=== PATIENT | female | born 1945 | race Caucasian/White ===

== ENCOUNTER 2021-04-03 12:57 | Outpatient (CLI) | payer MEDICARE, OTHER, SELFPAY ==
[2021-04-03 13:21] VITALS: BP 155/74; PULSE 73; RESP 14; TEMP 36.4; O2SAT 100; BMI 23.0
[2021-04-03 14:04] VITALS: BP 135/76; PULSE 72; RESP 16; TEMP 36.3; O2SAT 100
[2021-04-03 15:06] VITALS: BP 165/80; PULSE 65; RESP 16; TEMP 36.6; O2SAT 99
[2021-04-03 15:50] VITALS: BP 177/83; PULSE 72; RESP 16; TEMP 36.5; O2SAT 99
[2021-04-03] MEDS: Furosemide 20 MG/2 ML VIAL IV (16:19)
== END 2021-04-03 23:59 | disposition short-term general hospital (02) ==
PROVIDERS: PCP Internal Medicine; Referring Provider Internal Medicine Hematology & Oncology; Visit Provider Internal Medicine Hematology & Oncology
DX: N18.5 Chronic kidney disease, stage 5 (principal); D64.9 Anemia, unspecified
CPT/HCPCS: 36430; 86850; 86900; 86901; 86920; 86922; P9016; J1940

== ENCOUNTER 2023-02-08 17:52 | Observation (INO) | payer MEDICARE, OTHER, SELFPAY ==
[2023-02-08] VITALS (11 sets, daily range): BP systolic 159–217; BP diastolic 85–107; PULSE 73–100; RESP 16–25; TEMP 36.7–37.1; O2SAT 64–99; BMI 23.5; BMI 24.5
--- NOTE | 2023-02-08 18:47 | EKG12_ITS ---
Test Reason : CP Blood Pressure : / mmHG Vent. Rate : 092 BPM Atrial Rate : 000 BPM P-R Int : 000 ms QRS Dur : 082 ms QT Int : 384 ms P-R-T Axes : 000 026 -44 degrees QTc Int : 474 ms Atrial fibrillation with premature ventricular or aberrantly conducted complexes Septal infarct , age undetermined ST & T wave abnormality, consider inferior ischemia Abnormal ECG Confirmed by MK BOLAND, PEARL ([id number]), primer expeditor and drier ANTHONY HIDALGO ([id number]) on 02/19/2023 10:00:01 AM Referred By: BEN/ANIKET Confirmed By:PEARL TERRAZAS MD
--- NOTE | 2023-02-08 18:51 | EX.ED.DYSGE1 ---
HPI History of Present Illness Chief Complaint: Nausea/Vomiting/Diarrhea Detail of Chief Complaint: Nausea and vomiting, chest pain, abdominal pain Informant: patient Narrative Narrative: Patient presents with nausea and vomiting this been ongoing since this morning. She complains of pain across her chest as well as in her left upper quadrant. No fever noted. Patient has Zofran, however states she turned blue after taking in the past and has not taken anymore. She does have an anxiety pill that she states she takes when she gets nauseated. Previous evaluations and work-ups have been through [facility], the patient states she was not happy with care at [place] last time so she came to [place] today. [facility] Medical History (Updated 02/08/23 @ 21:[address] Sweta Isabel MD) Atrial fibrillation Chronic renal failure CVA (cerebral vascular accident) Dialysis patient GI bleed High cholesterol Hx of gastroesophageal reflux (GERD) Hypertension Kidney transplant pain Presence of Watchman left atrial appendage closure device Sick sinus syndrome Skin cancer Vascular dementia Home Medications amlodipine 10 mg tablet 10 mg PO DAILY 02/08/23 [History Last Taken Unknown] aspirin 81 mg tablet,delayed release (Adult Aspirin Regimen) 81 mg PO DAILY 02/08/23 [History Last Taken Unknown] carvedilol 25 mg tablet 25 mg PO Q12H HTN 02/08/23 [History Last Taken Unknown] furosemide 40 mg tablet 40 mg PO 02/08/23 [History Last Taken Unknown] hydralazine 25 mg tablet 25 mg PO Q8H EDEMA 02/08/23 [History Last Taken Unknown] mirtazapine 7.5 mg tablet 7.5 mg PO QHS STRESS 02/08/23 [History Last Taken Unknown] ondansetron HCl 4 mg tablet 4 mg PO Q8H PRN nausea and vomiting 02/08/23 [History Last Taken Unknown] Allergy/AdvReac Type Severity Reaction Status Date / Time Penicillins Allergy Mild hands blue Verified 02/08/23 17:54 Opioids - Morphine Analogues Allergy Anaphylaxis Verified 02/08/23 17:53 Surgical History (Updated 02/08/23 @ 21:[address] Sweta Isabel MD) H/O: hysterectomy History of hernia repair History of permanent cardiac pacemaker placement Hx of cholecystectomy Social History Smoking Status: Never smoker ROS ROS ED Constitutional Constitutional ED: Denies chills or fever(s) Eyes Eyes: Denies discharge from eye(s) ENT ENT ED: Denies discharge from eye(s), rhinorrhea or sore throat Cardiovascular Cardiovascular: Reports chest pain; Denies palpitations Respiratory/Chest Respiratory/Chest: Denies cough or dyspnea Gastrointestinal Gastrointestinal: Reports abdominal pain, diarrhea, nausea and vomiting Genitourinary Genitourinary ED: Reports urinary frequency; Denies difficulty urinating or dysuria Musculoskeletal Musculoskeletal: Denies back pain or extremity pain Integumentary Denies Abrasions or rash Neurologic Neurologic: Denies headache(s) or weakness Psychiatric Psychiatric: Denies anxiety or depression Allergic/Immunologic Allergic/Immunologic ED: Denies lip swelling or urticaria EXAM Physical Exam Const Vital Signs: 02/08/23 17:55 02/08/23 17:53 02/08/23 19:06 Temperature 98.8 F Temperature Source Temporal Pulse Rate 100 89 Respiratory Rate 18 22 H Respiratory Effort Short of Breath Blood Pressure 186/92 H 160/107 H Blood Pressure Mean 123 124 Pulse Ox 99 96 Oxygen Delivery Method Room Air Room Air 02/08/23 18:53 02/08/23 19:00 02/08/23 19:40 Temperature Temperature Source Pulse Rate 88 88 76 Respiratory Rate 17 16 20 H Respiratory Effort Blood Pressure 178/88 H 212/95 H 217/85 H Blood Pressure Mean 118 134 129 Pulse Ox 99 96 64 Oxygen Delivery Method Room Air Room Air Room Air 02/08/23 20:00 02/08/23 20:42 Temperature Temperature Source Pulse Rate 86 78 Respiratory Rate 20 H 21 H Respiratory Effort Blood Pressure 196/104 H 210/85 H Blood Pressure Mean 134 126 Pulse Ox 96 96 Oxygen Delivery Method Room Air Room Air Positive well nourished and well developed General Appearance ED: well developed HEENT Reports dry mucous membranes Mouth ED: Yes dry mucous membranes Mouth: dry mucous membranes Eyes EOMs intact bilaterally Chest Wall inspection of chest normal and palpation of chest normal Resp normal respiratory effort and clear to auscultation bilaterally Cardio Rhythm: abnormal rhythm irregularly irregular GI GI Narrative: Abdomen soft with mild tenderness in left upper quadrant. No guarding or rebound. Hypoactive bowel sounds. Neuro oriented x3 Neuro Narrative: No focal neurologic deficits. 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 Patient states she cannot take Zofran because it makes her turn blue. She was given a dose of Phenergan and a small IV fluid bolus as she felt dehydrated. EKG obtained to evaluate for cardiac arrhythmia/ischemia. Chest x-ray obtained to evaluate for acute lung pathology, cardiac size, or mediastinal abnormality. Labwork obtained to evaluate for leukocytosis, anemia, and electrolyte derangement. Urinalysis obtained to evaluate for infection/hematuria. History & Record Review Discussion w/independent historian: Patient and Family Lab Data Attestation: I reviewed the patient's lab results. Labs: Laboratory Results - last 24 hr 02/08/23 02/08/23 18:20 19:47 WBC 4.6 RBC 3.72 L Hgb 11.4 L Hct 35.4 L MCV 95.2 MCH 30.6 MCHC 32.2 RDW Std Deviation 52.0 H RDW Coeff of Alexus 14.9 H Plt Count 151 MPV 12.2 H Immature Gran % (Auto) 0.400 Neut % (Auto) 75.6 H Lymph % (Auto) 16.6 L [place] % (Auto) 6.8 Eos % (Auto) 0.2 Baso % (Auto) 0.4 Absolute Neuts (auto) 3.5 Absolute Lymphs (auto) 0.76 L Nucleated RBC % 0 Sodium 133 L Potassium 3.5 Chloride 96 L Carbon Dioxide 29.0 Anion Gap 8 BUN 29 H Creatinine 3.85 H Est GFR (MDRD) Af Amer 15 L Est GFR (MDRD) Non-Af 12 L BUN/Creatinine Ratio 7.5 L Glucose 106 Calcium 9.2 Total Bilirubin 0.70 Direct Bilirubin 0.24 AST 19 ALT 13 Alkaline Phosphatase 94 Troponin I High Sens 22 Total Protein 7.5 Albumin 3.8 Globulin 3.7 Lipase 32 Urine Color Yellow Urine Clarity Clear Urine pH 8.0 Ur Specific [place] 1.010 Urine Protein 100 H Urine Glucose (UA) Normal Urine Ketones 5 H Urine Occult Blood Negative Urine Nitrite Negative Urine Bilirubin Negative Urine Urobilinogen Normal Ur Leukocyte Esterase 25 H Urine RBC 0 SEEN Urine WBC 0-5 SEEN Ur Squamous Epith Cells 0 SEEN Urine Bacteria 0 SEEN Urine Mucus 0 SEEN Radiography Chest X-Ray - ED: 1 View, Read by ED Physician, Chronic Changes and No Infiltrates Diagnostic Testing: Clinical Impression(s) from Imaging Studies Chest X-Ray 02/08/23 19:05 IMPRESSION: Nonacute portable x-ray examination of the chest. Electronically Signed: Bishop Desai MD ([place]) at 19:28 EST , EKG Initial EKG: Attestation: I personally reviewed and interpreted this EKG as follows: Interpretation: Atrial Fibrillation (Atrial fibrillation at 92 bpm. Occasional PVCs. No acute ischemia.) Treatment and Re-Evaluation :: CBC was normal white count 4.6 with 75% neutrophils. Hemoglobin is 11.4. Chemistry studies reveal a sodium of 133. Potassium is normal 3.5. BUN is 29 and creatinine is 3.85. LFTs and lipase are normal. Troponin is normal at 22. Urinalysis reveals no evidence of infection. EKG is atrial fibrillation with no acute ischemia. Chest x-ray per my interpretation reveals chronic changes with no focal infiltrate. Patient reported no significant proved in her nausea with Phenergan. She was given a dose of Reglan with a small dose of Benadryl. At this time she still states that her nausea is not improved. Family does not feel they can care for her at home with her ongoing nausea and vomiting. I will speak with the hospitalist regarding admission for treatment of intractable vomiting. Patient's blood pressure did increase here up to 210/85. She was given a dose of hydralazine and repeat pressure is currently 186/96. This will be monitored and a second dose of hydralazine will be given if needed. Patient is due for her evening medications in approximately 1 hour. Discharge Plan Dx/Rx/DC Orders Clinical Impression: Intractable vomiting Disposition Disposition: Acute Care Hospital [facility]
--- NOTE | 2023-02-08 19:05 | RAD_ITS ---
STUDY: X-RAY CHEST REASON FOR EXAM: Female, 77 years old. cp TECHNIQUE: Single AP portable view of the chest. COMPARISON: None. FINDINGS: EKG leads project over the chest. Right jugular dialysis catheter with tip overlying the cavoatrial junction. Two lead cardiac conduction device is seen via the left subclavian vein with lead tips projecting over the right atrium and right ventricle, respectively. EKG leads project over the chest. Coarsened interstitial lung markings without focal airspace disease. There is no demonstrated pleural abnormality. There is mild cardiac enlargement. Left atrial appendage occlusion device. Normal visualized pulmonary arteries. There is atherosclerotic calcification of the aortic arch with tortuosity. There is demineralization of the osseous structures. Normal visualized ribs, clavicles, and shoulders. There is no demonstrated abnormality of the visualized soft tissue structures of the upper abdomen. RAD/Chest 1 View (Portable) IMPRESSION: Nonacute portable x-ray examination of the chest. Electronically Signed: Bishop Desai MD ([place]) at 19:28 EST Reading Location ID and State: [facility] / [place] , Service support ,
--- NOTE | 2023-02-08 19:05 | NURSING ---
NO OLD EKG
[2023-02-08 19:14] LABS: Absolute Lymphocyte Count 0.76 X10^3/uL (0.83-4.51); Absolute Neutrophil Count 3.5 X10^3/uL (2.0-7.7); Basophil# 0.02 X10^3/uL; Basophil% 0.4 % (0-1); Eosinophil# 0.01 X10^3/uL; Eosinophils% 0.2 % (0-5); Hematocrit 35.4 % (37-47); Hemoglobin 11.4 g/dL (12.0-15.0); Lymphocyte # 0.76 X10^3/ul (0.83-4.51); Lymphocyte % 16.6 % (19-41); Mean Corp Hgb Conc 32.2 g/dL (32-36); Mean Corpuscular Hgb 30.6 pg (27.0-32.0); Mean Corpuscular Volume 95.2 fL (81-99); Mean Platelet Vol. 12.2 fl (6.2-12.0); Monocyte# 0.31 X10^3/uL; Monocyte% 6.8 % (0-10); NRBC Flagged by Analyzer 0 % (0-5); Neutrophil # 3.45 X10^3/uL (2.7-7.7); Neutrophil % 75.6 % (47-70); Platelet Count 151 K/mm3 (150-450); RBC Distribution Width CV 14.9 % (11.6-14.6); Red Blood Count 3.72 M/mm3 (4.2-5.4); White Blood Count 4.6 K/mm3 (4.4-11.0)
[2023-02-08] MEDS: 0.9% Normal Saline (500mL Bag) 500 ML 1000 ML IV (19:21)
[2023-02-08] MEDS: proMETHazine 25 MG/ML Syringe 6.25 MG IM (19:21)
[2023-02-08 19:35] LABS: AST(SGOT) 19 U/L (15-37); Alanine Aminotransfer ALT/SGPT 13 U/L (13-56); Albumin, Serum 3.8 g/dL (3.2-5.0); Alkaline Phosphatase 94 U/L (45-117); Anion Gap 8 (5-15); BUN 29 mg/dL (7-18); BUN/Creat Ratio 7.5 RATIO (10-20); Bilirubin, Direct 0.24 mg/dL (0.00-0.30); Calcium,Total 9.2 mg/dL (8.5-10.1); Chloride 96 mmol/L (98-107); Creatinine, Serum 3.85 mg/dL (0.55-1.02); EST Glomerular Filtration Rate 12 mL/min (>60); Est Glom Filt Rate - Afr Amer 15 mL/min (>60); Globulin 3.7 g/dL (2.2-4.2); Glucose 106 mg/dL (74-106); Lipase 32 U/L (13-75); Potassium 3.5 mmol/L (3.5-5.1); Protein, Total 7.5 g/dL (6.4-8.2); Sodium Level 133 mmol/L (136-145); Troponin-I HS 22 pg/mL (3.0-54.0)
[2023-02-08 19:55] LABS: Bacteria 0 SEEN /hpf (None Seen); Mucous, Urine 0 SEEN /hpf (<or=2+); Red Blood Cells-Urine 0 SEEN /hpf (0-5); Squamous Epithelial Cells - UA 0 SEEN /hpf (5-10)
[2023-02-08 20:06] LABS: Color, Urine Yellow (Yellow); Glucose, Dipstick Normal (Normal); Ketone-Dipstick 5 mg/dl (Negative); Leukocyte Esterase-Dipstick 25 /ul (Negative); Nitrite-Dipstick Negative (Negative); Occult Blood-Urine Negative /ul (Negative); Protein-Dipstick 100 mg/dl (Negative); Urine Bilirubin Dipstick Negative (Negative); Urine Clarity Clear (Clear); Urine Urobilinogen Normal (Normal)
[2023-02-08 20:15] LABS: White Blood Cells 0-5 SEEN /hpf (0-5)
[2023-02-08] MEDS: DiphenhydrAMINE 50 MG/ML Syringe 12.5 MG IV (20:34)
[2023-02-08] MEDS: Metoclopramide 10 MG/2 ML Vial 5 MG IV (20:34)
[2023-02-08] MEDS: hydrALAZINE 20 MG/ML Vial 10 MG IV (20:35)
[2023-02-08] MEDS: hydrALAZINE 20 MG/ML Vial IV (21:52)
[2023-02-08] MEDS: fentaNYL 100 MCG/2 ML Ampul 25 MCG IV (22:23)
--- NOTE | 2023-02-08 22:56 | HP.PCM.HOS_ITS ---
[facility] - General General Date of Admission: 02/08/23 Date of Service: 02/08/23 Chief Complaint: Abdominal pain, nausea, vomiting and diarrhea HPI Narrative JOVANY HARRIS, is a 77 F with a past medical history of essential hypertension, hyperlipidemia, remote history of renal transplant from her son approximately 26 years ago, end-stage renal disease on hemodialysis (M-W-F) followed by Dr. Hammonds of the nephrology service with her dialysis access in her right upper chest, history of atrial fibrillation; status post Watchman left atrial appendage closure device, history of arrhythmia; status post permanent pacemaker placement, history of CVA, history of hysterectomy, history of cholecystectomy, history of hernia repair, history of GERD, history of GI bleed, history of vascular dementia, history of skin cancer, osteoarthritis, history of severe COVID-19 treated at [facility] for 5-1/2 weeks about a year ago, recent admission to [facility] 2 months ago with UTI and E. coli food poisoning and history of allergy to Zofran with patient reporting it makes her turn blue and be unable to breathe who presents to [facility] complaining of abdominal pain, nausea, vomiting and diarrhea. Ms. Harris reports her symp toms began while on Friday, February 07, 2023 with the abrupt onset of nausea, vomiting with bilious emesis and left upper quadrant pain. Then earlier today on the morning of February 08, 2023 with severe 10 out of 10, sharp, excruciating pain under her left rib cage into her left upper quadrant and then radiated across her entire abdomen and chest. She explains she has had this pain worked up in the past few years with no clear diagnosis up to this point - which is very frustrating to her because it is recurrent and intolerable. She also admits to severe associated anxiety with nausea and multiple episodes of bilious emesis. She also admits to nonbloody diarrhea. After arriving on the floor she was noted to have a CT scan of the abdomen pelvis positive for ~1.7 cm common bile duct dilatation suspicious for a common bile duct stone and/or cholestasis with microlithiasis (with MRCP relatively contraindicated due to permanent pacemaker) complicated by severe left upper quadrant pain with intractable nausea, vomiting and diarrhea with a highly elevated blood pressure of 217/85 mmHg present on admission consistent with hypertensive urgency requiring multiple doses of IV hydralazine she was then admitted to the general medical floor under observation status for ongoing care for a stay that is expected to be less than 48 hours. [facility] Medical History Atrial fibrillation Chronic renal failure CVA (cerebral vascular accident) Dialysis patient GI bleed High cholesterol Hx of gastroesophageal reflux (GERD) Hypertension Kidney transplant pain Presence of Watchman left atrial appendage closure device Sick sinus syndrome Skin cancer Vascular dementia Home Medications aspirin 81 mg tablet,delayed release (Adult Aspirin Regimen) 81 mg PO DAILY 02/08/23 [History Last Taken 02/08/23] calcium citrate 250 mg calcium-vitamin D3 5 mcg (200 unit) tablet 1 tab PO DAILY 02/08/23 [History Last Taken 02/07/23] carvedilol 25 mg tablet 25 mg PO Q12H HTN 02/08/23 [History Last Taken 02/07/23] furosemide 40 mg tablet 40 mg PO DAILY 02/08/23 [History Last Taken 02/08/23] hydralazine 25 mg tablet 75 mg PO TID EDEMA 02/08/23 [History Last Taken 02/08/23] mirtazapine 7.5 mg tablet 7.5 mg PO QHS STRESS 02/08/23 [History Last Taken Unknown] omeprazole-sodium bicarbonate See Rx Instructions .Route .COMPLEX 02/08/23 [History Last Taken 02/07/23] ondansetron HCl 4 mg tablet 4 mg PO Q8H PRN nausea and vomiting 02/08/23 [History Last Taken 02/08/23] pantoprazole 40 mg tablet,delayed release 40 mg PO DAILY 02/08/23 [History Last Taken Unknown] promethazine 12.5 mg tablet 12.5 mg PO Q6H PRN nausea and vomiting 02/08/23 [History Last Taken Unknown] Allergy/AdvReac Type Severity Reaction Status Date / Time amlodipine Allergy Intermediate turns blue Verified 02/08/23 21:54 acetaminophen Allergy Mild unknown Verified 02/08/23 21:36 [From Panlor (hydrocodone-acetamin)] ascorbic acid Allergy Mild unknown Verified 02/08/23 21:36 [From Airborne (ascorbate sodium)] caffeine Allergy Mild unknown Verified 02/08/23 21:36 Gosper And Derivatives Allergy Mild unknown Verified 02/08/23 21:36 codeine Allergy Mild unknown Verified 02/08/23 21:36 desloratadine Allergy Mild unknown Verified 02/08/23 21:36 glutamine Allergy Mild unknown Verified 02/08/23 21:36 [From Airborne (ascorbate sodium)] herbal complex no.124 Allergy Mild unknown Verified 02/08/23 21:36 [From Airborne (ascorbate sodium)] hydrocodone Allergy Mild unknown Verified 02/08/23 21:36 hydromorphone Allergy Mild unknown Verified 02/08/23 21:36 lysine HCl Allergy Mild unknown Verified 02/08/23 21:36 [From Airborne (ascorbate sodium)] morphine Allergy Mild unknown Verified 02/08/23 21:36 moxifloxacin Allergy Mild unknown Verified 02/08/23 21:36 multivitamin with minerals Allergy Mild unknown Verified 02/08/23 21:36 [From Airborne (ascorbate sodium)] nabumetone Allergy Mild unknown Verified 02/08/23 21:36 oxycodone Allergy Mild unknown Verified 02/08/23 21:36 penicillin G Allergy Mild unknown Verified 02/08/23 21:36 Penicillins Allergy Mild hands blue Verified 02/08/23 17:54 propoxyphene Allergy Mild unknown Verified 02/08/23 21:36 [From Margesic (propoxyphene)] tramadol Allergy Mild unknown Verified 02/08/23 21:36 amiodarone Allergy Unknown unknown Verified 02/08/23 21:36 Opioids - Morphine Analogues Allergy Anaphylaxis Verified 02/08/23 17:53 Surgical History H/O: hysterectomy History of hernia repair History of permanent cardiac pacemaker placement Hx of cholecystectomy Social History Smoking Status: Never smoker ROS ROS Narrative Review of systems: Constitutional: Patient denies fever chills ENT: Patient denies runny nose, sore throat or discharge from eyes Cardiovascular: Patient admits to chest pain radiating up from her abdomen but denies palpitations Respiratory: Patient denies shortness of breath or cough Gastrointestinal: Patient admits to abdominal pain, nausea, vomiting and diarrhea Genitourinary: Patient admits to urinary frequency but denies dysuria Musculoskeletal: Patient denies back pain, neck pain or pain in extremities Integumentary: Patient denies abrasions or rash Neurologic: Patient denies headache or focal neurologic deficits Psychiatric: Patient denies depression but is anxious Allergic: Patient denies lip swelling or urticaria 14 point review systems otherwise negative except for positives noted above in HPI. Vital Signs Vital Signs Vital Signs: 02/08/23 17:55 02/08/23 17:53 02/08/23 19:06 Temperature 98.8 F Temperature Source Temporal Pulse Rate 100 89 Respiratory Rate 18 22 H Respiratory Effort Short of Breath Blood Pressure 186/92 H 160/107 H Blood Pressure Mean 123 124 Pulse Ox 99 96 Oxygen Delivery Method Room Air Room Air 02/08/23 18:53 02/08/23 19:00 02/08/23 19:40 Temperature Temperature Source Pulse Rate 88 88 76 Respiratory Rate 17 16 20 H Respiratory Effort Blood Pressure 178/88 H 212/95 H 217/85 H Blood Pressure Mean 118 134 129 Pulse Ox 99 96 64 Oxygen Delivery Method Room Air Room Air Room Air 02/08/23 20:00 02/08/23 20:42 02/08/23 21:30 Temperature Temperature Source Pulse Rate 86 78 81 Respiratory Rate 20 H 21 H 24 H Respiratory Effort Blood Pressure 196/104 H 210/85 H 159/102 H Blood Pressure Mean 134 126 121 Pulse Ox 96 96 95 Oxygen Delivery Method Room Air Room Air 02/08/23 21:49 02/08/23 22:26 Temperature 98.1 F Temperature Source Pulse Rate 95 84 Respiratory Rate 18 25 H Respiratory Effort Blood Pressure 172/97 H 172/94 H Blood Pressure Mean 122 120 Pulse Ox 95 95 Oxygen Delivery Method Room Air Weight Weight: 117 lb 4.575 oz Body Mass Index (BMI) 24.5 Physical Exam Const alert, oriented x3 and average body habitus Constitutional Narrative: Patient appears anxious and in [id number] distress. General Appearance: cooperative HEENT normocephalic, head/scalp atraumatic, hearing grossly normal bilaterally, moist oral mucous membranes and oropharynx normal Eyes PERRL, EOMs intact bilaterally and conjunctivae normal Neck no lymphadenopathy, supple and no JVD Resp normal respiratory effort, no retractions, no use of accessory muscles and clear to auscultation bilaterally Cardio Cardio Narrative: Irregularly irregular at 92 bpm GI normal to inspection, nondistended, normoactive bowel sounds, soft to palpation and non-distended GI Narrative: Patient mildly tender in the left upper quadrant. Extremity normal to inspection, full ROM and no clubbing, cyanosis or edema Neuro oriented x3, CN's II-XII intact bilaterally, moves all extremities and no focal motor deficits Sensorium / Orientation: awake, alert, oriented to person, oriented to place and oriented to time Speech: speech normal Motor Exam: strength 5/5 throughout Psych Mood & Affect: anxious Results Medical Records Data Attestation: I reviewed the patient's medical records Lab / Micro Data Attestation: I reviewed the patient's lab results. Lab results narrative: [facility] Imaging Services [address] [place] [address] Abdomen/Pelvis without Cont MR#: [id number] Acct: [id number] Name: JOVANY HARRIS Rep #: [id number] : 1945 F 77 From: John Shine MD PCP: Dr. Bradley Hardin MD Status: ADM ABDULAZIZ Study: Abdomen/Pelvis without Cont Date of Exam: 02/08/23 Exam# [id number] Ordering Dr: Chi Glez DO EXAM: CT ABDOMEN AND PELVIS WITHOUT INTRAVENOUS CONTRAST CLINICAL INDICATION: Left upper quadrant pain with n/v and diarrhea TECHNIQUE: Helically acquired images were obtained of the abdomen and pelvis without intravenous contrast. This CT exam was performed using one or more of the following dose reduction techniques: automated exposure control, adjustment of the mA and/or kV according to patient size, and/or use of iterative reconstruction technique. RADIATION DOSE: CTDIvol = 6.22 mGy, DLP = 279.59 mGy-cm COMPARISON: No relevant prior studies available. FINDINGS: LOWER THORAX: Bibasilar subsegmental atelectasis. No cardiomegaly. No significant pericardial effusion. ABDOMEN: LIVER: Unremarkable. Homogeneous. GALLBLADDER AND BILE DUCTS: The gallbladder is not identified and may be contracted or surgically absent. Dilation of the common bile duct up to 1.7 cm, before tapering in the pancreatic head. PANCREAS: No inflammation around the pancreas. SPLEEN: Unremarkable. Normal size without focal cystic or solid mass. ADRENALS: Unremarkable. No nodules. KIDNEYS AND URETERS: Severe atrophy of the [place] kidneys. Transplant kidney in the right pelvis. No obstructive changes. STOMACH AND BOWEL: Diverticular disease of the colon but no diverticulitis. No stomach or bowel distention. PELVIS: APPENDIX: No evidence of acute appendicitis. BLADDER: Unremarkable. REPRODUCTIVE: Unremarkable as visualized. No mass. ABDOMEN and PELVIS: INTRAPERITONEAL SPACE: Unremarkable. No ascites or other fluid collection. No free air. BONES/JOINTS: Degenerative changes of the spine. No suspicious lytic or blastic abnormality. SOFT TISSUES: Unremarkable. No discrete abdominal or pelvic wall hernia. VASCULATURE: Severe atherosclerotic changes of the abdominal aorta and its major branches without aneurysm. LYMPH NODES: Unremarkable. No enlarged lymph nodes. CT/Abdomen/Pelvis without Cont IMPRESSION: 1. Dilation of the common bile duct up to 1.7 cm, before tapering in the pancreatic head. No obstructing stone or mass identified. Correlate for any laboratory evidence of biliary obstruction and consider follow-up with MRCP. 2. Transplant kidney in the right pelvis. No obstructive changes. 3. Diverticular disease of the colon but no diverticulitis. Electronically Signed: John Shine MD at 1:43 EST , CC: Dr. Bradley Hardin MD; Dr. Chi Glez DO ~ Special Education Pres[employer] Teacher: 02/08/23 18:20 02/08/23 18:20 Labs: Laboratory Results - last 24 hr 02/08/23 18:20: WBC 4.6, RBC 3.72 L, Hgb 11.4 L, Hct 35.4 L, MCV 95.2, MCH 30.6, MCHC 32.2, RDW Std Deviation 52.0 H, RDW Coeff of Alexus 14.9 H, Plt Count 151, MPV 12.2 H, Immature Gran % (Auto) 0.400, Neut % (Auto) 75.6 H, Lymph % (Auto) 16.6 L, [place] % (Auto) 6.8, Eos % (Auto) 0.2, Baso % (Auto) 0.4, Absolute Neuts (auto) 3.5, Absolute Lymphs (auto) 0.76 L, Nucleated RBC % 0, Sodium 133 L, Potassium 3.5, Chloride 96 L, Carbon Dioxide 29.0, Anion Gap 8, BUN 29 H, Creatinine 3.85 H, Est GFR (MDRD) Af Amer 15 L, Est GFR (MDRD) Non-Af 12 L, BUN/Creatinine Ratio 7.5 L, Glucose 106, Calcium 9.2, Total Bilirubin 0.70, Direct Bilirubin 0.24, AST 19, ALT 13, Alkaline Phosphatase 94, Troponin I High Sens 22, Total Protein 7.5, Albumin 3.8, Globulin 3.7, Lipase 32 02/08/23 19:47: Urine Color Yellow, Urine Clarity Clear, Urine pH 8.0, Ur Specific [place] 1.010, Urine Protein 100 H, Urine Glucose (UA) Normal, Urine Ketones 5 H, Urine Occult Blood Negative, Urine Nitrite Negative, Urine Bilirubin Negative, Urine Urobilinogen Normal, Ur Leukocyte Esterase 25 H, Urine RBC 0 SEEN, Urine WBC 0-5 SEEN, Ur Squamous Epith Cells 0 SEEN, Urine Bacteria 0 SEEN, Urine Mucus 0 SEEN Micro: [facility] Imaging Services [address] [place] [address] Chest 1 View (Portable) MR#: [id number] Acct: [id number] Name: JOVANY HARRIS Rep #: [id number] : 1945 F 77 From: Bishop Desai MD PCP: Dr. Bradley Hardin MD Status: REG ER Study: Chest 1 View (Portable) Date of Exam: 02/08/23 Exam# [id number] Ordering Dr: Sweta Isabel MD STUDY: X-RAY CHEST REASON FOR EXAM: Female, 77 years old. cp TECHNIQUE: Single AP portable view of the chest. COMPARISON: None. FINDINGS: EKG leads project over the chest. Right jugular dialysis catheter with tip overlying the cavoatrial junction. Two lead cardiac conduction device is seen via the left subclavian vein with lead tips projecting over the right atrium and right ventricle, respectively. EKG leads project over the chest. Coarsened interstitial lung markings without focal airspace disease. There is no demonstrated pleural abnormality. There is mild cardiac enlargement. Left atrial appendage occlusion device. Normal visualized pulmonary arteries. There is atherosclerotic calcification of the aortic arch with tortuosity. There is demineralization of the osseous structures. Normal visualized ribs, clavicles, and shoulders. There is no demonstrated abnormality of the visualized soft tissue structures of the upper abdomen. RAD/Chest 1 View (Portable) IMPRESSION: Nonacute portable x-ray examination of the chest. Electronically Signed: Bishop Desai MD (Brooks) at 19:28 EST , CC: Dr. Bradley Hardin MD; Dr. Sweta Isabel MD ~ [employer] Education Pres[employer] Teacher: Signed Radiology Impression Chest X-Ray 02/08/23 19:05 IMPRESSION: Nonacute portable x-ray examination of the chest. Electronically Signed: Bishop Desai MD (Brooks) at 19:28 EST , Assessment & Plan Assessment/Plan (1) Abdominal pain: QUALIFIERS: Abdominal location: left upper quadrant Qualified Code(s): R10.12 - Left upper quadrant pain (2) Hypertensive urgency: (3) Intractable vomiting: (4) End-stage renal disease on hemodialysis: PLAN: Plan 1. Severe Left upper quadrant pain radiating across abdomen and into the chest with intractable nausea, vomiting and diarrhea with CT positive for ~1.7 cm CBD dilatation suspicious for common bile duct stone and/or cholestasis with microlithiasis - Admit to general medical floor under observation status. Check ultrasound of the gallbladder and biliary tree with possible stone or cholestasis as the likely underlying cause of her pain. Place on enteric precautions and check stool studies: C. difficile colitis PCR A&B toxin, stool ova and parasites, fecal WBCs and Hemoccult stools. Give Phenergan 25 mg IM every 6 hours as needed for nausea and vomiting. Finally, we will consult the riding silks custodian on-call to see this patient in the a.m. for consideration regarding possible ERCP (since MRCP likely cannot be done due to permanent pacemaker) with help appreciated in advance. 2. Hypertensive urgency with blood pressure of 217/85 mm refractory to initial treatment with IV hydralazine complicating #1 - Continue home medications for blood pressure and also give IV hydralazine as needed for systolic blood pressure greater than 160 mmHg. 3. End-stage renal disease on hemodialysis (Zlfeor-Ohecbrmjv-Pruifj) followed by Dr. Hammonds of the nephrology service in spite of previous renal transplant from her son 26 years ago compounding #1 & #2 - Continue supportive care at this time. If patient is still here on Friday without significant improvement nephrology will need to be consulted for hemodialysis to be resumed as an inpatient. 4. History of atrial fibrillation; with Watchman device in place - Noted. 5. History of arrhythmia; status post permanent pacemaker - Stable. 6. History of CVA with documented vascular dementia - Stable. 7. DVT prophylaxis - Heparin 5,000 units SQ 3 times daily. Total time: Approximately 70 minutes. Charges/Coding Visit Charges OBSV E&M: [id number] Observ/hosp same date L2
--- NOTE | 2023-02-08 23:37 | CT_ITS ---
EXAM: CT ABDOMEN AND PELVIS WITHOUT INTRAVENOUS CONTRAST CLINICAL INDICATION: Left upper quadrant pain with n/v and diarrhea TECHNIQUE: Helically acquired images were obtained of the abdomen and pelvis without intravenous contrast. This CT exam was performed using one or more of the following dose reduction techniques: automated exposure control, adjustment of the mA and/or kV according to patient size, and/or use of iterative reconstruction technique. RADIATION DOSE: CTDIvol = 6.22 mGy, DLP = 279.59 mGy-cm COMPARISON: No relevant prior studies available. FINDINGS: LOWER THORAX: Bibasilar subsegmental atelectasis. No cardiomegaly. No significant pericardial effusion. ABDOMEN: LIVER: Unremarkable. Homogeneous. GALLBLADDER AND BILE DUCTS: The gallbladder is not identified and may be contracted or surgically absent. Dilation of the common bile duct up to 1.7 cm, before tapering in the pancreatic head. PANCREAS: No inflammation around the pancreas. SPLEEN: Unremarkable. Normal size without focal cystic or solid mass. ADRENALS: Unremarkable. No nodules. KIDNEYS AND URETERS: Severe atrophy of the [place] kidneys. Transplant kidney in the right pelvis. No obstructive changes. STOMACH AND BOWEL: Diverticular disease of the colon but no diverticulitis. No stomach or bowel distention. PELVIS: APPENDIX: No evidence of acute appendicitis. BLADDER: Unremarkable. REPRODUCTIVE: Unremarkable as visualized. No mass. ABDOMEN and PELVIS: INTRAPERITONEAL SPACE: Unremarkable. No ascites or other fluid collection. No free air. BONES/JOINTS: Degenerative changes of the spine. No suspicious lytic or blastic abnormality. SOFT TISSUES: Unremarkable. No discrete abdominal or pelvic wall hernia. VASCULATURE: Severe atherosclerotic changes of the abdominal aorta and its major branches without aneurysm. LYMPH NODES: Unremarkable. No enlarged lymph nodes. CT/Abdomen/Pelvis without Cont IMPRESSION: 1. Dilation of the common bile duct up to 1.7 cm, before tapering in the pancreatic head. No obstructing stone or mass identified. Correlate for any laboratory evidence of biliary obstruction and consider follow-up with MRCP. 2. Transplant kidney in the right pelvis. No obstructive changes. 3. Diverticular disease of the colon but no diverticulitis. Electronically Signed: John Shine MD at 1:43 EST ,
[2023-02-09 00:24] VITALS: BP 169/94; PULSE 73
[2023-02-09] MEDS: 0.9% Saline Lock 10 ML Syringe IV (00:24)
[2023-02-09] MEDS: Carvedilol 25 MG Tablet PO ×2 (00:24→10:21)
[2023-02-09] MEDS: hydrALAZINE 25 MG Tablet 75 MG PO ×2 (00:24→06:07)
[2023-02-09 05:52] LABS: Lipase 28 U/L (13-75)
[2023-02-09 06:00] VITALS: BP 162/81; PULSE 86; RESP 18; TEMP 37.2; O2SAT 94
[2023-02-09 06:07] VITALS: BP 162/81; PULSE 86
[2023-02-09 07:21] VITALS: BP 127/67; PULSE 52; RESP 16; TEMP 37.4; O2SAT 95
--- NOTE | 2023-02-09 07:34 | PN.HOSP_ITS ---
Reason for Visit Reason for Visit: Diagnoses Hypertensive urgency (02/08/23) Other specified diseases of biliary tract (02/08/23) End stage renal disease (02/08/23) Left upper quadrant pain (02/08/23) Unspecified abdominal pain (02/08/23) Vomiting, unspecified (02/08/23) Dependence on renal dialysis (02/08/23) Objective Data Objective Data Vital Signs: Vital Signs Temp Pulse Resp BP Pulse Ox O2 Del Method 99.4 F H 52 L 16 127/67 H 95 Room Air 02/09/23 07:21 02/09/23 07:21 02/09/23 07:21 02/09/23 07:21 02/09/23 07:21 02/09/23 07:21 Oxygen Delivery Method Room Air Weight: 117 lb 4.575 oz Body Mass Index (BMI) 24.5 Intake & Output: Intake and Output for Last 24 Hours 02/07/23 02/08/23 02/09/23 23:59 23:59 23:59 Intake Total 500 / 500 100 / 100 Balance 500 / 500 100 / 100 Lab / Micro Data 02/08/23 18:20 02/08/23 18:20 Labs: Laboratory Results - last 24 hr 02/08/23 18:20: WBC 4.6, RBC 3.72 L, Hgb 11.4 L, Hct 35.4 L, MCV 95.2, MCH 30.6, MCHC 32.2, RDW Std Deviation 52.0 H, RDW Coeff of Alexus 14.9 H, Plt Count 151, MPV 12.2 H, Immature Gran % (Auto) 0.400, Neut % (Auto) 75.6 H, Lymph % (Auto) 16.6 L, [place] % (Auto) 6.8, Eos % (Auto) 0.2, Baso % (Auto) 0.4, Absolute Neuts (auto) 3.5, Absolute Lymphs (auto) 0.76 L, Nucleated RBC % 0, Sodium 133 L, Potassium 3.5, Chloride 96 L, Carbon Dioxide 29.0, Anion Gap 8, BUN 29 H, Creatinine 3.85 H, Est GFR (MDRD) Af Amer 15 L, Est GFR (MDRD) Non-Af 12 L, BUN/Creatinine Ratio 7.5 L, Glucose 106, Calcium 9.2, Total Bilirubin 0.70, Direct Bilirubin 0.24, AST 19, ALT 13, Alkaline Phosphatase 94, Troponin I High Sens 22, Total Protein 7.5, Albumin 3.8, Globulin 3.7, Lipase 32 02/08/23 19:47: Urine Color Yellow, Urine Clarity Clear, Urine pH 8.0, Ur Specific [place] 1.010, Urine Protein 100 H, Urine Glucose (UA) Normal, Urine Ketones 5 H, Urine Occult Blood Negative, Urine Nitrite Negative, Urine Bilirubin Negative, Urine Urobilinogen Normal, Ur Leukocyte Esterase 25 H, Urine RBC 0 SEEN, Urine WBC 0-5 SEEN, Ur Squamous Epith Cells 0 SEEN, Urine Bacteria 0 SEEN, Urine Mucus 0 SEEN 02/09/23 04:30: Lipase 28 Radiography Diagnostic Testing: Radiology Impression Chest X-Ray 02/08/23 19:05 IMPRESSION: Nonacute portable x-ray examination of the chest. Electronically Signed: Bishop Desai MD (Brooks) at 19:28 EST , Abdomen/Pelvis CT 02/08/23 23:37 IMPRESSION: 1. Dilation of the common bile duct up to 1.7 cm, before tapering in the pancreatic head. No obstructing stone or mass identified. Correlate for any laboratory evidence of biliary obstruction and consider follow-up with MRCP. 2. Transplant kidney in the right pelvis. No obstructive changes. 3. Diverticular disease of the colon but no diverticulitis. Electronically Signed: John Shine MD at 1:43 EST , Physical Exam Narrative Patient is stated that after dialysis she had loose liquid bowel movement 1 large and then Friday she had little and then diarrhea resolved. She also had vomiting after dialysis but that surgical and she attributes to iron treatment given during dialysis. Patient also had nausea and vomiting yesterday for which it seems he was given IV Zofran which started her blue with reaction. She states she is allergic to Zofran. She complained her pain was around left rib but then she is states she had pain over the left pelvic bone where she has hernia. She denies any pain tenderness over right upper quadrant or epigastric region. She had cholecystectomy. Her blood pressure was also very high. 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 Her blood pressure was high systolic 200 and has been high for last several weeks and is hard to control. Her typewriter repairer is Dr. Hammonds. Physical exam General: Alert, Oriented x3, Cooperative HEENT: Atraumatic, PERRLA, EOMI, Normocephalic Oral: Oral mucosa moist. No Gingival or Mucosal Lesions/ Ulcerations Neck: Supple, No JVD, Negative Carotid Bruits Lungs: Air entry diminished in bilateral lung bases. No crepitation/rhonchi Cardiovascular: Regular rate, Regular Rhythm, Normal S1, Normal S2, grade 4/6 systolic and diastolic murmur over right second ICS.Pacemaker over left subclavicular region. Abdomen: Bowel Sounds Present, Soft, Non Tender, Non-Distended. No palpable murmur. Right subcostal and lower midline incision for cholecystectomy and hysterectomy respectively. No palpable hernia mass or obstructed hernia. : Makes urine. On dialysis through right permacath. No renal angle tenderness. No suprapubic tenderness. Extremities: No edema, Capillary Refill Less than 3 Seconds Skin: No rashes, No breakdown Musculoskeletal: No Tenderness to Palpation of Joints or Extremities. Degenerative arthritis of lower extremities, knees and hip joints. Neurological: Cranial nerves II-XII grossly intact, DTR 2+/4. No acute focal neurological deficit. Psych/Mental Status: Normal Affect, Appropriate. Assessment & Plan Assessment/Plan (1) Abdominal pain: QUALIFIERS: Abdominal location: left upper quadrant Qualified Code(s): R10.12 - Left upper quadrant pain (2) Hypertensive urgency: (3) Intractable vomiting: (4) End-stage renal disease on hemodialysis: PLAN: Plan 1. Severe Left upper quadrant pain radiating across abdomen and into the chest with intractable nausea, vomiting and diarrhea with CT positive for ~1.7 cm CBD dilatation suspicious for common bile duct stone and/or cholestasis with microlithiasis - Admit to general medical floor under observation status. Check ultrasound of the gallbladder and biliary tree with possible stone or cholestasis as the likely underlying cause of her pain. Place on enteric precautions and check stool studies: C. difficile colitis PCR A&B toxin, stool ova and parasites, fecal WBCs and Hemoccult stools. Give Phenergan 25 mg IM every 6 hours as needed for nausea and vomiting. Finally, we will consult the addiction social worker on-call to see this patient in the a.m. for consideration reg arding possible ERCP (since MRCP likely cannot be done due to permanent pacemaker) with help appreciated in advance. CT abdomen individually reviewed. It is reported dilation of CBD 1.7 cm before tapering in pancreatic head. No obstructing mass or stone identified.By history patient had cholecystectomy and surgically absent in CT abdomen. Liver chemistry showed normal bilirubin, transaminases and alkaline phosphatase. Lipase normal. Total Bilirubin 0.70, Direct Bilirubin 0.24, AST 19, ALT 13, Alkaline Phosphatase 94, Troponin I High Sens 22, Total Protein 7.5, Albumin 3.8, Globulin 3.7, Lipase 32. Patient wants to go home. 2. Hypertensive urgency with blood pressure of 217/85 mm refractory to initial treatment with IV hydralazine complicating #1 - Continue home medications for blood pressure and also give IV hydralazine as needed for systolic blood pressure greater than 160 mmHg. Blood is controlled. 3. End-stage renal disease on hemodialysis ([id number]) followed by Dr. Hammonds of the nephrology service in spite of previous renal transplant from her son 26 years ago compounding #1 & #2 - Continue supportive care at this time. If patient is still here on Friday without significant improvement nephrology will need to be consulted for hemodialysis to be resumed as an inpatient. 4. History of atrial fibrillation; with Watchman device in place - Noted. 5. History of arrhythmia; status post permanent pacemaker - Stable. 6. History of CVA with documented vascular dementia - Stable. 7. DVT prophylaxis - Heparin 5,000 units SQ 3 times daily. Total time: Approximately 70 minutes.
--- NOTE | 2023-02-09 09:27 | DCINST_ITS ---
Discharge Instructions Diet Discharge Diet: No restrictions and 2000 mg Sodium Diet Activity Discharge Activity: Return to Normal Activity Weight Bearing Status: Weight bearing as tolerated Dressing / Incision Call your doctor if you observe: Fever of 101 or Higher, Coldness, Increased Pain, Numbness or Tingling, Change in Color, Inability to urinate, Inability to have a bowel movement, Using more than 1 pad per hour, Shortness of breath, Dizziness, Fainting spells, Swelling in the ankles, Chest pain, Prolonged hiccupping, Increased palpitations (irregular heartbeat) and Calf discomfort Follow Up Care When: IN 2 WEEKS Test Results: Test results from this visit will be discussed in further detail at your follow- up appointment, if applicable. Discharge Plan Admission Admit Date/Time: 02/08/23 23:30 Primary Reason for Your Visit: N/V//loose BM Attending Provider: Benson Muller Primary Care Provider: Bradley Hardin Consulting Providers: Chi Glez Discharge Orders/Prescriptions Prescriptions: New hydralazine 50 mg tablet 100 mg PO TID 30 Days Qty: 180 0RF Rx Instructions: Hold for SBP less than 130 mmHg. Continued ondansetron HCl 4 mg tablet 4 mg PO Q8H PRN (Reason: nausea and vomiting) Patient Comments: take 1 tablet by mouth every 8 hours if needed for nausea and vomiting carvedilol 25 mg tablet 25 mg PO Q12H furosemide 40 mg tablet 40 mg PO DAILY Patient Comments: take 1 tablet by mouth ON NON-DIALYSIS DAYS; TAKES ON FRIDAY, FRIDAY, FRIDAY, FRIDAY Rx Instructions: not on dialysis days mirtazapine 7.5 mg tablet 7.5 mg PO QHS Patient Comments: take 1 tablet by mouth nightly aspirin [Adult Aspirin Regimen] 81 mg tablet,delayed release (DR/EC) 81 mg PO DAILY calcium citrate-vitamin D3 250 mg-5 mcg (200 unit) tablet 1 tab PO DAILY pantoprazole 40 mg tablet,delayed release (DR/EC) 40 mg PO DAILY promethazine 12.5 mg tablet 12.5 mg PO Q6H PRN (Reason: nausea and vomiting) Rx Instructions: 3 doses during day; last dose no later than 4 hr before bedtime omeprazole-sodium bicarbonate See Rx Instructions .ROUTE .COMPLEX Rx Instructions: i tab bid.; Discontinued hydralazine 25 mg tablet 75 mg PO TID Patient Comments: take 3 tablets by mouth three times a day Referrals / Follow Up: Bradley Hardin MD [Primary Care Provider] - Within 2 Weeks Anatoliy Hammonds MD [Med Staff - Consulting] - Within 1 Month (ON HD) Bernard Joiner MD [Non-Staff] - FriendGaro DO [Med Staff - Active Staff] - Within 1 Month (CBD dilatation status post colostomy.) Disposition Disposition (needs filled in before D/C Order can be placed): Home, Self Care
--- NOTE | 2023-02-09 09:31 | DS.PCM_ITS ---
Providers Date of Admission: 02/08/23 Date of Discharge: 02/09/23 Primary Care Physician: Dr. Bradley Hardin MD Consultations 02/09/23 01:54 Consult: Gastroenterology Routine Consulting Provider: [facility] Reason for Consult: Dilated common bile duct 1.[address] with MRCP not possible due to PPM EMERGENT Consult: No MD Notified: Yes Date Notified: 02/09/23 Time Notified: 06:46 Method of Notification: Text Reason For Visit: HYPERTENSIVE URGENCY, ABDOMINAL PAIN WITH INTRACTA Diagnosis Discharge Diagnosis (1) Abdominal pain: Status: Acute Code(s): R10.9 - Unspecified abdominal pain Qualifiers: Abdominal location: left upper quadrant Qualified Code(s): R10.12 - Left upper quadrant pain (2) Hypertensive urgency: Status: Acute Code(s): I16.0 - Hypertensive urgency (3) Intractable vomiting: Status: Acute Code(s): R11.10 - Vomiting, unspecified (4) End-stage renal disease on hemodialysis: Status: Acute Code(s): N18.6 - End stage renal disease; Z99.2 - Dependence on renal dialysis Plan Patient was admitted for nausea vomiting diarrhea and then left-sided abdominal pain that does not correlate with the CT finding. She had a little bowel movement on Friday and then none after admission. 1. Severe Left upper quadrant pain radiating across abdomen and into the chest with intractable nausea, vomiting and diarrhea with CT positive for ~1.7 cm CBD dilatation suspicious for common bile duct stone and/or cholestasis with microlithiasis: [facility] Could not do ultrasound today. On symptomatic management. Did not had bowel movement for stool test. CT abdomen individually reviewed. It is reported dilation of CBD 1.7 cm before tapering in pancreatic head. No obstructing mass or stone identified.By history patient had cholecystectomy and surgically absent in CT abdomen. Liver chemistry showed normal bilirubin, transaminases and alkaline phosphatase. Lipase normal. Total Bilirubin 0.70, Direct Bilirubin 0.24, AST 19, ALT 13, Alkaline Phosphatase 94, Troponin I High Sens 22, Total Protein 7.5, Albumin 3.8, Globulin 3.7, Lipase 32. Patient wants to go home. Discussed with kaiako kura [place]ar[place] Dr. Jackson and he agrees with the plan and if she gets abdominal pain follow-up in GI clinic. 2. Hypertensive urgency with blood pressure of 217/85 mm refractory to initial treatment with IV hydralazine - Continue home medications for blood pressure and also give IV hydralazine as needed for systolic blood pressure greater than 160 mmHg. 02/09: Blood is controlled. Patient blood pressure medication optimized discharged on hydralazine 100 mg 3 times daily with holding parameters. Prescription given for hydralazine. 3. End-stage renal disease on hemodialysis ([id number]) followed by Dr. Hammonds of the nephrology service. No acute need for dialysis therefore follow dialysis regimen. Discussed with Dr. Hammonds. 4. History of atrial fibrillation; with Watchman device in place - Noted. 5. History of arrhythmia; status post permanent pacemaker - Stable. 6. History of CVA with documented vascular dementia - Stable. 7. DVT prophylaxis - Heparin 5,000 units SQ 3 times daily. Discharge medication reconciliation done. Discharge follow-up instructions completed. Discharge process discussed with the patient and all questions were answered to patient's satisfaction. Follow with PCP in 1 to 2 weeks Total time spent, exact 35 minutes on discharge meds reconciliation, examination, coordination of care with nurses and ancillary staff, review of imaging and blood test and discussion with the patient on follow-up instructions. Medications at Discharge Home Medications aspirin 81 mg tablet,delayed release (Adult Aspirin Regimen) 81 mg PO DAILY 02/08/23 calcium citrate 250 mg calcium-vitamin D3 5 mcg (200 unit) tablet 1 tab PO DAILY 02/08/23 carvedilol 25 mg tablet 25 mg PO Q12H HTN 02/08/23 furosemide 40 mg tablet 40 mg PO DAILY 02/08/23 mirtazapine 7.5 mg tablet 7.5 mg PO QHS STRESS 02/08/23 omeprazole-sodium bicarbonate See Rx Instructions .Route .COMPLEX 02/08/23 ondansetron HCl 4 mg tablet 4 mg PO Q8H PRN nausea and vomiting 02/08/23 pantoprazole 40 mg tablet,delayed release 40 mg PO DAILY 02/08/23 promethazine 12.5 mg tablet 12.5 mg PO Q6H PRN nausea and vomiting 02/08/23 hydralazine 50 mg tablet 100 mg (2 x 50 mg) PO TID 30 days #180 tabs 02/09/23 Physical Exam Narrative The patient stated that after dialysis she had loose liquid bowel movement 1 large and then Friday she had little and then diarrhea resolved. She also had vomiting after dialysis but that surgical and she attributes to iron treatment given during dialysis. Patient also had nausea and vomiting yesterday for which it seems he was given IV Zofran which turned her color blue and feels like mild respiratory distress. She states she is allergic to Zofran. She complained her pain was around left rib but then she is states she had pain over the left pelvic bone where she has hernia. She denies any pain tenderness over right upper quadrant or epigastric region. She had cholecystectomy. Her blood pressure was also very high. 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 Her blood pressure was high systolic 200 and has been high for last several weeks and is hard to control. Her featherer is Dr. Hammonds. Physical exam General: Alert, Oriented x3, Cooperative HEENT: Atraumatic, PERRLA, EOMI, Normocephalic Oral: Oral mucosa moist. No Gingival or Mucosal Lesions/ Ulcerations Neck: Supple, No JVD, Negative Carotid Bruits Lungs: Air entry diminished in bilateral lung bases. No crepitation/rhonchi Cardiovascular: Regular rate, Regular Rhythm, Normal S1, Normal S2, grade 4/6 s ystolic and diastolic murmur over right second ICS.Pacemaker over left subclavicular region. Abdomen: Bowel Sounds Present, Soft, Non Tender, Non-Distended. No palpable murmur. Right subcostal and lower midline incision for cholecystectomy and hysterectomy respectively. No palpable hernia mass or obstructed hernia. : Makes urine. On dialysis through right permacath. No renal angle tendernes s. No suprapubic tenderness. Extremities: No edema, Capillary Refill Less than 3 Seconds Skin: No rashes, No breakdown Musculoskeletal: No Tenderness to Palpation of Joints or Extremities. Degenerat mariana arthritis of lower extremities, knees and hip joints. Neurological: Cranial nerves II-XII grossly intact, DTR 2+/4. No acute focal neurological deficit. Psych/Mental Status: Normal Affect, Appropriate. Weight / BMI Weight Weight: 117 lb 4.575 oz Body Mass Index (BMI) 24.5 ABG / Lab / Microbiology Data 02/08/23 18:20 02/08/23 18:20 Laboratory: Laboratory Results - last 24 hr 02/08/23 18:20: WBC 4.6, RBC 3.72 L, Hgb 11.4 L, Hct 35.4 L, MCV 95.2, MCH 30.6, MCHC 32.2, RDW Std Deviation 52.0 H, RDW Coeff of Alexus 14.9 H, Plt Count 151, MPV 12.2 H, Immature Gran % (Auto) 0.400, Neut % (Auto) 75.6 H, Lymph % (Auto) 16.6 L, [place] % (Auto) 6.8, Eos % (Auto) 0.2, Baso % (Auto) 0.4, Absolute Neuts (auto) 3.5, Absolute Lymphs (auto) 0.76 L, Nucleated RBC % 0, Sodium 133 L, Potassium 3.5, Chloride 96 L, Carbon Dioxide 29.0, Anion Gap 8, BUN 29 H, Creatinine 3.85 H, Est GFR (MDRD) Af Amer 15 L, Est GFR (MDRD) Non-Af 12 L, BUN/Creatinine Ratio 7.5 L, Glucose 106, Calcium 9.2, Total Bilirubin 0.70, Direct Bilirubin 0.24, AST 19, ALT 13, Alkaline Phosphatase 94, Troponin I High Sens 22, Total Protein 7.5, Albumin 3.8, Globulin 3.7, Lipase 32 02/08/23 19:47: Urine Color Yellow, Urine Clarity Clear, Urine pH 8.0, Ur Specific [place] 1.010, Urine Protein 100 H, Urine Glucose (UA) Normal, Urine Ketones 5 H, Urine Occult Blood Negative, Urine Nitrite Negative, Urine Bilirubin Negative, Urine Urobilinogen Normal, Ur Leukocyte Esterase 25 H, Urine RBC 0 SEEN, Urine WBC 0-5 SEEN, Ur Squamous Epith Cells 0 SEEN, Urine Bacteria 0 SEEN, Urine Mucus 0 SEEN 02/09/23 04:30: Lipase 28 Radiography Diagnostic Testing: Radiology Impression Chest X-Ray 02/08/23 19:05 IMPRESSION: Nonacute portable x-ray examination of the chest. Electronically Signed: Bishop Desai MD (Brooks) at 19:28 EST Reading Location ID and State: [facility] / [place] , Service support , Abdomen/Pelvis CT 02/08/23 23:37 IMPRESSION: 1. Dilation of the common bile duct up to 1.7 cm, before tapering in the pancreatic head. No obstructing stone or mass identified. Correlate for any laboratory evidence of biliary obstruction and consider follow-up with MRCP. 2. Transplant kidney in the right pelvis. No obstructive changes. 3. Diverticular disease of the colon but no diverticulitis. Electronically Signed: John Shine MD at 1:43 EST , D/C Instructions Discharge Diet: No restrictions and 2000 mg Sodium Diet Weight Bearing Status: Weight bearing as tolerated Call your doctor if you observe: Fever of 101 or Higher, Coldness, Increased Pain, Numbness or Tingling, Change in Color, Inability to urinate, Inability to have a bowel movement, Using more than 1 pad per hour, Shortness of breath, Dizziness, Fainting spells, Swelling in the ankles, Chest pain, Prolonged hiccupping, Increased palpitations (irregular heartbeat) and Calf discomfort When: IN 2 WEEKS Meaningful Use Info Meaningful Use Diagnoses (Choose all that apply): None applicable Discharge Plan Admission Admit Date/Time: 02/08/23 23:30 Primary Reason for Your Visit: N/V//loose BM Attending Provider: Benson Muller Primary Care Provider: Bradley Hardin Consulting Providers: Chi Glez Discharge Orders/Prescriptions Prescriptions: New hydralazine 50 mg tablet 100 mg PO TID 30 Days Qty: 180 0RF Rx Instructions: Hold for SBP less than 130 mmHg. Continued ondansetron HCl 4 mg tablet 4 mg PO Q8H PRN (Reason: nausea and vomiting) Patient Comments: take 1 tablet by mouth every 8 hours if needed for nausea and vomiting carvedilol 25 mg tablet 25 mg PO Q12H furosemide 40 mg tablet 40 mg PO DAILY Patient Comments: take 1 tablet by mouth ON NON-DIALYSIS DAYS; TAKES ON FRIDAY, FRIDAY, , FRIDAY Rx Instructions: not on dialysis days mirtazapine 7.5 mg tablet 7.5 mg PO QHS Patient Comments: take 1 tablet by mouth nightly aspirin [Adult Aspirin Regimen] 81 mg tablet,delayed release (DR/EC) 81 mg PO DAILY calcium citrate-vitamin D3 250 mg-5 mcg (200 unit) tablet 1 tab PO DAILY pantoprazole 40 mg tablet,delayed release (DR/EC) 40 mg PO DAILY promethazine 12.5 mg tablet 12.5 mg PO Q6H PRN (Reason: nausea and vomiting) Rx Instructions: 3 doses during day; last dose no later than 4 hr before bedtime omeprazole-sodium bicarbonate See Rx Instructions .ROUTE .COMPLEX Rx Instructions: i tab bid.; Discontinued hydralazine 25 mg tablet 75 mg PO TID Patient Comments: take 3 tablets by mouth three times a day Referrals / Follow Up: Bradley Hardin MD [Primary Care Provider] - Within 2 Weeks Anatoliy Hammonds MD [Med Staff - Consulting] - Within 1 Month (ON HD) Bernard Joiner MD [Non-Staff] - Garo Jackson DO [Med Staff - Active Staff] - Within 1 Month (CBD dilatation status post colostomy.) Disposition Disposition (needs filled in before D/C Order can be placed): Home, Self Care Charges/Coding Visit Charges Inpatient E&M: 42269 Disch Hosp >30min
[2023-02-09] MEDS: Calcium Carb/Vitamin D 1 TABLET Tablet PO (10:21)
[2023-02-09] MEDS: Pantoprazole Sodium 40 MG Tablet PO (10:21)
[2023-02-09] MEDS: Furosemide 40 MG Tablet PO (10:21)
[2023-02-09] MEDS: Aspirin E.C. 81 MG Tablet PO (10:21)
== END 2023-02-09 13:42 | disposition home or self-care (01) ==
LOC: ED 21:51 → MS3 23:43
PROVIDERS: Admitting Provider Internal Medicine; Emergency Provider Emergency Medicine; PCP Family Medicine; Visit Provider Internal Medicine
DX: R10.12 Left upper quadrant pain (principal); Z99.2 Dependence on renal dialysis; F01.50 Vascular dementia, unspecified severity, without behavioral disturbance, psychotic disturbance, mood disturbance, and anxiety; I12.0 Hypertensive chronic kidney disease with stage 5 chronic kidney disease or end stage renal disease; N18.6 End stage renal disease; R19.7 Diarrhea, unspecified; E78.00 Pure hypercholesterolemia, unspecified; R11.2 Nausea with vomiting, unspecified; Z79.82 Long term (current) use of aspirin; K57.30 Diverticulosis of large intestine without perforation or abscess without bleeding; I16.0 Hypertensive urgency; Z79.899 Other long term (current) drug therapy; Z94.0 Kidney transplant status; Z95.0 Presence of cardiac pacemaker
CPT/HCPCS: 36415; 71045; 74176; 80048; 80076; 81001; 83690; 84484; 85025; 93005; 96361; 96372; 96374; 96375; 96376; 97802; 99221; 99285; J7030; P9612; A4216; G0378

== ENCOUNTER 2023-03-19 19:18 | Inpatient (IN) | payer MEDICARE, OTHER, SELFPAY ==
[2023-03-19 19:23] VITALS: BP 142/83; PULSE 56; RESP 22; TEMP 36.8; O2SAT 95
[2023-03-19 19:49] VITALS: O2SAT 97
--- NOTE | 2023-03-19 19:52 | ED.VIS.DYS ---
HPI History of Present Illness Chief Complaint: Shortness of Breath Informant: patient Onset/Context/Timing Onset: Days (3-4) Context: gradual Timing: Continuous Quality: Positive for Dyspnea on exertion Worsened by: Exertion Relieved by: Nothing Associated Symptoms rhinorrhea, subjective and chills; Negative for cough, post nasal drip, ear pain, fever, sore throat, clear sputum, white sputum, yellow sputum or green sputum Chest Pain: Positive for None Narrative Narrative: Patient presents with shortness of breath that has been getting worse for the past 3 to 4 days. Patient states it is gradually getting worse. Patient states it is worse with any exertion. Patient states I cannot take care of myself at home because of the shortness of breath. Patient was diagnosed with COVID-19 on 03/10/2023. Patient admits to some subjective chills. Patient admits to some rhinorrhea. Patient denies any cough. Patient did go to dialysis today and had a full session of dialysis. Patient states her breathing became worse after dialysis. [facility] Medical History Atrial fibrillation Chronic renal failure CVA (cerebral vascular accident) Dialysis patient GI bleed High cholesterol Hx of gastroesophageal reflux (GERD) Hypertension Kidney transplant pain Presence of Watchman left atrial appendage closure device Sick sinus syndrome Skin cancer Vascular dementia Home Medications aspirin 81 mg tablet,delayed release (Adult Aspirin Regimen) 81 mg PO DAILY 02/08/23 [History Last Taken 02/08/23] calcium citrate 250 mg calcium-vitamin D3 5 mcg (200 unit) tablet 1 tab PO DAILY 02/08/23 [History Last Taken 02/07/23] carvedilol 25 mg tablet 25 mg PO Q12H HTN 02/08/23 [History Last Taken 02/07/23] furosemide 40 mg tablet 40 mg PO .TUTHFRSU 02/08/23 [History Last Taken 02/08/23] ondansetron HCl 4 mg tablet 4 mg PO Q8H PRN nausea and vomiting 02/08/23 [History Last Taken 02/08/23] pantoprazole 40 mg tablet,delayed release 40 mg PO Q12H 02/08/23 [History Last Taken Unknown] promethazine 12.5 mg tablet 12.5 mg PO Q6H PRN nausea and vomiting 02/08/23 [History Last Taken Unknown] clonidine 0.1 mg/24 hr weekly transdermal patch 1 patch transdermal FR 03/19/23 [History Last Taken Unknown] hydralazine 25 mg tablet 75 mg PO Q12H 03/19/23 [History Last Taken Unknown] hydralazine 50 mg tablet 75 mg PO .MOWEFR 03/19/23 [History Last Taken Unknown] Allergy/AdvReac Type Severity Reaction Status Date / Time amlodipine Allergy Intermediate turns blue Verified 03/19/23 19:23 acetaminophen Allergy Mild unknown Verified 03/19/23 19:23 [From Panlor (hydrocodone-acetamin)] ascorbic acid Allergy Mild unknown Verified 03/19/23 19:23 [From Airborne (ascorbate sodium)] caffeine Allergy Mild unknown Verified 03/19/23 19:23 [place] [employer] Allergy Mild unknown Verified 03/19/23 19:23 codeine Allergy Mild unknown Verified 03/19/23 19:23 desloratadine Allergy Mild unknown Verified 03/19/23 19:23 glutamine Allergy Mild unknown Verified 03/19/23 19:23 [From Airborne (ascorbate sodium)] herbal complex no.124 Allergy Mild unknown Verified 03/19/23 19:23 [From Airborne (ascorbate sodium)] hydrocodone Allergy Mild unknown Verified 03/19/23 19:23 hydromorphone Allergy Mild unknown Verified 03/19/23 19:23 lysine HCl Allergy Mild unknown Verified 03/19/23 19:23 [From Airborne (ascorbate sodium)] morphine Allergy Mild unknown Verified 03/19/23 19:23 moxifloxacin Allergy Mild unknown Verified 03/19/23 19:23 multivitamin with minerals Allergy Mild unknown Verified 03/19/23 19:23 [From Airborne (ascorbate sodium)] nabumetone Allergy Mild unknown Verified 03/19/23 19:23 oxycodone Allergy Mild unknown Verified 03/19/23 19:23 penicillin G Allergy Mild unknown Verified 03/19/23 19:23 Penicillins Allergy Mild hands blue Verified 03/19/23 19:23 propoxyphene Allergy Mild unknown Verified 03/19/23 19:23 [From Margesic (propoxyphene)] tramadol Allergy Mild unknown Verified 03/19/23 19:23 amiodarone Allergy Unknown unknown Verified 03/19/23 19:23 Opioids - Morphine Analogues Allergy Anaphylaxis Verified 03/19/23 19:23 Surgical History H/O: hysterectomy History of hernia repair History of permanent cardiac pacemaker placement Hx of cholecystectomy Social History Smoking Status: Never smoker ROS ROS ED Constitutional Constitutional ED: Reports chills; Denies fever(s) Eyes Eyes: Denies blurry vision or change in vision ENT ENT ED: Denies rhinorrhea or sore throat Cardiovascular Cardiovascular: Denies chest pain or palpitations Respiratory/Chest Respiratory/Chest: Reports dyspnea; Denies cough Gastrointestinal Gastrointestinal: Denies nausea or vomiting Genitourinary Genitourinary ED: Denies dysuria or hematuria Musculoskeletal Musculoskeletal: Denies back pain or neck pain Integumentary Denies abscess or rash Neurologic Neurologic: Denies headache(s) or weakness Allergic/Immunologic Allergic/Immunologic ED: Denies mouth swelling or urticaria EXAM Physical Exam Const Vital Signs: 03/19/23 19:23 03/19/23 19:49 03/19/23 20:17 Temperature 98.2 F Temperature Source Temporal Pulse Rate 56 L 82 Respiratory Rate 22 H 16 Respiratory Effort Short of Breath Respiratory Depth Shallow Respiratory Pattern Tachypnea Blood Pressure 142/83 H Blood Pressure Mean 102 Pulse Ox 95 Oxygen Delivery Method Room Air Room Air 03/19/23 21:42 Temperature Temperature Source Pulse Rate 86 Respiratory Rate 14 Respiratory Effort Respiratory Depth Respiratory Pattern Blood Pressure 199/82 H Blood Pressure Mean 121 Pulse Ox 93 Oxygen Delivery Method Room Air Positive well nourished and well developed General Appearance ED: well developed HEENT Reports moist mucous membranes Neck supple and no JVD Resp normal respiratory effort Auscultation: rhonchi throughout and wheezes throughout Cardio regular rhythm Rate: bradycardia GI non-tender and non-distended Palpation: soft Neuro oriented x3, CN's II-XII intact bilaterally and no sensory deficits noted Sj Coma Scale: document GCS findings Spontaneous Obeys Commands Oriented 15 Sensorium / Orientation: alert Speech: speech normal Motor Exam: strength 5/5 throughout Psych mental status grossly normal Mood & Affect: anxious MDM MDM MDM Narrative Medical decision making narrative: Differential diagnosis includes pneumonia, congestive heart failure, pneumothorax, COVID-19, influenza, viral illness, and anxiety. Chest x-ray will be obtained to assess for congestive heart failure, pneumonia, and pneumothorax. EKG will be obtained to assess for cardiac dysrhythmia and cardiac ischemia. CBC will be obtained to assess for leukocytosis and anemia. Basic metabolic profile will be obtained to assess for electrolyte abnormality and renal function. High-sensitivity troponin will be obtained to assess for cardiac ischemia. BNP will be obtained to assess for congestive heart failure. COVID-19 rapid antigen will be obtained to assess for COVID-19 infection. Influenza A and influenza B antigens will be obtained to assess for influenza infection. History & Record Review Additional record(s) reviewed:: Prior labs Lab Data Attestation: I reviewed the patient's lab results. Lab results narrative: CBC was reviewed. There is a mild anemia with a hemoglobin of 10.5 and hematocrit 32.2. This was stable compared to previous results. Basic metabolic profile was reviewed. Creatinine was slightly elevated at 2.7 but was improved from previous result. High-sensitivity troponin was reviewed and was normal at 23. BNP was reviewed and was 930.3. There are no prior labs for comparison. COVID-19 rapid antigen was reviewed and was negative. Influenza A and influenza B antigens were reviewed and were negative. Labs: Laboratory Results - last 24 hr 03/19/23 20:12 WBC 4.7 RBC 3.39 L Hgb 10.5 L Hct 32.2 L MCV 95.0 MCH 31.0 MCHC 32.6 RDW Std Deviation 52.3 H RDW Coeff of Alexus 15.6 H Plt Count 188 MPV 11.1 Immature Gran % (Auto) 0.600 Neut % (Auto) 65.3 Lymph % (Auto) 21.3 [place] % (Auto) 9.9 Eos % (Auto) 2.1 Baso % (Auto) 0.8 Absolute Neuts (auto) 3.1 Absolute Lymphs (auto) 1.01 Nucleated RBC % 0 Sodium 136 Potassium 3.3 L Chloride 98 Carbon Dioxide 32.0 Anion Gap 6 BUN 13 Creatinine 2.70 H Est GFR (MDRD) Af Amer 22 L Est GFR (MDRD) Non-Af 18 L BUN/Creatinine Ratio 4.8 L Glucose 105 Calcium 8.4 L Troponin I High Sens 23 B-Natriuretic Peptide 930.3 H Radiography Chest X-Ray - ED: 2 View, Read by ED Physician, Read by Radiologist, Cardiomegaly and CHF (Mild) Diagnostic Testing: Clinical Impression(s) from Imaging Studies Chest X-Ray 03/19/23 20:32 IMPRESSION: 1. Mild cardiac enlargement. Appearance suggesting mild pulmonary vascular congestion. 2. Subtle increased attenuation left mid lung may represent infiltrate or mild alveolar edema. Electronically Signed: Milan Hodges, DO at 21:03 EST , [place] and lateral chest x-ray was obtained. There are 2 views. On my independent interpretation, there is some mild vascular congestion. Bony thorax is normal. There is mild cardiac enlargement. Radiologist also interpreted the x-rays and agrees. EKG Initial EKG: Attestation: I personally reviewed and interpreted this EKG as follows: Interpretation: Atrial Fibrillation (81) and Non-Specific ST Changes Comments: EKG was obtained. On my independent interpretation, shows atrial fibrillation with a rate of 81. QRS interval was normal at 92 ms. QTc interval slightly prolonged at 541 ms. Streeter was normal. There are nonspecific ST-T wave changes noted. This was unchanged compared to previous EKG dated 02/08/2023. Prior EKG tracings: available for review Prior: Unchanged (02/08/2023) Treatment and Re-Evaluation :: Patient was given a DuoNeb aerosol here. Patient was still having some labored breathing on reevaluation. Patient's blood pressure increased to 199/82. Family states that patient missed her evening dose of hydralazine. Family states she normally takes 75 mg of hydralazine 3 times a day and missed her evening dose. Patient will be given this dose. Patient was also given a dose of Lasix. Family states patient normally only takes her Lasix on days she does not do dialysis, so she did not take any Lasix today. Patient still feels like she is somewhat short of breath. Case will be discussed with the hospitalist for admission. Hospitalist will admit the patient to the hospital for observation. Discharge Plan Dx/Rx/DC Orders Clinical Impression: Congestive heart failure, Dyspnea Disposition Disposition: Acute Care Hospital [facility]
--- NOTE | 2023-03-19 19:58 | EKG12_ITS ---
Test Reason : SOB Blood Pressure : / mmHG Vent. Rate : 081 BPM Atrial Rate : 000 BPM P-R Int : 000 ms QRS Dur : 092 ms QT Int : 466 ms P-R-T Axes : 000 040 -71 degrees QTc Int : 541 ms Atrial fibrillation with premature ventricular or aberrantly conducted complexes Septal infarct , age undetermined ST & T wave abnormality, consider inferior ischemia ST & T wave abnormality, consider anterolateral ischemia Prolonged QT Abnormal ECG Confirmed by MK BOLAND, PEARL ([id number]), news copy editor ANTHONY HIDALGO ([id number]) on 03/21/2023 1:25:52 PM Referred By: Confirmed By:PEARL TERRAZAS MD
[2023-03-19 20:17] VITALS: PULSE 82; RESP 16
[2023-03-19] MEDS: Ipratropium/Albuterol Sulfate 3 ML AMPUL.NEB INHALATION (20:17)
[2023-03-19 20:19] LABS: Absolute Lymphocyte Count 1.01 X10^3/uL (0.83-4.51); Absolute Neutrophil Count 3.1 X10^3/uL (2.0-7.7); Basophil# 0.04 X10^3/uL; Basophil% 0.8 % (0-1); Eosinophils% 2.1 % (0-5); Hematocrit 32.2 % (37-47); Hemoglobin 10.5 g/dL (12.0-15.0); Lymphocyte # 1.01 X10^3/ul (0.83-4.51); Lymphocyte % 21.3 % (19-41); Mean Corp Hgb Conc 32.6 g/dL (32-36); Mean Platelet Vol. 11.1 fl (6.2-12.0); Monocyte# 0.47 X10^3/uL; Monocyte% 9.9 % (0-10); NRBC Flagged by Analyzer 0 % (0-5); Neutrophil # 3.09 X10^3/uL (2.7-7.7); Neutrophil % 65.3 % (47-70); Platelet Count 188 K/mm3 (150-450); RBC Distribution Width CV 15.6 % (11.6-14.6); RBC Distribution Width SD 52.3 fl (35.1-43.9); Red Blood Count 3.39 M/mm3 (4.2-5.4); White Blood Count 4.7 K/mm3 (4.4-11.0)
--- NOTE | 2023-03-19 20:32 | RAD_ITS ---
INDICATION: Dyspnea EXAMINATION/TECHNIQUE: X-RAY - XR Chest 2 Views COMPARISON: February 08, 2023 chest x-ray. FINDINGS: LINES/DEVICES: Right IJ central venous large bore dual-lumen catheter with the tip in the proximal right atrium. Left chest battery pack with pacing leads over the right atrium and right ventricle. Cardiac device projecting over the left atrial appendage region suggesting closure device. Correlate clinically. LUNGS: Symmetric normal lung volumes. Mild asymmetric increased attenuation left mid lung suspicious for infiltrate or possible alveolar edema. No pleural effusion. No pneumothorax. No nodule. MEDIASTINUM AND CARDIOVASCULAR STRUCTURES: Mild cardiomegaly. Hazy prominent perihilar interstitial markings suggesting vascular congestion. Significant thoracic aortic arch intimal calcifications. BONES AND SOFT TISSUES: No fracture or focal osseous lesion. RAD/Chest PA and Lateral IMPRESSION: 1. Mild cardiac enlargement. Appearance suggesting mild pulmonary vascular congestion. 2. Subtle increased attenuation left mid lung may represent infiltrate or mild alveolar edema. Electronically Signed: Milan Hodges DO at 21:03 EST ,
[2023-03-19 20:38] LABS: BNP,B-Type NATRIURETIC PEPTIDE 930.3 pg/mL (0-100)
[2023-03-19 20:48] LABS: Anion Gap 6 (5-15); BUN 13 mg/dL (7-18); BUN/Creat Ratio 4.8 RATIO (10-20); Calcium,Total 8.4 mg/dL (8.5-10.1); Chloride 98 mmol/L (98-107); EST Glomerular Filtration Rate 18 mL/min (>60); Est Glom Filt Rate - Afr Amer 22 mL/min (>60); Glucose 105 mg/dL (74-106); Potassium 3.3 mmol/L (3.5-5.1); Sodium Level 136 mmol/L (136-145); Troponin-I HS 23 pg/mL (3.0-54.0)
[2023-03-19 21:42] VITALS: BP 199/82; PULSE 86; RESP 14; O2SAT 93
[2023-03-19 22:17] VITALS: BMI 25.7
[2023-03-19] MEDS: hydrALAZINE 25 MG Tablet 75 MG PO (22:30)
[2023-03-19] MEDS: Furosemide 40 MG/4 ML Vial IV (22:51)
--- NOTE | 2023-03-19 23:04 | HP.PCM.HOS_ITS ---
HPI - General General Date of Admission: 03/19/23 Date of Service: 03/19/23 Chief Complaint: SOB HPI Narrative JOVANY HARRIS, is a 77 F with a past medical history of essential hypertension, hyperlipidemia, remote history of renal transplant from her son approximately 26 years ago, end-stage renal disease on hemodialysis (M-W-F) followed by Dr. Hammonds of the nephrology service with her dialysis access in her right upper chest, history of atrial fibrillation; status post Watchman left atrial appendage closure device, history of arrhythmia; status post permanent pacemaker placement, history of CVA, history of hysterectomy, history of cholecystectomy, history of hernia repair, history of GERD, history of GI bleed, history of vascular dementia, history of skin cancer, osteoarthritis, history of severe COVID-19 treated at [facility] for 5-1/2 weeks about a year ago, recent admission to [facility] 2 months ago with UTI and E. coli food poisoning, history of allergy to Zofran with patient reporting it makes her turn blue due to being unable to breathe and recently diagnosed COIVD-19 on 03/10/2023, who presents to [facility] ER complaining of shortness of breath. Ms. Harris reports her began approximately 3 to 4 days prior to admission with a viral upper respiratory infection including runny nose, chills and dyspnea on exertion that progressed to shortness of breath at rest with associated wheezing. She then went to dialysis earlier on 03/19/2023 and tolerated her entire 3-hour treatment. Unfortunately, her shortness of breath became worse after hemodialysis and then she called her [id number] who is an RN and was instructed to come to the ER for further evaluation and treatment. In the ER s he was noted to have an elevated BNP of 930.3 pg/mL present on admission along with radiographic evidence of mild cardiomegaly and pulmonary vascular congestion suggestive of an acute exacerbation of congestive heart failure complicated by clinical evidence of acute hypoxic respiratory insufficiency with hypertensive urgency with a blood pressure of 199/82 mmHg present on admission (with a rapid COVID-19 antigen test that was negative this admission) and she was then admitted to the PCU for ongoing care for stay that is expected to be greater than 48 hours. [facility] Medical History (Updated 03/20/23 @ 01:[address] Chi Glez DO) Atrial fibrillation Chronic renal failure CVA (cerebral vascular accident) Dialysis patient End-stage renal disease on hemodialysis GI bleed High cholesterol Hx of gastroesophageal reflux (GERD) Hypertension Kidney transplant pain Presence of Watchman left atrial appendage closure device Sick sinus syndrome Skin cancer Vascular dementia Home Medications aspirin 81 mg tablet,delayed release (Adult Aspirin Regimen) 81 mg PO DAILY 02/08/23 [History Last Taken 02/08/23] calcium citrate 250 mg calcium-vitamin D3 5 mcg (200 unit) tablet 1 tab PO DAILY 02/08/23 [History Last Taken 02/07/23] carvedilol 25 mg tablet 25 mg PO Q12H HTN 02/08/23 [History Last Taken 02/07/23] furosemide 40 mg tablet 40 mg PO .TUTHFRSU 02/08/23 [History Last Taken 02/08/23] ondansetron HCl 4 mg tablet 4 mg PO Q8H PRN nausea and vomiting 02/08/23 [History Last Taken 02/08/23] pantoprazole 40 mg tablet,delayed release 40 mg PO Q12H 02/08/23 [History Last Taken Unknown] promethazine 12.5 mg tablet 12.5 mg PO Q6H PRN nausea and vomiting 02/08/23 [History Last Taken Unknown] clonidine 0.1 mg/24 hr weekly transdermal patch 1 patch transdermal FR 03/19/23 [History Last Taken Unknown] hydralazine 25 mg tablet 75 mg PO Q12H 03/19/23 [History Last Taken Unknown] hydralazine 50 mg tablet 75 mg PO .MOWEFR 03/19/23 [History Last Taken Unknown] Allergy/AdvReac Type Severity Reaction Status Date / Time amlodipine Allergy Intermediate turns blue Verified 03/19/23 19:23 acetaminophen Allergy Mild unknown Verified 03/19/23 19:23 [From Panlor (hydrocodone-acetamin)] ascorbic acid Allergy Mild unknown Verified 03/19/23 19:23 [From Airborne (ascorbate sodium)] caffeine Allergy Mild unknown Verified 03/19/23 19:23 Dows And Derivatives Allergy Mild unknown Verified 03/19/23 19:23 codeine Allergy Mild unknown Verified 03/19/23 19:23 desloratadine Allergy Mild unknown Verified 03/19/23 19:23 glutamine Allergy Mild unknown Verified 03/19/23 19:23 [From Airborne (ascorbate sodium)] herbal complex no.124 Allergy Mild unknown Verified 03/19/23 19:23 [From Airborne (ascorbate sodium)] hydrocodone Allergy Mild unknown Verified 03/19/23 19:23 hydromorphone Allergy Mild unknown Verified 03/19/23 19:23 lysine HCl Allergy Mild unknown Verified 03/19/23 19:23 [From Airborne (ascorbate sodium)] morphine Allergy Mild unknown Verified 03/19/23 19:23 moxifloxacin Allergy Mild unknown Verified 03/19/23 19:23 multivitamin with minerals Allergy Mild unknown Verified 03/19/23 19:23 [From Airborne (ascorbate sodium)] nabumetone Allergy Mild unknown Verified 03/19/23 19:23 oxycodone Allergy Mild unknown Verified 03/19/23 19:23 penicillin G Allergy Mild unknown Verified 03/19/23 19:23 Penicillins Allergy Mild hands blue Verified 03/19/23 19:23 propoxyphene Allergy Mild unknown Verified 03/19/23 19:23 [From Margesic (propoxyphene)] tramadol Allergy Mild unknown Verified 03/19/23 19:23 amiodarone Allergy Unknown unknown Verified 03/19/23 19:23 Opioids - Morphine Analogues Allergy Anaphylaxis Verified 03/19/23 19:23 Surgical History H/O: hysterectomy History of hernia repair History of permanent cardiac pacemaker placement Hx of cholecystectomy Social History Smoking Status: Never smoker ROS ROS Narrative Review of systems: Constitutional: Patient admits to chills but denies fever. Eyes: Patient denies visual changes. ENT: Patient admits to runny nose but denies sore throat. Cardiovascular: Patient denies chest pain, chest pressure or palpitations. Respiratory: Patient admits to dyspnea on exertion that progressed to shortness of breath along with wheezing. Gastrointestinal: Patient denies abdominal pain, nausea, vomiting, constipation or diarrhea. Genitourinary: Patient denies dysuria, hematuria or urinary hesitancy and she has been taking her Lasix as prescribed since she still makes urine. Musculoskeletal: Patient denies back pain or neck pain. Integumentary: Patient denies abscess, abrasion or rash. Neurologic: Patient admits to generalized tension-type headache but she denies dizziness or focal neurologic deficits. Allergic: Patient denies lip swelling, tongue swelling or urticaria. Hematologic: Patient denies easy bleeding or easy bruisability. Psychiatric: Patient denies uncontrolled depression or anxiety. 14 point review of systems otherwise negative except for positives noted above in HPI. Vital Signs Vital Signs Vital Signs: 03/19/23 19:23 03/19/23 19:49 03/19/23 20:17 Temperature 98.2 F Temperature Source Temporal Pulse Rate 56 L 82 Respiratory Rate 22 H 16 Respiratory Effort Short of Breath Respiratory Depth Shallow Respiratory Pattern Tachypnea Blood Pressure 142/83 H Blood Pressure Mean 102 Pulse Ox 95 Oxygen Delivery Method Room Air Room Air 03/19/23 21:42 Temperature Temperature Source Pulse Rate 86 Respiratory Rate 14 Respiratory Effort Respiratory Depth Respiratory Pattern Blood Pressure 199/82 H Blood Pressure Mean 121 Pulse Ox 93 Oxygen Delivery Method Room Air Weight Weight: 123 lb 3.814 oz Body Mass Index (BMI) 25.7 Physical Exam Const alert, oriented x3 and average body habitus Constitutional Narrative: Patient appears chronically ill and is complaining of a moderate to severe headache. General Appearance: cooperative HEENT normocephalic, head/scalp atraumatic, hearing grossly normal bilaterally, moist oral mucous membranes and oropharynx normal Mouth: moist mucous membranes abnormal Eyes PERRL and EOMs intact bilaterally Resp Resp Narrative: Diminished breath sounds throughout with scattered rhonchi and wheezing. Cardio regular rate and regular rhythm GI normal to inspection, nondistended, normoactive bowel sounds, soft to palpation, non-tender and non-distended Extremity normal to inspection and full ROM Skin Skin Narrative: Patient is no evidence of rash at this time. Neuro oriented x3, CN's II-XII intact bilaterally, moves all extremities and no focal motor deficits Sensorium / Orientation: awake, alert, oriented to person, oriented to place and oriented to time Speech: speech normal Motor Exam: strength 5/5 throughout Psych affect normal Results Medical Records Data Attestation: I reviewed the patient's medical records Lab / Micro Data Attestation: I reviewed the patient's lab results. 03/19/23 20:12 03/19/23 20:12 Labs: Laboratory Results - last 24 hr 03/19/23 20:12: WBC 4.7, RBC 3.39 L, Hgb 10.5 L, Hct 32.2 L, MCV 95.0, MCH 31.0, MCHC 32.6, RDW Std Deviation 52.3 H, RDW Coeff of Alexus 15.6 H, Plt Count 188, MPV 11.1, Immature Gran % (Auto) 0.600, Neut % (Auto) 65.3, Lymph % (Auto) 21.3, [place] % (Auto) 9.9, Eos % (Auto) 2.1, Baso % (Auto) 0.8, Absolute Neuts (auto) 3.1, Absolute Lymphs (auto) 1.01, Nucleated RBC % 0, Sodium 136, Potassium 3.3 L , Chloride 98, Carbon Dioxide 32.0, Anion Gap 6, BUN 13, Creatinine 2.70 H, Est GFR (MDRD) Af Amer 22 L, Est GFR (MDRD) Non-Af 18 L, BUN/Creatinine Ratio 4.8 L, Glucose 105, Calcium 8.4 L, Troponin I High Sens 23, B-Natriuretic Peptide 930.3 H Micro: Microbiology 03/19/23 20:10 Nasal Secretion SARS-CoV-2 & FLU Antigen (Rapid) - Final Imagaing Radiology Impression Chest X-Ray 03/19/23 20:32 IMPRESSION: 1. Mild cardiac enlargement. Appearance suggesting mild pulmonary vascular congestion. 2. Subtle increased attenuation left mid lung may represent infiltrate or mild alveolar edema. Electronically Signed: Milan Hodges DO at 21:03 EST , Assessment & Plan Assessment/Plan (1) Congestive heart failure: QUALIFIERS: Heart failure chronicity: acute on chronic Heart failure type: unspecified Qualified Code(s): I50.9 - Heart failure, unspecified (2) Hypertensive emergency: (3) Dyspnea: QUALIFIERS: Dyspnea type: shortness of breath Qualified Code(s): R06.02 - Shortness of breath (4) End-stage renal disease on hemodialysis: PLAN: Plan 1. Acute exacerbation of congestive heart failure - Admit to PCU. Continue IV Lasix twice daily but avoid potassium supplementation in this dialysis patient. Check echocardiogram to evaluate left ventricular ejection fraction. Serialize troponin. Finally, we will consult cardiology to see this patient on rounds in the a.m. for further recommendations with help appreciated in advance. 2. Hypertensive urgency evidenced by highly elevated blood pressure of 199/82 mmHg present on admission accompanied by shortness of breath and tension-type headache - Resume home regimen as previous plus give as needed IV hydralazine for systolic blood pressure greater than 160 mmHg. Give Tylenol as needed for mild to moderate level 1-5 out of 10 pain or fever. Avoid morphine as she has a listed anaphylactic allergy to this agent along with unknown allergies to hydrocodone, hydromorphone and tramadol. 3. End-stage renal disease on hemodialysis (--) followed by Dr. Hammonds of the nephrology service with her dialysis access in her right upper chest - We will consult Dr. Hammonds of the nephrology service to see this patient on rounds in the a.m. for further consideration regarding potential repeat dialysis to remove suspected excess volume causing #1 and #2. 4. Recent history of COVID-19 on 03/12/2023 with persistent bronchospasm likely precipitating #1 - #3 in the setting of a known history of severe COVID-19 treated at [facility] for 5-1/2 weeks about a year ago - COVID-19 assay negative this admission. Give Solu-Medrol IV twice daily plus give nebulizers as needed. 5. Hyperlipidemia - Resume statin. 6. 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 7. History of atrial fibrillation; status post Watchman left atrial appendage closure device - Stable. 8. History of arrhythmia; status post permanent pacemaker placement - Stable. 9. History of CVA - Noted no evidence of recurrence. 10. History of hysterectomy - Noted. 11. History of cholecystectomy - Noted. 12. History of hernia repair - Noted. 13. History of GERD - Resume PPI. 14. History of GI bleed - Stable with no evidence of recurrence. 15. History of vascular dementia - Stable. 16. History of skin cancer - Noted. 17. Osteoarthritis - Stable. Give Tylenol as needed as outlined above. 18. DVT prophylaxis - Heparin 5,000 units SQ 3 times daily plus SCDs. Total time: Approximately 55 minutes. Charges/Coding Visit Charges Inpatient E&M: 94843 Init Hosp L2
[2023-03-19 23:20] VITALS: BP 174/84; PULSE 78; RESP 18; O2SAT 93
[2023-03-19 23:42] VITALS: PULSE 71; RESP 15; O2SAT 98
--- NOTE | 2023-03-20 00:23 | ECHOD_ITS ---
Reason For Study: CHF Procedure This was a 2D Doppler, Color Flow transthoracic echocardiogram. Exam performed portable in patient room. Left Ventricle Normal LV size. Moderate concentric left ventricular hypertrophy. The estimated ejection fraction is 50-55 %. Unable to assess diastolic dysfunction due to arrhythmia. Right Ventricle There is a pacemaker lead in the right ventricle. Normal RV size. Normal systolic function. Atria There is moderate biatrial dilatation. ICD or pacer leads identified within the right atrium. Mitral Valve Moderate mitral annular calcification. Mild-Moderate (1-2+) mitral valve insufficiency. Tricuspid Valve Normal tricuspid valve. Mild to moderate (1-2+) tricuspid valve insufficiency. Right ventricular systolic pressure estimated to be 34 mmHg. Aortic Valve Trisinus/trileaflet aortic valve. Moderate focal aortic valve calcification. Mild to moderate aortic stenosis. Peak aortic valve gradient 26 mmHg. Mean aortic valve gradient 15 mmHg. Mild (1+) aortic valve insufficiency. Pulmonic Valve Normal pulmonic valve. Trivial pulmonic valve insufficiency. Great Vessels Normal aortic root. Pericardium/Pleural No pericardial effusion. MMode/2D Measurements & Calculations LVIDd: 4.5 cm IVSd: 1.4 cm LVOT diam: 2.1 cm LVIDs: 3.3 cm LVPWd: 1.5 cm LVOT area: 3.3 cm2 RVDd: 3.5 cm FS: 25.5 % Ao root diam: 3.2 cm LAV(MOD-bp): 83.0 ml LVAd ap4: 21.8 cm2 LAV(MOD-bp) Indexed: 57.7 ml/m2 LVLd ap4: 7.4 cm LAV(MOD-sp2): 85.4 ml EDV(MOD-sp4): 56.6 ml LAV(MOD-sp4): 79.5 ml EDV(sp4-el): 54.4 ml LVAs ap4: 14.2 cm2 LVLs ap4: 6.6 cm ESV(MOD-sp4): 27.8 ml ESV(sp4-el): 25.8 ml EF(MOD-sp4): 50.9 % EF(sp4-el): 52.5 % LVAd ap2: 22.6 cm2 SV(MOD-sp4): 28.8 ml SV(MOD-sp2): 28.9 ml LVLd ap2: 7.4 cm EDV(MOD-sp2): 59.0 ml EDV(sp2-el): 58.6 ml LVAs ap2: 14.7 cm2 LVLs ap2: 6.5 cm ESV(MOD-sp2): 30.1 ml ESV(sp2-el): 28.2 ml EF(MOD-sp2): 49.0 % SV(sp4-el): 28.6 ml LA dimension(2D): 4.9 cm LA A4 area: 24.3 cm2 RA A4 area: 24.0 cm2 TAPSE: 1.8 cm Time Measurements MV dec time: 0.22 sec Doppler Measurements & Calculations MV E max jony: 120.3 cm/sec Lat Peak E' Jony: 6.4 cm/sec Med Peak E' Jony: 4.6 cm/sec E/E' lat: 18.8 E/E' med: 26.3 Ao V2 max: 253.2 cm/sec AI max jony: 398.0 cm/sec MV dec slope: 549.8 cm/sec2 Ao max P.8 mmHg AI max P.5 mmHg Ao V2 mean: 181.3 cm/sec Ao mean P.6 mmHg AI dec slope: 184.5 cm/sec2 Ao V2 VTI: 53.7 cm AI P1/2t: 631.7 msec AV (velocity ratio): 0.36 HENRIQUE(I,D): 1.2 cm2 HENRIQUE(V,D): 1.2 cm2 LV V1 max: 93.5 cm/sec SV(LVOT): 63.9 ml PA V2 max: 112.4 cm/sec LV V1 max P.5 mmHg LV V1 mean P.8 mmHg LV V1 mean: 62.8 cm/sec LV V1 VTI: 19.2 cm TR max jony: 255.7 cm/sec TR max P.2 mmHg ECHO/Echo Complete Interpretation Summary The estimated ejection fraction is 50-55 %. Unable to assess diastolic dysfunction due to arrhythmia. Moderate concentric left ventricular hypertrophy. There is moderate biatrial dilatation. Moderate mitral annular calcification. Mild-Moderate (1-2+) mitral valve insufficiency. Mild to moderate aortic stenosis. No previous study for comparison Ordering Physician: Chi Glez Referring Physician: Bradley Hardin Performed By: Colleen Pinto RDCS
[2023-03-20 00:53] VITALS: BP 148/88; PULSE 69; RESP 18; TEMP 36.6; O2SAT 96; BMI 24.2
[2023-03-20] MEDS: Acetaminophen 325 MG Tablet 650 MG PO (01:07)
[2023-03-20] MEDS: Furosemide 40 MG/4 ML Vial IV ×3 (01:08→17:10)
[2023-03-20 01:30] LABS: Troponin-I HS 24 pg/mL (3.0-54.0)
[2023-03-20] MEDS: MethylPREDNISolone 125 MG/2 ML Vial 60 MG IV ×3 (04:52→22:07)
[2023-03-20] MEDS: Heparin Injection (Vial) 5,000 UNIT/ML VIAL 5000 UNIT SC ×3 (04:52→22:08)
[2023-03-20 05:00] VITALS: BP 151/79; PULSE 74; RESP 16; TEMP 36.8; O2SAT 94
[2023-03-20 05:29] LABS: BNP,B-Type NATRIURETIC PEPTIDE 887.5 pg/mL (0-100)
--- NOTE | 2023-03-20 05:30 | RAD_ITS ---
EXAM: XR CHEST, 2 VIEWS CLINICAL INDICATION: Acute exacerbation of CHF TECHNIQUE: Frontal and lateral views of the chest. COMPARISON: 03/19/2023 at 8:38 PM. FINDINGS: LUNGS AND PLEURAL SPACES: Pulmonary vascular congestion and interstitial prominence unchanged. No pneumothorax. No effusion. HEART: Stable mild cardiomegaly. MEDIASTINUM: Central airways and mediastinal contour are unremarkable. BONES/JOINTS: Unremarkable. No acute fracture. SOFT TISSUES: Unremarkable. TUBES, LINES AND DEVICES: Pacemaker leads in good position. No change dialysis catheter. RAD/Chest PA and Lateral IMPRESSION: 1. No change dialysis catheter. 2. Stable mild cardiomegaly. 3. Pulmonary vascular congestion and interstitial prominence unchanged. Electronically Signed: Milan Boyer MD at 6:19 EST ,
[2023-03-20 05:36] LABS: Cholesterol 128 mg/dL (200); High Density Lipoprotein 40 mg/dL; Triglycerides 93 mg/dL; Troponin-I HS 27 pg/mL (3.0-54.0); Very Low Density Lipoprotein 19 mg/dL (5-40)
[2023-03-20 08:43] LABS: Anion Gap 9 (5-15); BUN 15 mg/dL (7-18); BUN/Creat Ratio 5.1 RATIO (10-20); Calcium,Total 8.7 mg/dL (8.5-10.1); Chloride 96 mmol/L (98-107); Creatinine, Serum 2.97 mg/dL (0.55-1.02); EST Glomerular Filtration Rate 16 mL/min (>60); Est Glom Filt Rate - Afr Amer 20 mL/min (>60); Estimated Creatinine Clearance 12.73 ml/min; Glucose 99 mg/dL (74-106); Potassium 2.9 mmol/L (3.5-5.1); Sodium Level 137 mmol/L (136-145)
--- NOTE | 2023-03-20 09:29 | PN.HOSP_ITS ---
Reason for Visit Reason for Visit: Diagnoses Hypertensive emergency (03/19/23) Heart failure, unspecified (03/19/23) End stage renal disease (03/19/23) Dyspnea, unspecified (03/19/23) Shortness of breath (03/19/23) Dependence on renal dialysis (03/19/23) Objective Data Objective Data Vital Signs: Vital Signs Temp Pulse Resp BP Pulse Ox O2 Del Method 98.2 F 74 16 151/79 H 94 Room Air 03/20/23 05:00 03/20/23 05:00 03/20/23 05:00 03/20/23 05:00 03/20/23 05:00 03/20/23 05:00 Oxygen Delivery Method Room Air Weight: 115 lb 11.883 oz Body Mass Index (BMI) 24.2 Intake & Output: Intake and Output for Last 24 Hours 03/18/23 03/19/23 03/20/23 23:59 23:59 23:59 Intake Total 240 / 240 Balance 240 / 240 Lab / Micro Data 03/19/23 20:12 03/20/23 01:00 Labs: Laboratory Results - last 24 hr 03/19/23 20:12: WBC 4.7, RBC 3.39 L, Hgb 10.5 L, Hct 32.2 L, MCV 95.0, MCH 31.0, MCHC 32.6, RDW Std Deviation 52.3 H, RDW Coeff of Alexus 15.6 H, Plt Count 188, MPV 11.1, Immature Gran % (Auto) 0.600, Neut % (Auto) 65.3, Lymph % (Auto) 21.3, [place] % (Auto) 9.9, Eos % (Auto) 2.1, Baso % (Auto) 0.8, Absolute Neuts (auto) 3.1, Absolute Lymphs (auto) 1.01, Nucleated RBC % 0, Sodium 136, Potassium 3.3 L , Chloride 98, Carbon Dioxide 32.0, Anion Gap 6, BUN 13, Creatinine 2.70 H, Est GFR (MDRD) Af Amer 22 L, Est GFR (MDRD) Non-Af 18 L, BUN/Creatinine Ratio 4.8 L, Glucose 105, Calcium 8.4 L, Troponin I High Sens 23, B-Natriuretic Peptide 930.3 H, TSH 2.00 03/20/23 01:00: Sodium 137, Potassium 2.9 L, Chloride 96 L, Carbon Dioxide 32.0, Anion Gap 9, BUN 15, Creatinine 2.97 H, Estim Creat Clear Calc 12.73, Est GFR (MDRD) Af Amer 20 L, Est GFR (MDRD) Non-Af 16 L, BUN/Creatinine Ratio 5.1 L, Glucose 99, Calcium 8.7, Magnesium 2.0, Troponin I High Sens 24 03/20/23 04:25: Troponin I High Sens 27, B-Natriuretic Peptide 887.5 H, Triglycerides 93, Cholesterol 128, LDL Cholesterol 69, VLDL Cholesterol 19, HDL Cholesterol 40 Micro: Microbiology 03/19/23 20:10 Nasal Secretion SARS-CoV-2 & FLU Antigen (Rapid) - Final Radiography Diagnostic Testing: Radiology Impression Chest X-Ray 03/19/23 20:32 IMPRESSION: 1. Mild cardiac enlargement. Appearance suggesting mild pulmonary vascular congestion. 2. Subtle increased attenuation left mid lung may represent infiltrate or mild alveolar edema. Electronically Signed: Milan Hodges DO at 21:03 EST , Chest X-Ray 03/20/23 05:30 IMPRESSION: 1. No change dialysis catheter. 2. Stable mild cardiomegaly. 3. Pulmonary vascular congestion and interstitial prominence unchanged. Electronically Signed: Milan Boyer MD at 6:19 EST , Physical Exam Narrative Seen and examined. Patient denies any fever but cold symptoms Including chills. Patient states she is always short of breath. Shortness of breath got worse with the dyspnea on exertion for last 3 days. She has chest congestion but denies chest pain or pressure. General: Alert, Oriented x3, Cooperative HEENT: Atraumatic, PERRLA, EOMI, Normocephalic Oral: No Gingival or Mucosal Lesions/ Ulcerations Neck: Supple, No JVD, Negative Carotid Bruits Lungs: Air entry diminished in bilateral lung bases. No crepitation/rhonchi Cardiovascular: A-fib rhythm, Normal S1, Normal S2, systolic murmur over LLSB. Abdomen: Bowel Sounds Present, Soft, Non Tender, Non-Distended : No renal angle tenderness. No suprapubic tenderness. Extremities: No edema, Capillary Refill Less than 3 Seconds Skin: No rashes, No breakdown Musculoskeletal: No Tenderness to Palpation of Joints or Extremities. ROM restricted. Degenerative arthritis of knees and hip joints. Neurological: Cranial nerves II-XII grossly intact, DTR 2+/4. No acute focal neurological deficit. Psych/Mental Status: Flat affect. Assessment & Plan Assessment/Plan (1) Congestive heart failure: QUALIFIERS: Heart failure chronicity: acute on chronic Heart failure type: unspecified Qualified Code(s): I50.9 - Heart failure, unspecified (2) Hypertensive emergency: (3) Dyspnea: QUALIFIERS: Dyspnea type: shortness of breath Qualified Code(s): R06.02 - Shortness of breath (4) End-stage renal disease on hemodialysis: PLAN: Plan 77-year-old female was admitted for shortness of breath, getting worse with the dyspnea on exertion for 3 to 4 days, URI symptoms of rhinorrhea, chills, and wheezing. Patient has elevated BNP. Blood pressure was also high in the ER 1. Acute exacerbation of congestive heart failure - Admit to PCU. Chest x-ray initially reviewed and shows pulmonary congestion and interstitial edema. Heart failure core measures including intake and output, fluid restriction less than 1500 mL, daily weight monitoring, kidney and electrolytes monitoring. Continue IV Lasix twice daily but avoid potassium replacement in this dialysis patient. Check echocardiogram to evaluate left ventricular ejection fraction. Serialize troponin. Finally, we will consult cardiology to see this patient on rounds in the a.m. for further recommendations with help appreciated in advance. 2. Hypertensive urgency evidenced by highly elevated blood pressure of 199/82 mmHg present on admission accompanied by shortness of breath and tension-type headache - Resume home regimen as previous plus give as needed IV hydralazine for systolic blood pressure greater than 160 mmHg. Give Tylenol as needed for mild to moderate level 1-5 out of 10 pain or fever. Avoid morphine as she has a listed anaphylactic allergy to this agent along with unknown allergies to hydrocodone, hydromorphone and tramadol. 3. End-stage renal disease on hemodialysis (M-W-F) followed by Dr. Hammonds of the nephrology service with her dialysis access in her right upper chest - We will consult Dr. Hammonds of the nephrology service to see this patient on rounds in the a.m. for further consideration regarding potential repeat dialysis to remove suspected excess volume causing #1 and #2. 4. Recent history of COVID-19 on 03/12/2023 with persistent bronchospasm in the setting of a known history of severe COVID-19 treated at [facility] for 5-1/2 weeks about a year ago - COVID-19 assay negative this admission. Give Solu-Medrol IV twice daily plus give nebulizers as needed. 5. Hyperlipidemia - Resume statin. 6. 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 7. History of atrial fibrillation; status post Watchman left atrial appendage c losure device - Stable. 8. History of arrhythmia; status post permanent pacemaker placement - Stable. 9. History of CVA - Noted no evidence of recurrence. 10. History of hysterectomy - Noted. 11. History of cholecystectomy - Noted. 12. History of hernia repair - Noted. 13. History of GERD - Resume PPI. 14. History of GI bleed - Stable with no evidence of recurrence. 15. History of vascular dementia - Stable. 16. History of skin cancer - Noted. 17. Osteoarthritis - Stable. Give Tylenol as needed as outlined above. 18. DVT prophylaxis - Heparin 5,000 units SQ 3 times daily plus SCDs. Charges/Coding Visit Charges Inpatient E&M: 66839 Subs Hosp L2
--- NOTE | 2023-03-20 09:46 | CON.PCM.CA_ITS ---
<Statement entered by Immanuel Adrian MD - 03/20/23 16:56> Pt seen & evaluated w/HEMALATHA. I personally interviewed & exam the pt. I was involved in all aspects of pt's orders, interpretation of results & treatment Assessment & Plan Assessment/Plan (1) Congestive heart failure: QUALIFIERS: Heart failure type: unspecified Heart failure chronicity: acute on chronic Qualified Code(s): I50.9 - Heart failure, unspeci fied (2) Hypertension: (3) Atrial fibrillation: (4) History of permanent cardiac pacemaker placement: PLAN: Plan * Would like to obtain cardiology notes from Dr. Carlos Manuel Madsen. * Echo is pending, * Awaiting PPM interrogation, would like to see if any arrhythmia are contributing to her symptoms. EKG from 01/2023 demonstrated Afib * BP is still elevated. Will continue to adjust and monitor. Pt is currently on Coreg, Clonidine patches, lasix HPI Consult Data Date of Consult: 03/20/23 HPI Narrative HPI Narrative: JOVANY HARRIS, is a 77 F who presented to [facility] ER on 03/19/23 increase SOB over the last few weeks. She also noted an increase in her Afib. She felt that she was too weak to take care of herself at home and wanted to come the the ER. She has a past medical history of essential hypertension, hyperlipidemia, remote history of renal transplant from her son approximately 26 years ago, end-stage renal disease on hemodialysis (M-W-F) followed by Dr. Hammonds of the nephrology service with her dialysis access in her right upper chest, history of atrial fibrillation; status post Watchman left atrial appendage closure device, history of arrhythmia; status post permanent pacemaker placement, history of CVA, history of GI bleed, history of vascular dementia. Pt is established with Dr. Carlos Manuel Madsen at [facility]. Pt also notes that over the last few days she has had an increase in BP. Her troponins were negative, BNP were elevated at [facility] Medical History (Updated 03/20/23 @ 13:39 by Paige RYAN, PA) Atrial fibrillation Chronic renal failure CVA (cerebral vascular accident) Dialysis patient End-stage renal disease on hemodialysis GI bleed High cholesterol Hx of gastroesophageal reflux (GERD) Hypertension Kidney transplant pain Presence of Watchman left atrial appendage closure device Sick sinus syndrome Skin cancer Vascular dementia Home Medications aspirin 81 mg tablet,delayed release (Adult Aspirin Regimen) 81 mg PO DAILY 02/08/23 [History Last Taken 02/08/23] calcium citrate 250 mg calcium-vitamin D3 5 mcg (200 unit) tablet 1 tab PO DAILY 02/08/23 [History Last Taken 02/07/23] carvedilol 25 mg tablet 25 mg PO Q12H HTN 02/08/23 [History Last Taken 02/07/23] furosemide 40 mg tablet 40 mg PO .TUTHFRSU 02/08/23 [History Last Taken 02/08/23] ondansetron HCl 4 mg tablet 4 mg PO Q8H PRN nausea and vomiting 02/08/23 [History Last Taken 02/08/23] pantoprazole 40 mg tablet,delayed release 40 mg PO Q12H 02/08/23 [History Last Taken Unknown] promethazine 12.5 mg tablet 12.5 mg PO Q6H PRN nausea and vomiting 02/08/23 [History Last Taken Unknown] clonidine 0.1 mg/24 hr weekly transdermal patch 1 patch transdermal FR 03/19/23 [History Last Taken Unknown] hydralazine 25 mg tablet 75 mg PO Q12H 03/19/23 [History Last Taken Unknown] hydralazine 50 mg tablet 75 mg PO .MOWEFR 03/19/23 [History Last Taken Unknown] Allergy/AdvReac Type Severity Reaction Status Date / Time amlodipine Allergy Intermediate turns blue Verified 03/19/23 19:23 acetaminophen Allergy Mild unknown Verified 03/19/23 19:23 [From Panlor (hydrocodone-acetamin)] ascorbic acid Allergy Mild unknown Verified 03/19/23 19:23 [From Airborne (ascorbate sodium)] caffeine Allergy Mild unknown Verified 03/19/23 19:23 [place] And Derivatives Allergy Mild unknown Verified 03/19/23 19:23 codeine Allergy Mild unknown Verified 03/19/23 19:23 desloratadine Allergy Mild unknown Verified 03/19/23 19:23 glutamine Allergy Mild unknown Verified 03/19/23 19:23 [From Airborne (ascorbate sodium)] herbal complex no.124 Allergy Mild unknown Verified 03/19/23 19:23 [From Airborne (ascorbate sodium)] hydrocodone Allergy Mild unknown Verified 03/19/23 19:23 hydromorphone Allergy Mild unknown Verified 03/19/23 19:23 lysine HCl Allergy Mild unknown Verified 03/19/23 19:23 [From Airborne (ascorbate sodium)] morphine Allergy Mild unknown Verified 03/19/23 19:23 moxifloxacin Allergy Mild unknown Verified 03/19/23 19:23 multivitamin with minerals Allergy Mild unknown Verified 03/19/23 19:23 [From Airborne (ascorbate sodium)] nabumetone Allergy Mild unknown Verified 03/19/23 19:23 oxycodone Allergy Mild unknown Verified 03/19/23 19:23 penicillin G Allergy Mild unknown Verified 03/19/23 19:23 Penicillins Allergy Mild hands blue Verified 03/19/23 19:23 propoxyphene Allergy Mild unknown Verified 03/19/23 19:23 [From Margesic (propoxyphene)] tramadol Allergy Mild unknown Verified 03/19/23 19:23 amiodarone Allergy Unknown unknown Verified 03/19/23 19:23 Opioids - Morphine Analogues Allergy Anaphylaxis Verified 03/19/23 19:23 Surgical History (Updated 03/20/23 @ 13:39 by Paige RYAN, PA) H/O: hysterectomy History of hernia repair History of permanent cardiac pacemaker placement Hx of cholecystectomy Social History Smoking Status: Never smoker ROS Constitutional Constitutional: Reports fatigue, headache(s) and weakness ENT HEENT: Denies dizziness or epistaxis Cardiovascular Cardiovascular: Reports systems reviewed and no addt'l complaints, except as documented Respiratory/Chest Respiratory/Chest: Reports systems reviewed and no addt'l complaints, except as documented Gastrointestinal Gastrointestinal: Denies dyspepsia, heartburn, loose stools, melena or nausea Musculoskeletal Musculoskeletal: Reports muscle weakness and myalgias Neurologic Neurologic: Reports other Details: numbness in left thumb and left hearing loss from CVA Physical Exam Const alert and oriented x3 General Appearance: frail Nutritional Appearance: thin HEENT normocephalic, head/scalp atraumatic, external ears normal, external nose normal and moist oral mucous membranes Eyes PERRL, EOMs intact bilaterally, conjunctivae normal and no scleral icterus Neck no lymphadenopathy, supple and no JVD Resp Auscultation: crackles bilateral base and diminished lung sounds bilateral lower Cardio Rate: regular rate Rhythm: abnormal rhythm irregularly irregular Heart Sounds: S1 normal, S2 normal and murmur systolic III/ harsh holo GI normal to inspection, nondistended, normoactive bowel sounds, soft to palpation, non-tender and non-distended Extremity normal to inspection, normal capillary refill, no clubbing, cyanosis or edema and no pedal edema Neuro oriented x3, moves all extremities and no focal motor deficits Psych cooperative and affect normal Risk Stratification Risk Stratification Applicable: Yes Age >/= 65: Yes >/= 3 CAD Risk Factors (HTN, HLD, DM, family hx of CAD, or current smoker): Yes Aspirin Use in the Past 7 Days: Yes Severe Angina (>/= episodes in 24 hours): Yes EKG ST Changes >/= 0.5mm: No Positive Cardiac Marker: Yes TASHA Risk Stratification Score: 5 TASHA % Risk: 25% Risk Charges/Coding Visit Charges Office Visits / Consults: 26051 IP Consult L4 Objective Data Vital Signs: Vital Signs Temp Pulse Resp BP Pulse Ox O2 Del Method 98.2 F 74 16 151/79 H 94 Room Air 03/20/23 05:00 03/20/23 05:00 03/20/23 05:00 03/20/23 05:00 03/20/23 05:00 03/20/23 05:00 Oxygen Delivery Method Room Air Weight: 115 lb 11.883 oz Body Mass Index (BMI) 24.2 Intake & Output: Intake and Output for Last 24 Hours 03/18/23 03/19/23 03/20/23 23:59 23:59 23:59 Intake Total 240 / 240 Balance 240 / 240 Lab / Micro Data 03/19/23 20:12 03/20/23 01:00 Labs: Laboratory Results - last 24 hr 03/19/23 20:12: WBC 4.7, RBC 3.39 L, Hgb 10.5 L, Hct 32.2 L, MCV 95.0, MCH 31.0, MCHC 32.6, RDW Std Deviation 52.3 H, RDW Coeff of [place] 15.6 H, Plt Count 188, MPV 11.1, Immature Gran % (Auto) 0.600, Neut % (Auto) 65.3, Lymph % (Auto) 21.3, Coal % (Auto) 9.9, Eos % (Auto) 2.1, Baso % (Auto) 0.8, Absolute Neuts (auto) 3.1, Absolute Lymphs (auto) 1.01, Nucleated RBC % 0, Sodium 136, Potassium 3.3 L , Chloride 98, Carbon Dioxide 32.0, Anion Gap 6, BUN 13, Creatinine 2.70 H, Est GFR (MDRD) Af Amer 22 L, Est GFR (MDRD) Non-Af 18 L, BUN/Creatinine Ratio 4.8 L, Glucose 105, Calcium 8.4 L, Troponin I High Sens 23, B-Natriuretic Peptide 930.3 H, TSH 2.00 03/20/23 01:00: Sodium 137, Potassium 2.9 L, Chloride 96 L, Carbon Dioxide 32.0, Anion Gap 9, BUN 15, Creatinine 2.97 H, Estim Creat Clear Calc 12.73, Est GFR (MDRD) Af Amer 20 L, Est GFR (MDRD) Non-Af 16 L, BUN/Creatinine Ratio 5.1 L, Glucose 99, Calcium 8.7, Magnesium 2.0, Troponin I High Sens 24 03/20/23 04:25: Troponin I High Sens 27, B-Natriuretic Peptide 887.5 H, Triglycerides 93, Cholesterol 128, LDL Cholesterol 69, VLDL Cholesterol 19, HDL Cholesterol 40 Micro: Microbiology 03/19/23 20:10 Nasal Secretion SARS-CoV-2 & FLU Antigen (Rapid) - Final Cardiology Labs/Tests 03/19/23 20:12: WBC 4.7, RBC 3.39 L, Hgb 10.5 L, Hct 32.2 L, MCV 95.0, MCH 31.0, MCHC 32.6, Plt Count 188, MPV 11.1, Immature Gran % (Auto) 0.600, Neut % (Auto) 65.3, Lymph % (Auto) 21.3, Coal % (Auto) 9.9, Eos % (Auto) 2.1, Baso % (Auto) 0.8, Absolute Neuts (auto) 3.1, Nucleated RBC % 0, Sodium 136, Potassium 3.3 L, Chloride 98, Carbon Dioxide 32.0, Anion Gap 6, BUN 13, Creatinine 2.70 H, Est GFR (MDRD) Af Amer 22 L, Est GFR (MDRD) Non-Af 18 L, BUN/Creatinine Ratio 4.8 L, Glucose 105, Calcium 8.4 L, B-Natriuretic Peptide 930.3 H 03/20/23 01:00: Sodium 137, Potassium 2.9 L, Chloride 96 L, Carbon Dioxide 32.0, Anion Gap 9, BUN 15, Creatinine 2.97 H, Est GFR (MDRD) Af Amer 20 L, Est GFR (MDRD) Non-Af 16 L, BUN/Creatinine Ratio 5.1 L, Glucose 99, Calcium 8.7, Magnesium 2.0 03/20/23 04:25: B-Natriuretic Peptide 887.5 H, Triglycerides 93, Cholesterol 128, LDL Cholesterol 69, VLDL Cholesterol 19, HDL Cholesterol 40 Rhythm: Afib with occasional V paced Radiography Diagnostic Testing: Radiology Impression Chest X-Ray 03/19/23 20:32 IMPRESSION: 1. Mild cardiac enlargement. Appearance suggesting mild pulmonary vascular congestion. 2. Subtle increased attenuation left mid lung may represent infiltrate or mild alveolar edema. Electronically Signed: Milan Hodges DO at 21:03 EST , Chest X-Ray 03/20/23 05:30 IMPRESSION: 1. No change dialysis catheter. 2. Stable mild cardiomegaly. 3. Pulmonary vascular congestion and interstitial prominence unchanged. Electronically Signed: Milan Boyer MD at 6:19 EST ,
[2023-03-20 10:00] VITALS: BP 189/103; PULSE 76; RESP 18; TEMP 36.8; O2SAT 94
[2023-03-20] MEDS: Pantoprazole Sodium 40 MG Tablet PO ×2 (10:07→22:08)
[2023-03-20] MEDS: Calcium Carb/Vitamin D 1 TABLET Tablet PO (10:25)
[2023-03-20] MEDS: Magnesium Chloride 64 MG Delay Rel.Tablet 128 MG PO (10:25)
[2023-03-20] MEDS: Aspirin E.C. 81 MG Tablet PO (10:25)
[2023-03-20] MEDS: Carvedilol 25 MG Tablet PO ×2 (10:25→17:10)
--- NOTE | 2023-03-20 10:55 | CON.PCM.RE_ITS ---
Assessment & Plan Assessment/Plan (1) End-stage renal disease on hemodialysis: (2) Dyspnea: QUALIFIERS: Dyspnea type: shortness of breath Qualified Code(s): R06.02 - Shortness of breath (3) Hypertension: (4) Anemia of chronic disease: PLAN: Plan This is a 77-year-old female with past medical history significant for end-stage renal disease on chronic hemodialysis Friday, last dialyzed yesterday, history of hypertension, A-fib status post watchman left atrial appendage closure device, permanent pacemaker placement, anemia of chronic disease, history of vascular dementia who presented to the emergency room yesterday with complaints of shortness of breath after dialysis and feeling unwell with recent history of COVID infection. Nephrology consulted for hemodialysis needs. Patient currently dialyzes Friday. Reviewed chest x-ray from admission and again this morning. Breathing has improved, patient is on room air. There is no acute indication for HAND CANDY CUTTER today, we will plan for hemodialysis tomorrow. Patient's outpatient EDW was 52.3kg, patient tolerated around 2.5 L fluid removal yesterday with dialysis with post weight of 51.6 kg. We will attempt fluid removal with dialysis tomorrow as patient/blood pressure tolerates and likely patient will have a even lower dry weight by time of hospital discharge. Patient has history of anemia of chronic disease, will monitor hemoglobin trends. Hemoglobin is 10.5. Today potassium is 2.9. Patient does not need renal diet restrictions. We will also give oral dose of potassium today. Patient has history of hypertension, continue clonidine, hydralazine and carvedilol. Recommend holding antihypertensives mornings of dialysis. Further orders forthcoming as hospitalization evolves, thank you for allowing us to participate in the care of Ms. Harris. HPI Consult Data Date of Consult: 03/20/23 HPI Narrative HPI Narrative: JOVANY HARRIS, is a 77 F with past medical history significant for ESRD on hemodialysis Friday at [facility], last dialyzed yesterday who presented to the emergency room last evening with complaints of shortness of breath, feeling unwell. Patient was diagnosed with COVID infection over a week ago. Workup in the emergency room BNP 930, chest x- ray showed mild cardiomegaly, pulmonary vascular congestion suggestive of acute exacerbation of congestive heart failure, patient was admitted for further ev aluation and treatment. Nephrology consulted for hemodialysis needs. This morning patient reports that she is feeling better, feels she is breathing better. Patient does report appetite is poor. Denies any fever or chills. [facility] Medical History (Updated 03/20/23 @ 10:58 by MELANIE Powell) Atrial fibrillation Chronic renal failure CVA (cerebral vascular accident) Dialysis patient End-stage renal disease on hemodialysis GI bleed High cholesterol Hx of gastroesophageal reflux (GERD) Hypertension Kidney transplant pain Presence of Watchman left atrial appendage closure device Sick sinus syndrome Skin cancer Vascular dementia Home Medications aspirin 81 mg tablet,delayed release (Adult Aspirin Regimen) 81 mg PO DAILY 02/08/23 [History Last Taken 02/08/23] calcium citrate 250 mg calcium-vitamin D3 5 mcg (200 unit) tablet 1 tab PO DAILY 02/08/23 [History Last Taken 02/07/23] carvedilol 25 mg tablet 25 mg PO Q12H HTN 02/08/23 [History Last Taken 02/07/23] furosemide 40 mg tablet 40 mg PO .TUTHFRSU 02/08/23 [History Last Taken 02/08/23] ondansetron HCl 4 mg tablet 4 mg PO Q8H PRN nausea and vomiting 02/08/23 [History Last Taken 02/08/23] pantoprazole 40 mg tablet,delayed release 40 mg PO Q12H 02/08/23 [History Last Taken Unknown] promethazine 12.5 mg tablet 12.5 mg PO Q6H PRN nausea and vomiting 02/08/23 [History Last Taken Unknown] clonidine 0.1 mg/24 hr weekly transdermal patch 1 patch transdermal FR 03/19/23 [History Last Taken Unknown] hydralazine 25 mg tablet 75 mg PO Q12H 03/19/23 [History Last Taken Unknown] hydralazine 50 mg tablet 75 mg PO .MOWEFR 03/19/23 [History Last Taken Unknown] Allergy/AdvReac Type Severity Reaction Status Date / Time amlodipine Allergy Intermediate turns blue Verified 03/19/23 19:23 acetaminophen Allergy Mild unknown Verified 03/19/23 19:23 [From Panlor (hydrocodone-acetamin)] ascorbic acid Allergy Mild unknown Verified 03/19/23 19:23 [From Airborne (ascorbate sodium)] caffeine Allergy Mild unknown Verified 03/19/23 19:23 [place] And Derivatives Allergy Mild unknown Verified 03/19/23 19:23 codeine Allergy Mild unknown Verified 03/19/23 19:23 desloratadine Allergy Mild unknown Verified 03/19/23 19:23 glutamine Allergy Mild unknown Verified 03/19/23 19:23 [From Airborne (ascorbate sodium)] herbal complex no.124 Allergy Mild unknown Verified 03/19/23 19:23 [From Airborne (ascorbate sodium)] hydrocodone Allergy Mild unknown Verified 03/19/23 19:23 hydromorphone Allergy Mild unknown Verified 03/19/23 19:23 lysine HCl Allergy Mild unknown Verified 03/19/23 19:23 [From Airborne (ascorbate sodium)] morphine Allergy Mild unknown Verified 03/19/23 19:23 moxifloxacin Allergy Mild unknown Verified 03/19/23 19:23 multivitamin with minerals Allergy Mild unknown Verified 03/19/23 19:23 [From Airborne (ascorbate sodium)] nabumetone Allergy Mild unknown Verified 03/19/23 19:23 oxycodone Allergy Mild unknown Verified 03/19/23 19:23 penicillin G Allergy Mild unknown Verified 03/19/23 19:23 Penicillins Allergy Mild hands blue Verified 03/19/23 19:23 propoxyphene Allergy Mild unknown Verified 03/19/23 19:23 [From Margesic (propoxyphene)] tramadol Allergy Mild unknown Verified 03/19/23 19:23 amiodarone Allergy Unknown unknown Verified 03/19/23 19:23 Opioids - Morphine Analogues Allergy Anaphylaxis Verified 03/19/23 19:23 Surgical History H/O: hysterectomy History of hernia repair History of permanent cardiac pacemaker placement Hx of cholecystectomy Social History Smoking Status: Never smoker ROS ROS Narrative As in HPI and past medical history Physical Exam Narrative Alert and orient x 3, no apparent distress S1, S2, RRR Diminished breath sounds with faint rhonchi Abdomen soft, nontender No pitting edema to bilateral legs Tunneled HD catheter dressing clean, dry and intact Lab / Micro Data 03/19/23 20:12 03/20/23 01:00 Labs: Laboratory Results - last 24 hr 03/19/23 20:12: WBC 4.7, RBC 3.39 L, Hgb 10.5 L, Hct 32.2 L, MCV 95.0, MCH 31.0, MCHC 32.6, RDW Std Deviation 52.3 H, RDW Coeff of [place]us 15.6 H, Plt Count 188, MPV 11.1, Immature Gran % (Auto) 0.600, Neut % (Auto) 65.3, Lymph % (Auto) 21.3, [place] % (Auto) 9.9, Eos % (Auto) 2.1, Baso % (Auto) 0.8, Absolute Neuts (auto) 3.1, Absolute Lymphs (auto) 1.01, Nucleated RBC % 0, Sodium 136, Potassium 3.3 L , Chloride 98, Carbon Dioxide 32.0, Anion Gap 6, BUN 13, Creatinine 2.70 H, Est GFR (MDRD) Af Amer 22 L, Est GFR (MDRD) Non-Af 18 L, BUN/Creatinine Ratio 4.8 L, Glucose 105, Calcium 8.4 L, Troponin I High Sens 23, B-Natriuretic Peptide 930.3 H, TSH 2.00 03/20/23 01:00: Sodium 137, Potassium 2.9 L, Chloride 96 L, Carbon Dioxide 32.0, Anion Gap 9, BUN 15, Creatinine 2.97 H, Estim Creat Clear Calc 12.73, Est GFR (MDRD) Af Amer 20 L, Est GFR (MDRD) Non-Af 16 L, BUN/Creatinine Ratio 5.1 L, Glucose 99, Calcium 8.7, Magnesium 2.0, Troponin I High Sens 24 03/20/23 04:25: Troponin I High Sens 27, B-Natriuretic Peptide 887.5 H, Triglycerides 93, Cholesterol 128, LDL Cholesterol 69, VLDL Cholesterol 19, HDL Cholesterol 40 Micro: Microbiology 03/19/23 20:10 Nasal Secretion SARS-CoV-2 & FLU Antigen (Rapid) - Final Imagaing Radiology Impression Chest X-Ray 03/19/23 20:32 IMPRESSION: 1. Mild cardiac enlargement. Appearance suggesting mild pulmonary vascular congestion. 2. Subtle increased attenuation left mid lung may represent infiltrate or mild alveolar edema. Electronically Signed: Milan Hodges DO at 21:03 EST , Chest X-Ray 03/20/23 05:30 IMPRESSION: 1. No change dialysis catheter. 2. Stable mild cardiomegaly. 3. Pulmonary vascular congestion and interstitial prominence unchanged. Electronically Signed: Milan Boyer MD at 6:19 EST ,
[2023-03-20] MEDS: cloNIDine HCl 0.2 MG Tablet PO ×2 (11:41→22:22)
[2023-03-20] MEDS: Potassium Chloride Oral Tablet 20 MEQ 40 MEQ PO (11:41)
--- NOTE | 2023-03-20 13:50 | CASEMGMT ---
RN?CM?PILOT MANAGER?CM?to room to meet with patient for initial transition planning/care coordination?assessment.?RN?CM?introduced self and role at [facility].? Pt voices understanding and consents to?assessment?at this time.? Pt sitting up in chair in room in no distress at this time.?Son, Eliu, and Traci RAMAN, in room visiting. Care providers, pharmacy, and demographics verified with pt and family at this time. Per , pt w/hx of vascular dementia and is forgetful. Pt was able to answer most questions and family clarified when needed. PCP: Dr Bradley Hardin Specialists: Dr Hammonds-nephnicole, Dr Stanley Madsen-soft iron inspector @ [facility], Dr Leslie [facility] geriatric specialist Pt goes to [facility] in [facility] for OP HD. Chair time 1 PM. She has a stake driver that transports her to/from HD to her home. Preferred Pharmacy: [facility] Retail Insurance: MCR, MMO Prescription Benefit:?Yes, [employer]. Living Will/HPOA:?Has LW and HCPOA. Eliu is primary POA. 1st alternative is Raúl. 2nd alternative is Gerardo. Eliu made aware copies are not on file @ [facility] and states they can bring these in. LNOK: 3 sons: EliuRaúl Shawn. Traci RAMAN, who is an RN Living Arrangements: Lives alone in 3-story home w/ either ramp entrance or 1 step to enter. FFSU. Pt states she does go to the basement to do laundry. Stairs to basement has railing on one side. Pt is indep w/ADL's. One son live a block away Family supportive, assist pt as needed, and check on her frequently. Neighbors also check on pt frequently and take out her trash. manages medications. Family gets her groceries. states, b/w all of them, someone is checking in w/pt 3-4 x's/day. Transportation:?Printing Assistant takes pt to OP HD and picks up pt's medications. Other family also assist w/transp. DME: has the following DME:?shower chair, pulse ox, lift chair, cane. Has a walker available, but does not typically use it. Family interested in medical alert info which was provided at this time. HHC/SNF:Has been to [facility] in the past and has had HHC in the past. Discussed discharge planning. Pt and family interested in pt going to a SNF @ discharge. Questions answered. A list of SNF providers including quality and resource use data and consistent with the patient?s preferred geographic region, medical needs, and insurance network were provided from the [facility] Guide. Pt and family made aware SW would f/u with them re: preferences. PLAN:??SNF Jess BSN?RN?CM
--- NOTE | 2023-03-20 14:02 | CASEMGMT ---
Per RN CM patient's son is going to bring in patient's Healthcare Power of Card Fixer and Healthcare Living Will. Windy Calvo [employer] WORK[employer] PETE
--- NOTE | 2023-03-20 14:37 | CASEMGMT ---
Per RN CM patient's family would like patient to go to a SNF. Patient's son Eliu and daughter in law asked to talk with SW. SW met with Eliu and . They asked if a referral could be sent to [facility] ([facility]). Patient goes to dialysis in [place] and she has a maintenance truck driver that normally takes her. was going to look into some of the other places in case [facility] does not work out. did call [facility] and talk with admissions who said they are full, but do have discharges coming up. CARLOS asked Omayra d/c food service assistant to please send a referral to [facility]. Windy Calvo CONSUMER ELECTRONIC RETAIL SPECIALIST PETE
--- NOTE | 2023-03-20 15:10 | CASEMGMT ---
Addendum entered by Omayra Weir 03/21/23 10:29: Patient was declined by [facility] d/t no female bed availability. There is a possibility that a bed will be open on Friday. SW updated. Omayra Weir, Discharge Planning Asst. Original Note: Discharge Planning Referral sent to [facility] via [facility]. Omayra Weir, Discharge Planning Asst.
[2023-03-20 15:25] VITALS: BP 153/85; PULSE 77; RESP 18; TEMP 36.4; O2SAT 94
--- NOTE | 2023-03-20 16:07 | CASEMGMT ---
CARLOS received a voice mail from patient's daughter in law . asked CARLOS to send a referral to [facility]. spoke with Lucia at [facility] in [place] and they could temporarily move patient's dialysis from [place] to [place] at patient's normal treatment time. CARLOS sent a referral to [facility] via [facility]. Windy Calvo TECHNICAL SERVICES CONSULTANT PETE
[2023-03-20] MEDS: Fluticasone 0.05% 1 SPRAY NASAL.SRY 2 SPRAY NASAL (22:05)
[2023-03-20 22:17] VITALS: BP 172/91; PULSE 78; RESP 16; TEMP 36.2; O2SAT 94
[2023-03-21] VITALS (16 sets, daily range): BP systolic 99–189; BP diastolic 75–134; PULSE 73–94; RESP 16–18; TEMP 36.3–36.9; O2SAT 93–98; BMI 25.9
[2023-03-21] MEDS: hydrALAZINE 20 MG/ML Vial 10 MG IV (03:32)
[2023-03-21 04:32] LABS: Absolute Lymphocyte Count 0.49 X10^3/uL (0.83-4.51); Absolute Neutrophil Count 8.9 X10^3/uL (2.0-7.7); Basophil# 0.01 X10^3/uL; Basophil% 0.1 % (0-1); Hematocrit 30.7 % (37-47); Hemoglobin 10.2 g/dL (12.0-15.0); Lymphocyte # 0.49 X10^3/ul (0.83-4.51); Lymphocyte % 5.1 % (19-41); Mean Corp Hgb Conc 33.2 g/dL (32-36); Mean Corpuscular Hgb 31.7 pg (27.0-32.0); Mean Corpuscular Volume 95.3 fL (81-99); Mean Platelet Vol. 11.2 fl (6.2-12.0); Monocyte# 0.14 X10^3/uL; Monocyte% 1.5 % (0-10); NRBC Flagged by Analyzer 0 % (0-5); Neutrophil # 8.89 X10^3/uL (2.7-7.7); Neutrophil % 92.7 % (47-70); POSITIVE DIFFERENTIAL YES; Platelet Count 159 K/mm3 (150-450); RBC Distribution Width CV 15.9 % (11.6-14.6); RBC Distribution Width SD 53.4 fl (35.1-43.9); Red Blood Count 3.22 M/mm3 (4.2-5.4); White Blood Count 9.6 K/mm3 (4.4-11.0)
[2023-03-21 04:47] LABS: Differential Indicated SCAN CRITERIA MET
[2023-03-21 05:32] LABS: Anion Gap 9 (5-15); BUN 33 mg/dL (7-18); BUN/Creat Ratio 7.5 RATIO (10-20); Calcium,Total 8.5 mg/dL (8.5-10.1); Chloride 96 mmol/L (98-107); EST Glomerular Filtration Rate 10 mL/min (>60); Est Glom Filt Rate - Afr Amer 12 mL/min (>60); Estimated Creatinine Clearance 8.59 ml/min; Glucose 163 mg/dL (74-106); Potassium 3.8 mmol/L (3.5-5.1); Sodium Level 132 mmol/L (136-145)
[2023-03-21] MEDS: Heparin Injection (Vial) 5,000 UNIT/ML VIAL 5000 UNIT SC ×3 (05:38→22:06)
[2023-03-21 07:17] LABS: Differential Comment SCANNED
[2023-03-21] MEDS: PureFlow B 3K Dialysis Soln 1 BAG 6 BAG PF (07:50)
[2023-03-21] MEDS: 0.9% Normal Saline 1,000 ML IV.SOLN. 1000 ML OPERA.SITE (07:50)
--- NOTE | 2023-03-21 09:12 | PN.RENAL_ITS ---
Documented by User: MELANIE Powell 03/21/23 09:17 Subjective Subjective Seen and examined while on dialysis this morning. Clinically patient improving. Breathing improving. Denies any complaints. Objective Data Objective Data Vital Signs: Vital Signs Temp Pulse Resp BP Pulse Ox O2 Del Method 97.3 F L 80 16 181/98 H 96 Room Air 03/21/23 03:08 03/21/23 09:02 03/21/23 09:02 03/21/23 09:02 03/21/23 09:02 03/21/23 09:02 Oxygen Delivery Method Room Air Weight: 56.4 kg Body Mass Index (BMI) 25.9 Intake & Output: Intake and Output for Last 24 Hours 03/19/23 03/20/23 03/21/23 23:59 23:59 23:59 Intake Total 600 / 600 120 / 120 Output Total 0 / 0 Balance 600 / 600 120 / 120 Lab / Micro Data 03/21/23 04:05 03/21/23 04:05 Labs: Laboratory Results - last 24 hr 03/21/23 04:05: WBC 9.6, RBC 3.22 L, Hgb 10.2 L, Hct 30.7 L, MCV 95.3, MCH 31.7, MCHC 33.2, RDW Std Deviation 53.4 H, RDW Coeff of Alexus 15.9 H, Plt Count 159, MPV 11.2, Immature Gran % (Auto) 0.600, Neut % (Auto) 92.7 H, Lymph % (Auto) 5.1 L, [place] % (Auto) 1.5, Eos % (Auto) 0.0, Baso % (Auto) 0.1, Absolute Neuts (auto) 8.9 H, Absolute Lymphs (auto) 0.49 L, Nucleated RBC % 0, Differential Comment SCANNED, Sodium 132 L, Potassium 3.8, Chloride 96 L, Carbon Dioxide 27.0, Anion Gap 9, BUN 33 H, Creatinine 4.40 H, Estim Creat Clear Calc 8.59, Est GFR (MDRD) Af Amer 12 L, Est GFR (MDRD) Non-Af 10 L, BUN/Creatinine Ratio 7.5 L, Glucose 163 H, Calcium 8.5 Micro: Microbiology 03/19/23 20:10 Nasal Secretion SARS-CoV-2 & FLU Antigen (Rapid) - Final Radiography Diagnostic Testing: Radiology Impression Echocardiogram 03/20/23 00:23 Interpretation Summary The estimated ejection fraction is 50-55 %. Unable to assess diastolic dysfunction due to arrhythmia. Moderate concentric left ventricular hypertrophy. There is moderate biatrial dilatation. Moderate mitral annular calcification. Mild-Moderate (1-2+) mitral valve insufficiency. Mild to moderate aortic stenosis. No previous study for comparison Ordering Physician: Chi Glez Referring Physician: Bradley Hardin Performed By: Colleen Pinto RDCS Physical Exam Narrative Alert and orient x 3, no apparent distress S1, S2, RRR Diminished breath sounds Abdomen soft, nontender No pitting edema to bilateral legs Tunneled HD catheter dressing clean, dry and intact Assessment & Plan Assessment/Plan (1) End-stage renal disease on hemodialysis: (2) Dyspnea: QUALIFIERS: Dyspnea type: shortness of breath Qualified Code(s): R06.02 - Shortness of breath (3) Hypertension: (4) Anemia of chronic disease: PLAN: Plan This is a 77-year-old female with past medical history significant for end-stage renal disease on chronic hemodialysis Friday, last dialyzed yesterday, history of hypertension, A-fib status post watchman left atrial appendage closure device, permanent pacemaker placement, anemia of chronic disease, history of vascular dementia who presented to the emergency room yesterday with complaints of shortness of breath after dialysis and feeling unwell with recent history of COVID infection. Nephrology consulted for hemodialysis needs. -ESRD; dialysis Friday. Dialyzing today over 3.5 hours on 3K bath and attempting around 2-3L UF as patient/blood pressure tolerates. Patient's outpatient EDW was 51.6kg, likely patient will have an even lower dry weight by time of hospital discharge. Breathing has improved, she is on room air. - history of anemia of chronic disease, will monitor hemoglobin trends. Hemoglobin 10.2 - hypertension; increase clonidine 0.2 mg 3 times daily, continue hydralazine and carvedilol. Expect improvement in blood pressures with fluid removal -Discharge planning in progress to [facility] for therapy. Possibly dialysis to be arranged at [facility] [place] Friday schedule. Due to schedule kidney center will be closed on Friday therefore patient if discharged today or tomorrow will have dialysis on Friday Documented by User: Dr. Anatoliy Hammonds MD 03/21/23 15:40 Objective Data Lab / Micro Data 03/21/23 04:05 03/21/23 04:05 Assessment & Plan Assessment/Plan (1) End-stage renal disease on hemodialysis: (2) Dyspnea: QUALIFIERS: Dyspnea type: shortness of breath Qualified Code(s): R06.02 - Shortness of breath (3) Hypertension: (4) Anemia of chronic disease: PLAN: Plan This is a 77-year-old female with past medical history significant for end-stage renal disease on chronic hemodialysis Friday, last dialyzed yesterday, history of hypertension, A-fib status post watchman left atrial appendage closure device, permanent pacemaker placement, anemia of chronic disease, history of vascular dementia who presented to the emergency room yesterday with complaints of shortness of breath after dialysis and feeling unwell with recent history of COVID infection. Nephrology consulted for hemodialysis needs. -ESRD; dialysis Friday. Dialyzing today over 3.5 hours on 3K bath and attempting around 2-3L UF as patient/blood pressure tolerates. Patient's outpatient EDW was 51.6kg, likely patient will have an even lower dry weight by time of hospital discharge. Breathing has improved, she is on room air. - history of anemia of chronic disease, will monitor hemoglobin trends. Hemoglobin 10.2 - hypertension; increase clonidine 0.2 mg 3 times daily, continue hydralazine and carvedilol. Expect improvement in blood pressures with fluid removal -Discharge planning in progress to [facility] for therapy. Possibly dialysis to be arranged at [facility] Friday schedule. Due to holiday schedule kidney center will be closed on Friday therefore patient if discharged today or tomorrow will have dialysis on Friday currently getting therapy. agree with above plan
--- NOTE | 2023-03-21 10:40 | CASEMGMT ---
[facility] is full and cannot take patient. [facility] accepted patient. CARLOS asked [facility] Fontana if they were going to talk with [facility] about switching patient to [place]. CARLOS also let [facility] Fontana know that patient's next dialysis would be Friday due to the holiday. Await response. CARLOS will also follow up with patient's daughter in law . Windy Calvo INFORMATION SYSTEMS TECHNICIAN PETE
[2023-03-21] MEDS: Heparin 10,000 UNITS/10 ML Vial IV (10:51)
[2023-03-21] MEDS: hydrALAZINE 25 MG Tablet 75 MG PO ×2 (11:04→18:11)
[2023-03-21] MEDS: Fluticasone 0.05% 1 SPRAY NASAL.SRY 2 SPRAY NASAL ×2 (11:04→22:06)
[2023-03-21] MEDS: Magnesium Chloride 64 MG Delay Rel.Tablet 128 MG PO (11:04)
[2023-03-21] MEDS: Pantoprazole Sodium 40 MG Tablet PO ×2 (11:05→22:07)
[2023-03-21] MEDS: Calcium Carb/Vitamin D 1 TABLET Tablet PO (11:05)
[2023-03-21] MEDS: Carvedilol 25 MG Tablet PO ×2 (11:05→18:11)
[2023-03-21] MEDS: Aspirin E.C. 81 MG Tablet PO (11:05)
[2023-03-21] MEDS: 0.9% Saline Lock 10 ML Syringe IV ×2 (11:06→14:12)
[2023-03-21] MEDS: Furosemide 40 MG/4 ML Vial IV (11:06)
[2023-03-21] MEDS: MethylPREDNISolone 125 MG/2 ML Vial 60 MG IV ×2 (11:06→22:07)
--- NOTE | 2023-03-21 11:36 | CASEMGMT ---
Addendum entered by Windy Calvo 03/21/23 11:46: CARLOS notified patient's daughter in law that everything is good to go for [facility] and [facility]. said patient's son can transport on Friday. Windy FREEMAN Original Note: CARLOS called and let her know [facility] is full until next week. [facility] accepted and can transport. CARLOS told patient will likely be discharged tomorrow. CARLOS called [facility] and spoke with Raven about patient. Patient and get her dialysis Friday. Patient will have to be there at 11:30a. Raven said she will call [facility] with patient's schedule after Friday. CARLOS notified [facility] and they are able to transport Friday and other days as well. CARLOS let [facility] know patient will come tomorrow. CARLOS will call and update her on the latest. Plan: d/c to [facility] under skilled level of care on a PASRR. Patient's dialysis will be temporarily moved to [facility]. Next dialysis after today will be Friday and patient needs to be there at 1130. [facility] is aware and can transport. Windy Calvo INSTANT POTATO PROCESSING SUPERVISORZhang FREEMAN
[2023-03-21] MEDS: cloNIDine HCl 0.2 MG Tablet PO ×2 (14:07→22:05)
--- NOTE | 2023-03-21 14:28 | PN.HOSP_ITS ---
Reason for Visit Reason for Visit: Diagnoses Essential (primary) hypertension (03/19/23) Hypertensive emergency (03/19/23) Unspecified atrial fibrillation (03/19/23) Heart failure, unspecified (03/19/23) End stage renal disease (03/19/23) Dyspnea, unspecified (03/19/23) Shortness of breath (03/19/23) Presence of cardiac pacemaker (03/19/23) Dependence on renal dialysis (03/19/23) Objective Data Objective Data Vital Signs: Vital Signs Temp Pulse Resp BP Pulse Ox O2 Del Method 98.1 F 75 18 156/75 H 94 Room Air 03/21/23 13:50 03/21/23 13:50 03/21/23 13:50 03/21/23 13:50 03/21/23 13:50 03/21/23 13:55 Oxygen Delivery Method Room Air Weight: 124 lb 5.451 oz Body Mass Index (BMI) 25.9 Intake & Output: Intake and Output for Last 24 Hours 03/19/23 03/20/23 03/21/23 23:59 23:59 23:59 Intake Total 600 / 600 240 / 240 Output Total 2320 / 2320 Balance 600 / 600 -2080 / -2080 Lab / Micro Data 03/21/23 04:05 03/21/23 04:05 Labs: Laboratory Results - last 24 hr 03/21/23 04:05: WBC 9.6, RBC 3.22 L, Hgb 10.2 L, Hct 30.7 L, MCV 95.3, MCH 31.7, MCHC 33.2, RDW Std Deviation 53.4 H, RDW Coeff of Alexus 15.9 H, Plt Count 159, MPV 11.2, Immature Gran % (Auto) 0.600, Neut % (Auto) 92.7 H, Lymph % (Auto) 5.1 L, [place] % (Auto) 1.5, Eos % (Auto) 0.0, Baso % (Auto) 0.1, Absolute Neuts (auto) 8.9 H, Absolute Lymphs (auto) 0.49 L, Nucleated RBC % 0, Differential Comment SCANNED, Sodium 132 L, Potassium 3.8, Chloride 96 L, Carbon Dioxide 27.0, Anion Gap 9, BUN 33 H, Creatinine 4.40 H, Estim Creat Clear Calc 8.59, Est GFR (MDRD) Af Amer 12 L, Est GFR (MDRD) Non-Af 10 L, BUN/Creatinine Ratio 7.5 L, Glucose 163 H, Calcium 8.5 Micro: Microbiology 03/19/23 20:10 Nasal Secretion SARS-CoV-2 & FLU Antigen (Rapid) - Final Radiography Diagnostic Testing: Radiology Impression Echocardiogram 03/20/23 00:23 Interpretation Summary The estimated ejection fraction is 50-55 %. Unable to assess diastolic dysfunction due to arrhythmia. Moderate concentric left ventricular hypertrophy. There is moderate biatrial dilatation. Moderate mitral annular calcification. Mild-Moderate (1-2+) mitral valve insufficiency. Mild to moderate aortic stenosis. No previous study for comparison Ordering Physician: Chi Glez Referring Physician: Bradley Hardin Performed By: Colleen Pinto, RDMARCELLO Physical Exam Narrative Seen and examined. Patient stated that she could not sleep last night because her blood pressure was sometimes very high and sometimes low. Today in the morning, systolic blood pressure is in 140s. Clonidine dose increased to 0.2 mg 3 times daily. Today undergoing hemodialysis. General: Alert, Oriented x3, Cooperative HEENT: Atraumatic, PERRLA, EOMI, Normocephalic Oral: No Gingival or Mucosal Lesions/ Ulcerations Neck: Supple, No JVD, Negative Carotid Bruits Lungs: Air entry diminished in bilateral lung bases. No crepitation/rhonchi Cardiovascular: A-fib rhythm, Normal S1, Normal S2, systolic murmur over LLSB. Abdomen: Bowel Sounds Present, Soft, Non Tender, Non-Distended : No renal angle tenderness. No suprapubic tenderness. Extremities: No edema, Capillary Refill Less than 3 Seconds Skin: No rashes, No breakdown Musculoskeletal: No Tenderness to Palpation of Joints or Extremities. ROM restricted. Degenerative arthritis of knees and hip joints. Neurological: Cranial nerves II-XII grossly intact, DTR 2+/4. No acute focal neurological deficit. Psych/Mental Status: Flat affect. Assessment & Plan Assessment/Plan (1) Congestive heart failure: QUALIFIERS: Heart failure type: unspecified Heart failure chronicity: acute on chronic Qualified Code(s): I50.9 - Heart failure, unspecified (2) Hypertensive emergency: (3) Dyspnea: QUALIFIERS: Dyspnea type: shortness of breath Qualified Code(s): R06.02 - Shortness of breath (4) End-stage renal disease on hemodialysis: PLAN: Plan 77-year-old female was admitted for shortness of breath, getting worse with the dyspnea on exertion for 3 to 4 days, URI symptoms of rhinorrhea, chills, and wheezing although patient is states she is always short of breath. No fever. Patient has elevated BNP. Blood pressure was also high in the ER. She had mild chest congestion. 1. Acute exacerbation of congestive heart failure - Admit to PCU. Chest x-ray initially reviewed and shows pulmonary congestion and interstitial edema. Heart failure core measures including intake and output, fluid restriction less than 1500 mL, daily weight monitoring, kidney and electrolytes monitoring. Continue IV Lasix twice daily but avoid potassium replacement in this dialysis patient. Check echocardiogram to evaluate left ventricular ejection fraction. Serialize troponin. Finally, we will consult cardiology to see this patient on rounds in the a.m. for further recommendations with help appreciated in advance. 03/21: Patient is doing much better with shortness of breath. Sitting upright and eating breakfast. Lasix changed to oral. 2D echo was done which shows EF 50 to 55% moderate concentric LVH. 1-2+ MR, mild to moderate aortic stenosis. Moderate biatrial dilatation.Patient was evaluated by histological illustrator yesterday. Pacemaker interrogation 2. Hypertensive urgency evidenced by highly elevated blood pressure of 199/82 mmHg present on admission accompanied by shortness of breath and tension-type headache - Resume home regimen as previous plus give as needed IV hydralazine for systolic blood pressure greater than 160 mmHg. Give Tylenol as needed for mild to moderate level 1-5 out of 10 pain or fever. Avoid morphine as she has a listed anaphylactic allergy to this agent along with unknown allergies to hydrocodone, hydromorphone and tramadol. 03/21: Patient on carvedilol and Lasix. Was started on clonidine 0.2 mg twice daily increased to 3 times daily daily. Clonidine patch hold. 3. End-stage renal disease on hemodialysis (--) followed by Dr. Hammonds of the nephrology service with her dialysis access in her right upper chest - We will consult Dr. Hammonds of the nephrology service to see this patient on rounds in the a.m. for further consideration regarding potential repeat dialysis to remove suspected excess volume causing #1 and #2. 4. Recent history of COVID-19 on 03/12/2023 with persistent bronchospasm in the setting of a known history of severe COVID-19 treated at [facility] for 5-1/2 weeks about a year ago - COVID-19 assay negative this admission. Give Solu-Medrol IV twice daily plus give nebulizers as needed. 5. Hyperlipidemia - Resume statin. 6. 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 7. History of atrial fibrillation; status post Watchman left atrial appendage closure device - Stable. 8. History of arrhythmia; status post permanent pacemaker placement - Stable. 9. History of CVA - Noted no evidence of recurrence. 10. History of hysterectomy - Noted. 11. History of cholecystectomy - Noted. 12. History of hernia repair - Noted. 13. History of GERD - Resume PPI. 14. History of GI bleed - Stable with no evidence of recurrence. 15. History of vascular dementia - Stable. 16. History of skin cancer - Noted. 17. Osteoarthritis - Stable. Give Tylenol as needed as outlined above. 18. DVT prophylaxis - Heparin 5,000 units SQ 3 times daily plus SCDs. Plan anticipate discharge tomorrow. As per hogshead builder, dialysis center, Friday on . If discharged tomorrow will need dialysis on Friday. Charges/Coding Visit Charges Inpatient E&M: 60187 Subs Hosp L2
[2023-03-21] MEDS: Furosemide 40 MG Tablet PO (18:11)
[2023-03-22] VITALS (10 sets, daily range): BP systolic 177–204; BP diastolic 92–115; PULSE 67–99; RESP 14–18; TEMP 36.4–36.6; O2SAT 93–96; BMI 25.7
[2023-03-22] MEDS: cloNIDine HCl 0.2 MG Tablet PO ×3 (06:25→22:01)
[2023-03-22] MEDS: Heparin Injection (Vial) 5,000 UNIT/ML VIAL 5000 UNIT SC ×3 (06:31→21:57)
[2023-03-22 07:01] LABS: Absolute Neutrophil Count 13.6 X10^3/uL (2.0-7.7); Basophil# 0.01 X10^3/uL; Basophil% 0.1 % (0-1); Hematocrit 33.1 % (37-47); Hemoglobin 10.6 g/dL (12.0-15.0); Lymphocyte % 3.5 % (19-41); Mean Corpuscular Hgb 31.2 pg (27.0-32.0); Mean Corpuscular Volume 97.4 fL (81-99); Mean Platelet Vol. 11.6 fl (6.2-12.0); Monocyte# 0.19 X10^3/uL; Monocyte% 1.3 % (0-10); NRBC Flagged by Analyzer 0 % (0-5); Neutrophil % 94.3 % (47-70); POSITIVE DIFFERENTIAL YES; Platelet Count 124 K/mm3 (150-450); RBC Distribution Width CV 16.3 % (11.6-14.6); RBC Distribution Width SD 55.8 fl (35.1-43.9); White Blood Count 14.4 K/mm3 (4.4-11.0)
[2023-03-22 07:04] LABS: Differential Indicated SCAN CRITERIA MET
[2023-03-22] MEDS: Multivitamins,Therapeutic Tablet 1 TABLET PO (09:47)
[2023-03-22] MEDS: Ferrous Sulfate 325 MG Tablet PO (09:47)
[2023-03-22] MEDS: Furosemide 40 MG Tablet PO ×2 (09:47→17:03)
[2023-03-22] MEDS: Magnesium Chloride 64 MG Delay Rel.Tablet 128 MG PO (09:47)
[2023-03-22] MEDS: Calcium Carb/Vitamin D 1 TABLET Tablet PO (09:48)
[2023-03-22] MEDS: Fluticasone 0.05% 1 SPRAY NASAL.SRY 2 SPRAY NASAL ×2 (09:48→22:00)
[2023-03-22] MEDS: Carvedilol 25 MG Tablet PO ×2 (09:48→17:03)
[2023-03-22] MEDS: Pantoprazole Sodium 40 MG Tablet PO ×2 (09:48→21:57)
[2023-03-22] MEDS: Aspirin E.C. 81 MG Tablet PO (09:48)
[2023-03-22] MEDS: MethylPREDNISolone 125 MG/2 ML Vial 60 MG IV ×2 (09:50→21:57)
[2023-03-22] MEDS: 0.9% Saline Lock 10 ML Syringe IV ×3 (09:50→22:00)
[2023-03-22] MEDS: hydrALAZINE 25 MG Tablet 75 MG PO (11:53)
--- NOTE | 2023-03-22 12:15 | TREXTCAR_ITS ---
Diet Diet Order/Speech Therapy: 03/20/23 09:03 Diet: Cardiac - Heart Healthy Is pt able to select menu?: Yes Routine Orders/Code Status Enema Type: Fleetz Enema Frequency: Daily PRN Suppository Type: Dulcolax 10mg Suppository Frequency: Daily PRN O2 Frequency: PRN Keep PO Greater than or Equal to (%): 90 Therapies Weight Bearing: Weight bearing as tolerated Physical Therapy: Eval and Treat Occupational Therapy: Eval and Treat Problem/Diagnosis (1) End-stage renal disease on hemodialysis: Status: Acute Code(s): N18.6 - End stage renal disease; Z99.2 - Dependence on renal dialysis (2) Dyspnea: Status: Acute Code(s): R06.00 - Dyspnea, unspecified (3) Hypertension: Status: Chronic Code(s): I10 - Essential (primary) hypertension (4) Anemia of chronic disease: Status: Chronic Code(s): D63.8 - Anemia in other chronic diseases classified elsewhere Allergies/Procedures Done in Hospital Allergies amlodipine Allergy (Intermediate, Verified 03/19/23 19:23) turns blue acetaminophen [From Panlor (hydrocodone-acetamin)] Allergy (Mild, Verified 03/19/23 19:23) unknown ascorbic acid [From Airborne (ascorbate sodium)] Allergy (Mild, Verified 03/19/23 19:23) unknown caffeine Allergy (Mild, Verified 03/19/23 19:23) unknown [place] And Derivatives Allergy (Mild, Verified 03/19/23 19:23) unknown codeine Allergy (Mild, Verified 03/19/23 19:23) unknown desloratadine Allergy (Mild, Verified 03/19/23 19:23) unknown glutamine [From Airborne (ascorbate sodium)] Allergy (Mild, Verified 03/19/23 19:23) unknown herbal complex no.124 [From Airborne (ascorbate sodium)] Allergy (Mild, Verified 03/19/23 19:23) unknown hydrocodone Allergy (Mild, Verified 03/19/23 19:23) unknown hydromorphone Allergy (Mild, Verified 03/19/23 19:23) unknown lysine HCl [From Airborne (ascorbate sodium)] Allergy (Mild, Verified 03/19/23 19:23) unknown morphine Allergy (Mild, Verified 03/19/23 19:23) unknown moxifloxacin Allergy (Mild, Verified 03/19/23 19:23) unknown multivitamin with minerals [From Airborne (ascorbate sodium)] Allergy (Mild, Verified 03/19/23 19:23) unknown nabumetone Allergy (Mild, Verified 03/19/23 19:23) unknown oxycodone Allergy (Mild, Verified 03/19/23 19:23) unknown penicillin G Allergy (Mild, Verified 03/19/23 19:23) unknown Penicillins Allergy (Mild, Verified 03/19/23 19:23) hands blue propoxyphene [From Margesic (propoxyphene)] Allergy (Mild, Verified 03/19/23 19:23) unknown tramadol Allergy (Mild, Verified 03/19/23 19:23) unknown amiodarone Allergy (Unknown, Verified 03/19/23 19:23) unknown Opioids - Morphine Analogues Allergy (Verified 03/19/23 19:23) Anaphylaxis Type of Care/Length of Stay Estimated LOS: Convalescent Care Less Than 30 days Type of Care Needed: Skilled Rehab Potential: Fair Prognosis: Fair Additional Orders/Day of Discharge Day of Discharge: 03/22/23 Dietary and Speech Recommendations Dietitian Recommendations/Changes: Continue Cardiac diet to manage medical conditions. Will monitor renal labs and adjust diet as needed. Nepro BID to provide supplemental energy. Discharge Plan Admission Admit Date/Time: 03/19/23 23:21 Primary Reason for Your Visit: acute on chronic heart failure Attending Provider: Jennifer Dillon Primary Care Provider: Bradley Hardin Consulting Providers: Chi Glez; Mariama Tanner; Francois Macdonald; Donal Bowman; Kishan Kim; Obdulia Gregorio; Chaitanya,Jez; Dimitris,Venkatesh; Bruce Christy; Immanuel Adrian; Milan Garcia; Kishore Mack; Ady Little; Mell Poon; Petr Armando; Elvin Wang; Rusty Miranda; Josesito Mcdaniels; Stanley Cuadra TUB RIDER; Mariama Posey NP; Paige Goode PA; Anatoliy Hammonds; Benson Muller Instructions Patient Instructions: Coping with Heart Failure Additional Instructions / Restrictions: See Heart Failure education booklet and zone management form Discharge Orders/Prescriptions Prescriptions: New furosemide 40 mg Tablet 40 mg PO BIDLX Qty: 60 2RF clonidine HCl 0.2 mg Tablet 0.2 mg PO TID Qty: 90 1RF hydralazine 50 mg Tablet 50 mg PO BID Qty: 90 1RF Continued ondansetron HCl 4 mg tablet 4 mg PO Q8H PRN (Reason: nausea and vomiting) Patient Comments: take 1 tablet by mouth every 8 hours if needed for nausea and vomiting carvedilol 25 mg tablet 25 mg PO Q12H aspirin [Adult Aspirin Regimen] 81 mg tablet,delayed release (DR/EC) 81 mg PO DAILY calcium citrate-vitamin D3 250 mg-5 mcg (200 unit) tablet 1 tab PO DAILY pantoprazole 40 mg tablet,delayed release (DR/EC) 40 mg PO Q12H promethazine 12.5 mg tablet 12.5 mg PO Q6H PRN (Reason: nausea and vomiting) Rx Instructions: 3 doses during day; last dose no later than 4 hr before bedtime clonidine 0.1 mg/24 hr patch weekly 1 patch transdermal FR Patient Comments: apply 1 patch topically ONCE EVERY WEEK hydralazine 25 mg tablet 75 mg PO Q12H Patient Comments: MOWEFR take 3 tablets by mouth twice a day Rx Instructions: MOWEFR take 3 tablets by mouth twice a day hydralazine 50 mg tablet 75 mg PO .MOWEFR Patient Comments: MOWEFR take 3 tablets by mouth twice a day Rx Instructions: MOWEFR take 3 tablets by mouth twice a day. Hold for SBP less than 130 mmHg. fluticasone propionate [Allergy Relief (fluticasone)] 50 mcg/actuation spray,suspension 2 spray intranasal DAILY PRN (Reason: nasal congestion) Rx Instructions: administer into each nostril Discontinued furosemide 40 mg tablet 40 mg PO .[facility] Patient Comments: take 1 tablet by mouth ON NON-DIALYSIS DAYS; TAKES ON FRIDAY, FRIDAY, FRIDAY, FRIDAY Rx Instructions: not on dialysis days Referrals / Follow Up: Jez Tavares MD [Med Staff - Active Staff] - Within 2 Weeks Bradley Hardin MD [Primary Care Provider] - Within 2 Weeks Disposition Disposition (needs filled in before D/C Order can be placed): Nursing Home Facility (2) Dyspnea Qualifiers: Dyspnea type: shortness of breath Qualified Code(s): R06.02 - Shortness of breath
--- NOTE | 2023-03-22 12:16 | PCM.DC.SUM ---
Providers Date of Admission: 03/19/23 Primary Care Physician: Dr. Bradley Hardin MD Consultations 03/20/23 00:23 Consult: Nephrology Routine Consulting Provider: Anatoliy Hammonds Reason for Consult: Acute exacerbation of CHF and patient with end-stage renal disease on HD EMERGENT Consult: No Notified: Yes Date Notified: 03/20/23 Time Notified: 06:44 Method of Notification: Text 03/20/23 03:32 Consult: Cardiology Routine Consulting Provider: Rosales Malloy Reason for Consult: Acute exacerbation of CHF and dialysis patient EMERGENT Consult: No Notified: Yes Date Notified: 03/20/23 Time Notified: 06:44 Method of Notification: Text Method of Consult:: In-Person Reason For Visit: ACUTE BASELINE CHF WITH RECENT COVID+ ESRD ON HD Diagnosis Discharge Diagnosis (1) End-stage renal disease on hemodialysis: Status: Acute Code(s): N18.6 - End stage renal disease; Z99.2 - Dependence on renal dialysis (2) Dyspnea: Status: Acute Code(s): R06.00 - Dyspnea, unspecified Qualifiers: Dyspnea type: shortness of breath Qualified Code(s): R06.02 - Shortness of breath (3) Hypertension: Status: Chronic Code(s): I10 - Essential (primary) hypertension (4) Anemia of chronic disease: Status: Chronic Code(s): D63.8 - Anemia in other chronic diseases classified elsewhere Medications at Discharge Home Medications aspirin 81 mg tablet,delayed release (Adult Aspirin Regimen) 81 mg PO DAILY 02/08/23 calcium citrate 250 mg calcium-vitamin D3 5 mcg (200 unit) tablet 1 tab PO DAILY 02/08/23 carvedilol 25 mg tablet 25 mg PO Q12H HTN 02/08/23 ondansetron HCl 4 mg tablet 4 mg PO Q8H PRN nausea and vomiting 02/08/23 pantoprazole 40 mg tablet,delayed release 40 mg PO Q12H 02/08/23 promethazine 12.5 mg tablet 12.5 mg PO Q6H PRN nausea and vomiting 02/08/23 clonidine 0.1 mg/24 hr weekly transdermal patch 1 patch transdermal FR 03/19/23 hydralazine 25 mg tablet 75 mg PO Q12H 03/19/23 hydralazine 50 mg tablet 75 mg PO .MOWEFR 03/19/23 fluticasone propionate 50 mcg/actuation nasal spray,suspension (Allergy Relief (fluticasone)) 2 spray intranasal DAILY PRN nasal congestion 03/20/23 clonidine HCl 0.2 mg tablet 0.2 mg PO TID #90 tabs 03/22/23 furosemide 40 mg tablet 40 mg PO BIDLX #60 tabs 03/22/23 hydralazine 50 mg tablet 50 mg PO BID #90 tabs 03/22/23 Weight / BMI Weight Weight: 123 lb 3.814 oz Body Mass Index (BMI) 25.7 ABG / Lab / Microbiology Data 03/22/23 06:05 03/21/23 04:05 Laboratory: Laboratory Results - last 24 hr 03/22/23 06:05: WBC 14.4 H, RBC 3.40 L, Hgb 10.6 L, Hct 33.1 L, MCV 97.4, MCH 31.2, MCHC 32.0, RDW Std Deviation 55.8 H, RDW Coeff of Alexus 16.3 H, Plt Count 124 L, MPV 11.6, Immature Gran % (Auto) 0.800, Neut % (Auto) 94.3 H, Lymph % (Auto) 3.5 L, [place] % (Auto) 1.3, Eos % (Auto) 0.0, Baso % (Auto) 0.1, Absolute Neuts (auto) 13.6 H, Absolute Lymphs (auto) 0.50 L, Nucleated RBC % 0 Microbiology: Microbiology 03/19/23 20:10 Nasal Secretion SARS-CoV-2 & FLU Antigen (Rapid) - Final Discharge Plan Admission Admit Date/Time: 03/19/23 23:21 Primary Reason for Your Visit: acute on chronic heart failure Attending Provider: Jennifer Dillon Primary Care Provider: Bradley Hardin Consulting Providers: Chi Glez; Mariama Tanner; Francois Macdonald; Doanl Bowman; Kishan Kim; Obdulia Gregorio; Jez Tavares; Venkatesh Shanks; Bruce Christy; Immanuel Adrian; Milan Garcia; Kishore Mack; Ady Little; Mell Poon; Petr Armando; Elvin Wang; Rusty Miranda; Josesito Mcdaniels; Stanley Cuadra DATE P[employer]ER; Mariama Posey NP; Paige Goode; Anatoliy Hammonds; Benson Muller Instructions Patient Instructions: Coping with Heart Failure Additional Instructions / Restrictions: See Heart Failure education booklet and zone management form Discharge Orders/Prescriptions Prescriptions: New furosemide 40 mg Tablet 40 mg PO BIDLX Qty: 60 2RF clonidine HCl 0.2 mg Tablet 0.2 mg PO TID Qty: 90 1RF hydralazine 50 mg Tablet 50 mg PO BID Qty: 90 1RF Continued ondansetron HCl 4 mg tablet 4 mg PO Q8H PRN (Reason: nausea and vomiting) Patient Comments: take 1 tablet by mouth every 8 hours if needed for nausea and vomiting carvedilol 25 mg tablet 25 mg PO Q12H aspirin [Adult Aspirin Regimen] 81 mg tablet,delayed release (DR/EC) 81 mg PO DAILY calcium citrate-vitamin D3 250 mg-5 mcg (200 unit) tablet 1 tab PO DAILY pantoprazole 40 mg tablet,delayed release (DR/EC) 40 mg PO Q12H promethazine 12.5 mg tablet 12.5 mg PO Q6H PRN (Reason: nausea and vomiting) Rx Instructions: 3 doses during day; last dose no later than 4 hr before bedtime clonidine 0.1 mg/24 hr patch weekly 1 patch transdermal FR Patient Comments: apply 1 patch topically ONCE EVERY WEEK hydralazine 25 mg tablet 75 mg PO Q12H Patient Comments: MOWEFR take 3 tablets by mouth twice a day Rx Instructions: MOWEFR take 3 tablets by mouth twice a day hydralazine 50 mg tablet 75 mg PO .MOWEFR Patient Comments: MOWEFR take 3 tablets by mouth twice a day Rx Instructions: MOWEFR take 3 tablets by mouth twice a day. Hold for SBP less than 130 mmHg. fluticasone propionate [Allergy Relief (fluticasone)] 50 mcg/actuation spray,suspension 2 spray intranasal DAILY PRN (Reason: nasal congestion) Rx Instructions: administer into each nostril Discontinued furosemide 40 mg tablet 40 mg [facility] Patient Comments: take 1 tablet by mouth ON NON-DIALYSIS DAYS; TAKES ON FRIDAY, FRIDAY, FRIDAY, FRIDAY Rx Instructions: not on dialysis days Referrals / Follow Up: Jez Tavares MD [Med Staff - Active Staff] - Within 2 Weeks Bradley Hardin MD [Primary Care Provider] - Within 2 Weeks Disposition Disposition (needs filled in before D/C Order can be placed): Assisted Facility
--- NOTE | 2023-03-22 13:47 | PN_ITS ---
Subjective Subjective Patient seen and examined. She had no active complaints today and had an uneventful night. Plan was for patient to be discharged today, but discharge was cancelled because of poorly controlled BP. Her blood pressure was up to 204/114. Review of systems was otherwise negative. Objective Data Objective Data Vital Signs: Vital Signs Temp Pulse Resp BP Pulse Ox O2 Del Method 97.5 F L 72 16 204/114 H 95 Room Air 03/22/23 09:45 03/22/23 12:57 03/22/23 09:45 03/22/23 12:57 03/22/23 09:45 03/22/23 09:45 Oxygen Delivery Method Room Air Weight: 123 lb 3.814 oz Body Mass Index (BMI) 25.7 Intake & Output: Intake and Output for Last 24 Hours 03/20/23 03/21/23 03/22/23 23:59 23:59 23:59 Intake Total 600 / 600 360 / 840 960 / 960 Output Total 2320 / 2320 Balance 600 / 600 -1960 / -1480 960 / 960 Lab / Micro Data 03/22/23 06:05 03/21/23 04:05 Labs: Laboratory Results - last 24 hr 03/22/23 06:05: WBC 14.4 H, RBC 3.40 L, Hgb 10.6 L, Hct 33.1 L, MCV 97.4, MCH 31.2, MCHC 32.0, RDW Std Deviation 55.8 H, RDW Coeff of Alexus 16.3 H, Plt Count 124 L, MPV 11.6, Immature Gran % (Auto) 0.800, Neut % (Auto) 94.3 H, Lymph % (Auto) 3.5 L, [place] % (Auto) 1.3, Eos % (Auto) 0.0, Baso % (Auto) 0.1, Absolute Neuts (auto) 13.6 H, Absolute Lymphs (auto) 0.50 L, Nucleated RBC % 0 Micro: Microbiology 03/22/23 13:00 Nasal Secretion SARS-CoV-2 Antigen (Rapid) - Final 03/19/23 20:10 Nasal Secretion SARS-CoV-2 & FLU Antigen (Rapid) - Final Physical Exam Const alert, oriented x3 and no apparent distress General Appearance: cooperative and well developed HEENT normocephalic, head/scalp atraumatic, moist oral mucous membranes and oropharynx normal Eyes PERRL and EOMs intact bilaterally Neck no lymphadenopathy, supple and no JVD Lymph Lymphatic: no lymphadenopathy noted and no lymphedema noted Resp normal respiratory effort, normal air movement and clear to auscultation bilaterally Cardio regular rate, regular rhythm, S1 normal heart sound, S2 normal heart sound and n o murmurs GI normal to inspection, nondistended, normoactive bowel sounds, soft to palpation, non-tender and non-distended Extremity normal capillary refill, no clubbing, cyanosis or edema and no calf tenderness General Extremity: no tenderness to palpation of joints or extremities Skin General Skin Exam: no breakdown Neuro CN's II-XII intact bilaterally, no focal motor deficits, no sensory deficits noted and deep tendon reflexes 2+ bilaterally Motor Exam: strength 5/5 throughout and general weakness Psych thought process normal and cooperative Appearance: appropriate Assessment & Plan Assessment/Plan (1) Hypertensive emergency: (2) Congestive heart failure: QUALIFIERS: Heart failure chronicity: acute on chronic Heart failure type: unspecified Qualified Code(s): I50.9 - Heart failure, unspecified PLAN: Plan #Acute on chronic HFpEF * Shortness of breath has resolved and she feels better. * Now on oral Lasix. 2D echo showed EF of 50 to 55% with mild to moderate aortic stenosis. * Cardiology on board. * #Hypertension * Poorly controlled. She was actually admitted with hypertensive urgency. Blood pressure had improved. * Blood pressure today however with 200 systolic. * on carvedilol 24mg bid and lasix. clonidine added on. * started on hydralazine 50mg bid by cardiology * Unable to add on MARBELLA-I or ARB due to her having ESRD * IV hydralazine prn * #ESRD: on on hemodialysis. s/p remote renal transplant. Nephrology on board. * #Hyperlipidemia; on statin #History of afib: s/p watchman proedure for left atrial appendage closure. stable. s/p pacemaker insertion #History of GERD: on PPI DVT prophylaxis; heparin Total time spent on evaluation and management of patient, reviewing chart, discussing plan with patient, discussion with nursing and ancillary staff as well as documentation: 35 mins. Charges/Coding Visit Charges Inpatient E&M: 57790 Subs Hosp L2
[2023-03-22] MEDS: hydrALAZINE 20 MG/ML Vial 10 MG IV (14:53)
[2023-03-22] MEDS: hydrALAZINE 50 MG Tablet PO (21:59)
[2023-03-23 03:03] VITALS: BMI 26.3
[2023-03-23 03:28] VITALS: BP 179/99; PULSE 77
[2023-03-23] MEDS: hydrALAZINE 20 MG/ML Vial 10 MG IV (03:28)
[2023-03-23 03:29] VITALS: BP 179/99; PULSE 77; RESP 18; TEMP 36.6; O2SAT 96
[2023-03-23 06:06] VITALS: BP 185/101; PULSE 82; RESP 18; TEMP 36.8; O2SAT 96
[2023-03-23] MEDS: cloNIDine HCl 0.2 MG Tablet PO (06:08)
[2023-03-23] MEDS: Heparin Injection (Vial) 5,000 UNIT/ML VIAL 5000 UNIT SC (06:08)
[2023-03-23 07:22] LABS: Anion Gap 10 (5-15); BUN 59 mg/dL (7-18); BUN/Creat Ratio 11.9 RATIO (10-20); Calcium,Total 9.2 mg/dL (8.5-10.1); Chloride 93 mmol/L (98-107); Creatinine, Serum 4.94 mg/dL (0.55-1.02); EST Glomerular Filtration Rate 9 mL/min (>60); Est Glom Filt Rate - Afr Amer 11 mL/min (>60); Estimated Creatinine Clearance 8.34 ml/min; Glucose 151 mg/dL (74-106); Potassium 4.8 mmol/L (3.5-5.1); Sodium Level 126 mmol/L (136-145)
[2023-03-23 08:30] VITALS: BP 187/100; PULSE 86; RESP 16; TEMP 37; O2SAT 96
[2023-03-23 08:55] VITALS: BP 187/100; PULSE 86
[2023-03-23] MEDS: hydrALAZINE 50 MG Tablet 100 MG PO (08:55)
[2023-03-23] MEDS: Multivitamins,Therapeutic Tablet 1 TABLET PO (08:56)
[2023-03-23] MEDS: Carvedilol 25 MG Tablet PO (08:56)
[2023-03-23] MEDS: Aspirin E.C. 81 MG Tablet PO (08:56)
[2023-03-23] MEDS: Calcium Carb/Vitamin D 1 TABLET Tablet PO (08:56)
[2023-03-23] MEDS: Magnesium Chloride 64 MG Delay Rel.Tablet 128 MG PO (08:57)
[2023-03-23] MEDS: Pantoprazole Sodium 40 MG Tablet PO (08:58)
--- NOTE | 2023-03-23 11:11 | NURSING ---
PIV removed. Discharge paperwork given to son. Son is taking pt to dialysis then do the [facility]. All questions answered.
--- NOTE | 2023-03-23 12:33 | TREXTCAR_ITS ---
Diet Diet Order/Speech Therapy: 03/20/23 09:03 Diet: Cardiac - Heart Healthy Is pt able to select menu?: Yes Routine Orders/Code Status Enema Type: Fleetz Enema Frequency: Daily PRN Suppository Type: Dulcolax 10mg Suppository Frequency: Daily PRN O2 Frequency: PRN Keep PO Greater than or Equal to (%): 90 Therapies Physical Therapy: Eval and Treat Occupational Therapy: Eval and Treat Problem/Diagnosis (1) Hypertensive emergency: Status: Acute Code(s): I16.1 - Hypertensive emergency (2) Congestive heart failure: Status: Acute Code(s): I50.9 - Heart failure, unspecified Plan #Acute on chronic HFpEF * Shortness of breath has resolved and she feels better. * Now on oral Lasix. 2D echo showed EF of 50 to 55% with mild to moderate aortic stenosis. * Cardiology on board. * #Hypertension * Poorly controlled. She was actually admitted with hypertensive urgency. Blood pressure had improved. * Blood pressure today however with 200 systolic. * on carvedilol 24mg bid and lasix. clonidine added on. * started on hydralazine 50mg bid by cardiology * Unable to add on MARBELLA-I or ARB due to her having ESRD * IV hydralazine prn * #ESRD: on on hemodialysis. s/p remote renal transplant. Nephrology on board. * #Hyperlipidemia; on statin #History of afib: s/p watchman proedure for left atrial appendage closure. stable. s/p pacemaker insertion #History of GERD: on PPI DVT prophylaxis; heparin Total time spent on evaluation and management of patient, reviewing chart, discussing plan with patient, discussion with nursing and ancillary staff as well as documentation: 35 mins. Allergies/Procedures Done in Hospital Allergies amlodipine Allergy (Intermediate, Verified 03/19/23 19:23) turns blue acetaminophen [From Panlor (hydrocodone-acetamin)] Allergy (Mild, Verified 19:23) unknown ascorbic acid [From Airborne (ascorbate sodium)] Allergy (Mild, Verified 03/19/23 19:23) unknown caffeine Allergy (Mild, Verified 03/19/23 19:23) unknown [place] And Derivatives Allergy (Mild, Verified 03/19/23 19:23) unknown codeine Allergy (Mild, Verified 03/19/23 19:23) unknown desloratadine Allergy (Mild, Verified 03/19/23 19:23) unknown glutamine [From Airborne (ascorbate sodium)] Allergy (Mild, Verified 03/19/23 19:23) unknown herbal complex no.124 [From Airborne (ascorbate sodium)] Allergy (Mild, Verified 03/19/23 19:23) unknown hydrocodone Allergy (Mild, Verified 03/19/23 19:23) unknown hydromorphone Allergy (Mild, Verified 03/19/23 19:23) unknown lysine HCl [From Airborne (ascorbate sodium)] Allergy (Mild, Verified 03/19/23 19:23) unknown morphine Allergy (Mild, Verified 03/19/23 19:23) unknown moxifloxacin Allergy (Mild, Verified 03/19/23 19:23) unknown multivitamin with minerals [From Airborne (ascorbate sodium)] Allergy (Mild, Verified 03/19/23 19:23) unknown nabumetone Allergy (Mild, Verified 03/19/23 19:23) unknown oxycodone Allergy (Mild, Verified 03/19/23 19:23) unknown penicillin G Allergy (Mild, Verified 03/19/23 19:23) unknown Penicillins Allergy (Mild, Verified 03/19/23 19:23) hands blue propoxyphene [From Margesic (propoxyphene)] Allergy (Mild, Verified 03/19/23 19:23) unknown tramadol Allergy (Mild, Verified 03/19/23 19:23) unknown amiodarone Allergy (Unknown, Verified 03/19/23 19:23) unknown Opioids - Morphine Analogues Allergy (Verified 03/19/23 19:23) Anaphylaxis Type of Care/Length of Stay Estimated LOS: Convalescent Care Less Than 30 days Type of Care Needed: Skilled Rehab Potential: Fair Prognosis: Fair Additional Orders/Day of Discharge Day of Discharge: 03/22/23 Dietary and Speech Recommendations Dietitian Recommendations/Changes: Continue Cardiac diet to manage medical conditions. Will monitor renal labs and adjust diet as needed. Nepro BID to provide supplemental energy. Discharge Plan Admission Admit Date/Time: 03/19/23 23:21 Primary Reason for Your Visit: acute on chronic heart failure Attending Provider: Jennifer Dillon Primary Care Provider: Bradley Hardin Consulting Providers: Chi Glez; Mariama Tanner; Francois Macdonald; Donal Bowman; Kishan Kim; Obdulia Gregorio; Jez Tavares; Venkatesh Shanks; Bruce Christy; Immanuel Adrian; Milan Garcia; Kishore Mack; Ady Little; Mell Poon; Petr Armando; Elvin Wang; Rusty Miranda; Josesito Mcdaniels; Stanley Cuadra [employer] T[employer]AS[employer]ER; Mariama Posey NP; Paige Goode; Anatoliy Hammonds; Benson Muller Instructions Patient Instructions: Coping with Heart Failure Additional Instructions / Restrictions: See Heart Failure education booklet and zone management form Discharge Orders/Prescriptions Prescriptions: New furosemide 40 mg Tablet 40 mg PO BIDLX Qty: 60 2RF clonidine HCl 0.2 mg Tablet 0.2 mg PO TID Qty: 90 1RF hydralazine 100 mg tablet 100 mg PO BID Qty: 60 2RF Continued ondansetron HCl 4 mg tablet 4 mg PO Q8H PRN (Reason: nausea and vomiting) Patient Comments: take 1 tablet by mouth every 8 hours if needed for nausea and vomiting carvedilol 25 mg tablet 25 mg PO Q12H aspirin [Adult Aspirin Regimen] 81 mg tablet,delayed release (DR/EC) 81 mg PO DAILY calcium citrate-vitamin D3 250 mg-5 mcg (200 unit) tablet 1 tab PO DAILY pantoprazole 40 mg tablet,delayed release (DR/EC) 40 mg PO Q12H promethazine 12.5 mg tablet 12.5 mg PO Q6H PRN (Reason: nausea and vomiting) Rx Instructions: 3 doses during day; last dose no later than 4 hr before bedtime fluticasone propionate [Allergy Relief (fluticasone)] 50 mcg/actuation spray,suspension 2 spray intranasal DAILY PRN (Reason: nasal congestion) Rx Instructions: administer into each nostril Discontinued [facility] 40 mg tablet [facility] Patient Comments: take 1 tablet by mouth ON NON-DIALYSIS DAYS; TAKES ON FRIDAY, FRIDAY, FRIDAY, FRIDAY Rx Instructions: not on dialysis days clonidine 0.1 mg/24 hr patch weekly 1 patch transdermal FR Patient Comments: apply 1 patch topically ONCE EVERY WEEK hydralazine 25 mg tablet 75 mg PO Q12H Patient Comments: MOWEFR take 3 tablets by mouth twice a day Rx Instructions: MOWEFR take 3 tablets by mouth twice a day hydralazine 50 mg tablet 75 mg PO .MOWEFR Patient Comments: MOWEFR take 3 tablets by mouth twice a day Rx Instructions: MOWEFR take 3 tablets by mouth twice a day. Hold for SBP less than 130 mmHg. Referrals / Follow Up: Jez Tavares MD [Med Staff - Active Staff] - Within 2 Weeks Bradley Hardin MD [Primary Care Provider] - Within 2 Weeks Disposition Disposition (needs filled in before D/C Order can be placed): [facility] (2) Congestive heart failure Qualifiers: Heart failure type: unspecified Heart failure chronicity: acute on chronic Qualified Code(s): I50.9 - Heart failure, unspecified
--- NOTE | 2023-03-23 12:34 | DS.PCM_ITS ---
Providers Date of Admission: 03/19/23 Date of Discharge: 03/23/23 Primary Care Physician: Dr. Bradley Hardin MD Consultations 03/20/23 00:23 Consult: Nephrology Routine Consulting Provider: Anatoliy Hammonds Reason for Consult: Acute exacerbation of CHF and patient with end-stage renal disease on HD EMERGENT Consult: No Notified: Yes Date Notified: 03/20/23 Time Notified: 06:44 Method of Notification: Text 03/20/23 03:32 Consult: Cardiology Routine Consulting Provider: Rosales Malloy Reason for Consult: Acute exacerbation of CHF and dialysis patient EMERGENT Consult: No Notified: Yes Date Notified: 03/20/23 Time Notified: 06:44 Method of Notification: Text Method of Consult:: In-Person Reason For Visit: ACUTE BASELINE CHF WITH RECENT COVID+ ESRD ON HD Diagnosis Discharge Diagnosis (1) Hypertensive emergency: Status: Acute Code(s): I16.1 - Hypertensive emergency (2) Congestive heart failure: Status: Acute Code(s): I50.9 - Heart failure, unspecified Qualifiers: Heart failure chronicity: acute on chronic Heart failure type: unspecified Qualified Code(s): I50.9 - Heart failure, unspecified Plan #Acute on chronic HFpEF * Shortness of breath has resolved and she feels better. * Now on oral Lasix. 2D echo showed EF of 50 to 55% with mild to moderate aortic stenosis. * Cardiology on board. * #Hypertension * Poorly controlled. She was actually admitted with hypertensive urgency. Blood pressure had improved. * Blood pressure today however with 200 systolic. * on carvedilol 24mg bid and lasix. clonidine added on. * started on hydralazine 50mg bid by cardiology * Unable to add on MARBELLA-I or ARB due to her having ESRD * IV hydralazine prn * #ESRD: on on hemodialysis. s/p remote renal transplant. Nephrology on board. * #Hyperlipidemia; on statin #History of afib: s/p watchman proedure for left atrial appendage closure. stable. s/p pacemaker insertion #History of GERD: on PPI DVT prophylaxis; heparin Total time spent on evaluation and management of patient, reviewing chart, discussing plan with patient, discussion with nursing and ancillary staff as well as documentation: 35 mins. Medications at Discharge Home Medications aspirin 81 mg tablet,delayed release (Adult Aspirin Regimen) 81 mg PO DAILY 02/08/23 calcium citrate 250 mg calcium-vitamin D3 5 mcg (200 unit) tablet 1 tab PO DAILY 02/08/23 carvedilol 25 mg tablet 25 mg PO Q12H HTN 02/08/23 ondansetron HCl 4 mg tablet 4 mg PO Q8H PRN nausea and vomiting 02/08/23 pantoprazole 40 mg tablet,delayed release 40 mg PO Q12H 02/08/23 promethazine 12.5 mg tablet 12.5 mg PO Q6H PRN nausea and vomiting 02/08/23 fluticasone propionate 50 mcg/actuation nasal spray,suspension (Allergy Relief (fluticasone)) 2 spray intranasal DAILY PRN nasal congestion 03/20/23 clonidine HCl 0.2 mg tablet 0.2 mg PO TID #90 tabs 03/22/23 furosemide 40 mg tablet 40 mg PO BIDLX #60 tabs 03/22/23 hydralazine 100 mg tablet 100 mg PO BID #60 tabs 03/23/23 Hospital Course Operations None Procedures None Summary of Care Provided Minutes Spent on Discharge: 55 Hospital Course: Patient is a 77 y/o female with a PMH as outlined who was admitted via the ED on 03/19/2023 with a complaint of shortness of breath. Her symptoms started about 3 to 4 days prior to admission and she has symptoms of an upper viral respiratory infection including runny nose, chills and shortness of breath with associated wheezing. She had went to dialysis on the day of admission and tolerated dialysis. However his shortness of breath worsened so she came into the ED. BNP was elevated in the ED and she also had evidence of cardiomegaly and pulmonary vascular congestion indicating acute exacerbation of heart failure preserved ejection fraction. She also had hypertensive urgency with markedly elevated blood pressure of 199/82. COVID test was negative. She was admitted and managed for acute on chronic heart failure preserved ejection fraction as well as hypertensive urgency. She was diuresed with IV Lasix. Her blood pressure did improve but did not improve markedly. Her medications were therefore adjusted with hydralazine being added on. She had been on hydralazine 3 times daily at home. Clonidine was also added on. She had been on clonidine patch at home but she was switched to p.o. clonidine 0.2 mg 3 times daily. P atient's shortness of breath resolved and she felt better. She was therefore discharged on 03/23/2023. She was given a prescription for p.o. hydralazine 100 mg twice daily to use in addition to her carvedilol 25 mg twice daily and clonidine 0.2 mg 3 times daily. She was also given a prescription for p.o. Lasix 40 mg twice daily. She cannot be placed on MARBELLA inhibitor or ARB in light of her ESRD. He was counseled to be compliant with her medications and was discharged to a custodial facility. She is to follow-up with her primary care doctor and follow-up with cardiology and nephrology on outpatient basis. Patient was to go for dialysis on the day of discharge and this would help with her blood pressure as well. Patient was seen and examined prior to discharge. She had no active complaints and had an uneventful night. Review of systems otherwise negative. Labs and vitals reviewed. Home medications reviewed and reconciled. Physical Exam Const alert, oriented x3, no apparent distress and average body habitus General Appearance: cooperative, comfortable, well kempt and well developed Orientation / Consciousness: awake HEENT normocephalic, head/scalp atraumatic, hearing grossly normal bilaterally, moist oral mucous membranes and oropharynx normal Eyes PERRL and EOMs intact bilaterally Neck no lymphadenopathy, supple and no JVD Lymph Lymphatic: no lymphadenopathy noted and no lymphedema noted Resp normal respiratory effort, normal air movement and clear to auscultation bilaterally Resp Narrative: Diminished breath sounds, no wheezes or crackles. Cardio regular rate, regular rhythm, S1 normal heart sound, S2 normal heart sound and no murmurs GI normal to inspection, nondistended, normoactive bowel sounds, soft to palpation, non-tender and non-distended Extremity normal to inspection, full ROM, normal capillary refill, no clubbing, cyanosis or edema and no calf tenderness General Extremity: no tenderness to palpation of joints or extremities Skin General Skin Exam: no breakdown Neuro oriented x3, CN's II-XII intact bilaterally, moves all extremities, no focal motor deficits, no sensory deficits noted and deep tendon reflexes 2+ bilaterally Sensorium / Orientation: awake, alert, oriented to person, oriented to place and oriented to time Speech: speech normal Motor Exam: strength 5/5 throughout and general weakness Psych thought process normal, cooperative and affect normal Appearance: appropriate Weight / BMI Weight Weight: 126 lb 1.671 oz Body Mass Index (BMI) 26.3 ABG / Lab / Microbiology Data 03/22/23 06:05 03/23/23 06:30 Laboratory: Laboratory Results - last 24 hr 03/23/23 06:30: Sodium 126 L, Potassium 4.8, Chloride 93 L, Carbon Dioxide 23.0, Anion Gap 10, BUN 59 H, Creatinine 4.94 H, Estim Creat Clear Calc 8.34, Est GFR (MDRD) Af Amer 11 L, Est GFR (MDRD) Non-Af 9 L, BUN/Creatinine Ratio 11.9, Glucose 151 H, Calcium 9.2 Microbiology: Microbiology 03/22/23 13:00 Nasal Secretion SARS-CoV-2 Antigen (Rapid) - Final 03/19/23 20:10 Nasal Secretion SARS-CoV-2 & FLU Antigen (Rapid) - Final D/C Instructions Discharge Diet: Low fat / Low cholesterol Discharge Activity: Return to Normal Activity Weight Bearing Status: Weight bearing as tolerated Meaningful Use Info Meaningful Use Diagnoses (Choose all that apply): CHF CHF MARBELLA/ARB ordered at discharge?: No Reason MARBELLA/ARB not ordered?: Not indicated Documented LVEF (%): 55 Discharge Plan Admission Admit Date/Time: 03/19/23 23:21 Primary Reason for Your Visit: acute on chronic heart failure Attending Provider: Jennifer Dlilon Primary Care Provider: Bradley Hardin Consulting Providers: Cih Glez; Mariama Tanner; Francois Macdonald; Donal Bowman; Kishan Kim; Obdulia Gregorio; Jez Tavares; Venkatesh Shanks; Bruce Christy; Immanuel Adrian; Milan Garcia; Kishore Mack; Ady Little; Mell Poon; Petr Armando; Elvin Wang; Rusty Miranda; Josesito Mcdaniels; Stanley Cuadra PIANO TUNER; Mariama Posey NP; Paige Goode PA; Anatoliy Hammonds; Benson Muller Instructions Patient Instructions: Coping with Heart Failure Additional Instructions / Restrictions: See Heart Failure education booklet and zone management form Discharge Orders/Prescriptions Prescriptions: New furosemide 40 mg Tablet 40 mg PO BIDLX Qty: 60 2RF clonidine HCl 0.2 mg Tablet 0.2 mg PO TID Qty: 90 1RF hydralazine 100 mg tablet 100 mg PO BID Qty: 60 2RF Continued ondansetron HCl 4 mg tablet 4 mg PO Q8H PRN (Reason: nausea and vomiting) Patient Comments: take 1 tablet by mouth every 8 hours if needed for nausea and vomiting carvedilol 25 mg tablet 25 mg PO Q12H aspirin [Adult Aspirin Regimen] 81 mg tablet,delayed release (DR/EC) 81 mg PO DAILY calcium citrate-vitamin D3 250 mg-5 mcg (200 unit) tablet 1 tab PO DAILY pantoprazole 40 mg tablet,delayed release (DR/EC) 40 mg PO Q12H promethazine 12.5 mg tablet 12.5 mg PO Q6H PRN (Reason: nausea and vomiting) Rx Instructions: 3 doses during day; last dose no later than 4 hr before bedtime fluticasone propionate [Allergy Relief (fluticasone)] 50 mcg/actuation spray,suspension 2 spray intranasal DAILY PRN (Reason: nasal congestion) Rx Instructions: administer into each nostril Discontinued furosemide 40 mg tablet 40 mg PO .[facility] Patient Comments: take 1 tablet by mouth ON NON-DIALYSIS DAYS; TAKES ON FRIDAY, FRIDAY, FRIDAY, FRIDAY Rx Instructions: not on dialysis days clonidine 0.1 mg/24 hr patch weekly 1 patch transdermal FR Patient Comments: apply 1 patch topically ONCE EVERY WEEK hydralazine 25 mg tablet 75 mg PO Q12H Patient Comments: MOWEFR take 3 tablets by mouth twice a day Rx Instructions: MOWEFR take 3 tablets by mouth twice a day hydralazine 50 mg tablet 75 mg PO .MOWEFR Patient Comments: MOWEFR take 3 tablets by mouth twice a day Rx Instructions: MOWEFR take 3 tablets by mouth twice a day. Hold for SBP less than 130 mmHg. Referrals / Follow Up: Jez Tavares MD [Med Staff - Active Staff] - Within 2 Weeks Bradley Hardin MD [Primary Care Provider] - Within 2 Weeks Disposition Disposition (needs filled in before D/C Order can be placed): [facility] Facility Charges/Coding Visit Charges Inpatient E&M: 97454 Disch Hosp >30min
== END 2023-03-23 11:09 | disposition skilled nursing facility (03) | DRG 291 ==
LOC: ED 22:21 → PCU 23:27
PROVIDERS: Internal Medicine; Admitting Provider Internal Medicine; Emergency Provider Emergency Medicine; PCP Family Medicine; Visit Provider Student in an Organized Health Care Education/Training Program
DX: I13.2 Hypertensive heart and chronic kidney disease with heart failure and with stage 5 chronic kidney disease, or end stage renal disease (principal); N18.6 End stage renal disease; I50.33 Acute on chronic diastolic (congestive) heart failure; Z94.0 Kidney transplant status; D63.8 Anemia in other chronic diseases classified elsewhere; F01.50 Vascular dementia, unspecified severity, without behavioral disturbance, psychotic disturbance, mood disturbance, and anxiety; Z99.2 Dependence on renal dialysis; I48.91 Unspecified atrial fibrillation; I16.0 Hypertensive urgency; I35.0 Nonrheumatic aortic (valve) stenosis; E78.00 Pure hypercholesterolemia, unspecified; M19.90 Unspecified osteoarthritis, unspecified site; K21.9 Gastro-esophageal reflux disease without esophagitis; Z11.52 Encounter for screening for COVID-19; G44.209 Tension-type headache, unspecified, not intractable; Z79.82 Long term (current) use of aspirin; Z79.899 Other long term (current) drug therapy; Z95.0 Presence of cardiac pacemaker; Z86.16 Personal history of COVID-19
CPT/HCPCS: 36415; 71046; 80048; 80061; 83735; 83880; 84443; 84484; 85025; 87426; 87428; 90937; 93005; 93306; 94640; 97162; 97166; 97530; 99285; J7030; A4216; G0257; J1940

== ENCOUNTER 2023-04-06 06:26 | Inpatient (IN) | payer MEDICARE, OTHER, SELFPAY ==
[2023-04-06] VITALS (44 sets, daily range): BP systolic 106–244; BP diastolic 64–136; PULSE 63–82; RESP 12–24; TEMP 36.4–36.9; O2SAT 91–100; BMI 27.4
--- NOTE | 2023-04-06 07:06 | EDS_ITS ---
HPI History of Present Illness Chief Complaint: Hypertension Informant: patient Onset/Context/Timing Onset: Month(s) (2) Context: Gradual Onset Timing: Continuous Quality: Aching Location: Head Worsened by: Nothing Relieved by: Nothing Narrative Narrative: Patient presents with elevated blood pressure that was noticed this morning. Patient states her blood pressure has been high for the last 2 months. Patient states that she has been having elevated blood pressures over the past 2 months that would get better with dialysis. Patient states that today her blood pressure was over 200 systolic. Patient was given her normal blood pressure medicines plus hydralazine this morning. Patient states that this has not helped. Patient states that her blood pressure was still 200 systolic. Patient states that her primary care physician then referred her to the emergency department. Patient is on dialysis. Patient states her last dialysis was Friday. Patient states she is scheduled for dialysis tomorrow. Patient states her last dialysis session was 3-1/2 hours and 5.1 L were removed. Patient denies any chest pain or shortness of breath. Patient admits to some nausea. Patient states she only urinates once a day. Patient states she urinated some this morning. Patient denies any dysuria or hematuria. Patient admits to some left lower abdominal pain. Patient states she had this evaluated. Patient states she had an MRI which also showed some fluid on her heart. Patient states that they were unable to find the cause of her left lower abdominal pain. [facility] Medical History (Updated 04/06/23 @ 14:[address] Bruce Landaverde, DO) Anemia of chronic disease Atrial fibrillation Chronic renal failure Congestive heart failure CVA (cerebral vascular accident) Dialysis patient Dyspnea End-stage renal disease on hemodialysis GI bleed High cholesterol Hx of gastroesophageal reflux (GERD) Hypertension Hypertensive emergency Kidney transplant pain Presence of Watchman left atrial appendage closure device Sick sinus syndrome Skin cancer Vascular dementia Home Medications aspirin 81 mg tablet,delayed release (Adult Aspirin Regimen) 81 mg PO DAILY 02/08/23 [History Last Taken 02/08/23] calcium citrate 250 mg calcium-vitamin D3 5 mcg (200 unit) tablet 1 tab PO DAILY 02/08/23 [History Last Taken 02/07/23] carvedilol 25 mg tablet 25 mg PO Q12H HTN 02/08/23 [History Last Taken 02/07/23] pantoprazole 40 mg tablet,delayed release 40 mg PO Q12H 02/08/23 [History Last Taken Unknown] promethazine 12.5 mg tablet 12.5 mg PO Q6H PRN nausea and vomiting 02/08/23 [History Last Taken Unknown] fluticasone propionate 50 mcg/actuation nasal spray,suspension (Allergy Relief (fluticasone)) 2 spray intranasal DAILY PRN nasal congestion 03/20/23 [History Last Taken 03/19/23] clonidine HCl 0.2 mg tablet 0.2 mg PO TID #90 tabs 03/22/23 [Rx Last Taken Unknown] furosemide 40 mg tablet 40 mg PO BIDLX #60 tabs 03/22/23 [Rx Last Taken Unknown] hydralazine 100 mg tablet 100 mg PO BID #60 tabs 03/23/23 [Rx Last Taken Unknown] Allergy/AdvReac Type Severity Reaction Status Date / Time amlodipine Allergy Intermediate turns blue Verified 04/06/23 06:33 acetaminophen Allergy Mild unknown Verified 04/06/23 06:33 [From Panlor (hydrocodone-acetamin)] ascorbic acid Allergy Mild unknown Verified 04/06/23 06:33 [From Airborne (ascorbate sodium)] caffeine Allergy Mild unknown Verified 04/06/23 06:33 Luna And Derivatives Allergy Mild unknown Verified 04/06/23 06:33 codeine Allergy Mild unknown Verified 04/06/23 06:33 desloratadine Allergy Mild unknown Verified 04/06/23 06:33 glutamine Allergy Mild unknown Verified 04/06/23 06:33 [From Airborne (ascorbate sodium)] herbal complex no.124 Allergy Mild unknown Verified 04/06/23 06:33 [From Airborne (ascorbate sodium)] hydrocodone Allergy Mild unknown Verified 04/06/23 06:33 hydromorphone Allergy Mild unknown Verified 04/06/23 06:33 lysine HCl Allergy Mild unknown Verified 04/06/23 06:33 [From Airborne (ascorbate sodium)] morphine Allergy Mild unknown Verified 04/06/23 06:33 moxifloxacin Allergy Mild unknown Verified 04/06/23 06:33 multivitamin with minerals Allergy Mild unknown Verified 04/06/23 06:33 [From Airborne (ascorbate sodium)] nabumetone Allergy Mild unknown Verified 04/06/23 06:33 oxycodone Allergy Mild unknown Verified 04/06/23 06:33 penicillin G Allergy Mild unknown Verified 04/06/23 06:33 Penicillins Allergy Mild hands blue Verified 04/06/23 06:33 propoxyphene Allergy Mild unknown Verified 04/06/23 06:33 [From Margesic (propoxyphene)] tramadol Allergy Mild unknown Verified 04/06/23 06:33 amiodarone Allergy Unknown unknown Verified 04/06/23 06:33 Opioids - Morphine Analogues Allergy Anaphylaxis Verified 04/06/23 06:33 Surgical History (Updated 04/06/23 @ 07:[address] Bruce Landaverde DO) H/O: hysterectomy History of hernia repair History of permanent cardiac pacemaker placement Hx of cholecystectomy Renal transplant recipient Social History Smoking Status: Never smoker ROS ROS ED Constitutional Constitutional ED: Reports chills and subjective; Denies fever(s) Eyes Eyes: Denies blurry vision or change in vision ENT ENT ED: Denies rhinorrhea or sore throat Cardiovascular Cardiovascular: Denies chest pain or palpitations Respiratory/Chest Respiratory/Chest: Denies cough or dyspnea Gastrointestinal Gastrointestinal: Reports abdominal pain and nausea; Denies vomiting Genitourinary Genitourinary ED: Denies dysuria or hematuria Musculoskeletal Musculoskeletal: Denies back pain or neck pain Integumentary Denies abscess or rash Neurologic Neurologic: Reports headache(s); Denies weakness Allergic/Immunologic Allergic/Immunologic ED: Denies mouth swelling or urticaria EXAM Physical Exam Const Vital Signs: 04/06/23 06:29 04/06/23 06:29 04/06/23 08:32 Temperature 98 F Temperature Source Temporal Pulse Rate 63 70 Respiratory Rate 18 18 Respiratory Effort Short of Breath Respiratory Pattern Normal Blood Pressure 196/89 H 205/103 H Blood Pressure Mean 124 137 Pulse Ox 100 94 Oxygen Delivery Method Room Air Room Air 04/06/23 10:27 04/06/23 10:59 04/06/23 11:25 Temperature Temperature Source Pulse Rate 71 72 72 Respiratory Rate 18 Respiratory Effort Respiratory Pattern Blood Pressure 224/104 H 236/91 H 225/115 H Blood Pressure Mean 144 139 151 Pulse Ox 95 Oxygen Delivery Method Room Air 04/06/23 11:44 04/06/23 12:05 04/06/23 12:17 Temperature Temperature Source Pulse Rate 77 70 68 Respiratory Rate Respiratory Effort Respiratory Pattern Blood Pressure 214/90 H 219/89 H 206/88 H Blood Pressure Mean 131 132 127 Pulse Ox Oxygen Delivery Method 04/06/23 12:38 04/06/23 13:17 04/06/23 13:41 Temperature Temperature Source Pulse Rate 82 65 80 Respiratory Rate 19 H Respiratory Effort Respiratory Pattern Blood Pressure 189/102 H 190/95 H 219/110 H Blood Pressure Mean 131 126 146 Pulse Ox 93 Oxygen Delivery Method Room Air 04/06/23 13:51 Temperature Temperature Source Pulse Rate Respiratory Rate Respiratory Effort Respiratory Pattern Blood Pressure 203/114 H Blood Pressure Mean 143 Pulse Ox Oxygen Delivery Method Positive well nourished and well developed General Appearance ED: well developed and NAD HEENT Reports moist mucous membranes Neck supple and no JVD Chest Wall inspection of chest normal and palpation of chest normal Resp normal respiratory effort and clear to auscultation bilaterally Cardio regular rate Rhythm: abnormal rhythm irregularly irregular GI non-distended Palpation: soft and tender LLQ; Negative for guarding or rebound tenderness present Extremity normal to inspection General Extremety ED: Negative for edema or tenderness General Extremity: Negative for edema Neuro oriented x3 and CN's II-XII intact bilaterally Sensorium / Orientation: alert Motor Exam: strength 5/5 throughout Psych mental status grossly normal MDM MDM MDM Narrative Medical decision making narrative: Differential diagnosis includes cardiac dysrhythmia, cardiac ischemia, hypertensive urgency, hypertensive emergency, acute on chronic kidney disease, and electrolyte abnormality. EKG will be obtained to assess for cardiac dysrhythmia and cardiac ischemia. Chest x-ray will be obtained to assess for pneumonia, congestive heart failure, and widened mediastinum. CBC will be obtained to assess for leukocytosis and anemia. Basic metabolic profile will be obtained to assess for electrolyte abnormality and renal function. Lab Data Attestation: I reviewed the patient's lab results. Lab results narrative: CBC was reviewed. There is a mild anemia with a hemoglobin of 10.3 and hematocrit 31.3. Platelets were slightly low at 108. Basic metabolic profile was reviewed. BUN was slightly elevated at 42 and creatinine was 4.16. These are consistent with prior results. Labs: Laboratory Results - last 24 hr 04/06/23 08:35 WBC 5.3 RBC 3.31 L Hgb 10.3 L Hct 31.3 L MCV 94.6 MCH 31.1 MCHC 32.9 RDW Std Deviation 56.0 H RDW Coeff of Alexus 16.3 H Plt Count 108 L MPV 11.7 Immature Gran % (Auto) 0.400 Neut % (Auto) 70.2 H Lymph % (Auto) 14.5 L Callahan % (Auto) 8.5 Eos % (Auto) 5.5 H Baso % (Auto) 0.9 Absolute Neuts (auto) 3.7 Absolute Lymphs (auto) 0.77 L Nucleated RBC % 0 Sodium 132 L Potassium 4.5 Chloride 97 L Carbon Dioxide 28.0 Anion Gap 7 BUN 42 H Creatinine 4.16 H Estim Creat Clear Calc 10.68 Est GFR (MDRD) Af Amer 13 L Est GFR (MDRD) Non-Af 11 L BUN/Creatinine Ratio 10.1 Glucose 99 Calcium 9.3 Radiography Chest X-Ray - ED: 2 View, Read by ED Physician, Read by Radiologist, Chronic Changes, Right Effusion and Left Effusion Diagnostic Testing: Clinical Impression(s) from Imaging Studies Chest X-Ray 04/06/23 08:40 IMPRESSION: Mild pleural effusions with increased interstitial opacities concerning for worsening pulmonary edema with bibasilar atelectasis or pneumonia. Electronically Signed: Peace Hays MD at 8:54 EST , PA and lateral chest x-rays obtained. There are 2 views. On my independent interpretation, there are mild pleural effusions. There is some mild congestion. Bony thorax is normal. Radiologist also interpreted the x-rays and agrees. EKG Initial EKG: Attestation: I personally reviewed and interpreted this EKG as follows: Interpretation: Atrial Fibrillation, Paced and Non-Specific ST Changes Comments: EKG was obtained. On my independent interpretation, it shows atrial fibrillation with occasional ectopic and paced beats. There is normal QRS at 88 ms. QTc interval was normal at 454 ms. Iaeger was normal. There are nonspecific ST-T wave changes noted. Prior EKG tracings: available for review Prior: Unchanged (03/19/2023) Management Discussion w/another healthcare provider: Hospitalist Treatment and Re-Evaluation :: Patient was given a dose of labetalol initially. Patient had minimal improvement of her blood pressure with this. Patient was given a dose of clonidine. Patient had no change in her blood pressure with this. Patient was given a dose of hydralazine. Patient's blood pressure started to improve but then elevated again. Patient was given a repeat dose of clonidine. Patient's blood pressure was still elevated at 203/114. Because of this, I feel the patient would benefit from inpatient treatment to manage her blood pressure better. Patient understands and is agreeable with the plan. Case will be discussed with the hospitalist for admission. She recommended starting the patient on Cardene drip. Patient will be admitted to ICU. Discharge Plan Dx/Rx/DC Orders Clinical Impression: Chronic kidney disease, Hypertensive urgency Disposition Disposition: Acute Care Hospital [facility]
--- NOTE | 2023-04-06 07:40 | EKG12_ITS ---
Test Reason : HTN Blood Pressure : / mmHG Vent. Rate : 071 BPM Atrial Rate : 000 BPM P-R Int : 000 ms QRS Dur : 088 ms QT Int : 418 ms P-R-T Axes : 000 027 -17 degrees QTc Int : 454 ms Atrial fibrillation with frequent ventricular-paced complexes and with premature ventricular or aberr antly conducted complexes Nonspecific T wave abnormality Abnormal ECG Confirmed by MK BOLAND, PEARL ([id number]), editor publications ANTHONY HIDALGO ([id number]) on 04/08/2023 9:52:47 AM Referred By: Confirmed By:PEARL TERRAZAS MD
[2023-04-06] MEDS: Labetalol (Prefilled) 20 MG/4 ML IV (08:28)
--- NOTE | 2023-04-06 08:40 | RAD_ITS ---
HISTORY: Hypertension. TECHNIQUE: XR Chest 2 Views. COMPARISON: 03/20/2023. FINDINGS: CARDIOMEDIASTINAL BORDERS: Cardiomegaly with closure device and pacemaker again seen. Mediastinal contour unchanged with calcification of the aorta and right internal jugular central venous catheter tip at the superior cavoatrial junction. LUNGS: Increased interstitial opacities. Confluent opacity in the lower lobes on the lateral view. PLEURA: Mild bilateral pleural effusions. OSSEOUS STRUCTURES: Degenerative change. RAD/Chest PA and Lateral IMPRESSION: Mild pleural effusions with increased interstitial opacities concerning for worsening pulmonary edema with bibasilar atelectasis or pneumonia. Electronically Signed: Peace Hays MD at 8:54 EST ,
[2023-04-06 08:53] LABS: Absolute Lymphocyte Count 0.77 X10^3/uL (0.83-4.51); Absolute Neutrophil Count 3.7 X10^3/uL (2.0-7.7); Basophil# 0.05 X10^3/uL; Basophil% 0.9 % (0-1); Eosinophil# 0.29 X10^3/uL; Eosinophils% 5.5 % (0-5); Hematocrit 31.3 % (37-47); Hemoglobin 10.3 g/dL (12.0-15.0); Lymphocyte # 0.77 X10^3/ul (0.83-4.51); Lymphocyte % 14.5 % (19-41); Mean Corp Hgb Conc 32.9 g/dL (32-36); Mean Corpuscular Hgb 31.1 pg (27.0-32.0); Mean Corpuscular Volume 94.6 fL (81-99); Mean Platelet Vol. 11.7 fl (6.2-12.0); Monocyte# 0.45 X10^3/uL; Monocyte% 8.5 % (0-10); NRBC Flagged by Analyzer 0 % (0-5); Neutrophil # 3.72 X10^3/uL (2.7-7.7); Neutrophil % 70.2 % (47-70); Platelet Count 108 K/mm3 (150-450); RBC Distribution Width CV 16.3 % (11.6-14.6); Red Blood Count 3.31 M/mm3 (4.2-5.4); White Blood Count 5.3 K/mm3 (4.4-11.0)
[2023-04-06 09:13] LABS: Anion Gap 7 (5-15); BUN 42 mg/dL (7-18); BUN/Creat Ratio 10.1 RATIO (10-20); Calcium,Total 9.3 mg/dL (8.5-10.1); Chloride 97 mmol/L (98-107); Creatinine, Serum 4.16 mg/dL (0.55-1.02); EST Glomerular Filtration Rate 11 mL/min (>60); Est Glom Filt Rate - Afr Amer 13 mL/min (>60); Estimated Creatinine Clearance 10.68 ml/min; Glucose 99 mg/dL (74-106); Potassium 4.5 mmol/L (3.5-5.1); Sodium Level 132 mmol/L (136-145)
[2023-04-06] MEDS: cloNIDine HCl 0.2 MG Tablet 0.200000000000000011 MG PO (10:25)
[2023-04-06] MEDS: hydrALAZINE 20 MG/ML Vial 10 MG IV (11:44)
[2023-04-06] MEDS: cloNIDine HCl 0.1 MG Tablet 0.100000000000000006 MG PO (12:49)
--- NOTE | 2023-04-06 14:22 | NURSING ---
ICU [facility], CHRONIC KIDNEY DISEASE
[2023-04-06] MEDS: NICARdipine 25 MG in 0.9% Normal Saline (250mL Bag) 240 ML 50 MG CONT INF (14:37)
--- NOTE | 2023-04-06 14:44 | HP.PCM.HOS_ITS ---
HPI - General General Date of Admission: 04/06/23 Date of Service: 04/06/23 Chief Complaint: SOB, SO, nausea, HTN HPI Narrative JOVANY HARRIS, is a 77-year-old female history of CVA, renal transplant 26 years ago and end-stage renal disease on hemodialysis Friday/Friday/Friday, A-fib with history of Watchman and permanent pacemaker placement, CVA, GERD, history of GI bleed, hypertension who presented to [facility] 04/06/2023 with nausea, headache, shortness of breath and elevated blood pressure refractory to conservative management. She is presently at a rehab for PT after recent hospital admission here for acute on chronic heart failure with preserved ejection fraction. In the ED blood pressures consistently with systolic over 200 despite receiving clonidine twice, hydralazine, labetalol in ED and patient is conversationally dyspneic with edema on chest x-ray and peripheral swelling as well as headache and nausea patient required being started on Cardene drip and admitted to ICU. Hospitalist contacted for admission. At bedside, she reports she has been on dialysis for many years but is only been struggling with her blood pressure for the past 2 months and has had multiple changes, reports on Friday her blood pressure was 150s and had been doing better but that yesterday because she has not been sleeping well she was given a sleeping pill and she is unsure which 1 but said after that her pacemaker went crazy and then qualify that as her heart was racing and pounding and then she became abdulkadir seous and got a headache and short of breath and her systolic was 230, given blood pressure was then persistently elevated she was brought to the ED where it continued to be elevated. Is not feeling very hungry but would like to drink some water, denies chest pain at present but does feel short of breath and feels she is getting fatigued from having to take deep breaths, also reports bilateral lower extremity 7 swelling right greater than left for the past 2 to 3 days which is new for her. At present nausea feeling somewhat better but still has headache and shortness of breath and feels generally unwell. Of note patient's last dialysis was on Friday as scheduled and she reports there is good fluid removal and she tolerated this well. Has not missed any dialysis sessions per patient [facility] Medical History (Updated 04/06/23 @ 14:[address] Cynthia Sahh MD) Anemia of chronic disease Atrial fibrillation Chronic renal failure Congestive heart failure CVA (cerebral vascular accident) Dialysis patient Dyspnea End-stage renal disease on hemodialysis GI bleed High cholesterol Hx of gastroesophageal reflux (GERD) Hypertension Hypertensive emergency Kidney transplant pain Presence of Watchman left atrial appendage closure device Sick sinus syndrome Skin cancer Vascular dementia Home Medications aspirin 81 mg tablet,delayed release (Adult Aspirin Regimen) 81 mg PO DAILY 02/08/23 [History Last Taken 02/08/23] calcium citrate 250 mg calcium-vitamin D3 5 mcg (200 unit) tablet 1 tab PO DAILY 02/08/23 [History Last Taken 02/07/23] carvedilol 25 mg tablet 25 mg PO Q12H HTN 02/08/23 [History Last Taken 02/07/23] pantoprazole 40 mg tablet,delayed release 40 mg PO Q12H 02/08/23 [History Last Taken Unknown] promethazine 12.5 mg tablet 12.5 mg PO Q6H PRN nausea and vomiting 02/08/23 [History Last Taken Unknown] fluticasone propionate 50 mcg/actuation nasal spray,suspension (Allergy Relief (fluticasone)) 2 spray intranasal DAILY PRN nasal congestion 03/20/23 [History Last Taken 03/19/23] clonidine HCl 0.2 mg tablet 0.2 mg PO TID #90 tabs 03/22/23 [Rx Last Taken Unknown] furosemide 40 mg tablet 40 mg PO BIDLX #60 tabs 03/22/23 [Rx Last Taken Unknown] hydralazine 100 mg tablet 100 mg PO BID #60 tabs 03/23/23 [Rx Last Taken Unknown] Allergy/AdvReac Type Severity Reaction Status Date / Time amlodipine Allergy Intermediate turns blue Verified 04/06/23 06:33 acetaminophen Allergy Mild unknown Verified 04/06/23 06:33 [From Panlor (hydrocodone-acetamin)] ascorbic acid Allergy Mild unknown Verified 04/06/23 06:33 [From Airborne (ascorbate sodium)] caffeine Allergy Mild unknown Verified 04/06/23 06:33 [place] And Derivatives Allergy Mild unknown Verified 04/06/23 06:33 codeine Allergy Mild unknown Verified 04/06/23 06:33 desloratadine Allergy Mild unknown Verified 04/06/23 06:33 glutamine Allergy Mild unknown Verified 04/06/23 06:33 [From Airborne (ascorbate sodium)] herbal complex no.124 Allergy Mild unknown Verified 04/06/23 06:33 [From Airborne (ascorbate sodium)] hydrocodone Allergy Mild unknown Verified 04/06/23 06:33 hydromorphone Allergy Mild unknown Verified 04/06/23 06:33 lysine HCl Allergy Mild unknown Verified 04/06/23 06:33 [From Airborne (ascorbate sodium)] morphine Allergy Mild unknown Verified 04/06/23 06:33 moxifloxacin Allergy Mild unknown Verified 04/06/23 06:33 multivitamin with minerals Allergy Mild unknown Verified 04/06/23 06:33 [From Airborne (ascorbate sodium)] nabumetone Allergy Mild unknown Verified 04/06/23 06:33 oxycodone Allergy Mild unknown Verified 04/06/23 06:33 penicillin G Allergy Mild unknown Verified 04/06/23 06:33 Penicillins Allergy Mild hands blue Verified 04/06/23 06:33 propoxyphene Allergy Mild unknown Verified 04/06/23 06:33 [From Margesic (propoxyphene)] tramadol Allergy Mild unknown Verified 04/06/23 06:33 amiodarone Allergy Unknown unknown Verified 04/06/23 06:33 Opioids - Morphine Analogues Allergy Anaphylaxis Verified 04/06/23 06:33 Surgical History (Updated 04/06/23 @ 07:[address] Bruce Landaverde DO) H/O: hysterectomy History of hernia repair History of permanent cardiac pacemaker placement Hx of cholecystectomy Renal transplant recipient Social History Smoking Status: Never smoker ROS ROS Narrative General: Denies fever/chills, feels generally unwell HENT: Has headache, has some residual nasal congestion from a couple weeks ago, denies sore throat EYES: Denies changes in vision Resp: Denies cough, increased shortness of breath Cardiac: Denies chest pain at this time GI: Denies abdominal pain, denies changes in bowel, has had intermittent nausea : Makes some urine and only goes once daily usually Extremity: Bilateral lower extremity swelling right greater than left MSK: Denies weakness Neuro: Denies any numbness/tingling Heme: Denies any bleeding or bruising Skin: Denies rashes Psychiatric: No complaints voiced Vital Signs Vital Signs Vital Signs: 04/06/23 06:29 04/06/23 06:29 04/06/23 08:32 Temperature 98 F Temperature Source Temporal Pulse Rate 63 70 Respiratory Rate 18 18 Respiratory Effort Short of Breath Respiratory Pattern Normal Blood Pressure 196/89 H 205/103 H Blood Pressure Mean 124 137 Pulse Ox 100 94 Oxygen Delivery Method Room Air Room Air 04/06/23 10:27 04/06/23 10:59 04/06/23 11:25 Temperature Temperature Source Pulse Rate 71 72 72 Respiratory Rate 18 Respiratory Effort Respiratory Pattern Blood Pressure 224/104 H 236/91 H 225/115 H Blood Pressure Mean 144 139 151 Pulse Ox 95 Oxygen Delivery Method Room Air 04/06/23 11:44 04/06/23 12:05 04/06/23 12:17 Temperature Temperature Source Pulse Rate 77 70 68 Respiratory Rate Respiratory Effort Respiratory Pattern Blood Pressure 214/90 H 219/89 H 206/88 H Blood Pressure Mean 131 132 127 Pulse Ox Oxygen Delivery Method 04/06/23 12:38 04/06/23 13:17 04/06/23 13:41 Temperature Temperature Source Pulse Rate 82 65 80 Respiratory Rate 19 H Respiratory Effort Respiratory Pattern Blood Pressure 189/102 H 190/95 H 219/110 H Blood Pressure Mean 131 126 146 Pulse Ox 93 Oxygen Delivery Method Room Air 04/06/23 13:51 Temperature Temperature Source Pulse Rate Respiratory Rate Respiratory Effort Respiratory Pattern Blood Pressure 203/114 H Blood Pressure Mean 143 Pulse Ox Oxygen Delivery Method Weight Weight: 61.7 kg Body Mass Index (BMI) 27.4 Physical Exam Narrative General: Alert, increased work of breathing HEENT: Atraumatic, normocephalic Eyes: Anicteric, normal conjunctiva, extraocular movements grossly intact Neck: Supple Respiratory: Some crackles bilaterally, increased work of breathing Cardiovascular: Irregularly irregular GI: Soft, nontender, nondistended Extremities: 1+ lower extremity edema Musculoskeletal: Moving all extremities Neuro: No overt focal neurological deficits Skin: No rashes appreciated Psych: Cooperative Results Lab / Micro Data 04/06/23 08:35 04/06/23 08:35 Labs: Laboratory Results - last 24 hr 04/06/23 08:35: WBC 5.3, RBC 3.31 L, Hgb 10.3 L, Hct 31.3 L, MCV 94.6, MCH 31.1, MCHC 32.9, RDW Std Deviation 56.0 H, RDW Coeff of Alexus 16.3 H, Plt Count 108 L, MPV 11.7, Immature Gran % (Auto) 0.400, Neut % (Auto) 70.2 H, Lymph % (Auto) 14.5 L, [place] % (Auto) 8.5, Eos % (Auto) 5.5 H, Baso % (Auto) 0.9, Absolute Neuts (auto) 3.7, Absolute Lymphs (auto) 0.77 L, Nucleated RBC % 0, Sodium 132 L, Potassium 4.5, Chloride 97 L, Carbon Dioxide 28.0, Anion Gap 7, BUN 42 H, C reatinine 4.16 H, Estim Creat Clear Calc 10.68, Est GFR (MDRD) Af Amer 13 L, Est GFR (MDRD) Non-Af 11 L, BUN/Creatinine Ratio 10.1, Glucose 99, Calcium 9.3 Imagaing Radiology Impression Chest X-Ray 04/06/23 08:40 IMPRESSION: Mild pleural effusions with increased interstitial opacities concerning for worsening pulmonary edema with bibasilar atelectasis or pneumonia. Electronically Signed: Peace Hays MD at 8:54 EST Reading Location ID and State: [facility] / [place] Tel , Service support , Assessment & Plan Assessment/Plan (1) Hypertensive emergency: (2) Sick sinus syndrome: (3) End-stage renal disease on hemodialysis: (4) Hx of gastroesophageal reflux (GERD): (5) Atrial fibrillation: PLAN: Plan # Hypertensive emergency -Blood pressures consistently with systolic over 200 and diastolic >100 w/ symptoms despite receiving clonidine twice, hydralazine, labetalol and patient is conversationally dyspneic with edema on chest x-ray and peripheral swelling as well as headache and nausea -BNP and troponin ordered -Patient placed on Cardene drip in ED, patient admitted to ICU -Patient also appears overloaded, will start IV Lasix -Check TSH -Consult nephrology -Daily weights, I's and O's -Does have bilateral lower extremity swelling which she says is new for her but right greater than left, will get lower extremity duplex -Coreg max dose, will continue, will increase clonidine to 0.3 mg 3 times daily and consider clonidine patch moving forward and will increase hydralazine to 3 times daily -Pending response to dose adjustments can consider adding isosorbide to augment current medications -EKG afib w/ PVCs -Also had pacemaker interrogation as patient reports her pacemaker went crazy last night which may indicate she had some kind of RVR arrhythmia that may have worsened or contributed to current status -Had echo 03/20 w/ EF 50-55%, unable to assess diastolic dysfunction, and mild- mod , do not feel repeat echo necessary at this time but can consider pending clinic status and progression # End-stage renal disease on dialysis Friday/Friday/Friday and history of renal transplant 26 years ago -Nephrology consult -Renal diet #Afib and ppm w/ hx of HFpEF by documentation and mild/mod -Hx watchman procedure -Continue BB -Continue BP management as above -Placing on IV lasix #Hx cva -Continue aspirin #GERD -Continue PPI #DVT ppx: Heparin subcu Cynthia Shah MD Charges/Coding Visit Charges Inpatient E&M: 04901 Init Hosp L2
[2023-04-06 15:05] LABS: Troponin-I HS 17 pg/mL (3.0-54.0)
--- NOTE | 2023-04-06 15:05 | VDLE_ITS ---
Reason For Study: Bilateral leg swelling RIGHT LEFT GSV is normal. GSV is normal. CFV is compressible, spontaneous, phasic, CFV is compressible, spontaneous, phasic, competent and demonstrates normal competent, and demonstrates normal augmentation. augmentation. FV is compressible, spontaneous, phasic, FV is compressible, spontaneous, phasic, competent and demonstrates normal competent and demonstrates normal augmentation. augmentation. POP V is compressible, spontaneous, phasic, POP V is compressible, spontaneous, phasic, competent and demonstrates normal competent and demonstrates normal augmentation. augmentation. T/P Trunk is compressible. T/P Trunk is compressible. PTV is compressible. PTV is compressible. RT PerV is compressible. LT PerV is compressible. Procedure This is a venous duplex using B-mode, color flow and spectral Doppler. Exam performed portable in ICU/CCU. A preliminary report was called and/or faxed to ICU. VL/Venous Duplex US - Gopal Extrem Interpretation Summary Deep veins of the bilateral lower extremities are patent and compressible segme ntally. There is no evidence of bilateral lower extremity deep vein thrombosis. The bilateral great saphenous veins appear patent and compressible segmentally. Ordering Physician: Cynthia Shah Referring Physician: Bradley Hardin Performed By: Camelia Donohue RVT
[2023-04-06] MEDS: NICARdipine 25 MG in 0.9% Normal Saline (250mL Bag) 240 ML 125 MG CONT INF (17:03)
[2023-04-06] MEDS: Carvedilol 25 MG Tablet PO (18:38)
[2023-04-06] MEDS: Furosemide 40 MG/4 ML Vial IV (18:38)
[2023-04-06] MEDS: hydrALAZINE 50 MG Tablet 100 MG PO (20:36)
[2023-04-06] MEDS: CLONIDINE HCL 0.299999999999999989 MG PO (20:36)
[2023-04-06] MEDS: Heparin Injection (Vial) 5,000 UNIT/ML VIAL 5000 UNIT SC (20:37)
[2023-04-07] VITALS (32 sets, daily range): BP systolic 98–190; BP diastolic 57–99; PULSE 67–87; RESP 12–29; TEMP 36.3–36.7; O2SAT 93–99; BMI 27.8; BMI 26.9
[2023-04-07 03:25] LABS: Absolute Lymphocyte Count 0.81 X10^3/uL (0.83-4.51); Absolute Neutrophil Count 4.5 X10^3/uL (2.0-7.7); Basophil# 0.03 X10^3/uL; Basophil% 0.5 % (0-1); Eosinophil# 0.32 X10^3/uL; Eosinophils% 5.4 % (0-5); Hematocrit 29.1 % (37-47); Hemoglobin 9.9 g/dL (12.0-15.0); Lymphocyte # 0.81 X10^3/ul (0.83-4.51); Lymphocyte % 13.6 % (19-41); Mean Corpuscular Hgb 32.5 pg (27.0-32.0); Mean Corpuscular Volume 95.4 fL (81-99); Mean Platelet Vol. 10.8 fl (6.2-12.0); Monocyte# 0.32 X10^3/uL; Monocyte% 5.4 % (0-10); NRBC Flagged by Analyzer 0 % (0-5); Neutrophil # 4.48 X10^3/uL (2.7-7.7); Neutrophil % 74.9 % (47-70); Platelet Count 110 K/mm3 (150-450); RBC Distribution Width CV 16.4 % (11.6-14.6); Red Blood Count 3.05 M/mm3 (4.2-5.4)
[2023-04-07 03:55] LABS: Anion Gap 9 (5-15); BUN 54 mg/dL (7-18); BUN/Creat Ratio 11.2 RATIO (10-20); Calcium,Total 8.2 mg/dL (8.5-10.1); Chloride 97 mmol/L (98-107); Creatinine, Serum 4.81 mg/dL (0.55-1.02); EST Glomerular Filtration Rate 9 mL/min (>60); Est Glom Filt Rate - Afr Amer 11 mL/min (>60); Estimated Creatinine Clearance 8.92 ml/min; Glucose 103 mg/dL (74-106); Magnesium 2.1 mg/dL (1.6-2.6); Phosphorus 3.8 mg/dL (2.5-4.9); Potassium 4.5 mmol/L (3.5-5.1); Sodium Level 133 mmol/L (136-145); Thyroid Stim Hormone (TSH) 3.21 uIU/mL (0.358-3.74)
[2023-04-07] MEDS: Heparin Injection (Vial) 5,000 UNIT/ML VIAL 5000 UNIT SC ×3 (05:14→20:34)
[2023-04-07] MEDS: 0.9% Saline Lock 10 ML Syringe IV ×3 (05:14→13:29)
[2023-04-07] MEDS: hydrALAZINE 50 MG Tablet 100 MG PO (05:14)
[2023-04-07] MEDS: Acetaminophen 325 MG Tablet PO (05:22)
[2023-04-07] MEDS: CLONIDINE HCL 0.299999999999999989 MG PO (05:24)
[2023-04-07] MEDS: Carvedilol 25 MG Tablet PO ×2 (07:49→20:35)
[2023-04-07] MEDS: Aspirin E.C. 81 MG Tablet PO (07:49)
[2023-04-07] MEDS: 0.9% Normal Saline 1,000 ML IV.SOLN. 1000 ML OPERA.SITE (08:56)
[2023-04-07] MEDS: PureFlow B 2K Dialysis Soln 1 BAG 6 BAG PF (08:56)
--- NOTE | 2023-04-07 09:48 | PCM.CONS.R ---
Assessment & Plan Assessment/Plan (1) End-stage renal disease on hemodialysis: (2) Hypertensive urgency: PLAN: Plan Impression/Plan: The patient is a 77-year-old woman with past history of ESRD status post failed kidney transplantation, hypertension, atrial fibrillation, stroke, and hyperlipidemia. Patient presents to the hospital on 02/05/2024 with a few hours history of dyspnea, headache and nausea. She was found to have severe hypertension on presentation and is admitted for management of hypertensive urgency. Nephrology is following for ESRD and dialysis management. ESRD. The patient usually dialyzes at [facility] on MWF schedule. I have arranged for an saw patient to hemodialysis today. We will try to remove 2 to 3 L of fluid with dialysis today to see if this will help with BP control. Hypertension. The patient required nicardipine drip on presentation. She is also being treated for hypertension with carvedilol 25 mg twice a day, hydralazine 100 mg 3 times daily, clonidine 0.3 mg 3 times daily. She has amlodipine listed on allergy list. However, she has tolerated nicardipine infusion without any issues. Since the patient has ESRD and is now on dialysis, there is no contraindication to use RAAS mick. We will see what the blood pressure is after dialysis today. If BP remains consistently high, we can add valsartan or olmesartan to antihypertensive regimen. HPI Consult Data Date of Consult: 04/07/23 HPI Narrative Reason for Consultation: ESRD and dialysis management HPI Narrative: The patient is a 77-year-old woman with past history of ESRD status post failed kidney transplantation, hypertension, atrial fibrillation, stroke, and hyperlipidemia. The patient presents to the hospital on 04/06/2023 with dyspnea headache and nausea which started the morning of presentation. He was also found to have severe hypertension on presentation. The patient was recently admitted to the hospital for decompensated heart failure, and she was sent in with the above complaints from SNF. Nephrology is consulted to manage dialysis in the setting of ESRD. The patient dialyzes as outpatient at [facility] on MWF schedule. She has not missed dialysis prior to admission. The patient denies current chest pain or pressure. Dyspnea has improved although she is now on 2 L nasal cannula. She does not use oxygen at home. The patient also complains of lower extreme edema especially on the right side. Severity of edema has not been any worse recently. She denies nausea, vomiting, or diarrhea. [facility] Medical History (Updated 04/06/23 @ 14:[address] Cynthia Shah MD) Anemia of chronic disease Atrial fibrillation Chronic renal failure Congestive heart failure CVA (cerebral vascular accident) Dialysis patient Dyspnea End-stage renal disease on hemodialysis GI bleed High cholesterol Hx of gastroesophageal reflux (GERD) Hypertension Hypertensive emergency Kidney transplant pain Presence of Watchman left atrial appendage closure device Sick sinus syndrome Skin cancer Vascular dementia Home Medications aspirin 81 mg tablet,delayed release (Adult Aspirin Regimen) 81 mg PO DAILY 02/08/23 [History Last Taken 02/08/23] calcium citrate 250 mg calcium-vitamin D3 5 mcg (200 unit) tablet 1 tab PO DAILY 02/08/23 [History Last Taken 02/07/23] carvedilol 25 mg tablet 25 mg PO Q12H HTN 02/08/23 [History Last Taken 02/07/23] pantoprazole 40 mg tablet,delayed release 40 mg PO Q12H 02/08/23 [History Last Taken Unknown] promethazine 12.5 mg tablet 12.5 mg PO Q6H PRN nausea and vomiting 02/08/23 [History Last Taken Unknown] fluticasone propionate 50 mcg/actuation nasal spray,suspension (Allergy Relief (fluticasone)) 2 spray intranasal DAILY PRN nasal congestion 03/20/23 [History Last Taken 03/19/23] clonidine HCl 0.2 mg tablet 0.2 mg PO TID #90 tabs 03/22/23 [Rx Last Taken Unknown] furosemide 40 mg tablet 40 mg PO BIDLX #60 tabs 03/22/23 [Rx Last Taken Unknown] hydralazine 100 mg tablet 100 mg PO BID #60 tabs 03/23/23 [Rx Last Taken Unknown] Allergy/AdvReac Type Severity Reaction Status Date / Time amlodipine Allergy Intermediate turns blue Verified 04/06/23 06:33 ascorbic acid Allergy Mild unknown Verified 04/06/23 06:33 [From Airborne (ascorbate sodium)] caffeine Allergy Mild unknown Verified 04/06/23 06:33 [place] And Derivatives Allergy Mild unknown Verified 04/06/23 06:33 codeine Allergy Mild unknown Verified 04/06/23 06:33 desloratadine Allergy Mild unknown Verified 04/06/23 06:33 glutamine Allergy Mild unknown Verified 04/06/23 06:33 [From Airborne (ascorbate sodium)] herbal complex no.124 Allergy Mild unknown Verified 04/06/23 06:33 [From Airborne (ascorbate sodium)] hydrocodone Allergy Mild unknown Verified 04/06/23 06:33 hydromorphone Allergy Mild unknown Verified 04/06/23 06:33 lysine HCl Allergy Mild unknown Verified 04/06/23 06:33 [From Airborne (ascorbate sodium)] morphine Allergy Mild unknown Verified 04/06/23 06:33 moxifloxacin Allergy Mild unknown Verified 04/06/23 06:33 multivitamin with minerals Allergy Mild unknown Verified 04/06/23 06:33 [From Airborne (ascorbate sodium)] nabumetone Allergy Mild unknown Verified 04/06/23 06:33 oxycodone Allergy Mild unknown Verified 04/06/23 06:33 penicillin G Allergy Mild unknown Verified 04/06/23 06:33 Penicillins Allergy Mild hands blue Verified 04/06/23 06:33 propoxyphene Allergy Mild unknown Verified 04/06/23 06:33 [From Margesic (propoxyphene)] tramadol Allergy Mild unknown Verified 04/06/23 06:33 amiodarone Allergy Unknown unknown Verified 04/06/23 06:33 Opioids - Morphine Analogues Allergy Anaphylaxis Verified 04/06/23 06:33 Surgical History (Updated 04/06/23 @ 07:[address] Burce Landaverde, ) H/O: hysterectomy History of hernia repair History of permanent cardiac pacemaker placement Hx of cholecystectomy Renal transplant recipient Social History Smoking Status: Never smoker ROS ROS Narrative ROS is as per HPI. Otherwise noncontributory. Physical Exam Narrative General: Alert and oriented x3, NAD. HEENT: Normocephalic, atraumatic. Mucous membrane moist without erythema. PERRLA, EOMI. Hearing is intact. Neck: Supple, no JVD. Trachea is midline. No thyromegaly or lymphadenopathy. Cardiovascular: Normal S1, S2. No rubs, murmurs, or gallops. Respiratory: Lungs are clear to auscultation bilaterally. No wheezing, rhonchi, or rales. Abdomen: Normal bowel sounds, soft, nontender, no guarding or rebound, no organomegaly. Extremities: No clubbing or cyanosis. There is trace edema of the right lower extremity. Musculoskeletal: Full passive range of motion, no joint swelling. Psychiatric: Normal mood and affect. Skin: Warm and dry, no rash. Neurologic: Cranial nerve II to XII are grossly intact. No focal neurologic deficits. Lab / Micro Data 04/07/23 03:11 04/07/23 03:11 Labs: Laboratory Results - last 24 hr 04/06/23 08:35: Troponin I High Sens 17, B-Natriuretic Peptide 436.0 H 04/07/23 03:11: WBC 6.0, RBC 3.05 L, Hgb 9.9 L, Hct 29.1 L, MCV 95.4, MCH 32.5 H, MCHC 34.0, RDW Std Deviation 58.0 H, RDW Coeff of Alexus 16.4 H, Plt Count 110 L, MPV 10.8, Immature Gran % (Auto) 0.200, Neut % (Auto) 74.9 H, Lymph % (Auto) 13.6 L, [place] % (Auto) 5.4, Eos % (Auto) 5.4 H, Baso % (Auto) 0.5, Absolute Neuts (auto) 4.5, Absolute Lymphs (auto) 0.81 L, Nucleated RBC % 0, Sodium 133 L, Potassium 4.5, Chloride 97 L, Carbon Dioxide 27.0, Anion Gap 9, BUN 54 H, Creatinine 4.81 H, Estim Creat Clear Calc 8.92, Est GFR (MDRD) Af Amer 11 L, Est GFR (MDRD) Non-Af 9 L, BUN/Creatinine Ratio 11.2, Glucose 103, Calcium 8.2 L, Phosphorus 3.8, Magnesium 2.1, TSH 3.21
--- NOTE | 2023-04-07 10:48 | CASEMGMT ---
Social Work SW spoke w/pt's daughter in law . She confirms pt has POA papers and pt's son Eliu('s ) is healthcare POA. She will look for the papers to bring in a copy. AUTUMN Todd
--- NOTE | 2023-04-07 10:50 | CASEMGMT ---
Social Work SW spoke w/RN, pt is alert and oriented, has some dementia. Pt currently asleep and getting dialysis. As per RN, , daughter in law, is pt's main contact today( of [employer] [place]) as she is off work and available today by phone. SW called , confirmed plan will be for pt to return to [facility] at discharge, no SNF list needed at this time. D/C communications planner will send updates to [facility]. SW will continue to follow. AUTUMN Todd
[2023-04-07] MEDS: Heparin 10,000 UNITS/10 ML Vial IV (11:26)
--- NOTE | 2023-04-07 11:47 | CASEMGMT ---
Discharge Planning Updates sent to [facility]. Omayra Weir, Discharge Planning Asst.
[2023-04-07] MEDS: Furosemide 40 MG/4 ML Vial IV (12:08)
[2023-04-07] MEDS: Ondansetron 4 MG/2 ML Vial IV (13:29)
[2023-04-07] MEDS: hydrALAZINE 50 MG Tablet PO ×2 (14:25→20:34)
[2023-04-07] MEDS: cloNIDine HCl 0.1 MG Tablet 0.200000000000000011 MG PO ×2 (14:26→20:35)
[2023-04-07] MEDS: amLODIPine 5 MG Tablet PO (14:26)
--- NOTE | 2023-04-07 15:23 | PN.HOSP_ITS ---
Reason for Visit Reason for Visit: Diagnoses Hypertensive urgency (04/06/23) Hypertensive emergency (04/06/23) Unspecified atrial fibrillation (04/06/23) Sick sinus syndrome (04/06/23) End stage renal disease (04/06/23) Personal history of other diseases of the digestive system (04/06/23) Dependence on renal dialysis (04/06/23) Subjective Subjective Patient seen at bedside this morning. Sitting up in bed comfortably, conversing normally, no acute distress. Patient was very talkative, seemed to perseverate on her current medical issues and was fairly circular and reasoning with her conversations. She was having HD done during my interview, was tolerating this without issue. States that she feels significantly better today than when she came in. She has had no symptoms since her blood pressure came down after nicardipine was administered yesterday. Denies any other acute concerns at this time. Had good discussion with patient's [id number] over the phone this afternoon. [id number] has been concerned that patient's blood pressure has not been well-controlled, and she is happy about the changes to patient's blood pressure medications that we are making on this admission. Idokxegz-qf-hia has no issue with patient returning to her nursing home facility tomorrow if her blood pressure sajan stable on new blood pressure regimen. Objective Data Objective Data Vital Signs: Vital Signs Temp Pulse Resp BP Pulse Ox O2 Del Method O2 Flow Rate 98.1 F 67 12 146/77 H 93 Nasal Cannula 2 04/07/23 12:00 04/07/23 14:25 04/07/23 14:00 04/07/23 14:25 04/07/23 14:00 04/07/23 14:00 04/07/23 14:00 Oxygen Flow Rate (L/min) 2 Oxygen Delivery Method Nasal Cannula Weight: 58.3 kg Body Mass Index (BMI) 26.9 Intake & Output: Intake and Output for Last 24 Hours 04/05/23 04/06/23 04/07/23 23:59 23:59 23:59 Intake Total 498.75 / 598.75 280 / 280 Output Total 1999 Balance 498.75 / 598.75 -1720 / -1720 Lab / Micro Data 04/07/23 03:11 04/07/23 03:11 Labs: Laboratory Results - last 24 hr 04/07/23 03:11: WBC 6.0, RBC 3.05 L, Hgb 9.9 L, Hct 29.1 L, MCV 95.4, MCH 32.5 H , MCHC 34.0, RDW Std Deviation 58.0 H, RDW Coeff of Alexus 16.4 H, Plt Count 110 L, MPV 10.8, Immature Gran % (Auto) 0.200, Neut % (Auto) 74.9 H, Lymph % (Auto) 13.6 L, [place] % (Auto) 5.4, Eos % (Auto) 5.4 H, Baso % (Auto) 0.5, Absolute Neuts (auto) 4.5, Absolute Lymphs (auto) 0.81 L, Nucleated RBC % 0, Sodium 133 L, Potassium 4.5, Chloride 97 L, Carbon Dioxide 27.0, Anion Gap 9, BUN 54 H, Creatinine 4.81 H, Estim Creat Clear Calc 8.92, Est GFR (MDRD) Af Amer 11 L, Est GFR (MDRD) Non-Af 9 L, BUN/Creatinine Ratio 11.2, Glucose 103, Calcium 8.2 L, Phosphorus 3.8, Magnesium 2.1, TSH 3.21 Radiography Diagnostic Testing: Radiology Impression Venous Doppler Study 04/06/23 15:05 Interpretation Summary Deep veins of the bilateral lower extremities are patent and compressible segmentally. There is no evidence of bilateral lower extremity deep vein thrombosis. The bilateral great saphenous veins appear patent and compressible segmentally. Ordering Physician: Cynthia Shah Referring Physician: Bradley Hardin Performed By: Camelia Donohue RVT Physical Exam Const alert, no apparent distress and average body habitus General Appearance: cooperative and comfortable HEENT normocephalic, head/scalp atraumatic, hearing grossly normal bilaterally, nasal mucous membranes and turbinates normal and moist oral mucous membranes Eyes PERRL, EOMs intact bilaterally and conjunctivae normal Neck full ROM, no lymphadenopathy and supple Lymph Lymphatic: no lymphadenopathy noted Chest inspection of chest normal Resp normal respiratory effort, normal air movement, no use of accessory muscles and clear to auscultation bilaterally Cardio regular rate, regular rhythm, no murmurs and peripheral pulses 2+ throughout GI normal to inspection, nondistended, normoactive bowel sounds, soft to palpation, non-tender and non-distended Back/Spine normal ROM Extremity normal to inspection, full ROM and no pedal edema Skin no rashes or lesions noted Neuro no focal motor deficits and no sensory deficits noted Speech: speech normal Psych mental status grossly normal Assessment & Plan Assessment/Plan (1) Hypertensive urgency: (2) End-stage renal disease on hemodialysis: PLAN: Plan Patient is a 77-year-old female who presented to [facility] ED on 04/06/2023 from nursing home facility for hypertensive urgency. 1. Hypertensive urgency Presented with systolic BP consistently over 200, diastolic greater than 100 on some checks with edema on chest x-ray, peripheral swelling, headache and nausea. Received clonidine x 2, hydralazine, labetalol in ED without much improvement. Started on Cardene drip in ED with significant improvement, admitted to ICU. Required Cardene drip for only about 30 minutes, BP has been stable off Cardene since then. BNP improved from previous, low concern for HFpEF exacerbation. Troponin negative. TSH normal. ? Nephrology following. Continue home Coreg 25 mg twice daily. Clonidine and hydralazine doses had been increased yesterday, will decrease back to home clonidine 0.2 mg 3 times daily and hydralazine 50 mg 3 times daily. Will add amlodipine 5 mg daily (listed as allergy but tolerated nicardipine without issue; also spoke with daughter who has no issue with restarting amlodipine). Will also start losartan 50 mg daily. Monitor BP. If remains stable, likely okay for discharge back to facility tomorrow. 2. 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 Nephrology following. Had HD session done on 04/07, tolerated without issue. Continue HD as normal. Patient makes minimal urine, de-escalated to home p.o. Lasix on 04/07. Chronic medical conditions: ? A-fib s/p pacemaker placement and Watchman procedure, HFpEF with mild/moderate : Continue home beta-mick, de-escalated to home p.o. Lasix as noted above. ? History of CVA: Continue home aspirin. ? GERD: Continue home PPI. DVT prophylaxis: Heparin subcu CODE STATUS: Full code, verified Expected disposition: Back to SNF, 1 to 2 days Total clinical time spent by myself addressing the patient's medical issues, r eviewing all the data, and collaborating with patient's care team: 35 minutes. Charges/Coding Visit Charges Inpatient E&M: 31417 Subs Hosp L2
[2023-04-07] MEDS: Nepro with Carbsteady 237 ML Liquid 120 ML PO (16:47)
[2023-04-07] MEDS: Furosemide 40 MG Tablet PO (18:01)
[2023-04-08 02:00] VITALS: BP 194/96; PULSE 72; RESP 18; TEMP 36.3; O2SAT 97
[2023-04-08 06:00] VITALS: BMI 27.8
[2023-04-08 06:27] VITALS: PULSE 71
[2023-04-08] MEDS: hydrALAZINE 50 MG Tablet PO ×2 (06:27→13:54)
[2023-04-08] MEDS: cloNIDine HCl 0.1 MG Tablet 0.200000000000000011 MG PO ×2 (06:28→13:55)
[2023-04-08] MEDS: Heparin Injection (Vial) 5,000 UNIT/ML VIAL 5000 UNIT SC ×2 (06:28→13:55)
[2023-04-08 08:00] VITALS: BP 172/72; PULSE 72; RESP 18; TEMP 36.8; O2SAT 97
[2023-04-08 08:29] VITALS: BMI 27.8
[2023-04-08] MEDS: Aspirin E.C. 81 MG Tablet PO (08:57)
[2023-04-08] MEDS: Losartan Potassium 50 MG Tablet PO (08:58)
[2023-04-08] MEDS: Carvedilol 25 MG Tablet PO (08:58)
[2023-04-08] MEDS: amLODIPine 5 MG Tablet PO (08:59)
[2023-04-08] MEDS: Furosemide 40 MG Tablet PO (08:59)
[2023-04-08] MEDS: Nepro with Carbsteady 237 ML Liquid 120 ML PO (09:02)
--- NOTE | 2023-04-08 10:15 | PCM.PN.REN ---
Documented by User: MELANIE Powell 04/08/23 10:20 Subjective Subjective Sitting up in recliner chair. No overnight events. Complains of intermittent nausea. Reports breathing is better, she is on room air. Objective Data Objective Data Vital Signs: Vital Signs Temp Pulse Resp BP Pulse Ox O2 Del Method O2 Flow Rate 98.2 F 72 18 172/72 H 97 Room Air 2 04/08/23 08:00 04/08/23 08:00 04/08/23 08:00 04/08/23 08:00 04/08/23 08:00 04/08/23 08:00 04/07/23 20:56 Oxygen Flow Rate (L/min) 2 Oxygen Delivery Method Room Air Weight: 60.1 kg Body Mass Index (BMI) 27.8 Intake & Output: Intake and Output for Last 24 Hours 04/06/23 04/07/23 04/08/23 23:59 23:59 23:59 Intake Total 498.75 / 598.75 280 / 380 150 / 150 Output Total 1999 / 1999 50 / 50 Balance 498.75 / 598.75 -1720 / -1620 100 / 100 Lab / Micro Data 04/07/23 03:11 04/07/23 03:11 Radiography Diagnostic Testing: Radiology Impression Venous Doppler Study 04/06/23 15:05 Interpretation Summary Deep veins of the bilateral lower extremities are patent and compressible segmentally. There is no evidence of bilateral lower extremity deep vein thrombosis. The bilateral great saphenous veins appear patent and compressible segmentally. Ordering Physician: Cynthia Shah Referring Physician: Bradley Hardin Performed By: Camelia Donohue RVT Physical Exam Narrative Alert and oriented x 3, no apparent distress S1, S2, RRR Lung sounds clear anteriorly. Diminished breath sounds posterior bases. No wheezes, rhonchi or rales noted Abdomen soft, nontender Trace nonpitting edema bilateral legs Tunneled dialysis catheter dressing clean, dry and intact Assessment & Plan Assessment/Plan (1) End-stage renal disease on hemodialysis: (2) Hypertensive urgency: PLAN: Plan Impression/Plan: The patient is a 77-year-old woman with past history of ESRD status post failed kidney transplantation, hypertension, atrial fibrillation, stroke, and hyperlipidemia. Patient presents to the hospital on 02/05/2024 with a few hours history of dyspnea, headache and nausea. She was found to have severe hypertension on presentation and is admitted for management of hypertensive urgency. Nephrology is following for ESRD and dialysis management. ESRD. The patient dialyzes at [facility] dialysis mo[facility] on MWF schedule. EDW was 51 kg. Patient tolerated dialysis yesterday with fluid removal. 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 Next dialysis will be tomorrow over 3.5 hours with fluid removal as patient/blood pressure tolerates. Hypertension. The patient required nicardipine drip only for about 30 minutes Overall blood pressures have improved, currently on losartan 50 mg daily, amlodipine 5 mg daily, hydralazine 50 mg 3 times daily, clonidine 0.2 mg 3 times daily, Coreg 25 mg twice daily. Patient still has urine output, can continue on Lasix as ordered. Venous ultrasound, no evidence of DVT Documented by User: Dr. Eufemia Pop MD 04/08/23 15:34 Objective Data Lab / Micro Data 04/07/23 03:11 04/07/23 03:11 Assessment & Plan Assessment/Plan (1) End-stage renal disease on hemodialysis: (2) Hypertensive urgency: PLAN: Plan Impression/Plan: The patient is a 77-year-old woman with past history of ESRD status post failed kidney transplantation, hypertension, atrial fibrillation, stroke, and hyperlipidemia. Patient presents to the hospital on 02/05/2024 with a few hours history of dyspnea, headache and nausea. She was found to have severe hypertension on presentation and is admitted for management of hypertensive urgency. Nephrology is following for ESRD and dialysis management. ESRD. The patient dialyzes at [facility] dialysis [facility] on MWF schedule. EDW was 51 kg. Patient tolerated dialysis yesterday with fluid removal. 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 Next dialysis will be tomorrow over 3.5 hours with fluid removal as patient/blood pressure tolerates. Hypertension. The patient required nicardipine drip only for about 30 minutes Overall blood pressures have improved, currently on losartan 50 mg daily, amlodipine 5 mg daily, hydralazine 50 mg 3 times daily, clonidine 0.2 mg 3 times daily, Coreg 25 mg twice daily. Patient still has urine output, can continue on Lasix as ordered. Venous ultrasound, no evidence of DVT Nephrology attending: Patient seen and examined. I agree with HEMALATHA's assessment and plan as documented above. No further need for dialysis today. Will continue to keep fluid off of her with dialysis/ultrafiltration at outpatient dialysis. Okay to discharge from nephrology standpoint. Jeff Michelle MD.
[2023-04-08] MEDS: 0.9% Saline Lock 10 ML Syringe IV (10:36)
[2023-04-08] MEDS: Ondansetron 4 MG/2 ML Vial IV (10:36)
--- NOTE | 2023-04-08 11:47 | DCINST_ITS ---
Discharge Instructions Diet Discharge Diet: No restrictions Activity Discharge Activity: No Restrictions Weight Bearing Status: Full weight bearing Follow Up Care Please Follow Up With: Bradley Hardin MD When: As needed Test Results: Test results from this visit will be discussed in further detail at your follow- up appointment, if applicable. Pending Tests Upon Discharge: None Discharge Plan Admission Admit Date/Time: 04/06/23 14:44 Primary Reason for Your Visit: Hypertensive urgency Attending Provider: Dakota Gómez Primary Care Provider: Bradley Hardin Consulting Providers: Cynthia Shah; Anatoliy Hammonds Discharge Orders/Prescriptions Prescriptions: New amlodipine 5 mg Tablet 5 mg PO DAILY 30 Days Qty: 30 0RF hydralazine 50 mg Tablet 50 mg PO TID 30 Days Qty: 90 0RF losartan 50 mg Tablet 50 mg PO DAILY 30 Days Qty: 30 0RF Continued carvedilol 25 mg tablet 25 mg PO Q12H aspirin [Adult Aspirin Regimen] 81 mg tablet,delayed release (DR/EC) 81 mg PO DAILY calcium citrate-vitamin D3 250 mg-5 mcg (200 unit) tablet 1 tab PO DAILY pantoprazole 40 mg tablet,delayed release (DR/EC) 40 mg PO Q12H promethazine 12.5 mg tablet 12.5 mg PO Q6H PRN (Reason: nausea and vomiting) Rx Instructions: 3 doses during day; last dose no later than 4 hr before bedtime fluticasone propionate [Allergy Relief (fluticasone)] 50 mcg/actuation spray,suspension 2 spray intranasal DAILY PRN (Reason: nasal congestion) Rx Instructions: administer into each nostril furosemide 40 mg Tablet 40 mg PO BIDLX Qty: 60 2RF clonidine HCl 0.2 mg Tablet 0.2 mg PO TID Qty: 90 1RF Discontinued hydralazine 100 mg tablet 100 mg PO BID Qty: 60 2RF Referrals / Follow Up: Bradley Hardin MD [Primary Care Provider] - Disposition Disposition (needs filled in before D/C Order can be placed): [facility]
[2023-04-08 12:10] VITALS: BP 176/86; PULSE 77; RESP 14; TEMP 36.9; O2SAT 94
--- NOTE | 2023-04-08 12:10 | PCM.DC.SUM ---
Providers Date of Admission: 04/06/23 Date of Discharge: 04/08/23 Primary Care Physician: Dr. Bradley Hardin MD Consultations 04/06/23 17:24 Consult: Nephrology Routine Consulting Provider: Anatoliy Hammonds Reason for Consult: ESRD on HD, known pt, also htn emergency EMERGENT Consult: No MD Notified: Yes Date Notified: 04/06/23 Time Notified: 18:38 Method of Notification: Answering Service Reason For Visit: HYPERTENSIVE EMERGENCY Diagnosis Discharge Diagnosis (1) End-stage renal disease on hemodialysis: Status: Acute Code(s): N18.6 - End stage renal disease; Z99.2 - Dependence on renal dialysis (2) Hypertensive urgency: Status: Acute Code(s): I16.0 - Hypertensive urgency Medications at Discharge Home Medications aspirin 81 mg tablet,delayed release (Adult Aspirin Regimen) 81 mg PO DAILY 02/08/23 calcium citrate 250 mg calcium-vitamin D3 5 mcg (200 unit) tablet 1 tab PO DAILY 02/08/23 carvedilol 25 mg tablet 25 mg PO Q12H HTN 02/08/23 pantoprazole 40 mg tablet,delayed release 40 mg PO Q12H 02/08/23 promethazine 12.5 mg tablet 12.5 mg PO Q6H PRN nausea and vomiting 02/08/23 fluticasone propionate 50 mcg/actuation nasal spray,suspension (Allergy Relief (fluticasone)) 2 spray intranasal DAILY PRN nasal congestion 03/20/23 clonidine HCl 0.2 mg tablet 0.2 mg PO TID #90 tabs 03/22/23 furosemide 40 mg tablet 40 mg PO BIDLX #60 tabs 03/22/23 amlodipine 5 mg tablet 5 mg PO DAILY 30 days #30 tabs 04/08/23 hydralazine 50 mg tablet 50 mg PO TID 30 days #90 tabs 04/08/23 losartan 50 mg tablet 50 mg PO DAILY 30 days #30 tabs 04/08/23 Hospital Course Operations None Procedures EKG and - (Chest x-ray, venous Doppler study) Summary of Care Provided Minutes Spent on Discharge: 35 Hospital Course: Patient is a 77-year-old female who presented to [facility] ED on 04/06/2023 from intermediate facility for hypertensive urgency. Short hospital course as noted below. Patient discharged back to skilled nurse facility in stable condition on 04/08/2023. 1. Hypertensive urgency Presented with systolic BP consistently over 200, diastolic greater than 100 on some checks with edema on chest x-ray, peripheral swelling, headache and nausea. Received clonidine x 2, hydralazine, labetalol in ED without much improvement. Started on Cardene drip in ED with significant improvement, admitted to ICU. Required Cardene drip for only about 30 minutes, BP stable off Cardene after that. BNP improved from previous, low concern for HFpEF exacerbation. Troponin negative. TSH normal. ? Nephrology followed. Continued home Coreg 25 mg daily, clonidine 0.2 mg 3 times daily, hydralazine 50 mg 3 times daily, lasix 40 mg twice daily. Added amlodipine 5 mg daily, losartan 50 mg daily. Patient notably had amlodipine listed as an allergy but tolerated the nicardipine without issue, and patient and daughter were okay with starting amlodipine. Blood pressure stable on new regimen. 2. 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 Nephrology followed. Had HD session done on 04/07, tolerated without issue. Continue HD schedule as normal on discharge. Chronic medical conditions: ? A-fib s/p pacemaker placement and Watchman procedure, HFpEF with mild/moderate : Continue home beta-mick, de-escalated to home p.o. Lasix on 04/07. ? History of CVA: Continue home aspirin. ? GERD: Continue home PPI. Total clinical time spent by myself addressing the patient's discharge needs: 35 minutes. Physical Exam Const alert, no apparent distress and average body habitus General Appearance: cooperative and comfortable HEENT normocephalic, head/scalp atraumatic, hearing grossly normal bilaterally, nasal mucous membranes and turbinates normal and moist oral mucous membranes Eyes PERRL, EOMs intact bilaterally and conjunctivae normal Neck full ROM, no lymphadenopathy and supple Lymph Lymphatic: no lymphadenopathy noted Chest inspection of chest normal Resp normal respiratory effort, normal air movement, no use of accessory muscles and clear to auscultation bilaterally Cardio regular rate, regular rhythm, no murmurs and peripheral pulses 2+ throughout GI normal to inspection, nondistended, normoactive bowel sounds, soft to palpation, non-tender and non-distended Back/Spine normal ROM Extremity normal to inspection, full ROM and no pedal edema Skin no rashes or lesions noted Neuro no focal motor deficits and no sensory deficits noted Speech: speech normal Psych mental status grossly normal Weight / BMI Weight Weight: 60.1 kg Body Mass Index (BMI) 27.8 ABG / Lab / Microbiology Data 04/07/23 03:11 04/07/23 03:11 D/C Instructions Discharge Diet: No restrictions Weight Bearing Status: Full weight bearing Pending Tests Upon Discharge: None Please Follow Up With: Bradley Hardin MD When: As needed Meaningful Use Info Meaningful Use Diagnoses (Choose all that apply): None applicable Discharge Plan Admission Admit Date/Time: 04/06/23 14:44 Primary Reason for Your Visit: Hypertensive urgency Attending Provider: Dakota Gómez Primary Care Provider: Bradley Hardin Consulting Providers: Cynthia Shah; Anatoliy Hammonds Discharge Orders/Prescriptions Prescriptions: New amlodipine 5 mg Tablet 5 mg PO DAILY 30 Days Qty: 30 0RF hydralazine 50 mg Tablet 50 mg PO TID 30 Days Qty: 90 0RF losartan 50 mg Tablet 50 mg PO DAILY 30 Days Qty: 30 0RF Continued carvedilol 25 mg tablet 25 mg PO Q12H aspirin [Adult Aspirin Regimen] 81 mg tablet,delayed release (DR/EC) 81 mg PO DAILY calcium citrate-vitamin D3 250 mg-5 mcg (200 unit) tablet 1 tab PO DAILY pantoprazole 40 mg tablet,delayed release (DR/EC) 40 mg PO Q12H promethazine 12.5 mg tablet 12.5 mg PO Q6H PRN (Reason: nausea and vomiting) Rx Instructions: 3 doses during day; last dose no later than 4 hr before bedtime fluticasone propionate [Allergy Relief (fluticasone)] 50 mcg/actuation spray,suspension 2 spray intranasal DAILY PRN (Reason: nasal congestion) Rx Instructions: administer into each nostril furosemide 40 mg Tablet 40 mg PO BIDLX Qty: 60 2RF clonidine HCl 0.2 mg Tablet 0.2 mg PO TID Qty: 90 1RF Discontinued hydralazine 100 mg tablet 100 mg PO BID Qty: 60 2RF Referrals / Follow Up: Bradley Hardin MD [Primary Care Provider] - Disposition Disposition (needs filled in before D/C Order can be placed): [facility] Charges/Coding Visit Charges Inpatient E&M: 86639 Disch Hosp >30min
--- NOTE | 2023-04-08 12:14 | PCM.TXEXTCAR ---
Diet Diet Order/Speech Therapy: 04/07/23 09:53 Diet: Regular - General Dietary Modifications:: Sodium Restricted Is pt able to select menu?: Yes Fluid restriction:: 2000 mL Diet Comments: NO LEMON or CITRUS Routine Orders/Code Status Code Status: Full Code Therapies Weight Bearing: Full weight bearing Physical Therapy: Eval and Treat Occupational Therapy: Eval and Treat Problem/Diagnosis (1) End-stage renal disease on hemodialysis: Status: Acute Code(s): N18.6 - End stage renal disease; Z99.2 - Dependence on renal dialysis (2) Hypertensive urgency: Status: Acute Code(s): I16.0 - Hypertensive urgency Plan Patient is a 77-year-old female who presented to [facility] ED on 04/06/2023 from [facility] facility for hypertensive urgency. Short hospital course as noted below. Patient discharged back to skilled nurse facility in stable condition on 04/08/2023. 1. Hypertensive urgency Presented with systolic BP consistently over 200, diastolic greater than 100 on some checks with edema on chest x-ray, peripheral swelling, headache and nausea. Received clonidine x 2, hydralazine, labetalol in ED without much improvement. Started on Cardene drip in ED with significant improvement, admitted to ICU. Required Cardene drip for only about 30 minutes, BP stable off Cardene after that. BNP improved from previous, low concern for HFpEF exacerbation. Troponin negative. TSH normal. ? Nephrology followed. Continued home Coreg 25 mg daily, clonidine 0.2 mg 3 times daily, hydralazine 50 mg 3 times daily, lasix 40 mg twice daily. Added amlodipine 5 mg daily, losartan 50 mg daily. Patient notably had amlodipine listed as an allergy but tolerated the nicardipine without issue, and patient and daughter were okay with starting amlodipine. Blood pressure stable on new regimen. 2. 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 Nephrology followed. Had HD session done on 04/07, tolerated without issue. Continue HD schedule as normal on discharge. Chronic medical conditions: ? A-fib s/p pacemaker placement and Watchman procedure, HFpEF with mild/moderate : Continue home beta-mick, de-escalated to home p.o. Lasix on 04/07. ? History of CVA: Continue home aspirin. ? GERD: Continue home PPI. Total clinical time spent by myself addressing the patient's discharge needs: 35 minutes. Allergies/Procedures Done in Hospital Allergies ascorbic acid [From Airborne (ascorbate sodium)] Allergy (Mild, Verified 04/06/23 06:33) unknown caffeine Allergy (Mild, Verified 04/06/23 06:33) unknown Bridger And Derivatives Allergy (Mild, Verified 04/06/23 06:33) unknown codeine Allergy (Mild, Verified 04/06/23 06:33) unknown desloratadine Allergy (Mild, Verified 04/06/23 06:33) unknown glutamine [From Airborne (ascorbate sodium)] Allergy (Mild, Verified 04/06/23 06:33) unknown herbal complex no.124 [From Airborne (ascorbate sodium)] Allergy (Mild, Verified 04/06/23 06:33) unknown hydrocodone Allergy (Mild, Verified 04/06/23 06:33) unknown hydromorphone Allergy (Mild, Verified 04/06/23 06:33) unknown lysine HCl [From Airborne (ascorbate sodium)] Allergy (Mild, Verified 04/06/23 06:33) unknown morphine Allergy (Mild, Verified 04/06/23 06:33) unknown moxifloxacin Allergy (Mild, Verified 04/06/23 06:33) unknown multivitamin with minerals [From Airborne (ascorbate sodium)] Allergy (Mild, Verified 04/06/23 06:33) unknown nabumetone Allergy (Mild, Verified 04/06/23 06:33) unknown oxycodone Allergy (Mild, Verified 04/06/23 06:33) unknown penicillin G Allergy (Mild, Verified 04/06/23 06:33) unknown Penicillins Allergy (Mild, Verified 04/06/23 06:33) hands blue propoxyphene [From Margesic (propoxyphene)] Allergy (Mild, Verified 04/06/23 06:33) unknown tramadol Allergy (Mild, Verified 04/06/23 06:33) unknown amiodarone Allergy (Unknown, Verified 04/06/23 06:33) unknown Opioids - Morphine Analogues Allergy (Verified 04/06/23 06:33) Anaphylaxis Procedures: EKG and - (Chest x-ray, venous Doppler study) Type of Care/Length of Stay Estimated LOS: Convalescent Care Less Than 30 days Type of Care Needed: Skilled Rehab Potential: Fair Prognosis: Fair Additional Orders/Day of Discharge H&P will serve as current which was dated: 04/06/23 Day of Discharge: 04/08/23 Dietary and Speech Recommendations Dietitian Recommendations/Changes: Will change diet to liberal Regular, Sodium Restricted w/ 2000 ml fluid restricted per day Will order 4 oz nepro carb steady tid w/ medpass for increased nutrition if consumed. Follow Up Care Please Follow Up With: Bradley Hardin MD When: As needed Discharge Plan Admission Admit Date/Time: 04/06/23 14:44 Primary Reason for Your Visit: Hypertensive urgency Attending Provider: Dakota Gómez Primary Care Provider: Bradley Hardin Consulting Providers: Cynthia Shah; Anatoliy Hammonds Discharge Orders/Prescriptions Prescriptions: New amlodipine 5 mg Tablet 5 mg PO DAILY 30 Days Qty: 30 0RF hydralazine 50 mg Tablet 50 mg PO TID 30 Days Qty: 90 0RF losartan 50 mg Tablet 50 mg PO DAILY 30 Days Qty: 30 0RF Continued carvedilol 25 mg tablet 25 mg PO Q12H aspirin [Adult Aspirin Regimen] 81 mg tablet,delayed release (DR/EC) 81 mg PO DAILY calcium citrate-vitamin D3 250 mg-5 mcg (200 unit) tablet 1 tab PO DAILY pantoprazole 40 mg tablet,delayed release (DR/EC) 40 mg PO Q12H promethazine 12.5 mg tablet 12.5 mg PO Q6H PRN (Reason: nausea and vomiting) Rx Instructions: 3 doses during day; last dose no later than 4 hr before bedtime fluticasone propionate [Allergy Relief (fluticasone)] 50 mcg/actuation spray,suspension 2 spray intranasal DAILY PRN (Reason: nasal congestion) Rx Instructions: administer into each nostril furosemide 40 mg Tablet 40 mg PO BIDLX Qty: 60 2RF clonidine HCl 0.2 mg Tablet 0.2 mg PO TID Qty: 90 1RF Discontinued hydralazine 100 mg tablet 100 mg PO BID Qty: 60 2RF Referrals / Follow Up: Bradley aHrdin MD [Primary Care Provider] - Disposition Disposition (needs filled in before D/C Order can be placed): Assisted Facility Charges/Coding Visit Charges Inpatient E&M: 66759 Disch Hosp >30min
[2023-04-08 13:27] VITALS: BP 175/76; PULSE 73; RESP 11; TEMP 37; O2SAT 97
--- NOTE | 2023-04-08 13:47 | NURSING ---
Report given [facility] at [facility]. Patient to be picked up at [id number]
--- NOTE | 2023-04-08 13:48 | NURSING ---
Family notified of patient transfer back to [facility].
[2023-04-08 13:54] VITALS: BP 175/76; PULSE 73
--- NOTE | 2023-04-08 14:07 | CASEMGMT ---
Discharge Planning Discharge orders, signed med list, covid results, and transport time sent to [facility] via [facility]. [facility] will transport patient by wheelchair at 2:15p. Nursing and SW updated. Windy GONZALEZ, updated patients [id number] via phone. Omayra Weir, Discharge Planning Asst.
== END 2023-04-08 14:38 | disposition skilled nursing facility (03) | DRG 304 ==
LOC: ED 15:02 → ICU 16:56
PROVIDERS: Admitting Provider Internal Medicine; Emergency Provider Emergency Medicine; PCP Family Medicine; Visit Provider Hospitalist
DX: I16.0 Hypertensive urgency (principal); N18.6 End stage renal disease; I50.32 Chronic diastolic (congestive) heart failure; Z94.0 Kidney transplant status; I49.5 Sick sinus syndrome; I13.2 Hypertensive heart and chronic kidney disease with heart failure and with stage 5 chronic kidney disease, or end stage renal disease; I48.91 Unspecified atrial fibrillation; Z99.2 Dependence on renal dialysis; K21.9 Gastro-esophageal reflux disease without esophagitis; E78.00 Pure hypercholesterolemia, unspecified; Z11.52 Encounter for screening for COVID-19; R10.32 Left lower quadrant pain; I49.3 Ventricular premature depolarization; Z79.82 Long term (current) use of aspirin; Z79.899 Other long term (current) drug therapy; Z86.73 Personal history of transient ischemic attack (TIA), and cerebral infarction without residual deficits; Z95.0 Presence of cardiac pacemaker
CPT/HCPCS: 71046; 80048; 83735; 83880; 84100; 84443; 84484; 85025; 87811; 90937; 93005; 93970; 94668; 97162; 97166; 97802; 99252; 99285; J7030; J7050; A4216; G0257; G0463; J1940; J2405

== ENCOUNTER 2023-04-20 04:21 | Emergency (ER) | payer MEDICARE, OTHER, SELFPAY ==
[2023-04-20 04:33] VITALS: BP 145/82; PULSE 80; RESP 16; TEMP 37.2; O2SAT 95; BMI 26.6
[2023-04-20 04:37] VITALS: BP 145/82; PULSE 80; RESP 16; TEMP 37.2; O2SAT 95
--- NOTE | 2023-04-20 04:54 | EDS_ITS ---
HPI History of Present Illness Chief Complaint: Hypertension Informant: patient Narrative Narrative: Patient presents with high blood pressure. Patient has many issues that have been going on recently. She was at physical therapy about a week or so ago. When she was on one of the machines she twisted wrong and she pulled a muscle in the right side of her neck. It has been sore since. She has been seeing therapy about this. She never had neurologic symptoms. This has been keeping her up at night. But she tried Biofreeze and that seemed to help. Patient states that her she ate around 6 PM. Around 10:00 she got nauseated and she vomited. It sounds like she did not have any chest pain palpitations diaphoresis with that. Somewhere during the evening she felt her heart rate go into atrial fibrillation. She has had a history of this before. But it feels normal now. She has a pacemaker. Because she was having the symptoms in the neck symptoms, blood pressure was done. It was found to be about 200 systolic. With all the issues ongoing ambulance was called and she came in. She really feels at her baseline now. She is not nauseated. She has the neck pain but that is been there for about a week. She is not having chest pain. She is not having trouble breathing. She denies fevers or chills. She has had all her COVID and flu vaccines she tells me. She had dialysis on Friday and normally has it Friday and Friday. [facility] Medical History Anemia of chronic disease Atrial fibrillation Chronic kidney disease Chronic renal failure Congestive heart failure CVA (cerebral vascular accident) Dialysis patient Dyspnea End-stage renal disease on hemodialysis GI bleed High cholesterol Hx of gastroesophageal reflux (GERD) Hypertension Kidney transplant pain Presence of Watchman left atrial appendage closure device Sick sinus syndrome Skin cancer Vascular dementia Home Medications aspirin 81 mg tablet,delayed release (Adult Aspirin Regimen) 81 mg PO DAILY 02/08/23 [History Last Taken 02/08/23] calcium citrate 250 mg calcium-vitamin D3 5 mcg (200 unit) tablet 1 tab PO DAILY 02/08/23 [History Last Taken 02/07/23] carvedilol 25 mg tablet 25 mg PO Q12H HTN 02/08/23 [History Last Taken 02/07/23] pantoprazole 40 mg tablet,delayed release 40 mg PO Q12H 02/08/23 [History Last Taken Unknown] promethazine 12.5 mg tablet 12.5 mg PO Q6H PRN nausea and vomiting 02/08/23 [History Last Taken Unknown] fluticasone propionate 50 mcg/actuation nasal spray,suspension (Allergy Relief (fluticasone)) 2 spray intranasal DAILY PRN nasal congestion 03/20/23 [History Last Taken 03/19/23] clonidine HCl 0.2 mg tablet 0.2 mg PO TID #90 tabs 03/22/23 [Rx Last Taken Unknown] furosemide 40 mg tablet 40 mg PO BIDLX #60 tabs 03/22/23 [Rx Last Taken Unknown] amlodipine 5 mg tablet 5 mg PO DAILY 30 days #30 tabs 04/08/23 [Rx Last Taken Unknown] hydralazine 50 mg tablet 50 mg PO TID 30 days #90 tabs 04/08/23 [Rx Last Taken Unknown] losartan 50 mg tablet 50 mg PO DAILY 30 days #30 tabs 04/08/23 [Rx Last Taken Unknown] Allergy/AdvReac Type Severity Reaction Status Date / Time caffeine Allergy Mild unknown Verified 04/20/23 04:26 Clarita And Derivatives Allergy Mild unknown Verified 04/20/23 04:26 codeine Allergy Mild unknown Verified 04/20/23 04:26 desloratadine Allergy Mild unknown Verified 04/20/23 04:26 glutamine Allergy Mild unknown Verified 04/20/23 04:26 [From Airborne (ascorbate sodium)] herbal complex no.124 Allergy Mild unknown Verified 04/20/23 04:26 [From Airborne (ascorbate sodium)] hydrocodone Allergy Mild unknown Verified 04/06/23 06:33 hydromorphone Allergy Mild unknown Verified 04/20/23 04:26 lysine HCl Allergy Mild unknown Verified 04/20/23 04:26 [From Airborne (ascorbate sodium)] morphine Allergy Mild unknown Verified 04/20/23 04:26 moxifloxacin Allergy Mild unknown Verified 04/20/23 04:26 multivitamin with minerals Allergy Mild unknown Verified 04/20/23 04:26 [From Airborne (ascorbate sodium)] nabumetone Allergy Mild unknown Verified 04/20/23 04:26 oxycodone Allergy Mild unknown Verified 04/20/23 04:26 penicillin G Allergy Mild unknown Verified 04/20/23 04:26 Penicillins Allergy Mild hands blue Verified 04/20/23 04:26 propoxyphene Allergy Mild unknown Verified 04/20/23 04:26 [facility] tramadol Allergy Mild unknown Verified 04/06/23 06:33 amiodarone Allergy Unknown unknown Verified 04/20/23 04:26 Opioids - Morphine Analogues Allergy Anaphylaxis Verified 04/20/23 04:26 Surgical History H/O: hysterectomy History of hernia repair History of permanent cardiac pacemaker placement Hx of cholecystectomy Renal transplant recipient Social History Smoking Status: Never smoker ROS ROS ED ROS Narrative A complete review of systems was performed and is negative except as documented in the history of present illness. Some specific details below. Constitutional: No recent fevers or chills. No malaise. No myalgias other than the soreness on the right side of her neck. EYE: No discharge, visual complaints, or pain. ENT: No difficulty swallowing. No swelling. No pain. No reflux symptoms. CV: She is denying chest pain to me. She states she did feel as though her pacemaker was in atrial fibrillation. She was having neck pain with this but she has been having neck pain for a week. It did not seem to change with this. Respiratory: No coughing or trouble breathing. GI: No abdominal pain. She vomited once at about 10 PM. But she feels fine now and is not nauseated. There is no blood in that. Musculoskeletal: Soreness of her neck as in history of present illness. Skin: No rash. Nondiaphoretic. Neuro: No weakness or numbness. Endocrine: No polyuria or polydipsia. EXAM Physical Exam Narrative Exam Narrative: CONSTITUTIONAL: Patient is nontoxic in appearance. The patient looks comfortable. Work of breathing looks normal. HEENT: No notable trauma. Mucous membranes moist. Oropharynx is normal. EYES: No conjunctival injection. No proptosis. NECK:No JVD. No stridor. There is some right-sided paraspinal tenderness. She is comfortable with a neck soft collar on. CARDIOVASCULAR: Regular rate. Regular rhythm. No notable murmur. No JVD. RESPIRATORY: No respiratory distress. Breathing is unlabored. No wheezes. No rhonchi. No rales. No pain with a deep breath. No chest wall tenderness. Vas- Cath is visible in right upper chest and looks normal. No sign of infection. Not tender around it. She has a pacemaker in the left upper chest. GASTROINTESTINAL: Not distended. Bowel sounds are normal. No tenderness. No guarding. No rebound. No palpable mass. No bruit is heard. Overall benign abdomen GENITOURINARY: No CVA tenderness. MUSCULOSKELETAL: Atraumatic. Trace chronic peripheral edema. NEUROLOGICAL: Patient is alert and appropriate. No focal deficit noted. SKIN: No noted rashes. No diaphoresis. PSYCHIATRIC: Patient is calm. Mood is appropriate. Const Vital Signs: 04/20/23 04:33 04/20/23 04:37 04/20/23 04:37 Temperature 99.0 F 99.0 F Temperature Source Temporal Temporal Pulse Rate 80 80 Respiratory Rate 16 16 Respiratory Pattern Normal Blood Pressure 145/82 H 145/82 H Blood Pressure Mean 103 103 Pulse Ox 95 95 Oxygen Delivery Method Room Air Room Air MDM MDM MDM Narrative Medical decision making narrative: Patient's CBC shows mild elevation of white count which is nonspecific. Mild anemia. Platelets are normal. Patient's electrolytes are overall pretty good. Minimally low chloride and sodium. BUN and creatinine are up consistent with her renal disease. Glucose is normal. Troponin is negative at 17. I checked the patient and she was resting. I explained that her EKG is unchanged. It does show atrial fibrillation. Her blood work is overall normal. Her blood pressures have been well-controlled here. I do not think we need to change her dose. She has concerns about going home on Friday. But I explained she has another 3 days in the nursing facility and they can watch her blood pressure there. We do not need to acutely treat this. She never actually had chest pain. She is not short of breath. We discussed reasons to return. Lab Data Attestation: I reviewed the patient's lab results. Labs: Laboratory Results - last 24 hr 04/20/23 05:10 WBC 12.9 H RBC 3.17 L Hgb 9.9 L Hct 30.7 L MCV 96.8 MCH 31.2 MCHC 32.2 RDW Std Deviation 56.5 H RDW Coeff of Alexus 15.7 H Plt Count 215 MPV 10.8 Immature Gran % (Auto) 1.000 H Neut % (Auto) 83.9 H Lymph % (Auto) 6.6 L Glades % (Auto) 6.0 Eos % (Auto) 1.8 Baso % (Auto) 0.7 Absolute Neuts (auto) 10.8 H Absolute Lymphs (auto) 0.85 Nucleated RBC % 0 Sodium 134 L Potassium 3.7 Chloride 97 L Carbon Dioxide 31.0 Anion Gap 6 BUN 29 H Creatinine 4.27 H Estim Creat Clear Calc 8.50 Est GFR (MDRD) Af Amer 13 L Est GFR (MDRD) Non-Af 11 L BUN/Creatinine Ratio 6.8 L Glucose 104 Calcium 9.3 Troponin I High Sens 17 EKG Initial EKG: Comments: My independent interpretation of the patient's EKG shows atrial fibrillation but controlled rate at 81. She does have occasional ventricular paced complexes. No acute ST elevation or depression. There is diffuse nonspecific change. This is similar to 06 April 2023. I also looked at EKGs from approximately January and February 2023 and she had atrial fibrillation at the time also. She has a known history of atrial fibrillation. Discharge Plan Triage Chief Complaint: Hypertension ED Provider: Bernard Melara Dx/Rx/DC Orders Clinical Impression: Elevated blood pressure reading, Atrial fibrillation, History of hypertension, Chronic renal failure Instructions: ED Hypertension, Established Prescriptions: No Action carvedilol 25 mg tablet 25 mg PO Q12H aspirin [Adult Aspirin Regimen] 81 mg tablet,delayed release (DR/EC) 81 mg PO DAILY calcium citrate-vitamin D3 250 mg-5 mcg (200 unit) tablet 1 tab PO DAILY pantoprazole 40 mg tablet,delayed release (DR/EC) 40 mg PO Q12H promethazine 12.5 mg tablet 12.5 mg PO Q6H PRN (Reason: nausea and vomiting) Rx Instructions: 3 doses during day; last dose no later than 4 hr before bedtime fluticasone propionate [Allergy Relief (fluticasone)] 50 mcg/actuation spray,suspension 2 spray intranasal DAILY PRN (Reason: nasal congestion) Rx Instructions: administer into each nostril furosemide 40 mg Tablet 40 mg PO BIDLX Qty: 60 2RF clonidine HCl 0.2 mg Tablet 0.2 mg PO TID Qty: 90 1RF amlodipine 5 mg Tablet 5 mg PO DAILY 30 Days Qty: 30 0RF hydralazine 50 mg Tablet 50 mg PO TID 30 Days Qty: 90 0RF losartan 50 mg Tablet 50 mg PO DAILY 30 Days Qty: 30 0RF Primary Care Provider: Bradley Hardin Referrals: Bradley Hardin MD [Primary Care Provider] - 3-5 Days if not improving Disposition Disposition: Custodial Facility
[2023-04-20 05:28] LABS: Absolute Lymphocyte Count 0.85 X10^3/uL (0.83-4.51); Absolute Neutrophil Count 10.8 X10^3/uL (2.0-7.7); Basophil# 0.09 X10^3/uL; Basophil% 0.7 % (0-1); Eosinophil# 0.23 X10^3/uL; Eosinophils% 1.8 % (0-5); Hematocrit 30.7 % (37-47); Hemoglobin 9.9 g/dL (12.0-15.0); Lymphocyte # 0.85 X10^3/ul (0.83-4.51); Lymphocyte % 6.6 % (19-41); Mean Corp Hgb Conc 32.2 g/dL (32-36); Mean Corpuscular Hgb 31.2 pg (27.0-32.0); Mean Corpuscular Volume 96.8 fL (81-99); Mean Platelet Vol. 10.8 fl (6.2-12.0); Monocyte# 0.77 X10^3/uL; NRBC Flagged by Analyzer 0 % (0-5); Neutrophil # 10.81 X10^3/uL (2.7-7.7); Neutrophil % 83.9 % (47-70); Platelet Count 215 K/mm3 (150-450); RBC Distribution Width CV 15.7 % (11.6-14.6); RBC Distribution Width SD 56.5 fl (35.1-43.9); Red Blood Count 3.17 M/mm3 (4.2-5.4); White Blood Count 12.9 K/mm3 (4.4-11.0)
[2023-04-20 06:04] LABS: Anion Gap 6 (5-15); BUN 29 mg/dL (7-18); BUN/Creat Ratio 6.8 RATIO (10-20); Calcium,Total 9.3 mg/dL (8.5-10.1); Chloride 97 mmol/L (98-107); Creatinine, Serum 4.27 mg/dL (0.55-1.02); EST Glomerular Filtration Rate 11 mL/min (>60); Est Glom Filt Rate - Afr Amer 13 mL/min (>60); Glucose 104 mg/dL (74-106); Potassium 3.7 mmol/L (3.5-5.1); Sodium Level 134 mmol/L (136-145); Troponin-I HS 17 pg/mL (3.0-54.0)
[2023-04-20 06:21] VITALS: O2SAT 16
[2023-04-20 08:00] VITALS: RESP 16
--- NOTE | 2023-04-20 08:03 | ED.RN ---
CALLED [facility] FOR AN UPDATED ETA, SPOKE WITH AZIZA. SHE STATED IT IS PUSHED BACK TO [phone] DUE TO [facility] JUST COMING ON SHIFT AND GETTING THE TRUCK READY. SHE STATED THEY ARE COMING FROM [place].
--- NOTE | 2023-04-20 08:48 | ED.RN ---
CALLED [facility] FOR AN UPDATED ETA, SPOKE WITH CRISTIN WHO STATED THEY WERE IN ROUTE AND 2 MINUTES AWAY.
== END 2023-04-20 09:12 ==
PROVIDERS: Emergency Provider Emergency Medicine; PCP Family Medicine; Visit Provider Emergency Medicine
DX: I13.2 Hypertensive heart and chronic kidney disease with heart failure and with stage 5 chronic kidney disease, or end stage renal disease (principal); Z99.2 Dependence on renal dialysis; I50.9 Heart failure, unspecified; N18.6 End stage renal disease; I48.91 Unspecified atrial fibrillation; R11.2 Nausea with vomiting, unspecified; Z95.0 Presence of cardiac pacemaker; M54.2 Cervicalgia; D63.8 Anemia in other chronic diseases classified elsewhere; Z79.82 Long term (current) use of aspirin; Z79.899 Other long term (current) drug therapy; Z86.73 Personal history of transient ischemic attack (TIA), and cerebral infarction without residual deficits
CPT/HCPCS: 80048; 84484; 85025; 93005; 99284; A4216

== ENCOUNTER 2024-02-12 09:03 | Day surgery (SDC) | payer MEDICARE, OTHER, SELFPAY ==
--- NOTE | 2024-01-22 15:10 | RAD_ITS ---
EXAM: XR CHEST, 2 VIEWS CLINICAL INDICATION: For PPM generator change TECHNIQUE: Frontal and lateral views of the chest. COMPARISON: April 06, 2023, March 19, 2023 FINDINGS: LUNGS AND PLEURAL SPACES: Similar mild increased interstitial markings in the lower lung arroyo. Mildly better defined perihilar vessels. No pneumothorax. No effusion. HEART: Stable mild cardiomegaly. MEDIASTINUM: Central airways and mediastinal contour are unremarkable. BONES/JOINTS: The bones appear demineralized without acute compression deformity. SOFT TISSUES: Unremarkable. VASCULATURE: Peripheral calcification of the aortic arch and descending thoracic aorta is similar. TUBES, LINES AND DEVICES: Large bore double lumen right subclavian catheter with its tip at the SVC-right atrial junction is stable. Stable left subclavian pacemaker leads. RAD/Chest PA and Lateral IMPRESSION: 1. Stable mild cardiomegaly. 2. Similar mildly increased interstitial markings in the lung bases may be due to minimal recurrent interstitial edema or chronic change. 3. No focal infiltrates or effusion. Electronically Signed: Ashely Gibbs MD at 18:25 EDT ,
[2024-01-22 16:17] LABS: Hematocrit 31.7 % (37-47); Hemoglobin 10.3 g/dL (12.0-15.0); Mean Corp Hgb Conc 32.5 g/dL (32-36); Mean Corpuscular Volume 95.5 fL (81-99); Mean Platelet Vol. 11.5 fl (6.2-12.0); Platelet Count 132 K/mm3 (150-450); RBC Distribution Width CV 14.3 % (11.6-14.6); RBC Distribution Width SD 50.1 fl (35.1-43.9); Red Blood Count 3.32 M/mm3 (4.2-5.4)
[2024-01-22 16:52] LABS: Anion Gap 4 (5-15); BUN 27 mg/dL (7-18); BUN/Creat Ratio 7.4 RATIO (10-20); Calcium,Total 9.1 mg/dL (8.5-10.1); Chloride 99 mmol/L (98-107); Creatinine, Serum 3.64 mg/dL (0.55-1.02); EST Glomerular Filtration Rate 13 mL/min (>60); Est Glom Filt Rate - Afr Amer 15 mL/min (>60); Glucose 109 mg/dL (74-106); Potassium 4.2 mmol/L (3.5-5.1); Sodium Level 134 mmol/L (136-145)
[2024-01-22 16:58] LABS: International Normalized Ratio 1.2; Prothrombin Time (Protime)PT. 14.9 SECONDS (11.7-14.9)
[2024-02-06 09:14] VITALS: BMI 23.1
--- NOTE | 2024-02-12 12:43 | CL.IE_ITS ---
Patient: JOVANY HARRIS Study Date: 02/12/2024 Performing: Jez Tavares MD : [id number] Age: 78 Gender: female PROCEDURES PERFORMED [id number])BATTERY REMOVAL+REPLACEMENT PACER-DUAL LEAD INDICATIONS Sinoatrial node dysfunction/Sick sinus syndrome PROCEDURE DETAILS The patient was brought to the Catheterization Lab in the postabsorptive nonsedated state. Informed consent was obtained prior to the procedure. Local anesthetic was given subcutaneously to the left upper chest area with Lidocaine 2%. PPM generator was removed. New PPM generator was attached to the lead(s) and inserted into the pocket. PPM generator was then interrogated by the gameplay programmer. Device pocket was irrigated with antibiotic. Subcutaneous closure was completed with 3-0 Vicryl. Skin closure was completed with 4-0 Vicryl. Steri-strips applied to left subclavicular incision. The patient tolerated the procedure well. Estimated Blood Loss: 15 ml's IMPLANTED / EX-PLANTED DEVICES IMPLANTED DEVICE(S): PPM Generator - Engineering Production Liaison: [employer], Model # [employer] [place] XT [facility] Model [id number] , Serial # [id number] DEVICE PARAMETERS VENTRICULAR LEAD PARAMETERS: R wave- 0.9 (mV) threshold- 4.0 (V) impedence- 494 (OHMS) DEVICE PARAMETERS: Mode- VVIR Lower rate- 60 Upper rate- 120 CONCLUSIONS / RECOMMENDATIONS Device Conclusions: Successful implantation of a dual chamber pacemaker battery change and replacement Device Recommendations: Follow up with Primary Care Physician PROCEDURE MEDICATIONS Versed 1 mg IV Oxygen: 2 L/min via nasal cannula Clindamycin 900 mg IV 02/12/2024 11:45:16 Signed By Jez Tavares MD On 02/12/2024 12:42:13 Jez Tavares MD
== END 2024-02-12 13:43 | disposition home or self-care (01) ==
PROVIDERS: Physician Assistant Medical; PCP Family Medicine; Referring Provider Internal Medicine Cardiovascular Disease; Visit Provider Internal Medicine Cardiovascular Disease
DX: Z45.010 Encounter for checking and testing of cardiac pacemaker pulse generator [battery] (principal); I13.2 Hypertensive heart and chronic kidney disease with heart failure and with stage 5 chronic kidney disease, or end stage renal disease; N18.6 End stage renal disease; I50.9 Heart failure, unspecified; I49.5 Sick sinus syndrome; I48.91 Unspecified atrial fibrillation; E78.00 Pure hypercholesterolemia, unspecified; Z94.0 Kidney transplant status; Z99.2 Dependence on renal dialysis; Z79.82 Long term (current) use of aspirin; Z79.899 Other long term (current) drug therapy; K21.9 Gastro-esophageal reflux disease without esophagitis; I38 Endocarditis, valve unspecified
CPT/HCPCS: 33228; 36415; 71046; 80048; 85027; 85610; 99152; 99153; J7040; J7050

== ENCOUNTER 2024-03-07 13:25 | Inpatient (IN) | payer MEDICARE, OTHER, SELFPAY ==
[2024-03-07] VITALS (28 sets, daily range): BP systolic 139–223; BP diastolic 71–166; PULSE 77–99; RESP 12–36; TEMP 36.6–36.9; O2SAT 80–100; BMI 26.8; BMI 24.4
--- NOTE | 2024-03-07 13:56 | EKG12_ITS ---
Test Reason : SOB Blood Pressure : */* mmHG Vent. Rate : 105 BPM Atrial Rate : * BPM P-R Int : * ms QRS Dur : 76 ms QT Int : 346 ms P-R-T Axes : * 66 23 degrees QTcB Int : 457 ms Atrial fibrillation with rapid ventricular response with premature ventricular or aberrantly conducte d complexes Septal infarct , age undetermined Abnormal ECG Confirmed by MK BOLAND, PEARL ([id number]), editor index ANTHONY HIDALGO ([id number]) on 03/09/2024 8:00:02 AM Referred By: YASMIN/DIA Confirmed By: PEARL TERRAZAS MD
--- NOTE | 2024-03-07 13:56 | RAD_ITS ---
STUDY: XR Chest 1 View 03/07/2024 2:34 PM REASON FOR EXAM: Female, 78 years old. dyspnea COMPARISON: 03.20.23 TECHNIQUE: XR Chest 1 View FINDINGS: Right vascular line. Tip in the right atrium. There is a left sided pacemaker batterypack. Right lower lobe and left midlung infiltrate. Enlarged heart size. Normal mediastinum. Normal pari. Prominent appearing increased interstitial lung markings. Normal visualized pulmonary arteries. There is atherosclerotic calcification of the aortic arch with tortuosity. There are diffuse degenerative changes of the visualized thoracic spine. There is degenerative osteoarthritis of the bilateral shoulders. There are no acute findings of the upper abdomen. RAD/Chest 1 View (Portable) IMPRESSION: Bilateral pneumonia. Electronically Signed: John Hernández MD at 15:02 EST ,
--- NOTE | 2024-03-07 14:06 | ED.VIS.DYS ---
HPI History of Present Illness Chief Complaint: Shortness of Breath Informant: patient and family Narrative Narrative: 78-year-old female presenting to the emergency room with leg swelling and shortness of breath. Family went to check on her as she lives at home. The family notes that she seemed very short of breath legs were swollen. Was noted that she was hypoxic (triage pulse oximeter 80%). Patient has a history of end-stage renal disease on dialysis. 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 She has a history of atrial fibrillation and sick sinus syndrome as well as congestive heart failure with preserved ejection fraction. She states that she only makes about 30 cc of urine a day. She states that she takes Lasix 40 mg twice a day. She went for dialysis treatment on Friday and notes no complications. She states that yesterday she was having a good day but today she woke with swelling and shortness of breath no reported fevers. She does have a high history of hypertensive emergency which required IV Cardene and was admitted into the ICU this was about 1 year ago. Family notes a history of dementia and does have concerns about taking medications correctly [facility] Medical History Chronic kidney disease Anemia of chronic disease Dyspnea Congestive heart failure End-stage renal disease on hemodialysis Presence of Watchman left atrial appendage closure device Kidney transplant pain Skin cancer CVA (cerebral vascular accident) Hx of gastroesophageal reflux (GERD) GI bleed High cholesterol Vascular dementia Sick sinus syndrome Atrial fibrillation Dialysis patient Chronic renal failure Hypertension Home Medications ?Medication ?Instructions ?Recorded ?Last Taken ?Type aspirin 81 mg tablet,delayed 81 mg PO DAILY 02/08/23 02/08/23 History release (Adult Aspirin Regimen) carvedilol 25 mg tablet 25 mg PO Q12H HTN 02/08/23 02/12/24 History pantoprazole 40 mg tablet,delayed 40 mg PO Q12H 02/08/23 02/12/24 History release fluticasone propionate 50 2 spray intranasal DAILY PRN nasal 03/20/23 03/19/23 History mcg/actuation nasal congestion spray,suspension (Allergy Relief (fluticasone)) clonidine HCl 0.2 mg tablet 0.2 mg PO TID #90 tabs 03/22/23 02/12/24 Rx hydralazine 50 mg tablet 50 mg PO TID 30 days #90 tabs 04/08/23 02/12/24 Rx amlodipine 5 mg tablet 5 mg PO BID #180 tabs 05/15/23 02/12/24 Rx calcium 600 mg (as 1 tab PO DAILY 05/15/23 Unknown History carbonate)-vitamin D3 10 mcg (400 unit) tablet (Calcium with Vitamin D) furosemide 40 mg tablet 40 mg PO BID 05/15/23 Unknown History losartan 100 mg tablet 100 mg PO DAILY 05/15/23 02/12/24 History ondansetron HCl 4 mg tablet 4 mg PO Q8 PRN nausea and vomiting 01/22/24 Unknown History Allergy/AdvReac Type Severity Reaction Status Date / Time caffeine Allergy Mild unknown Verified 03/07/24 13:25 [place] And Derivatives Allergy Mild unknown Verified 03/07/24 13:25 codeine Allergy Mild unknown Verified 03/07/24 13:25 desloratadine Allergy Mild unknown Verified 03/07/24 13:25 glutamine (From Airborne Allergy Mild unknown Verified 03/07/24 13:25 (ascorbate sodium)) herbal complex no.124 (From Allergy Mild unknown Verified 03/07/24 13:25 Airborne (ascorbate sodium)) hydrocodone Allergy Mild unknown Verified 03/07/24 13:25 hydromorphone Allergy Mild unknown Verified 03/07/24 13:25 lysine HCl (From Airborne Allergy Mild unknown Verified 03/07/24 13:25 (ascorbate sodium)) morphine Allergy Mild unknown Verified 03/07/24 13:25 moxifloxacin Allergy Mild unknown Verified 03/07/24 13:25 multivitamin with minerals Allergy Mild unknown Verified 03/07/24 13:25 (From Airborne (ascorbate sodium)) nabumetone Allergy Mild unknown Verified 03/07/24 13:25 oxycodone Allergy Mild unknown Verified 03/07/24 13:25 penicillin G Allergy Mild unknown Verified 03/07/24 13:25 Penicillins Allergy Mild hands blue Verified 03/07/24 13:25 propoxyphene (From Margesic Allergy Mild unknown Verified 03/07/24 13:25 (propoxyphene)) tramadol Allergy Mild unknown Verified 03/07/24 13:25 amiodarone Allergy Unknown unknown Verified 03/07/24 13:25 Opioids - Morphine Analogues Allergy Anaphylaxis Verified 03/07/24 13:25 Surgical History Renal transplant recipient History of hernia repair H/O: hysterectomy Hx of cholecystectomy History of permanent cardiac pacemaker placement Social History Smoking Status: Never smoker ROS ROS ED Constitutional Constitutional ED: Denies chills, fever(s) or weight loss Eyes Eyes: Denies change in vision or diplopia ENT ENT ED: Denies ear pain, rhinorrhea or sore throat Cardiovascular Cardiovascular: Denies chest pain, orthopnea, palpitations or racing heartbeat Respiratory/Chest Respiratory/Chest: Reports dyspnea and dyspnea on exertion; Denies cough or orthopnea Gastrointestinal Gastrointestinal: Denies abdominal pain, diarrhea, nausea or vomiting Genitourinary Genitourinary ED: Denies dysuria, hematuria or urinary frequency Musculoskeletal Musculoskeletal: Reports other Details: Lower extremity swelling ; Denies arthralgias or myalgias Integumentary Denies abscess or rash Neurologic Neurologic: Denies headache(s) or weakness Psychiatric Psychiatric: Denies anxiety, depression, suicidal ideation or suicidal thoughts Endocrine Endocrinology: Denies polydipsia, polyphagia or polyuria Allergic/Immunologic Allergic/Immunologic ED: Denies mouth swelling, tongue swelling or urticaria EXAM Physical Exam Const Vital Signs: 03/07/24 13:27 03/07/24 13:30 03/07/24 14:10 Temperature 98.2 F 98 F Temperature Source Oral Temporal Pulse Rate 86 92 87 Respiratory Rate 18 20 H 16 Blood Pressure 174/132 H 223/135 H Blood Pressure Mean 146 164 Blood Pressure Source Pulse Ox 80 97 100 Oxygen Delivery Method Room Air Nasal Cannula Oxygen Flow Rate (L/min) 4 Fraction of Inspired Oxygen (FIO2) 30 03/07/24 14:25 03/07/24 14:26 03/07/24 14:27 Temperature Temperature Source Pulse Rate 88 90 Respiratory Rate 20 H 18 Blood Pressure 215/116 H 215/116 H Blood Pressure Mean 149 149 Blood Pressure Source Pulse Ox 99 99 Oxygen Delivery Method Bi-pap Bi-pap Bi-pap Oxygen Flow Rate (L/min) Fraction of Inspired Oxygen (FIO2) 03/07/24 14:27 03/07/24 15:00 03/07/24 16:00 Temperature 98 F Temperature Source Temporal Pulse Rate 84 99 93 Respiratory Rate 18 18 16 Blood Pressure 215/166 H 210/112 H 190/120 H Blood Pressure Mean 182 144 143 Blood Pressure Source Pulse Ox 99 98 98 Oxygen Delivery Method Bi-pap Bi-pap Bi-pap Oxygen Flow Rate (L/min) Fraction of Inspired Oxygen (FIO2) 03/07/24 16:28 Temperature Temperature Source Pulse Rate 77 Respiratory Rate 23 H Blood Pressure 190/120 H Blood Pressure Mean 143 Blood Pressure Source Monitor Pulse Ox 99 Oxygen Delivery Method Bi-pap Oxygen Flow Rate (L/min) Fraction of Inspired Oxygen (FIO2) Positive well nourished, well developed and obese General Appearance ED: well developed Nutritional Appearance: obese HEENT Reports normocephalic, head/scalp atraumatic and moist mucous membranes Eyes PERRL and EOMs intact bilaterally Neck no lymphadenopathy, supple and no JVD Resp Resp Narrative: Patient is tachypneic with accessory muscle use. Auscultation: rales bilateral lower Cardio no murmurs Rate: tachycardic Rhythm: abnormal rhythm irregularly irregular GI normal to inspection, nondistended, normoactive bowel sounds and non-tender GI Narrative: Patient with conversational dyspnea Palpation: soft Back/Spine no CVA tenderness and normal ROM Extremity General Extremety ED: Yes edema General Extremity: edema bilateral lower extremity Details: moderate Neuro CN's II-XII intact bilaterally Sensorium / Orientation: alert Motor Exam: strength 5/5 throughout Psych mental status grossly normal Mood & Affect: Negative for depressed or tearful Skin no rashes or lesions noted and no wounds MDM MDM MDM Narrative Medical decision making narrative: Differential diagnosis includes but not limited to hypertensive emergency congestive heart failure volume overload pneumonia electrolyte abnormalities coronary syndrome Basic blood work was obtained shows a white count of 10 hemoglobin for 11.4 plate count of 215. LFTs showed an alk phos of 129. Troponin is 19. Creatinine 4.33 with a BUN of 40. My independent interpretation the chest x-ray is possible pneumonia and congestive heart failure. CT of the chest without contrast was obtained. This is more consistent with pulmonary edema. Clinically I do not think the patient has pneumonia she has no fever no white count symptoms came on suddenly Patient was placed on BiPAP with significant improvement in her breathing. Hydralazine was given with reasonable blood pressure. She has done well with Cardene in the past I placed her on Cardene drip. Plan is admission into the hospital. History & Record Review Discussion w/independent historian: Patient and Family Lab Data Attestation: I reviewed the patient's lab results. Labs: Laboratory Results - last 24 hr 03/07/24 13:40 WBC 10.0 RBC 3.56 L Hgb 11.4 L Hct 34.3 L MCV 96.3 MCH 32.0 MCHC 33.2 RDW Std Deviation 52.0 H RDW Coeff of Alexus 14.9 H Plt Count 215 MPV 11.0 Immature Gran % (Auto) 0.500 Neut % (Auto) 84.6 H Lymph % (Auto) 7.3 L [place] % (Auto) 4.3 Eos % (Auto) 2.6 Baso % (Auto) 0.7 Absolute Neuts (auto) 8.4 H Absolute Lymphs (auto) 0.73 L Nucleated RBC % 0 Sodium 134 L Potassium 4.3 Chloride 95 L Carbon Dioxide 29.0 Anion Gap 10 BUN 40 H Creatinine 4.33 H Estim Creat Clear Calc 8.14 Est GFR (MDRD) Af Amer 13 L Est GFR (MDRD) Non-Af 10 L BUN/Creatinine Ratio 9.2 L Glucose 126 H Calcium 9.7 Phosphorus 3.9 Magnesium 2.2 Total Bilirubin 0.80 Direct Bilirubin 0.30 AST 17 ALT 14 Alkaline Phosphatase 129 H Troponin I High Sens 19 Total Protein 7.4 Albumin 3.8 Globulin 3.6 Radiography Diagnostic Testing: Clinical Impression(s) from Imaging Studies Chest X-Ray 03/07/24 13:56 IMPRESSION: Bilateral pneumonia. Electronically Signed: John Hernández MD at 15:02 EST , Chest CT 03/07/24 15:19 IMPRESSION: There are bilateral pleural effusions. There is bilateral pneumonia. Electronically Signed: John Hernández MD at 16:19 EST , EKG Initial EKG: Attestation: I personally reviewed and interpreted this EKG as follows: Comments: Atrial fibrillation with rapid response 105 bpm Discharge Plan Dx/Rx/DC Orders Clinical Impression: Congestive heart failure, End stage renal disease on dialysis, Hypertensive emergency Disposition Disposition: Acute Care Hospital [facility]
[2024-03-07 14:11] LABS: Absolute Lymphocyte Count 0.73 X10^3/uL (0.83-4.51); Absolute Neutrophil Count 8.4 X10^3/uL (2.0-7.7); Basophil# 0.07 X10^3/uL; Basophil% 0.7 % (0-1); Eosinophil# 0.26 X10^3/uL; Eosinophils% 2.6 % (0-5); Hematocrit 34.3 % (37-47); Hemoglobin 11.4 g/dL (12.0-15.0); Lymphocyte # 0.73 X10^3/ul (0.83-4.51); Lymphocyte % 7.3 % (19-41); Mean Corp Hgb Conc 33.2 g/dL (32-36); Mean Corpuscular Volume 96.3 fL (81-99); Monocyte# 0.43 X10^3/uL; Monocyte% 4.3 % (0-10); NRBC Flagged by Analyzer 0 % (0-5); Neutrophil # 8.44 X10^3/uL (2.7-7.7); Neutrophil % 84.6 % (47-70); Platelet Count 215 K/mm3 (150-450); RBC Distribution Width CV 14.9 % (11.6-14.6); Red Blood Count 3.56 M/mm3 (4.2-5.4)
[2024-03-07] MEDS: hydrALAZINE 20 MG/ML Vial IV (14:19)
[2024-03-07 14:33] LABS: AST(SGOT) 17 U/L (15-37); Alanine Aminotransfer ALT/SGPT 14 U/L (13-56); Albumin, Serum 3.8 g/dL (3.2-5.0); Alkaline Phosphatase 129 U/L (45-117); Anion Gap 10 (5-15); BUN 40 mg/dL (7-18); BUN/Creat Ratio 9.2 RATIO (10-20); Calcium,Total 9.7 mg/dL (8.5-10.1); Chloride 95 mmol/L (98-107); Creatinine, Serum 4.33 mg/dL (0.55-1.02); EST Glomerular Filtration Rate 10 mL/min (>60); Est Glom Filt Rate - Afr Amer 13 mL/min (>60); Estimated Creatinine Clearance 8.14 ml/min; Globulin 3.6 g/dL (2.2-4.2); Glucose 126 mg/dL (74-106); Magnesium 2.2 mg/dL (1.6-2.6); Phosphorus 3.9 mg/dL (2.5-4.9); Potassium 4.3 mmol/L (3.5-5.1); Protein, Total 7.4 g/dL (6.4-8.2); Sodium Level 134 mmol/L (136-145); Troponin-I HS 19 pg/mL (3.0-54.0)
--- NOTE | 2024-03-07 15:19 | CT_ITS ---
STUDY: CT Chest W/O Contrast Injection 03/07/2024 4:16 PM REASON FOR EXAM: Female, 78 years old. pneumonia Individualized dose optimization techniques were used for this CT. TECHNIQUE: Transaxial imaging was performed without contrast material. COMPARISON: None. FINDINGS: There are degenerative changes of the shoulders. There is no pneumothorax. Moderate right pleural effusion. Small left pleural effusion. Diffuse bilateral ground glass infiltrates. Right vascular line in place. There is a left sided pacemaker batterypack. Atrophic kidneys. watchman device noted. There are calcifications of the coronary arteries. There is mild cardiac enlargement. Normal mediastinum. Normal hilar regions. Normal pulmonary arteries. There is atherosclerotic calcification of the aortic arch with tortuosity and elongation of the aortic arch and descending thoracic aorta. There are multi-level degenerative changes of the thoracic spine. There are no acute findings of the upper abdomen. CT/Chest without Contrast IMPRESSION: There are bilateral pleural effusions. There is bilateral pneumonia. Electronically Signed: John Hernández MD at 16:19 EST Reading Location ID and State: [facility] / [place] , Service support ,
[2024-03-07] MEDS: Ondansetron 4 MG/2 ML Vial IV (16:03)
[2024-03-07] MEDS: NICARdipine 25 MG in 0.9% Normal Saline (250mL Bag) 240 ML 50 MG CONT INF (16:28)
--- NOTE | 2024-03-07 16:30 | ED.RN ---
PER DR. CABRERA BP GOAL WITH NICARDIPINE GTT 160-170/80
--- NOTE | 2024-03-07 16:48 | HP.PCM.HOS_ITS ---
HPI - General General Date of Admission: 03/07/24 Date of Service: 03/07/24 Chief Complaint: SOB and leg swelling HPI Narrative JOVANY HARRIS, is a 78-year-old female with a history of end-stage renal disease on hemodialysis, GERD, hypertension, CHF, A-fib presented [facility] ED with increased shortness of breath and leg swelling. Family went to check on her and given her shortness of breath and leg swelling she was brought to the ED. In triage she was 80% on room air. Blood pressure was as high as 223/135 in the ED and patient initially started on nasal cannula on transition to BiPAP for work of breathing. Troponin within normal limits and chest x-ray showed concerns for bilateral pneumonia but CT chest without contrast obtained that was more consistent with pulmonary edema. Patient treated for hypertensive emergency and placed on Cardene drip and hospitalist contacted for admission. Patient evaluated at bedside with 2 family members present. Reportedly since patient had a pacemaker battery replaced 2 to 3 weeks ago she has had increasing swelling in her lower extremities and had to have extra fluid taken off. Today the what changed was her breathing was significantly worse. Patient denies any productive cough or fevers, reports she gets intermittent diarrhea and intermittent nausea and all of these things are chronic and not necessarily changed. Patient does have some left-sided chest pain but she reports it is due to the pacemaker battery replacement and did not change today. Does have increased swelling in her lower extremities. Patient initially reported she does not urinate much but family at bedside reports she urinates multiple times a day. Patient does report she feels a little bit better on the BiPAP [facility] Medical History Chronic kidney disease Anemia of chronic disease Dyspnea Congestive heart failure End-stage renal disease on hemodialysis Presence of Watchman left atrial appendage closure device Kidney transplant pain Skin cancer CVA (cerebral vascular accident) Hx of gastroesophageal reflux (GERD) GI bleed High cholesterol Vascular dementia Sick sinus syndrome Atrial fibrillation Dialysis patient Chronic renal failure Hypertension Home Medications ?Medication ?Instructions ?Recorded ?Last Taken ?Type aspirin 81 mg tablet,delayed 81 mg PO DAILY 02/08/23 02/08/23 History release (Adult Aspirin Regimen) carvedilol 25 mg tablet 25 mg PO Q12H HTN 02/08/23 02/12/24 History pantoprazole 40 mg tablet,delayed 40 mg PO Q12H 02/08/23 02/12/24 History release fluticasone propionate 50 2 spray intranasal DAILY PRN nasal 03/20/23 03/19/23 History mcg/actuation nasal congestion spray,suspension (Allergy Relief (fluticasone)) clonidine HCl 0.2 mg tablet 0.2 mg PO TID #90 tabs 03/22/23 02/12/24 Rx hydralazine 50 mg tablet 50 mg PO TID 30 days #90 tabs 04/08/23 02/12/24 Rx amlodipine 5 mg tablet 5 mg PO BID #180 tabs 05/15/23 02/12/24 Rx calcium 600 mg (as 1 tab PO DAILY 05/15/23 Unknown History carbonate)-vitamin D3 10 mcg (400 unit) tablet (Calcium with Vitamin D) furosemide 40 mg tablet 40 mg PO BID 05/15/23 Unknown History losartan 100 mg tablet 100 mg PO DAILY 05/15/23 02/12/24 History ondansetron HCl 4 mg tablet 4 mg PO Q8 PRN nausea and vomiting 01/22/24 Unknown History Allergy/AdvReac Type Severity Reaction Status Date / Time caffeine Allergy Mild unknown Verified 03/07/24 13:25 [place] And Derivatives Allergy Mild unknown Verified 03/07/24 13:25 codeine Allergy Mild unknown Verified 03/07/24 13:25 desloratadine Allergy Mild unknown Verified 03/07/24 13:25 glutamine (From Airborne Allergy Mild unknown Verified 03/07/24 13:25 (ascorbate sodium)) herbal complex no.124 (From Allergy Mild unknown Verified 03/07/24 13:25 Airborne (ascorbate sodium)) hydrocodone Allergy Mild unknown Verified 03/07/24 13:25 hydromorphone Allergy Mild unknown Verified 03/07/24 13:25 lysine HCl (From Airborne Allergy Mild unknown Verified 03/07/24 13:25 (ascorbate sodium)) morphine Allergy Mild unknown Verified 03/07/24 13:25 moxifloxacin Allergy Mild unknown Verified 03/07/24 13:25 multivitamin with minerals Allergy Mild unknown Verified 03/07/24 13:25 (From Airborne (ascorbate sodium)) nabumetone Allergy Mild unknown Verified 03/07/24 13:25 oxycodone Allergy Mild unknown Verified 03/07/24 13:25 penicillin G Allergy Mild unknown Verified 03/07/24 13:25 Penicillins Allergy Mild hands blue Verified 03/07/24 13:25 propoxyphene (From Margesic Allergy Mild unknown Verified 03/07/24 13:25 (propoxyphene)) tramadol Allergy Mild unknown Verified 03/07/24 13:25 amiodarone Allergy Unknown unknown Verified 03/07/24 13:25 Opioids - Morphine Analogues Allergy Anaphylaxis Verified 03/07/24 13:25 Surgical History Renal transplant recipient History of hernia repair H/O: hysterectomy Hx of cholecystectomy History of permanent cardiac pacemaker placement Social History Smoking Status: Never smoker ROS ROS Narrative General: Denies fever/chills HENT: denies stuffy nose, denies sore throat EYES: Denies changes in vision Resp: Denies any cough productive of sputum, increased shortness of breath started today Cardiac: Some left-sided chest wall pain GI: Denies abdominal pain, has some intermittent nausea and intermittent diarrhea which are not new : Denies changes in urination Extremity: Increased swelling in lower extremities MSK: Some generalized weakness Neuro: Denies any numbness/tingling Heme: Denies any bleeding or bruising Skin: Denies rashes Psychiatric: No complaints voiced Vital Signs Vital Signs Vital Signs: 03/07/24 13:27 03/07/24 13:30 03/07/24 14:10 Temperature 98.2 F 98 F Temperature Source Oral Temporal Pulse Rate 86 92 87 Respiratory Rate 18 20 H 16 Blood Pressure 174/132 H 223/135 H Blood Pressure Mean 146 164 Blood Pressure Source Pulse Ox 80 97 100 Oxygen Delivery Method Room Air Nasal Cannula Oxygen Flow Rate (L/min) 4 Fraction of Inspired Oxygen (FIO2) 30 03/07/24 14:25 03/07/24 14:26 03/07/24 14:27 Temperature Temperature Source Pulse Rate 88 90 Respiratory Rate 20 H 18 Blood Pressure 215/116 H 215/116 H Blood Pressure Mean 149 149 Blood Pressure Source Pulse Ox 99 99 Oxygen Delivery Method Bi-pap Bi-pap Bi-pap Oxygen Flow Rate (L/min) Fraction of Inspired Oxygen (FIO2) 03/07/24 14:27 03/07/24 15:00 03/07/24 16:00 Temperature 98 F Temperature Source Temporal Pulse Rate 84 99 93 Respiratory Rate 18 18 16 Blood Pressure 215/166 H 210/112 H 190/120 H Blood Pressure Mean 182 144 143 Blood Pressure Source Pulse Ox 99 98 98 Oxygen Delivery Method Bi-pap Bi-pap Bi-pap Oxygen Flow Rate (L/min) Fraction of Inspired Oxygen (FIO2) 03/07/24 16:28 Temperature Temperature Source Pulse Rate 77 Respiratory Rate 23 H Blood Pressure 190/120 H Blood Pressure Mean 143 Blood Pressure Source Monitor Pulse Ox 99 Oxygen Delivery Method Bi-pap Oxygen Flow Rate (L/min) Fraction of Inspired Oxygen (FIO2) Weight Weight: 56.2 kg Body Mass Index (BMI) 26.8 Physical Exam Narrative General: Alert, on BiPAP, appears tired HEENT: Atraumatic, normocephalic Eyes: Anicteric, normal conjunctiva, extraocular movements grossly intact Neck: Supple Respiratory: On BiPAP, diminished at the bases with some crackles above Cardiovascular: Irregularly irregular GI: Soft, reports mild discomfort on palpation without rebound, guarding, rigidity Extremities: 1-2+ bilateral lower extremity pitting edema Musculoskeletal: Moving all extremities Neuro: No overt focal neurological deficits Skin: No rashes appreciated Psych: Cooperative Results Lab / Micro Data 03/07/24 13:40 03/07/24 13:40 Labs: Laboratory Results - last 24 hr 03/07/24 13:40: WBC 10.0, RBC 3.56 L, Hgb 11.4 L, Hct 34.3 L, MCV 96.3, MCH 32.0, MCHC 33.2, RDW Std Deviation 52.0 H, RDW Coeff of Alexus 14.9 H, Plt Count 215, MPV 11.0, Immature Gran % (Auto) 0.500, Neut % (Auto) 84.6 H, Lymph % (Auto) 7.3 L, [place] % (Auto) 4.3, Eos % (Auto) 2.6, Baso % (Auto) 0.7, Absolute Neuts (auto) 8.4 H, Absolute Lymphs (auto) 0.73 L, Nucleated RBC % 0, Sodium 134 L, Potassium 4.3, Chloride 95 L, Carbon Dioxide 29.0, Anion Gap 10, BUN 40 H, C reatinine 4.33 H, Estim Creat Clear Calc 8.14, Est GFR (MDRD) Af Amer 13 L, Est GFR (MDRD) Non-Af 10 L, BUN/Creatinine Ratio 9.2 L, Glucose 126 H, Calcium 9.7, Phosphorus 3.9, Magnesium 2.2, Total Bilirubin 0.80, Direct Bilirubin 0.30, AST 17, ALT 14, Alkaline Phosphatase 129 H, Troponin I High Sens 19, Total Protein 7.4, Albumin 3.8, Globulin 3.6 Imaging Radiology Impression Chest X-Ray 03/07/24 13:56 IMPRESSION: Bilateral pneumonia. Electronically Signed: John Hernández MD at 15:02 EST , Chest CT 03/07/24 15:19 IMPRESSION: There are bilateral pleural effusions. There is bilateral pneumonia. Electronically Signed: John Hernández MD at 16:19 EST , Assessment & Plan Assessment/Plan (1) Hypertensive emergency: PLAN: Plan # Hypoxia secondary to fluid overload from acute exacerbation of chronic heart failure with preserved ejection fraction secondary to hypertensive emergency -Imaging suggestive of volume overload in the setting of systolic blood pressures greater than 200 and diastolic blood pressures greater than 100, there was query of pneumonia but patient with no fevers and no productive cough and clinical picture more consistent with fluid overload than infectious etiology -Suspect heart failure exacerbation is causing patient's shortness of breath -oxygenation and work of breathing improving on BiPAP -Patient placed on Cardene drip -Admit to intensive care unit -Will change patient's p.o. Lasix to IV, patient does make urine per family and urinates multiple times per day -Last echo 03/20/2023 with moderate concentric left ventricular hypertrophy and EF of 50 to 55% -Repeat echo ordered -Daily weights, I's and O's -Fluid restriction -Nephrology consult given she has end-stage renal disease and is dialysis dependent -Patient saturating 98 to 99% on BiPAP with improving work of breathing, given she is now maintaining saturations and does make urine and can be given IV Lasix do not think she needs emergent dialysis at time of evaluation -BNP not obtained in ED given patient on hemodialysis and it is expected that this would be elevated and patient is clinically volume overloaded so would likely not 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, agree with this, treat as below # Hypertensive emergency -Patient has some difficulty with her memory and family queried if she may have difficulty with medication compliance -Resume patient's home medications -IV Lasix -Placed on Cardene drip -BP already beginning to improve # History of A-fib and sick sinus syndrome -Presently in A-fib -status post permanent pacemaker with recent battery change -History of Watchman left atrial appendage closure device -Continue BB -Not presently on AC #ESRD on HD, history of failed renal transplant -Consult nephrology -Renal diet -Daily weights, I's and O's #GERD -Continue PPI #DVT ppx: Lovenox subcu Cynthia Shah MD Charges/Coding Visit Charges Inpatient E&M: 18796 Init Hosp L2
--- NOTE | 2024-03-07 16:56 | ED.RN ---
PTS SON MANISHA TOOK PHONE, WALLET, GLASSES, CANE AND MEDS HOME.
--- NOTE | 2024-03-07 17:29 | ED.RN ---
REPORT GIVEN TO MACARENA FARIA
--- NOTE | 2024-03-07 18:04 | ECHOD_ITS ---
Reason For Study: CONGESTIVE HEART FAILURE Procedure This was a 2D Doppler, Color Flow transthoracic echocardiogram. The patient was scanned supine. Exam performed portable in ICU/CCU. Left Ventricle Normal LV size. Mild concentric left ventricular hypertrophy. The left ventricular ejection fraction is 55 %. No regional wall motion abnormalities noted. Right Ventricle Normal RV size. ICD or pacer leads identified within the right ventricle. Normal systolic function. Atria The left atrium is mildly enlarged. Normal right atrium. ICD or pacer leads identified within the right atrium. Bubble contrast study is negative for PFO/ASD. Mitral Valve There is moderate mitral annular calcification. Mild-Moderate (1-2+) eccentric mitral valve insufficiency. Tricuspid Valve Normal tricuspid valve. Mild (1+) tricuspid valve insufficiency. Pulmonary artery systolic pressure is 32 mmHg. Aortic Valve Trisinus/trileaflet aortic valve. Mild focal aortic valve calcification. Mild (1+) aortic valve insufficiency. Pulmonic Valve Normal pulmonic valve. Medication Performed a rapid injection of agitated mix of 9 cc saline and 1cc air to assess for atrial septal defect. MMode/2D Measurements & Calculations LVIDd: 4.4 cm IVSd: 1.2 cm LVOT diam: 2.0 cm LVIDs: 2.7 cm LVPWd: 1.3 cm LVOT area: 3.0 cm2 RVDd: 3.4 cm FS: 39.3 % asc Aorta Diam: 3.2 cm LAV(MOD-bp): 66.2 ml LVAd ap4: 17.9 cm2 LAV(MOD-bp) Indexed: 46.2 ml/m2 LVLd ap4: 5.8 cm LAV(MOD-sp2): 63.8 ml EDV(MOD-sp4): 45.1 ml LAV(MOD-sp4): 63.8 ml EDV(sp4-el): 47.3 ml LVAs ap4: 11.5 cm2 LVLs ap4: 5.1 cm ESV(MOD-sp4): 21.5 ml ESV(sp4-el): 22.0 ml EF(MOD-sp4): 52.3 % EF(sp4-el): 53.5 % SV(MOD-sp4): 23.6 ml SV(MOD-sp2): 19.3 ml LVAd ap2: 17.8 cm2 LVLd ap2: 6.7 cm SI(MOD-sp4): 16.5 ml/m2 SI(MOD-sp2): 13.5 ml/m2 EDV(MOD-sp2): 38.7 ml EDV(sp2-el): 40.3 ml LVAs ap2: 11.7 cm2 LVLs ap2: 5.9 cm ESV(MOD-sp2): 19.4 ml ESV(sp2-el): 19.6 ml EF(MOD-sp2): 49.8 % SV(sp4-el): 25.3 ml Ao sinus diam: 3.[address] Junction: 2.2 cm LA A4 area: 21.9 cm2 LA dimension(2D): 4.3 cm RA A4 area: 17.0 cm2 TAPSE: 1.5 cm Time Measurements MV dec time: 0.18 sec Doppler Measurements & Calculations MV E max jony: 109.8 cm/sec Lat Peak E' Jony: 6.2 cm/sec Med Peak E' Jony: 5.3 cm/sec E/E' lat: 17.6 E/E' med: 20.7 Ao V2 max: 249.1 cm/sec AI max jony: 444.9 cm/sec LV V1 max: 93.3 cm/sec Ao max P.9 mmHg AI max P.2 mmHg LV V1 max P.5 mmHg Ao V2 mean: 190.5 cm/sec LV V1 mean P.0 mmHg Ao mean P.7 mmHg AI dec slope: 276.8 cm/sec2 LV V1 mean: 67.6 cm/sec Ao V2 VTI: 48.1 cm AI P1/2t: 470.7 msec LV V1 VTI: 16.0 cm AV (velocity ratio): 0.33 HENRIQUE(I,D): 1.00 cm2 HENRIQUE(V,D): 1.1 cm2 SV(LVOT): 48.1 ml PA V2 max: 100.6 cm/sec TR max jony: 266.3 cm/sec TR max P.4 mmHg ECHO/Echo Complete Interpretation Summary Normal LV size. Mild concentric left ventricular hypertrophy. The left ventricular ejection fraction is 55 %. Bubble contrast study is negative for PFO/ASD. Mild-Moderate (1-2+) eccentric mitral valve insufficiency. Pulmonary artery systolic pressure is 32 mmHg. Ordering Physician: Cynthia Shah Performed By: Ramila Tanner RDCS
[2024-03-07] MEDS: Furosemide 40 MG/4 ML Vial IV (18:30)
[2024-03-07] MEDS: hydrALAZINE 50 MG Tablet PO (18:30)
[2024-03-07] MEDS: Heparin Injection (Vial) 5,000 UNIT/ML VIAL 5000 UNIT SC (21:28)
[2024-03-08] VITALS (40 sets, daily range): BP systolic 128–214; BP diastolic 65–128; PULSE 74–105; RESP 12–24; TEMP 36.8–37.1; O2SAT 90–100; BMI 24.5; BMI 23.1
[2024-03-08] MEDS: hydrALAZINE 20 MG/ML Vial 10 MG IV ×2 (00:57→06:14)
[2024-03-08] MEDS: Ondansetron 4 MG/2 ML Vial IV (04:46)
[2024-03-08 06:23] LABS: Absolute Lymphocyte Count 0.81 X10^3/uL (0.83-4.51); Absolute Neutrophil Count 6.2 X10^3/uL (2.0-7.7); Basophil# 0.05 X10^3/uL; Basophil% 0.6 % (0-1); Eosinophil# 0.18 X10^3/uL; Eosinophils% 2.3 % (0-5); Hematocrit 30.4 % (37-47); Hemoglobin 10.1 g/dL (12.0-15.0); Lymphocyte # 0.81 X10^3/ul (0.83-4.51); Lymphocyte % 10.5 % (19-41); Mean Corp Hgb Conc 33.2 g/dL (32-36); Mean Corpuscular Hgb 31.9 pg (27.0-32.0); Mean Corpuscular Volume 95.9 fL (81-99); Mean Platelet Vol. 10.5 fl (6.2-12.0); Monocyte# 0.48 X10^3/uL; Monocyte% 6.2 % (0-10); NRBC Flagged by Analyzer 0 % (0-5); Neutrophil # 6.17 X10^3/uL (2.7-7.7); Neutrophil % 79.9 % (47-70); Platelet Count 201 K/mm3 (150-450); RBC Distribution Width CV 14.9 % (11.6-14.6); RBC Distribution Width SD 52.2 fl (35.1-43.9); Red Blood Count 3.17 M/mm3 (4.2-5.4); White Blood Count 7.7 K/mm3 (4.4-11.0)
[2024-03-08 06:37] LABS: Anion Gap 9 (5-15); BUN 46 mg/dL (7-18); BUN/Creat Ratio 9.1 RATIO (10-20); Calcium,Total 9.2 mg/dL (8.5-10.1); Chloride 97 mmol/L (98-107); Creatinine, Serum 5.06 mg/dL (0.55-1.02); EST Glomerular Filtration Rate 9 mL/min (>60); Est Glom Filt Rate - Afr Amer 11 mL/min (>60); Estimated Creatinine Clearance 6.37 ml/min; Glucose 97 mg/dL (74-106); Magnesium 2.5 mg/dL (1.6-2.6); Potassium 4.6 mmol/L (3.5-5.1); Sodium Level 134 mmol/L (136-145)
[2024-03-08] MEDS: 0.9% Normal Saline 1,000 ML IV.SOLN. 1000 ML OPERA.SITE (08:10)
[2024-03-08] MEDS: PureFlow B 2K Dialysis Soln 1 BAG 6 BAG PF (08:10)
[2024-03-08] MEDS: amLODIPine 5 MG Tablet PO ×2 (09:34→21:25)
[2024-03-08] MEDS: Losartan Potassium 100 MG Tablet PO (09:34)
[2024-03-08] MEDS: Carvedilol 25 MG Tablet PO ×2 (09:34→21:25)
[2024-03-08] MEDS: Aspirin E.C. 81 MG Tablet PO (09:34)
[2024-03-08] MEDS: Pantoprazole Sodium 40 MG Tablet PO ×2 (09:35→21:25)
--- NOTE | 2024-03-08 10:18 | CASEMGMT ---
RN CM Assessment ? Face to Face with patient for initial?transition planning/care coordination assessment. RN CM introduced self and role at [facility], pt voices understanding. Pt is A&Ox3 and is resting comfortably in bed and is calm. Patient is currently getting dialyzed and states that she prefers this dialysis clinical manager to talk to the patient?s [id number]. Telephone call to patient?s [id number] Lieberman. is the of the patient?s POA, Eliu Lieberman (Son). states that she is more than willing to help answer this dialysis clinical manager's questions for assessment. Care providers, pharmacy, and demographics verified. ? Admitting dx: hypertensive emergency LACE Strata: ?2 PCP: ?Bradley Hardin Specialists: ?Cassius (Nephro), Mariama BERNARDO (Geriatric) Preferred Pharmacy: ?[facility] and [place] Insurance: ?Medicare A/B, [facility] Prescription Benefit: ?Yes LNOK: ?Eliu Lieberman (Son/ POA), Traci Lieberman (DIL) Living Arrangements: ?patient lives alone in a three-story home with a first-floor setup. There is a ramp to enter the front or one small step to enter. ADLs/IADLs:?The patient wants to remain as independent as possible. However, the patient does require some assistance. The patient is active with private duty aid that comes on Tuesdays and . The patient has another son who lives one block over. Eliu also calls the patient three times per day to check on the patient status. The patient is also at [facility] in [facility] Friday from 11 to 7 PM. Transportation: ?the patient has a neighbor friend that she hires to provide transportation. This airport driver provides transportation to dialysis every week. The patient family is also able to provide transportation when needed. DME: ?pulse oximeter, shower chair, lift chair, cane, walker. states that the patient was in the process of getting a medical alert system set up. HHC/SNF: ?patient has a history with [facility]. The patient has a history at [facility]. Patient is active with private duty aides. Pt?s goal:?return to prior level of function Plan: ?at this time, the patient family requests that the patient go to [facility] again for further rehabilitation, prior to returning home. The patient states that she is agreeable to this. states that during her last stay at [facility], the long-term facility was able to provide transportation to [facility]. Telephone call to [facility] who stated that once a discharge plan has been deciphered to call back and give the admissions team the [place] ID [id number] and that they can handle the transfer process from [facility] to [facility]. At this time, the six-click score is 18. Therapy evaluations are pending. Patient and patient [id number] deny any further questions or concerns. Social work has been updated. Chris Haddad RN CM
--- NOTE | 2024-03-08 10:41 | PCM.PN.HOSP ---
Subjective Subjective Doing well, no issues overnight. Denies any chest pain Objective Data Objective Data Vital Signs: Vital Signs Temp Pulse Resp BP Pulse Ox O2 Del Method O2 Flow Rate 98.7 F 84 13 202/100 H 100 Nasal Cannula 2 03/08/24 07:45 03/08/24 10:30 03/08/24 10:30 03/08/24 10:30 03/08/24 10:30 03/08/24 10:30 03/08/24 10:30 FiO2 21 03/08/24 03:00 Oxygen Flow Rate (L/min) 2 Oxygen Delivery Method Nasal Cannula Weight: 117 lb 8.102 oz Body Mass Index (BMI) 24.5 Intake & Output: Intake and Output for Last 24 Hours 03/07/24 03/08/24 03/09/24 03:59 03:59 03:59 Intake Total 250.00 / 250.00 Output Total Balance 250.00 / 250.00 -10 10 Lab / Micro Data 03/08/24 06:10 03/08/24 06:10 Labs: Laboratory Results - last 24 hr 03/07/24 13:40: WBC 10.0, RBC 3.56 L, Hgb 11.4 L, Hct 34.3 L, MCV 96.3, MCH 32.0, MCHC 33.2, RDW Std Deviation 52.0 H, RDW Coeff of Alexus 14.9 H, Plt Count 215, MPV 11.0, Immature Gran % (Auto) 0.500, Neut % (Auto) 84.6 H, Lymph % (Auto) 7.3 L, [place] % (Auto) 4.3, Eos % (Auto) 2.6, Baso % (Auto) 0.7, Absolute Neuts (auto) 8.4 H, Absolute Lymphs (auto) 0.73 L, Nucleated RBC % 0, Sodium 134 L, Potassium 4.3, Chloride 95 L, Carbon Dioxide 29.0, Anion Gap 10, BUN 40 H, Creatinine 4.33 H, Estim Creat Clear Calc 8.14, Est GFR (MDRD) Af Amer 13 L, Est GFR (MDRD) Non-Af 10 L, BUN/Creatinine Ratio 9.2 L, Glucose 126 H, Calcium 9.7, Phosphorus 3.9, Magnesium 2.2, Total Bilirubin 0.80, Direct Bilirubin 0.30, AST 17, ALT 14, Alkaline Phosphatase 129 H, Troponin I High Sens 19, Total Protein 7.4, Albumin 3.8, Globulin 3.6 03/08/24 06:10: WBC 7.7, RBC 3.17 L, Hgb 10.1 L, Hct 30.4 L, MCV 95.9, MCH 31.9, MCHC 33.2, RDW Std Deviation 52.2 H, RDW Coeff of Alexus 14.9 H, Plt Count 201, MPV 10.5, Immature Gran % (Auto) 0.500, Neut % (Auto) 79.9 H, Lymph % (Auto) 10.5 L, [place] % (Auto) 6.2, Eos % (Auto) 2.3, Baso % (Auto) 0.6, Absolute Neuts (auto) 6.2, Absolute Lymphs (auto) 0.81 L, Nucleated RBC % 0, Sodium 134 L, Potassium 4.6, Chloride 97 L, Carbon Dioxide 28.0, Anion Gap 9, BUN 46 H, Creatinine 5.06 H, Estim Creat Clear Calc 6.37, Est GFR (MDRD) Af Amer 11 L, Est GFR (MDRD) Non-Af 9 L, BUN/Creatinine Ratio 9.1 L, Glucose 97, Calcium 9.2, Magnesium 2.5 Radiography Diagnostic Testing: Radiology Impression Chest X-Ray 03/07/24 13:56 IMPRESSION: Bilateral pneumonia. Electronically Signed: John Hernández MD at 15:02 EST , Chest CT 03/07/24 15:19 IMPRESSION: There are bilateral pleural effusions. There is bilateral pneumonia. Electronically Signed: John Hernández MD at 16:19 EST , Physical Exam Narrative General: Alert, Oriented x3, Cooperative, No apparent distress HEENT: Atraumatic, PERRLA, EOMI, Normocephalic Oral: Moist Mucosa Neck: Supple, No JVD Lungs: Diminished, Normal air movement, No rhonchi, No wheeze, No rales Cardiovascular: Regular rate, Regular Rhythm, Normal S1, Normal S2, No murmurs Abdomen: Soft, Non Tender, Non-Distended, No Hepato-splenomegaly Extremities: Edema, Capillary Refill Less than 3 Seconds Skin: No rashes, No breakdown Musculoskeletal: No Tenderness to Palpation of Joints or Extremities Neurological: No focal neurological deficits, Motor Exam 5/5 strength throughout, Sensory exam intact to light touch and pain Psych/Mental Status: Normal Affect, Appropriate Assessment & Plan Assessment/Plan (1) Hypertensive emergency: PLAN: Plan 1. Acute on chronic diastolic CHF with hypertensive emergency/A-fib and sick sinus syndrome status post pacemaker ? Continue with her home blood pressure medications ? Will discontinue the Cardene drip to see how well-controlled her blood pressures on her home medications as there is concern that she was not consistent in taking her home medications ? Repeat echo pending ? Fluid restriction ? Continue with dialysis for end-stage renal disease ? Wean oxygen as able initially on admission she was on BiPAP currently on nasal cannula 2 L 2. 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 Appreciate nephrology's assistance ? Continue with dialysis MWF 3. GERD ? Stable ? Continue with PPI DVT: Lovenox Charges/Coding Visit Charges Inpatient E&M: 42689 Subs Hosp L2
--- NOTE | 2024-03-08 11:08 | PCM.CONS.R ---
Assessment & Plan Assessment/Plan (1) End stage renal disease on dialysis: (2) Hypertensive emergency: (3) Hypertension: PLAN: Plan Impression/Plan: The patient is a 78-year-old female with past history of ESRD status post failed kidney transplantation, hypertension, atrial fibrillation, stroke, and hyperlipidemia. Patient presented to hospital on 03/07/2024 with several days history of increasing leg swelling and dyspnea. Patient was found to be hypoxemic with severe hypertension on evaluation in ED. Patient is admitted to the hospital for treatment of acute hypoxic respiratory failure secondary to pulmonary edema. She was treated with IV nicardipine and volume removal with hemodialysis for hypertensive emergency. Nephrology is following for ESRD and dialysis management. ESRD. The patient usually dialyzes at [facility] on MWF schedule. Patient is followed at outpatient dialysis unit by my partner, Dr. Hammonds. The patient was seen during hemodialysis treatment today. We were able to remove 3.3 L of fluid with ultrafiltration during dialysis. Patient is symptomatically improved with less dyspnea. We will continue dialysis on MWF schedule. Next dialysis is anticipated for 03/10/2024. Acute on chronic hypoxic respiratory failure with pulmonary edema. Continue to ultrafilter patient with hemodialysis. We were able to remove 3.3 L of fluid with ultrafiltration today. Patient is currently on 2 L nasal cannula with good oxygen saturation. Will reevaluate for more UF tomorrow, but we will definitely plan on dialysis with more ultrafiltration on 03/10/2024. Hypertension. Patient presented to hospital with hypertensive emergency with pulmonary edema. She is being treated with dialysis/ultrafiltration as discussed above. Home antihypertensive has been restarted. BP should improve with ultrafiltration/volume management and if she can reliably keep down oral antihypertensives. Continue to monitor BP. HPI Consult Data Date of Consult: 03/08/24 HPI Narrative Reason for Consultation: ESRD. HPI Narrative: The patient is a 78-year-old female with past history of ESRD status post failed kidney transplantation, hypertension, atrial fibrillation, stroke, and hyperlipidemia. The patient presented to hospital on 03/07/2024 with 2 to 3-day history of worsening dyspnea and increasing lower extremity edema. Patient was found to have hypoxemia on evaluation in ED. She was also found to have severe hypertension with BP of 223/135 mmHg. Chest imaging showed bilateral pulmonary edema. Patient is admitted to CVICU for treatment of acute hypoxic respiratory failure attributed to hypertensive emergency. Patient feels better on my visit today. She reports left side chest soreness around the area where pacemaker was placed 2 weeks ago. She denies nausea, vomiting, or diarrhea. Dyspnea and lower extremity edema has subjectively improved. [facility] Medical History Chronic kidney disease Anemia of chronic disease Dyspnea Congestive heart failure End-stage renal disease on hemodialysis Presence of Watchman left atrial appendage closure device Kidney transplant pain Skin cancer CVA (cerebral vascular accident) Hx of gastroesophageal reflux (GERD) GI bleed High cholesterol Vascular dementia Sick sinus syndrome Atrial fibrillation Dialysis patient Chronic renal failure Hypertension Home Medications ?Medication ?Instructions ?Recorded ?Last Taken ?Type aspirin 81 mg tablet,delayed 81 mg PO DAILY 02/08/23 02/08/23 History release (Adult Aspirin Regimen) carvedilol 25 mg tablet 25 mg PO Q12H HTN 02/08/23 02/12/24 History pantoprazole 40 mg tablet,delayed 40 mg PO Q12H 02/08/23 02/12/24 History release fluticasone propionate 50 2 spray intranasal DAILY PRN nasal 03/20/23 03/19/23 History mcg/actuation nasal congestion spray,suspension (Allergy Relief (fluticasone)) clonidine HCl 0.2 mg tablet 0.2 mg PO TID #90 tabs 03/22/23 02/12/24 Rx hydralazine 50 mg tablet 50 mg PO TID 30 days #90 tabs 04/08/23 02/12/24 Rx amlodipine 5 mg tablet 5 mg PO BID #180 tabs 05/15/23 02/12/24 Rx calcium 600 mg (as 1 tab PO DAILY 05/15/23 Unknown History carbonate)-vitamin D3 10 mcg (400 unit) tablet (Calcium with Vitamin D) furosemide 40 mg tablet 40 mg PO BID 05/15/23 Unknown History losartan 100 mg tablet 100 mg PO DAILY 05/15/23 02/12/24 History ondansetron HCl 4 mg tablet 4 mg PO Q8 PRN nausea and vomiting 01/22/24 Unknown History Allergy/AdvReac Type Severity Reaction Status Date / Time caffeine Allergy Mild unknown Verified 03/07/24 13:25 [place] And Derivatives Allergy Mild unknown Verified 03/07/24 13:25 codeine Allergy Mild unknown Verified 03/07/24 13:25 desloratadine Allergy Mild unknown Verified 03/07/24 13:25 glutamine (From Airborne Allergy Mild unknown Verified 03/07/24 13:25 (ascorbate sodium)) herbal complex no.124 (From Allergy Mild unknown Verified 03/07/24 13:25 Airborne (ascorbate sodium)) hydrocodone Allergy Mild unknown Verified 03/07/24 13:25 hydromorphone Allergy Mild unknown Verified 03/07/24 13:25 lysine HCl (From Airborne Allergy Mild unknown Verified 03/07/24 13:25 (ascorbate sodium)) morphine Allergy Mild unknown Verified 03/07/24 13:25 moxifloxacin Allergy Mild unknown Verified 03/07/24 13:25 multivitamin with minerals Allergy Mild unknown Verified 03/07/24 13:25 (From Airborne (ascorbate sodium)) nabumetone Allergy Mild unknown Verified 03/07/24 13:25 oxycodone Allergy Mild unknown Verified 03/07/24 13:25 penicillin G Allergy Mild unknown Verified 03/07/24 13:25 Penicillins Allergy Mild hands blue Verified 03/07/24 13:25 propoxyphene (From Margesic Allergy Mild unknown Verified 03/07/24 13:25 (propoxyphene)) tramadol Allergy Mild unknown Verified 03/07/24 13:25 amiodarone Allergy Unknown unknown Verified 03/07/24 13:25 Opioids - Morphine Analogues Allergy Anaphylaxis Verified 03/07/24 13:25 Surgical History Renal transplant recipient History of hernia repair H/O: hysterectomy Hx of cholecystectomy History of permanent cardiac pacemaker placement Social History (Updated 03/07/24 @ 18:14 by Eliana Potter) household members: none housing: house Smoking Status: Never smoker ROS ROS Narrative As per HPI, otherwise noncontributory Physical Exam Narrative General: Alert and oriented x3, NAD. HEENT: Normocephalic, atraumatic. Mucous membrane moist without erythema. PERRLA, EOMI. Hearing is intact. Neck: Supple, no JVD. Trachea is midline. No thyromegaly or lymphadenopathy. Cardiovascular: Normal S1, S2. No rubs, murmurs, or gallops. Respiratory: Breath sound decreased at bases on auscultation bilaterally. No wheezing. Abdomen: Normal bowel sounds, soft, nontender, no guarding or rebound, no organomegaly. Extremities: No clubbing or cyanosis. There is trace edema of the lower extremities. Musculoskeletal: Full passive range of motion, no joint swelling. Psychiatric: Normal mood and affect. Skin: Warm and dry, no rash. Neurologic: Cranial nerve II to XII are grossly intact. No focal neurologic deficits. Lab / Micro Data 03/08/24 06:10 03/08/24 06:10 Labs: Laboratory Results - last 24 hr 03/07/24 13:40: WBC 10.0, RBC 3.56 L, Hgb 11.4 L, Hct 34.3 L, MCV 96.3, MCH 32.0, MCHC 33.2, RDW Std Deviation 52.0 H, RDW Coeff of Alexus 14.9 H, Plt Count 215, MPV 11.0, Immature Gran % (Auto) 0.500, Neut % (Auto) 84.6 H, Lymph % (Auto) 7.3 L, [place] % (Auto) 4.3, Eos % (Auto) 2.6, Baso % (Auto) 0.7, Absolute Neuts (auto) 8.4 H, Absolute Lymphs (auto) 0.73 L, Nucleated RBC % 0, Sodium 134 L, Potassium 4.3, Chloride 95 L, Carbon Dioxide 29.0, Anion Gap 10, BUN 40 H, Creatinine 4.33 H, Estim Creat Clear Calc 8.14, Est GFR (MDRD) Af Amer 13 L, Est GFR (MDRD) Non-Af 10 L, BUN/Creatinine Ratio 9.2 L, Glucose 126 H, Calcium 9.7, Phosphorus 3.9, Magnesium 2.2, Total Bilirubin 0.80, Direct Bilirubin 0.30, AST 17, ALT 14, Alkaline Phosphatase 129 H, Troponin I High Sens 19, Total Protein 7.4, Albumin 3.8, Globulin 3.6 03/08/24 06:10: WBC 7.7, RBC 3.17 L, Hgb 10.1 L, Hct 30.4 L, MCV 95.9, MCH 31.9, MCHC 33.2, RDW Std Deviation 52.2 H, RDW Coeff of Alexus 14.9 H, Plt Count 201, MPV 10.5, Immature Gran % (Auto) 0.500, Neut % (Auto) 79.9 H, Lymph % (Auto) 10.5 L, [place] % (Auto) 6.2, Eos % (Auto) 2.3, Baso % (Auto) 0.6, Absolute Neuts (auto) 6.2, Absolute Lymphs (auto) 0.81 L, Nucleated RBC % 0, Sodium 134 L, Potassium 4.6, Chloride 97 L, Carbon Dioxide 28.0, Anion Gap 9, BUN 46 H, Creatinine 5.06 H, Estim Creat Clear Calc 6.37, Est GFR (MDRD) Af Amer 11 L, Est GFR (MDRD) Non-Af 9 L, BUN/Creatinine Ratio 9.1 L, Glucose 97, Calcium 9.2, Magnesium 2.5 Imaging Radiology Impression Chest X-Ray 03/07/24 13:56 IMPRESSION: Bilateral pneumonia. Electronically Signed: Jhon Hernández MD at 15:02 EST , Chest CT 03/07/24 15:19 IMPRESSION: There are bilateral pleural effusions. There is bilateral pneumonia. Electronically Signed: John Hernández MD at 16:19 EST ,
[2024-03-08] MEDS: Heparin 10,000 UNITS/10 ML Vial IV (11:13)
[2024-03-08] MEDS: Labetalol (Prefilled) 20 MG/4 ML Vial 10 MG IV (11:24)
[2024-03-08] MEDS: Furosemide 40 MG/4 ML Vial IV ×2 (11:24→17:04)
[2024-03-08] MEDS: Heparin Injection (Vial) 5,000 UNIT/ML VIAL 5000 UNIT SC ×2 (11:24→21:25)
[2024-03-08] MEDS: hydrALAZINE 50 MG Tablet PO ×2 (13:10→21:25)
[2024-03-08] MEDS: cloNIDine HCl 0.2 MG Tablet PO ×2 (13:11→21:24)
--- NOTE | 2024-03-08 14:11 | CASEMGMT ---
Addendum entered by Omayra Weir 03/09/24 12:03: [facility] will arrange transferring pts dialysis to [place]. Omayra Weir DC Planning Asst. Addendum entered by Omayra Weir 03/09/24 11:21: [facility] accepted. Previously declined d/t not seeing pt had traditional MCR. SW updated. Omayra Weir DC Planning Asst. Addendum entered by Omayra Weir 03/08/24 16:04: [facility] declined. SW updated. Omayra Weir DC Planning Asst. Original Note: Discharge Planning Referral sent via [facility]Port to [facility]. Omayra Weir DC Planning Asst.
--- NOTE | 2024-03-08 16:02 | CASEMGMT ---
Discharge Planning A list of?SNF providers including quality and resource use data and consistent with the patient's preferred geographic region, medical needs, and insurance network was created in CarePort Guide.? This list was provided to the SW. Omayra Weir Discharge Planning Asst.
[2024-03-08] MEDS: MELATONIN 3 MG TABLET PO (21:25)
[2024-03-09] VITALS (10 sets, daily range): BP systolic 139–178; BP diastolic 78–96; PULSE 71–94; RESP 11–18; TEMP 36.6–36.8; O2SAT 94–100; BMI 24.0
--- NOTE | 2024-03-09 02:52 | CPS ---
Pt refused bipap tonight , is on 2L nasal o2
[2024-03-09] MEDS: hydrALAZINE 50 MG Tablet PO ×3 (05:54→21:02)
[2024-03-09] MEDS: cloNIDine HCl 0.2 MG Tablet PO ×3 (05:55→21:03)
[2024-03-09 07:15] LABS: Absolute Lymphocyte Count 1.13 X10^3/uL (0.83-4.51); Absolute Neutrophil Count 4.3 X10^3/uL (2.0-7.7); Basophil# 0.05 X10^3/uL; Basophil% 0.8 % (0-1); Eosinophil# 0.28 X10^3/uL; Eosinophils% 4.4 % (0-5); Hematocrit 29.5 % (37-47); Hemoglobin 9.6 g/dL (12.0-15.0); Lymphocyte # 1.13 X10^3/ul (0.83-4.51); Lymphocyte % 17.8 % (19-41); Mean Corp Hgb Conc 32.5 g/dL (32-36); Mean Corpuscular Hgb 31.9 pg (27.0-32.0); Mean Platelet Vol. 11.1 fl (6.2-12.0); Monocyte# 0.54 X10^3/uL; Monocyte% 8.5 % (0-10); NRBC Flagged by Analyzer 0 % (0-5); Neutrophil # 4.33 X10^3/uL (2.7-7.7); Neutrophil % 68.2 % (47-70); Platelet Count 159 K/mm3 (150-450); RBC Distribution Width CV 14.7 % (11.6-14.6); RBC Distribution Width SD 53.1 fl (35.1-43.9); Red Blood Count 3.01 M/mm3 (4.2-5.4); White Blood Count 6.4 K/mm3 (4.4-11.0)
[2024-03-09 07:47] LABS: Anion Gap 7 (5-15); BUN 41 mg/dL (7-18); BUN/Creat Ratio 9.4 RATIO (10-20); Calcium,Total 9.1 mg/dL (8.5-10.1); Chloride 100 mmol/L (98-107); Creatinine, Serum 4.37 mg/dL (0.55-1.02); EST Glomerular Filtration Rate 10 mL/min (>60); Est Glom Filt Rate - Afr Amer 13 mL/min (>60); Estimated Creatinine Clearance 7.38 ml/min; Glucose 99 mg/dL (74-106); Potassium 4.2 mmol/L (3.5-5.1); Sodium Level 134 mmol/L (136-145)
[2024-03-09] MEDS: amLODIPine 5 MG Tablet PO ×2 (09:29→21:03)
[2024-03-09] MEDS: Furosemide 40 MG/4 ML Vial IV ×2 (09:29→17:20)
[2024-03-09] MEDS: Heparin Injection (Vial) 5,000 UNIT/ML VIAL 5000 UNIT SC ×2 (09:29→21:03)
[2024-03-09] MEDS: Carvedilol 25 MG Tablet PO ×2 (09:30→21:03)
[2024-03-09] MEDS: Aspirin E.C. 81 MG Tablet PO (09:30)
[2024-03-09] MEDS: Losartan Potassium 100 MG Tablet PO (09:30)
[2024-03-09] MEDS: Pantoprazole Sodium 40 MG Tablet PO ×2 (09:30→21:03)
--- NOTE | 2024-03-09 09:41 | CASEMGMT ---
SW met with patient per her request. Patient said she wants to know where she is going at discharge. SW let patient know a referral was made to [facility]. Patient wrote this down. Patient was a little confused as she said she hasn't received her new insurance cards yet so she [facility]'t [facility] to the [facility] yet. SW explained to patient that the new insurance she signed up for won't start until Mar 31 2024. Patient talked a lot sharing her story. SW listened and provided emotional support. Patient is in agreement with going to [facility] and doing her dialysis at [place]. Await response from [facility]. Windy Calvo [employer]
--- NOTE | 2024-03-09 11:26 | PN.HOSP_ITS ---
Subjective Subjective Doing well, no issues overnight Objective Data Objective Data Vital Signs: Vital Signs Temp Pulse Resp BP Pulse Ox O2 Del Method O2 Flow Rate 97.8 F 94 11 L 139/92 H 97 Room Air 2 03/09/24 09:23 03/09/24 09:23 03/09/24 09:23 03/09/24 09:23 03/09/24 09:23 03/09/24 10:00 03/08/24 16:00 FiO2 21 03/08/24 03:00 Oxygen Flow Rate (L/min) 2 Oxygen Delivery Method Room Air Weight: 114 lb 3.191 oz Body Mass Index (BMI) 24.0 Intake & Output: Intake and Output for Last 24 Hours 03/08/24 03/09/24 03/10/24 03:59 03:59 03:59 Intake Total 250.00 / 250.00 450 / 450 Output Total 3310 / 3310 Balance 250.00 / 250.00 -2860 / -2860 Lab / Micro Data 03/09/24 06:41 03/09/24 06:41 Labs: Laboratory Results - last 24 hr 03/09/24 06:41: WBC 6.4, RBC 3.01 L, Hgb 9.6 L, Hct 29.5 L, MCV 98.0, MCH 31.9, MCHC 32.5, RDW Std Deviation 53.1 H, RDW Coeff of Alexus 14.7 H, Plt Count 159, MPV 11.1, Immature Gran % (Auto) 0.300, Neut % (Auto) 68.2, Lymph % (Auto) 17.8 L, [place] % (Auto) 8.5, Eos % (Auto) 4.4, Baso % (Auto) 0.8, Absolute Neuts (auto) 4.3, Absolute Lymphs (auto) 1.13, Nucleated RBC % 0, Sodium 134 L, Potassium 4.2, Chloride 100, Carbon Dioxide 27.0, Anion Gap 7, BUN 41 H, Creatinine 4.37 H , Estim Creat Clear Calc 7.38, Est GFR (MDRD) Af Amer 13 L, Est GFR (MDRD) Non- Af 10 L, BUN/Creatinine Ratio 9.4 L, Glucose 99, Calcium 9.1 Radiography Diagnostic Testing: Radiology Impression Echocardiogram 03/07/24 18:04 Interpretation Summary Normal LV size. Mild concentric left ventricular hypertrophy. The left ventricular ejection fraction is 55 %. Bubble contrast study is negative for PFO/ASD. Mild-Moderate (1-2+) eccentric mitral valve insufficiency. Pulmonary artery systolic pressure is 32 mmHg. Ordering Physician: Cynthia Shah Performed By: Ramila Tanner RDCS Physical Exam Narrative General: Alert, Oriented x3, Cooperative, No apparent distress HEENT: Atraumatic, PERRLA, EOMI, Normocephalic Oral: Moist Mucosa Neck: Supple, No JVD Lungs: Diminished, Normal air movement, No rhonchi, No wheeze, No rales Cardiovascular: Regular rate, Regular Rhythm, Normal S1, Normal S2, No murmurs Abdomen: Soft, Non Tender, Non-Distended, No Hepato-splenomegaly Extremities: Edema, Capillary Refill Less than 3 Seconds Skin: No rashes, No breakdown Musculoskeletal: No Tenderness to Palpation of Joints or Extremities Neurological: No focal neurological deficits, Motor Exam 5/5 strength throughout, Sensory exam intact to light touch and pain Psych/Mental Status: Normal Affect, Appropriate Assessment & Plan Assessment/Plan (1) Hypertensive emergency: PLAN: Plan 1. Acute on chronic diastolic CHF with hypertensive emergency/A-fib and sick sinus syndrome status post pacemaker ? Continue with her home blood pressure medications ? Blood pressure does appear to be better controlled on her oral medications when she is consistently taking it. She does have episodes of elevated blood pressures but these are usually occurring immediately prior to the repeat dosing ? Echo with an EF of 55% and a PASP of 32 mmHg, negative for PFO ? Fluid restriction ? Continue with dialysis for end-stage renal disease ? Managing on room air, will transition back to her p.o. Lasix tomorrow 2. 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 Appreciate nephrology's assistance ? Continue with dialysis MWF 3. GERD ? Stable ? Continue with PPI DVT: Biancax Charges/Coding Visit Charges Inpatient E&M: 08328 Subs Hosp L2
--- NOTE | 2024-03-09 12:08 | CASEMGMT ---
[facility] accepted patient. CARLOS called patient's daughter in law letting her know patient was accepted at [facility]. [facility] will arrange for patient's dialysis to be in [place]. CARLOS let know patient will likely be discharged tomorrow. said it is possible that family can take patient to [facility]. Plan: [facility] under skilled level of care. Windy Calvo PRACTICAL NURSING INSTRUCTOR PETE
--- NOTE | 2024-03-09 16:19 | PN_ITS ---
Progress Note Following for ESRD. Physical Exam Narrative General: Alert and oriented x3, NAD. HEENT: Normocephalic, atraumatic. Mucous membrane moist without erythema. PERRLA, EOMI. Hearing is intact. Neck: Supple, no JVD. Trachea is midline. No thyromegaly or lymphadenopathy. Cardiovascular: Normal S1, S2. No rubs, murmurs, or gallops. Respiratory: Breath sound decreased at bases on auscultation bilaterally. No wheezing. Abdomen: Normal bowel sounds, soft, nontender, no guarding or rebound, no organomegaly. Extremities: No clubbing or cyanosis. There is trace edema of the lower extremities. Assessment & Plan Assessment/Plan (1) End stage renal disease on dialysis: (2) Hypertensive emergency: (3) Hypertension: PLAN: Plan Impression/Plan: The patient is a 78-year-old female with past history of ESRD status post failed kidney transplantation, hypertension, atrial fibrillation, stroke, and hyperlipidemia. Patient presented to hospital on 03/07/2024 with several days history of increasing leg swelling and dyspnea. Patient was found to be hypoxemic with severe hypertension on evaluation in ED. Patient is admitted to the hospital for treatment of acute hypoxic respiratory failure secondary to pulmonary edema. She was treated with IV nicardipine and volume removal with hemodialysis for hypertensive emergency. Nephrology is following for ESRD and dialysis management. ESRD. The patient usually dialyzes at [facility] [place] on MWF schedule. Patient is followed at outpatient dialysis unit by my partner, Dr. Hammonds. The patient tolerated dialysis well on 03/08/2024. We were able to remove 3.3 L of fluid with ultrafiltration during dialysis. There is no need for dialysis today. We will continue dialysis on MWF schedule. Next dialysis is anticipated for 03/10/2024. Acute on chronic hypoxic respiratory failure with pulmonary edema. Continue to ultrafilter patient with hemodialysis. We were able to remove 3.3 L of fluid with ultrafiltration on 03/08/2024. She has improved symptomatically, and patient is currently on room air with good oxygen saturation. Will plan on dialysis with more ultrafiltration on 03/10/2024. Hypertension. Patient presented to hospital with hypertensive emergency with pulmonary edema. She is being treated with dialysis/ultrafiltration as discussed above. Continue home antihypertensive has been restarted. BP should improve with ultrafiltration/volume management and if she can reliably keep down oral antihypertensives. Continue to monitor BP.
--- NOTE | 2024-03-09 16:39 | PCM.PN.REN ---
Subjective Subjective Following for ESRD. The patient is frustrated that she has lost her purse and hat when she was admitted. The patient had nausea and vomited x 1 earlier today. She still has dyspnea with exertion. There is no chest pain. Appetite is poor. Objective Data Objective Data Vital Signs: Vital Signs Temp Pulse Resp BP Pulse Ox O2 Del Method O2 Flow Rate 98.2 F 71 14 171/80 H 97 Room Air 2 03/09/24 14:04 03/09/24 14:04 03/09/24 14:04 03/09/24 14:04 03/09/24 15:14 03/09/24 14:04 03/08/24 16:00 FiO2 21 03/08/24 03:00 Oxygen Flow Rate (L/min) 2 Oxygen Delivery Method Room Air Weight: 51.8 kg Body Mass Index (BMI) 24.0 Intake & Output: Intake and Output for Last 24 Hours 03/07/24 03/08/24 03/09/24 23:59 23:59 23:59 Intake Total 168.33 / 218.33 531.67 / 531.67 500 / 500 Output Total 3310 / 3310 Balance 168.33 / 218.33 -2778.33 / -2778.33 500 / 500 Lab / Micro Data 03/09/24 06:41 03/09/24 06:41 Labs: Laboratory Results - last 24 hr 03/09/24 06:41: WBC 6.4, RBC 3.01 L, Hgb 9.6 L, Hct 29.5 L, MCV 98.0, MCH 31.9, MCHC 32.5, RDW Std Deviation 53.1 H, RDW Coeff of Alexus 14.7 H, Plt Count 159, MPV 11.1, Immature Gran % (Auto) 0.300, Neut % (Auto) 68.2, Lymph % (Auto) 17.8 L, [place] % (Auto) 8.5, Eos % (Auto) 4.4, Baso % (Auto) 0.8, Absolute Neuts (auto) 4.3, Absolute Lymphs (auto) 1.13, Nucleated RBC % 0, Sodium 134 L, Potassium 4.2, Chloride 100, Carbon Dioxide 27.0, Anion Gap 7, BUN 41 H, Creatinine 4.37 H, Estim Creat Clear Calc 7.38, Est GFR (MDRD) Af Amer 13 L, Est GFR (MDRD) Non-Af 10 L, BUN/Creatinine Ratio 9.4 L, Glucose 99, Calcium 9.1 Physical Exam Narrative General: Alert and oriented x3, NAD. HEENT: Normocephalic, atraumatic. Mucous membrane moist without erythema. PERRLA, EOMI. Hearing is intact. Neck: Supple, no JVD. Trachea is midline. No thyromegaly or lymphadenopathy. Cardiovascular: Normal S1, S2. No rubs, murmurs, or gallops. Respiratory: Breath sound decreased at bases on auscultation bilaterally. No wheezing. Abdomen: Normal bowel sounds, soft, nontender, no guarding or rebound, no organomegaly. Extremities: No clubbing or cyanosis. There is trace edema of the lower extremities. Assessment & Plan Assessment/Plan (1) End stage renal disease on dialysis: (2) Hypertensive emergency: (3) Hypertension: PLAN: Plan Impression/Plan: The patient is a 78-year-old female with past history of ESRD status post failed kidney transplantation, hypertension, atrial fibrillation, stroke, and hyperlipidemia. Patient presented to hospital on 03/07/2024 with several days history of increasing leg swelling and dyspnea. Patient was found to be hypoxemic with severe hypertension on evaluation in ED. Patient is admitted to the hospital for treatment of acute hypoxic respiratory failure secondary to pulmonary edema. She was treated with IV nicardipine and volume removal with hemodialysis for hypertensive emergency. Nephrology is following for ESRD and dialysis management. ESRD. The patient usually dialyzes at [facility] [place] on MWF schedule. Patient is followed at outpatient dialysis unit by my partner, Dr. Hammonds. The patient tolerated dialysis well on 03/08/2024. We were able to remove 3.3 L of fluid with ultrafiltration during dialysis. There is no need for dialysis today. We will continue dialysis on MWF schedule. Next dialysis is anticipated for 03/10/2024. Acute on chronic hypoxic respiratory failure with pulmonary edema. Continue to ultrafilter patient with hemodialysis. We were able to remove 3.3 L of fluid with ultrafiltration on 03/08/2024. She has improved symptomatically, and patient is currently on room air with good oxygen saturation. Will plan on dialysis with more ultrafiltration on 03/10/2024. Hypertension. Patient presented to hospital with hypertensive emergency with pulmonary edema. She is being treated with dialysis/ultrafiltration as discussed above. Continue home antihypertensive has been restarted. BP should improve with ultrafiltration/volume management and if she can reliably keep down oral antihypertensives. Continue to monitor BP. Nephrology plan was discussed with Dr. Santos.
[2024-03-09] MEDS: Ondansetron 4 MG/2 ML Vial IV (17:20)
--- NOTE | 2024-03-09 19:07 | EKG12_ITS ---
Test Reason : CP Blood Pressure : */* mmHG Vent. Rate : 80 BPM Atrial Rate : * BPM P-R Int : * ms QRS Dur : 86 ms QT Int : 410 ms P-R-T Axes : * 34 11 degrees QTcB Int : 472 ms Atrial fibrillation with frequent ventricular-paced complexes and with premature ventricular or aberr antly conducted complexes T wave abnormality, consider anterior ischemia Prolonged QT Abnormal ECG When compared with ECG of 07-Mar-2024 13:35, Electronic ventricular pacemaker has replaced Atrial fibrillation Confirmed by MK BOLAND, PEARL ([id number]), online content editor SALBADOR YEH ([id number]) on 03/10/2024 2:17:11 PM Referred By: CONOR Confirmed By: PEARL TERRAZAS MD
--- NOTE | 2024-03-09 20:38 | PCM.HOSP.N ---
Hospitalist Note Patient with chest pain, RN noting anxiety. Will obtain repeat troponin, last noted normal x 1. EKG with PAF with rate 80s, notable PVCs. Will await troponin. Will give low dose hydroxyzine x 1.
[2024-03-09] MEDS: hydrOXYzine PAM 25 MG Capsule PO (21:02)
[2024-03-09 21:47] LABS: Troponin-I HS 21 pg/mL (3.0-54.0)
[2024-03-10] VITALS (16 sets, daily range): BP systolic 123–214; BP diastolic 77–112; PULSE 62–88; RESP 14–16; TEMP 36.2–36.8; O2SAT 97–100; BMI 24.2; BMI 23.1
[2024-03-10] MEDS: hydrALAZINE 50 MG Tablet PO ×2 (06:19→14:49)
[2024-03-10] MEDS: cloNIDine HCl 0.2 MG Tablet PO ×2 (06:19→14:49)
[2024-03-10 06:42] LABS: Absolute Lymphocyte Count 1.14 X10^3/uL (0.83-4.51); Absolute Neutrophil Count 2.7 X10^3/uL (2.0-7.7); Basophil# 0.05 X10^3/uL; Basophil% 1.1 % (0-1); Eosinophil# 0.28 X10^3/uL; Eosinophils% 6.1 % (0-5); Hematocrit 26.2 % (37-47); Hemoglobin 8.7 g/dL (12.0-15.0); Lymphocyte # 1.14 X10^3/ul (0.83-4.51); Lymphocyte % 24.8 % (19-41); Mean Corp Hgb Conc 33.2 g/dL (32-36); Mean Corpuscular Hgb 32.1 pg (27.0-32.0); Mean Corpuscular Volume 96.7 fL (81-99); Mean Platelet Vol. 11.4 fl (6.2-12.0); Monocyte# 0.42 X10^3/uL; Monocyte% 9.2 % (0-10); NRBC Flagged by Analyzer 0 % (0-5); Neutrophil # 2.68 X10^3/uL (2.7-7.7); Neutrophil % 58.4 % (47-70); Platelet Count 124 K/mm3 (150-450); RBC Distribution Width CV 14.7 % (11.6-14.6); RBC Distribution Width SD 51.8 fl (35.1-43.9); Red Blood Count 2.71 M/mm3 (4.2-5.4); White Blood Count 4.6 K/mm3 (4.4-11.0)
[2024-03-10 07:23] LABS: Anion Gap 9 (5-15); BUN 52 mg/dL (7-18); BUN/Creat Ratio 9.7 RATIO (10-20); Chloride 100 mmol/L (98-107); Creatinine, Serum 5.35 mg/dL (0.55-1.02); EST Glomerular Filtration Rate 8 mL/min (>60); Est Glom Filt Rate - Afr Amer 10 mL/min (>60); Estimated Creatinine Clearance 6.02 ml/min; Glucose 96 mg/dL (74-106); Potassium 4.3 mmol/L (3.5-5.1); Sodium Level 134 mmol/L (136-145)
[2024-03-10] MEDS: 0.9% Normal Saline 1,000 ML IV.SOLN. 1000 ML OPERA.SITE (10:09)
[2024-03-10] MEDS: PureFlow B 2K Dialysis Soln 1 BAG 6 BAG PF (10:09)
[2024-03-10] MEDS: Heparin 10,000 UNITS/10 ML Vial IV (10:10)
--- NOTE | 2024-03-10 11:00 | PN.RENAL_ITS ---
Subjective Subjective Following for ESRD. Patient was seen to hemodialysis treatment. The patient denies chest pain, dyspnea, or nausea. Objective Data Objective Data Vital Signs: Vital Signs Temp Pulse Resp BP Pulse Ox O2 Del Method O2 Flow Rate 97.1 F L 83 16 203/112 H 97 Room Air 2 03/10/24 08:58 03/10/24 10:45 03/10/24 08:58 03/10/24 10:45 03/10/24 08:58 03/10/24 10:00 03/10/24 03:00 FiO2 21 03/08/24 03:00 Oxygen Flow Rate (L/min) 2 Oxygen Delivery Method Room Air Weight: 52.4 kg Body Mass Index (BMI) 24.2 Intake & Output: Intake and Output for Last 24 Hours 03/08/24 03/09/24 03/10/24 23:59 23:59 23:59 Intake Total 531.67 / 531.67 500 / 500 Output Total 3310 / 3310 Balance -2778.33 / -2778.33 500 / 500 Lab / Micro Data 03/10/24 05:39 03/10/24 05:39 Labs: Laboratory Results - last 24 hr 03/09/24 21:02: Troponin I High Sens 21 03/10/24 05:39: WBC 4.6, RBC 2.71 L, Hgb 8.7 L, Hct 26.2 L, MCV 96.7, MCH 32.1 H , MCHC 33.2, RDW Std Deviation 51.8 H, RDW Coeff of Alexus 14.7 H, Plt Count 124 L, MPV 11.4, Immature Gran % (Auto) 0.400, Neut % (Auto) 58.4, Lymph % (Auto) 24.8, [place] % (Auto) 9.2, Eos % (Auto) 6.1 H, Baso % (Auto) 1.1 H, Absolute Neuts (auto) 2.7, Absolute Lymphs (auto) 1.14, Nucleated RBC % 0, Sodium 134 L, Potassium 4.3, Chloride 100, Carbon Dioxide 26.0, Anion Gap 9, BUN 52 H, C reatinine 5.35 H, Estim Creat Clear Calc 6.02, Est GFR (MDRD) Af Amer 10 L, Est GFR (MDRD) Non-Af 8 L, BUN/Creatinine Ratio 9.7 L, Glucose 96, Calcium 9.0 Physical Exam Narrative General: Alert and oriented x3, NAD. HEENT: Normocephalic, atraumatic. Mucous membrane moist without erythema. PERRLA, EOMI. Hearing is intact. Neck: Supple, no JVD. Trachea is midline. No thyromegaly or lymphadenopathy. Cardiovascular: Normal S1, S2. No rubs, murmurs, or gallops. Respiratory: Breath sound decreased at bases on auscultation bilaterally. No wheezing. Abdomen: Normal bowel sounds, soft, nontender, no guarding or rebound, no organomegaly. Extremities: No clubbing or cyanosis. There is trace edema of the lower extremities. Assessment & Plan Assessment/Plan (1) End stage renal disease on dialysis: (2) Hypertensive emergency: (3) Hypertension: PLAN: Plan Impression/Plan: The patient is a 78-year-old female with past history of ESRD status post failed kidney transplantation, hypertension, atrial fibrillation, stroke, and hyperlipidemia. Patient presented to hospital on 03/07/2024 with several days history of increasing leg swelling and dyspnea. Patient was found to be hypoxemic with severe hypertension on evaluation in ED. Patient is admitted to the hospital for treatment of acute hypoxic respiratory failure secondary to pulmonary edema. She was treated with IV nicardipine and volume removal with hemodialysis for hypertensive emergency. Nephrology is following for ESRD and dialysis management. ESRD. The patient usually dialyzes at [facility] [place] on MWF schedule. Patient is followed at outpatient dialysis unit by my partner, Dr. Hammonds. The patient tolerated dialysis well on 03/08/2024. We were able to remove 3.3 L of fluid with ultrafiltration during dialysis on 03/08/2024. Patient is seen to hemodialysis on her usual treatment today. We are using 3K dialysate. Will plan on ultrafiltering Acute on chronic hypoxic respiratory failure with pulmonary edema. Continue to ultrafilter patient with hemodialysis. We were able to remove 3.3 L of fluid with ultrafiltration on 03/08/2024. She has improved symptomatically, and patient is currently on room air with good oxygen saturation. Will plan on dialysis with more ultrafiltration on 03/10/2024. Hypertension. Patient presented to hospital with hypertensive emergency with pulmonary edema. She is being treated with dialysis/ultrafiltration as discussed above. Continue home antihypertensives. BP should improve with ultrafiltration/volume management and if she can reliably keep down oral antihypertensives. Continue to monitor BP. Nephrology plan was discussed with Dr. Santos.
--- NOTE | 2024-03-10 11:28 | PCM.TXEXTCAR ---
Diet Diet Order/Speech Therapy: 03/08/24 09:59 Diet: Renal - General Food consistency:: Regular Liquid Consistency:: Regular/Thin Type of Dietary Supplement:: 1/2 c EPHP tid -no strbry Fluid restriction:: 1750 mL Diet Comments: EASY TO CHEW MEATS, Distant supervision, lg pills in -no strawberry EPHP Routine Orders/Code Status Routine Lab Work: CBC and BMP Code Status: Full Code DC O2, CPAP, BIPAP needs PSN CPAP & BiPAP: BiPAP & CPAP Settings per PSN Mode BiPAP 03/08/24 01:45 Bipap Delivery Device Face Mask 03/08/24 01:45 BiPAP Inspiratory Pressure 12 03/08/24 01:45 BiPAP Expiratory Pressure 6 03/08/24 01:45 BiPAP Rate 12 03/08/24 01:45 Fraction of Inspired Oxygen ( 21 03/08/24 03:00 FIO2) Additional Home O2 Discharge instructions: No Therapies Physical Therapy: Eval and Treat Occupational Therapy: Eval and Treat Problem/Diagnosis (1) End stage renal disease on dialysis: Status: Acute Code(s): N18.6 - End stage renal disease; Z99.2 - Dependence on renal dialysis (2) Hypertensive emergency: Status: Acute Code(s): I16.1 - Hypertensive emergency (3) Hypertension: Status: Chronic Code(s): I10 - Essential (primary) hypertension Plan 1. Acute on chronic diastolic CHF with hypertensive emergency/A-fib and sick sinus syndrome status post pacemaker ? Continue with her home blood pressure medications ? Blood pressure does appear to be better controlled on her oral medications when she is consistently taking it. She does have episodes of elevated blood pressures but these are usually occurring immediately prior to the repeat dosing ? Echo with an EF of 55% and a PASP of 32 mmHg, negative for PFO ? Fluid restriction ? Continue with dialysis for end-stage renal disease ? Managing on room air, will transition back to her p.o. Lasix tomorrow 2. 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 Appreciate nephrology's assistance ? Continue with dialysis MWF 3. GERD ? Stable ? Continue with PPI DVT: Lovenox Allergies/Procedures Done in Hospital Allergies caffeine Allergy (Mild, Verified 03/07/24 13:25) unknown Norman And Derivatives Allergy (Mild, Verified 03/07/24 13:25) unknown codeine Allergy (Mild, Verified 03/07/24 13:25) unknown desloratadine Allergy (Mild, Verified 03/07/24 13:25) unknown glutamine (From Airborne (ascorbate sodium)) Allergy (Mild, Verified 03/07/24 13:25) unknown herbal complex no.124 (From Airborne (ascorbate sodium)) Allergy (Mild, Verified 03/07/24 13:25) unknown hydrocodone Allergy (Mild, Verified 03/07/24 13:25) unknown hydromorphone Allergy (Mild, Verified 03/07/24 13:25) unknown lysine HCl (From Airborne (ascorbate sodium)) Allergy (Mild, Verified 03/07/24 13:25) unknown morphine Allergy (Mild, Verified 03/07/24 13:25) unknown moxifloxacin Allergy (Mild, Verified 03/07/24 13:25) unknown multivitamin with minerals (From Airborne (ascorbate sodium)) Allergy (Mild, Verified 03/07/24 13:25) unknown nabumetone Allergy (Mild, Verified 03/07/24 13:25) unknown oxycodone Allergy (Mild, Verified 03/07/24 13:25) unknown penicillin G Allergy (Mild, Verified 03/07/24 13:25) unknown Penicillins Allergy (Mild, Verified 03/07/24 13:25) hands blue propoxyphene (From Margesic (propoxyphene)) Allergy (Mild, Verified 03/07/24 13:25) unknown tramadol Allergy (Mild, Verified 03/07/24 13:25) unknown amiodarone Allergy (Unknown, Verified 03/07/24 13:25) unknown Opioids - Morphine Analogues Allergy (Verified 03/07/24 13:25) Anaphylaxis Procedures: 2-D Echocardiogram Type of Care/Length of Stay Estimated LOS: Convalescent Care Less Than 30 days Type of Care Needed: Skilled Rehab Potential: Good Prognosis: Good Additional Orders/Day of Discharge Day of Discharge: 03/10/24 Dietary and Speech Recommendations Dietitian Recommendations/Changes: Continue Renal general / 1750 ml FR/day w/ easy to chew meats per REGIONAL PRODUCTION MANAGER Will order 120 ml ensure plus high protein tid w/ meals per pt request - dislikes strawberry Discharge Plan Admission Admit Date/Time: 03/07/24 16:48 Attending Provider: Eliezer Santos Primary Care Provider: Bradley Hardin Consulting Providers: Cynthia Shah; Anatoliy Hammonds Discharge Orders/Prescriptions Prescriptions: New hydralazine 50 mg Tablet 100 mg PO TID Qty: 0 0RF clonidine HCl 0.2 mg Tablet 0.3 mg PO TID Qty: 0 0RF Continued losartan 100 mg tablet 100 mg PO DAILY furosemide 40 mg tablet 40 mg PO BID calcium carbonate-vitamin D3 [Calcium with Vitamin D] 600 mg-10 mcg (400 unit) tablet 1 tab PO DAILY amlodipine 5 mg tablet 5 mg PO BID Qty: 180 3RF ondansetron HCl 4 mg tablet 4 mg PO Q8 PRN (Reason: nausea and vomiting) carvedilol 25 mg tablet 25 mg PO Q12H aspirin [Adult Aspirin Regimen] 81 mg tablet,delayed release (DR/EC) 81 mg PO DAILY pantoprazole 40 mg tablet,delayed release (DR/EC) 40 mg PO Q12H fluticasone propionate [Allergy Relief (fluticasone)] 50 mcg/actuation spray,suspension 2 spray intranasal DAILY PRN (Reason: nasal congestion) Rx Instructions: administer into each nostril Discontinued clonidine HCl 0.2 mg Tablet 0.2 mg PO TID Qty: 90 1RF hydralazine 50 mg Tablet 50 mg PO TID 30 Days Qty: 90 0RF Referrals / Follow Up: Bradley Hardin MD [Primary Care Provider] - Disposition Disposition (needs filled in before D/C Order can be placed): [facility]
--- NOTE | 2024-03-10 11:53 | CASEMGMT ---
CARLOS received a call from , patient's daughter in law. CARLOS let know that the plan is for patient to be discharged to [facility] today. Patient is currently getting her dialysis. 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 Windy Calvo MOLD CAPPER PETE
--- NOTE | 2024-03-10 12:10 | PHA.DC.MR.R ---
Pharmacy [place] Med Reconciliation Pharmacy Service has performed discharge medication reconciliation for this patient. The patient's discharge medication list was reviewed for discrepancies and discrepancies were resolved. Medications at Discharge Home Medications aspirin 81 mg tablet,delayed release (Adult Aspirin Regimen) 81 mg PO DAILY 02/08/23 carvedilol 25 mg tablet 25 mg PO Q12H HTN 02/08/23 pantoprazole 40 mg tablet,delayed release 40 mg PO Q12H 02/08/23 fluticasone propionate 50 mcg/actuation nasal spray,suspension (Allergy Relief (fluticasone)) 2 spray intranasal DAILY PRN nasal congestion 03/20/23 amlodipine 5 mg tablet 5 mg PO BID #180 tabs 05/15/23 calcium 600 mg (as carbonate)-vitamin D3 10 mcg (400 unit) tablet (Calcium with Vitamin D) 1 tab PO DAILY 05/15/23 furosemide 40 mg tablet 40 mg PO BID 05/15/23 losartan 100 mg tablet 100 mg PO DAILY 05/15/23 ondansetron HCl 4 mg tablet 4 mg PO Q8 PRN nausea and vomiting 01/22/24 clonidine HCl 0.2 mg tablet 0.3 mg (1.5 x 0.2 mg) PO TID #0 tabs 03/10/24 hydralazine 50 mg tablet 100 mg (2 x 50 mg) PO TID #0 tabs 03/10/24 hydroxyzine pamoate 25 mg capsule 25 mg PO QHS PRN anxiety #1 cap 03/10/24
[2024-03-10] MEDS: amLODIPine 5 MG Tablet PO (12:38)
[2024-03-10] MEDS: Carvedilol 25 MG Tablet PO (12:38)
[2024-03-10] MEDS: Pantoprazole Sodium 40 MG Tablet PO (12:38)
[2024-03-10] MEDS: Losartan Potassium 100 MG Tablet PO (12:38)
[2024-03-10] MEDS: Aspirin E.C. 81 MG Tablet PO (12:38)
[2024-03-10] MEDS: Heparin Injection (Vial) 5,000 UNIT/ML VIAL 5000 UNIT SC (12:39)
--- NOTE | 2024-03-10 14:44 | PCM.DC.SUM ---
Providers Date of Admission: 03/07/24 Primary Care Physician: Dr. Bradley Hardin MD Consultations 03/07/24 18:04 Consult: Nephrology Routine Consulting Provider: Anatoliy Hammonds Reason for Consult: ESRD on HD, volume overloaded EMERGENT Consult: No MD Notified: Yes Date Notified: 03/07/24 Time Notified: 18:20 Method of Notification: Answering Service Reason For Visit: HTN EMERGENCY Diagnosis Discharge Diagnosis (1) End stage renal disease on dialysis: Status: Acute Code(s): N18.6 - End stage renal disease; Z99.2 - Dependence on renal dialysis (2) Hypertensive emergency: Status: Acute Code(s): I16.1 - Hypertensive emergency (3) Hypertension: Status: Chronic Code(s): I10 - Essential (primary) hypertension Medications at Discharge Home Medications aspirin 81 mg tablet,delayed release (Adult Aspirin Regimen) 81 mg PO DAILY 02/08/23 carvedilol 25 mg tablet 25 mg PO Q12H HTN 02/08/23 pantoprazole 40 mg tablet,delayed release 40 mg PO Q12H 02/08/23 fluticasone propionate 50 mcg/actuation nasal spray,suspension (Allergy Relief (fluticasone)) 2 spray intranasal DAILY PRN nasal congestion 03/20/23 amlodipine 5 mg tablet 5 mg PO BID #180 tabs 05/15/23 calcium 600 mg (as carbonate)-vitamin D3 10 mcg (400 unit) tablet (Calcium with Vitamin D) 1 tab PO DAILY 05/15/23 furosemide 40 mg tablet 40 mg PO BID 05/15/23 losartan 100 mg tablet 100 mg PO DAILY 05/15/23 ondansetron HCl 4 mg tablet 4 mg PO Q8 PRN nausea and vomiting 01/22/24 clonidine HCl 0.2 mg tablet 0.3 mg (1.5 x 0.2 mg) PO TID #0 tabs 03/10/24 hydralazine 50 mg tablet 100 mg (2 x 50 mg) PO TID #0 tabs 03/10/24 hydroxyzine pamoate 25 mg capsule 25 mg PO QHS PRN anxiety #1 cap 03/10/24 Hospital Course Operations None Procedures 2-D Echocardiogram Summary of Care Provided Minutes Spent on Discharge: 37 Hospital Course: Per HPI: JOVANY HARRIS, is a 78-year-old female with a history of end-stage renal disease on hemodialysis, GERD, hypertension, CHF, A-fib presented [facility] ED with increased shortness of breath and leg swelling. Family went to check on her and given her shortness of breath and leg swelling she was brought to the ED. In triage she was 80% on room air. Blood pressure was as high as 223/135 in the ED and patient initially started on nasal cannula on transition to BiPAP for work of breathing. Troponin within normal limits and chest x-ray showed concerns for bilateral pneumonia but CT chest without contrast obtained that was more consistent with pulmonary edema. Patient treated for hypertensive emergency and placed on Cardene drip and hospitalist contacted for admission. Patient evaluated at bedside with 2 family members present. Reportedly since patient had a pacemaker battery replaced 2 to 3 weeks ago she has had increasing swelling in her lower extremities and had to have extra fluid taken off. Today the what changed was her breathing was significantly worse. Patient denies any productive cough or fevers, reports she gets intermittent diarrhea and intermittent nausea and all of these things are chronic and not necessarily changed. Patient does have some left-sided chest pain but she reports it is due to the pacemaker battery replacement and did not change today. Does have increased swelling in her lower extremities. Patient initially reported she does not urinate much but family at bedside reports she urinates multiple times a day. Patient does report she feels a little bit better on the BiPAP. Hospital Course: 1. Acute on chronic diastolic CHF with hypertensive emergency/A-fib and sick sinus syndrome status post pacemaker?78-year-old female presented to the hospital with signs and symptoms consistent with a CHF exacerbation. Also her blood pressure was significantly elevated over 200 systolic. She was started on a Cardene drip and there was some concern that her hypertension was elevated because of inconsistency in taking her blood pressure medications at home due to concerns for forgetfulness by the family. So her Cardene drip was discontinued within 24 hours and she was started on all of her home medications to see how well her control was at baseline. Her control of her blood pressure was actually fairly good though she would have spikes into the systolics of 180s and 190s so she was continued on all of her current home medications though her clonidine was increased from 0.2 mg 3 times a day to 0.3 mg 3 times a day and her hydralazine was increased from 50 mg p.o. 3 times daily to 100 mg p.o. 3 times daily on discharge. Given her age and likely the duration of her hypertension I did not want to lower her blood pressures too quickly. I discussed with her the plan for discharge today she expressed understanding the risk benefits of going to the care home and would like to go today. Of note echo during this admission with an EF of 55% and a PASP of 32 mmHg. She does tolerate dialysis fairly well and hopefully over the next couple weeks with these medication increases we may have some benefit. She did have some anxiety overnight and was given a dose of hydroxyzine which seemed to help so her daughter requested as needed prescription for hydroxyzine on discharge to the care home today. 2. End-stage renal disease on dialysis the history of a failed renal transplant, GERD are all chronic medical conditions which complicate her care. Her home medications were continued where appropriate. Weight / BMI Weight Weight: 110 lb 3.698 oz Body Mass Index (BMI) 23.1 ABG / Lab / Microbiology Data 03/10/24 05:39 03/10/24 05:39 Laboratory: Laboratory Results - last 24 hr 03/09/24 21:02: Troponin I High Sens 21 03/10/24 05:39: WBC 4.6, RBC 2.71 L, Hgb 8.7 L, Hct 26.2 L, MCV 96.7, MCH 32.1 H, MCHC 33.2, RDW Std Deviation 51.8 H, RDW Coeff of Alexus 14.7 H, Plt Count 124 L, MPV 11.4, Immature Gran % (Auto) 0.400, Neut % (Auto) 58.4, Lymph % (Auto) 24.8, [place] % (Auto) 9.2, Eos % (Auto) 6.1 H, Baso % (Auto) 1.1 H, Absolute Neuts (auto) 2.7, Absolute Lymphs (auto) 1.14, Nucleated RBC % 0, Sodium 134 L, Potassium 4.3, Chloride 100, Carbon Dioxide 26.0, Anion Gap 9, BUN 52 H, Creatinine 5.35 H, Estim Creat Clear Calc 6.02, Est GFR (MDRD) Af Amer 10 L, Est GFR (MDRD) Non-Af 8 L, BUN/Creatinine Ratio 9.7 L, Glucose 96, Calcium 9.0 D/C Instructions DC O2, CPAP, BIPAP Needs PSN CPAP & BiPAP: BiPAP & CPAP Settings per PSN Mode BiPAP 03/08/24 01:45 Bipap Delivery Device Face Mask 03/08/24 01:45 BiPAP Inspiratory Pressure 12 03/08/24 01:45 BiPAP Expiratory Pressure 6 03/08/24 01:45 BiPAP Rate 12 03/08/24 01:45 Fraction of Inspired Oxygen ( 21 03/08/24 03:00 FIO2) Additional Home O2 Discharge instructions: No DC home with Oxygen: No Meaningful Use Info Meaningful Use Meaningful Use Diagnoses (Choose all that apply): None applicable Ischemic Stroke Statin Dosing Therapy Reference: STATIN DOSE THERAPY REFERENCE: * Patients > 75 years receive moderate or high dose statin therapy. * Patients 75 years or YOUNGER should receive HIGH intensity statin dose unless contraindicated. You will be required to document reason for non-treatment if statin daily dose does not meet guidelines. HIGH DOSE STATIN THERAPY DAILY Atorvastatin > than or = to 40 mg Rosuvastatin > than or = to 20 mg Amlodipine + Atorvastatin > than or = to 2.5/40 mg Ezetimibe + Simvastatin 10/80 mg Simvastatin 80mg Discharge Plan Admission Admit Date/Time: 03/07/24 16:48 Attending Provider: Eliezer Santos Primary Care Provider: Bradley Hardin Consulting Providers: Cynthia Shah; Anatoliy Hammonds Discharge Orders/Prescriptions Prescriptions: New hydralazine 50 mg Tablet 100 mg PO TID Qty: 0 0RF clonidine HCl 0.2 mg Tablet 0.3 mg PO TID Qty: 0 0RF hydroxyzine pamoate 25 mg capsule 25 mg PO QHS PRN (Reason: anxiety) Qty: 1 0RF Continued losartan 100 mg tablet 100 mg PO DAILY furosemide 40 mg tablet 40 mg PO BID calcium carbonate-vitamin D3 [Calcium with Vitamin D] 600 mg-10 mcg (400 unit) tablet 1 tab PO DAILY amlodipine 5 mg tablet 5 mg PO BID Qty: 180 3RF ondansetron HCl 4 mg tablet 4 mg PO Q8 PRN (Reason: nausea and vomiting) carvedilol 25 mg tablet 25 mg PO Q12H aspirin [Adult Aspirin Regimen] 81 mg tablet,delayed release (DR/EC) 81 mg PO DAILY pantoprazole 40 mg tablet,delayed release (DR/EC) 40 mg PO Q12H fluticasone propionate [Allergy Relief (fluticasone)] 50 mcg/actuation spray,suspension 2 spray intranasal DAILY PRN (Reason: nasal congestion) Rx Instructions: administer into each nostril Discontinued clonidine HCl 0.2 mg Tablet 0.2 mg PO TID Qty: 90 1RF hydralazine 50 mg Tablet 50 mg PO TID 30 Days Qty: 90 0RF Referrals / Follow Up: Bradley Hardin MD [Primary Care Provider] - Disposition Disposition (needs filled in before D/C Order can be placed): [facility] Charges/Coding Visit Charges Inpatient E&M: 20767 Disch Hosp >30min
[2024-03-10] MEDS: Furosemide 40 MG Tablet PO (14:48)
== END 2024-03-10 17:03 | disposition skilled nursing facility (03) | DRG 291 ==
LOC: ED 16:49 → ICU 17:20 → PCU 03-08 17:50
PROVIDERS: Family Medicine; Admitting Provider Internal Medicine; Emergency Provider Emergency Medicine; PCP Family Medicine; Visit Provider Family Medicine
DX: I13.2 Hypertensive heart and chronic kidney disease with heart failure and with stage 5 chronic kidney disease, or end stage renal disease (principal); I50.33 Acute on chronic diastolic (congestive) heart failure; J96.21 Acute and chronic respiratory failure with hypoxia; N18.6 End stage renal disease; F01.54 Vascular dementia, unspecified severity, with anxiety; I16.1 Hypertensive emergency; Z94.0 Kidney transplant status; Z99.2 Dependence on renal dialysis; I49.5 Sick sinus syndrome; E78.00 Pure hypercholesterolemia, unspecified; K21.9 Gastro-esophageal reflux disease without esophagitis; I48.0 Paroxysmal atrial fibrillation; I49.3 Ventricular premature depolarization; Z79.82 Long term (current) use of aspirin; Z86.73 Personal history of transient ischemic attack (TIA), and cerebral infarction without residual deficits; Z95.0 Presence of cardiac pacemaker; T46.5X6A Underdosing of other antihypertensive drugs, initial encounter; Z91.148 Patient's other noncompliance with medication regimen for other reason
CPT/HCPCS: 36415; 71045; 71250; 80048; 80076; 83735; 84100; 84484; 85025; 90937; 92610; 93005; 93306; 94002; 94003; 97162; 97166; 97530; 99285; J7030; J7050; Q9957; A4216; G0257; J1940; J2405

== ENCOUNTER 2024-04-07 12:11 | Emergency (ER) | payer MEDICARE, OTHER, SELFPAY ==
[2024-04-07 12:13] VITALS: BP 168/81; PULSE 85; RESP 14; TEMP 37.2; O2SAT 94; BMI 26.2
--- NOTE | 2024-04-07 12:19 | ED.RN ---
Dr. Echevarria bedside. Patient states I shouldn't have used a butter knife, I should have used a steak knife. I also tried to bite my tongue off.
--- NOTE | 2024-04-07 12:41 | EKG12_ITS ---
Test Reason : Blood Pressure : */* mmHG Vent. Rate : 79 BPM Atrial Rate : * BPM P-R Int : * ms QRS Dur : 82 ms QT Int : 408 ms P-R-T Axes : * 96 -54 degrees QTcB Int : 467 ms Atrial fibrillation Rightward axis Septal infarct , age undetermined T wave abnormality, consider inferior ischemia Abnormal ECG Confirmed by Milan Garcia ([id number]), news copy editor ANTHONY HIDAGLO ([id number]) on 04/08/2024 10:17:50 AM Referred By: RICK Confirmed By: Milan Garcia
--- NOTE | 2024-04-07 12:55 | RAD_ITS ---
STUDY: X-RAY CHEST REASON FOR EXAM: Female, 78 years old. Hypertension TECHNIQUE: Single AP portable view of the chest. COMPARISON: Comparison is made with prior study dated March 07, 2024. FINDINGS: A right-sided double-lumen catheter seen with the tip at the junction of the superior vena cava and right atrium. There is evidence of vascular congestion and mild degree of CHF. Blunting of both costophrenic angles. Cardiomegaly. A left-sided dual-chamber pacemaker is seen. Normal mediastinum and pari. Normal visualized pulmonary arteries. There is atherosclerotic calcification of the aortic arch with tortuosity. There are degenerative changes of the visualized thoracic spine. Normal visualized ribs, clavicles, and shoulders. There is no demonstrated abnormality of the visualized soft tissue structures of the upper abdomen. RAD/Chest 1 View (Portable) IMPRESSION: Mild cardiomegaly and CHF. Electronically Signed: Pepe Orourke MD at 13:11 EST ,
[2024-04-07 13:24] LABS: Alcohol, Blood (Medical)-Serum < 3.0 mg/dL
[2024-04-07 13:27] LABS: Absolute Lymphocyte Count 0.83 X10^3/uL (0.83-4.51); Absolute Neutrophil Count 4.5 X10^3/uL (2.0-7.7); Basophil# 0.08 X10^3/uL; Basophil% 1.3 % (0-1); Eosinophil# 0.24 X10^3/uL; Eosinophils% 3.9 % (0-5); Hematocrit 29.8 % (37-47); Hemoglobin 10.3 g/dL (12.0-15.0); Lymphocyte # 0.83 X10^3/ul (0.83-4.51); Lymphocyte % 13.6 % (19-41); Mean Corp Hgb Conc 34.6 g/dL (32-36); Mean Corpuscular Hgb 32.4 pg (27.0-32.0); Mean Corpuscular Volume 93.7 fL (81-99); Mean Platelet Vol. 10.6 fl (6.2-12.0); Monocyte# 0.46 X10^3/uL; Monocyte% 7.5 % (0-10); NRBC Flagged by Analyzer 0 % (0-5); Neutrophil # 4.47 X10^3/uL (2.7-7.7); Neutrophil % 73.2 % (47-70); Platelet Count 180 K/mm3 (150-450); RBC Distribution Width CV 13.6 % (11.6-14.6); RBC Distribution Width SD 46.6 fl (35.1-43.9); Red Blood Count 3.18 M/mm3 (4.2-5.4); White Blood Count 6.1 K/mm3 (4.4-11.0)
[2024-04-07 13:33] LABS: AST(SGOT) 21 U/L (15-37); Alanine Aminotransfer ALT/SGPT 17 U/L (13-56); Albumin, Serum 3.9 g/dL (3.2-5.0); Alkaline Phosphatase 118 U/L (45-117); Anion Gap 7 (5-15); BUN 32 mg/dL (7-18); Bilirubin, Direct 0.24 mg/dL (0.00-0.30); Calcium,Total 9.5 mg/dL (8.5-10.1); Chloride 97 mmol/L (98-107); Creatinine, Serum 4.57 mg/dL (0.55-1.02); EST Glomerular Filtration Rate 10 mL/min (>60); Est Glom Filt Rate - Afr Amer 12 mL/min (>60); Estimated Creatinine Clearance 7.76 ml/min; Globulin 3.6 g/dL (2.2-4.2); Glucose 109 mg/dL (74-106); Potassium 4.2 mmol/L (3.5-5.1); Protein, Total 7.5 g/dL (6.4-8.2); Sodium Level 134 mmol/L (136-145)
--- NOTE | 2024-04-07 13:49 | ED.RN ---
Patient states she is unable to make urine due to being a dialysis patient with severely decreased kidney function. Dr. Echevarria notified.
--- NOTE | 2024-04-07 13:57 | EX.ED.DYSGE1 ---
HPI History of Present Illness Chief Complaint: Suicidal Informant: patient, family, EMS and SNF Narrative Narrative: 78-year-old female from [facility] on dialysis (Friday) presenting with suicidal actions. She tells me that she should have used a steak knife. She states that she has spent the better part of the night trying to bite her tongue off in an effort to . Patient has stated that she is on dialysis for a very long time and is tired of it. Family tells me that has recently passed and she has been at [facility] on rehab. She has dementia and her son is now the power of four slide machine operator. Family would like to discuss the possibility of doing hospice as the patient is now refusing any more dialysis treatments. [facility] Medical History History of ESBL E. coli infection End stage renal disease on dialysis Chronic kidney disease Anemia of chronic disease Dyspnea Congestive heart failure End-stage renal disease on hemodialysis Presence of Watchman left atrial appendage closure device Kidney transplant pain Skin cancer CVA (cerebral vascular accident) Hx of gastroesophageal reflux (GERD) GI bleed High cholesterol Vascular dementia Sick sinus syndrome Atrial fibrillation Dialysis patient Chronic renal failure Hypertension Home Medications ?Medication ?Instructions ?Recorded ?Last Taken ?Type aspirin 81 mg tablet,delayed 81 mg PO DAILY 02/08/23 02/08/23 History release (Adult Aspirin Regimen) carvedilol 25 mg tablet 25 mg PO Q12H HTN 02/08/23 02/12/24 History pantoprazole 40 mg tablet,delayed 40 mg PO Q12H 02/08/23 02/12/24 History release fluticasone propionate 50 2 spray intranasal DAILY PRN nasal 03/20/23 03/19/23 History mcg/actuation nasal congestion spray,suspension (Allergy Relief (fluticasone)) amlodipine 5 mg tablet 5 mg PO BID #180 tabs 05/15/23 02/12/24 Rx calcium 600 mg (as 1 tab PO DAILY 05/15/23 Unknown History carbonate)-vitamin D3 10 mcg (400 unit) tablet (Calcium with Vitamin D) furosemide 40 mg tablet 40 mg PO BID 05/15/23 Unknown History losartan 100 mg tablet 100 mg PO DAILY 05/15/23 02/12/24 History ondansetron HCl 4 mg tablet 4 mg PO Q8 PRN nausea and vomiting 01/22/24 Unknown History clonidine HCl 0.2 mg tablet 0.3 mg (1.5 x 0.2 mg) PO TID #0 03/10/24 Unknown Rx tabs hydralazine 50 mg tablet 100 mg (2 x 50 mg) PO TID #0 tabs 03/10/24 Unknown Rx hydroxyzine pamoate 25 mg capsule 25 mg PO BID PRN anxiety #60 caps 03/27/24 Unknown Rx Allergy/AdvReac Type Severity Reaction Status Date / Time caffeine Allergy Mild unknown Verified 03/07/24 13:25 [place] And Derivatives Allergy Mild unknown Verified 03/07/24 13:25 codeine Allergy Mild unknown Verified 03/07/24 13:25 desloratadine Allergy Mild unknown Verified 03/07/24 13:25 glutamine (From Airborne Allergy Mild unknown Verified 03/07/24 13:25 (ascorbate sodium)) herbal complex no.124 (From Allergy Mild unknown Verified 03/07/24 13:25 Airborne (ascorbate sodium)) hydrocodone Allergy Mild unknown Verified 03/07/24 13:25 hydromorphone Allergy Mild unknown Verified 03/07/24 13:25 lysine HCl (From Airborne Allergy Mild unknown Verified 03/07/24 13:25 (ascorbate sodium)) morphine Allergy Mild unknown Verified 03/07/24 13:25 moxifloxacin Allergy Mild unknown Verified 03/07/24 13:25 multivitamin with minerals Allergy Mild unknown Verified 03/07/24 13:25 (From Airborne (ascorbate sodium)) nabumetone Allergy Mild unknown Verified 03/07/24 13:25 oxycodone Allergy Mild unknown Verified 03/07/24 13:25 penicillin G Allergy Mild unknown Verified 03/07/24 13:25 Penicillins Allergy Mild hands blue Verified 03/07/24 13:25 propoxyphene (From Marges[place] Allergy Mild unknown Verified 03/07/24 13:25 (propoxyphene)) tramadol Allergy Mild unknown Verified 03/07/24 13:25 amiodarone Allergy Unknown unknown Verified 03/07/24 13:25 Opioids - Morphine Analogues Allergy Anaphylaxis Verified 03/07/24 13:25 Surgical History Renal transplant recipient History of hernia repair H/O: hysterectomy Hx of cholecystectomy History of permanent cardiac pacemaker placement Social History household members: none housing: house Smoking Status: Never smoker ROS ROS ED Constitutional Constitutional ED: Denies chills or weight loss Eyes Eyes: Denies change in vision or diplopia ENT ENT ED: Denies ear pain, rhinorrhea or sore throat Cardiovascular Cardiovascular: Denies chest pain, orthopnea, palpitations or racing heartbeat Respiratory/Chest Respiratory/Chest: Denies cough, dyspnea or orthopnea Gastrointestinal Gastrointestinal: Denies abdominal pain, diarrhea, nausea or vomiting Genitourinary Genitourinary ED: Denies dysuria, hematuria or urinary frequency Musculoskeletal Musculoskeletal: Denies arthralgias or myalgias Integumentary Reports Abrasions; Denies abscess or rash Neurologic Neurologic: Denies headache(s) or weakness Psychiatric Psychiatric: Reports depression; Denies anxiety, suicidal ideation or suicidal thoughts Endocrine Endocrinology: Denies polydipsia, polyphagia or polyuria Allergic/Immunologic Allergic/Immunologic ED: Denies mouth swelling, tongue swelling or urticaria EXAM Physical Exam Const Vital Signs: 04/07/24 12:13 Temperature 98.9 F Temperature Source Oral Pulse Rate 85 Respiratory Rate 14 Blood Pressure 168/81 H Blood Pressure Mean 110 Pulse Ox 94 Oxygen Delivery Method Room Air Positive well nourished and well developed General Appearance ED: well developed HEENT Reports normocephalic, head/scalp atraumatic and moist mucous membranes Eyes PERRL and EOMs intact bilaterally Neck no lymphadenopathy, supple and no JVD Chest Wall Chest Narrative: Right chest dialysis port Resp normal respiratory effort and clear to auscultation bilaterally Cardio regular rhythm and no murmurs Rhythm: abnormal rhythm irregularly irregular GI normal to inspection, nondistended, normoactive bowel sounds and non-tender Palpation: soft Back/Spine no CVA tenderness and normal ROM Extremity normal to inspection General Extremety ED: Negative for edema General Extremity: Negative for edema Neuro CN's II-XII intact bilaterally Sensorium / Orientation: alert and orientation impaired Motor Exam: strength 5/5 throughout Psych Mood & Affect: depressed; Negative for tearful Skin no rashes or lesions noted Skin Narrative: Superficial abrasions to the right volar wrist MDM MDM MDM Narrative Medical decision making narrative: Differential diagnosis includes abrasions lacerations depression Suicide attempt renal failure electrolyte abnormalities, My independent interpretation of the chest x-ray is no acute process. Psychiatric screening labs were obtained and reviewed. I had social work discussed with the patient and family. They are definitely interested in hospice. Power of four slide machine operator is here and they were the ones to brought up the idea of hospice. We will be discussing with hospice about a potential plan of enrollment. I will update her CODE STATUS in the computer system and fill out a new DNR comfort care form her abrasions will be cleansed and dressed. History & Record Review Discussion w/independent historian: EMS personnel, Patient, Family and Other ([facility]) Lab Data Attestation: I reviewed the patient's lab results. Labs: Laboratory Results - last 24 hr 04/07/24 12:48 WBC 6.1 RBC 3.18 L Hgb 10.3 L Hct 29.8 L MCV 93.7 MCH 32.4 H MCHC 34.6 RDW Std Deviation 46.6 H RDW Coeff of Alexus 13.6 Plt Count 180 MPV 10.6 Immature Gran % (Auto) 0.500 Neut % (Auto) 73.2 H Lymph % (Auto) 13.6 L [place] % (Auto) 7.5 Eos % (Auto) 3.9 Baso % (Auto) 1.3 H Absolute Neuts (auto) 4.5 Absolute Lymphs (auto) 0.83 Nucleated RBC % 0 Sodium 134 L Potassium 4.2 Chloride 97 L Carbon Dioxide 30.0 Anion Gap 7 BUN 32 H Creatinine 4.57 H Estim Creat Clear Calc 7.76 Est GFR (MDRD) Af Amer 12 L Est GFR (MDRD) Non-Af 10 L BUN/Creatinine Ratio 7.0 L Glucose 109 H Calcium 9.5 Total Bilirubin 0.70 Direct Bilirubin 0.24 AST 21 ALT 17 Alkaline Phosphatase 118 H Total Protein 7.5 Albumin 3.9 Globulin 3.6 TSH 4.610 H Ethyl Alcohol < 3.0 Radiography Diagnostic Testing: Clinical Impression(s) from Imaging Studies Chest X-Ray 04/07/24 12:55 IMPRESSION: Mild cardiomegaly and CHF. Electronically Signed: Pepe Orourke MD at 13:11 EST , EKG Initial EKG: Attestation: I personally reviewed and interpreted this EKG as follows: Comments: Atrial fibrillation ventricular rate of 79 beats per Management Discussion w/another healthcare provider: alley worker/Case management Discharge Plan Triage Chief Complaint: Suicidal ED Provider: Amrit Echevarria Dx/Rx/DC Orders Clinical Impression: Dementia, End stage renal failure on dialysis, Depression, Suicide attempt Prescriptions: No Action losartan 100 mg tablet 100 mg PO DAILY furosemide 40 mg tablet 40 mg PO BID calcium carbonate-vitamin D3 [Calcium with Vitamin D] 600 mg-10 mcg (400 unit) tablet 1 tab PO DAILY amlodipine 5 mg tablet 5 mg PO BID Qty: 180 3RF ondansetron HCl 4 mg tablet 4 mg PO Q8 PRN (Reason: nausea and vomiting) carvedilol 25 mg tablet 25 mg PO Q12H aspirin [Adult Aspirin Regimen] 81 mg tablet,delayed release (DR/EC) 81 mg PO DAILY pantoprazole 40 mg tablet,delayed release (DR/EC) 40 mg PO Q12H fluticasone propionate [Allergy Relief (fluticasone)] 50 mcg/actuation spray,suspension 2 spray intranasal DAILY PRN (Reason: nasal congestion) Rx Instructions: administer into each nostril hydralazine 50 mg Tablet 100 mg PO TID Qty: 0 0RF clonidine HCl 0.2 mg Tablet 0.3 mg PO TID Qty: 0 0RF hydroxyzine pamoate 25 mg capsule 25 mg PO BID PRN (Reason: anxiety) Qty: 60 0RF Primary Care Provider: Bradley Hardin Referrals: Bradley Hardin MD [Primary Care Provider] - Print Language: Upper Sorbian
[2024-04-07] MEDS: OLANZapine 2.5 MG Tablet PO (16:02)
--- NOTE | 2024-04-07 16:31 | CM.ED ---
Social Work CARLOS met with JAVI, who is patients son,and DIL. Family states that patient does not want to continue dialysis, that she would like hospice care. Due to this, family states they do not want patient sent for an inpatient psychiatric stay, that they would like a hospice consult. Physician notified and in agreement with families and patients wishes. Hospice consult sent and request made for patient to be evaluated in the Emergency room. Families first preference is that patient is admitted to Hospices Inpatient unit. Should patient not qualify for inpatient unit, family would like patient to return to [facility] under hospice. CARLOS spoke with Loading Supervisor at [facility] who confirmed patient is able to admit back to [facility] under hospice should she not be admitted to Hospice ICU. CARLOS contacted Eliu to let him know that patient would be able to admit back to [facility] if needed. Eliu also notified CARLOS that Hospice would be at the ER to assess patient between 530 - 600pm. Alanis Domínguez, SENIOR SALES ADMINISTRATOR, GEAR ROLLER
--- NOTE | 2024-04-08 08:53 | CM.ED ---
Social work Received handoff from Alanis LOPEZ about patient, requesting this SW call [facility] to inform of patient's admission to Hospice from the ED. Spoke with Belkis from [facility] this morning ([phone]) and confirmed patient's admission to Hospice. No other needs identified at this time. Laila Washington, CLINICAL PROJECT COORDINATOR, PROOF PLATE MAKER
== END 2024-04-07 22:48 | disposition hospice, inpatient (51) ==
LOC: ED 12:55
PROVIDERS: Emergency Provider Emergency Medicine; PCP Family Medicine; Visit Provider Emergency Medicine
DX: T14.91XA Suicide attempt, initial encounter (principal); I13.2 Hypertensive heart and chronic kidney disease with heart failure and with stage 5 chronic kidney disease, or end stage renal disease; N18.6 End stage renal disease; I50.9 Heart failure, unspecified; F03.90 Unspecified dementia, unspecified severity, without behavioral disturbance, psychotic disturbance, mood disturbance, and anxiety; S60.811A Abrasion of right wrist, initial encounter; F32.A Depression, unspecified; E78.00 Pure hypercholesterolemia, unspecified; Z99.2 Dependence on renal dialysis; R45.1 Restlessness and agitation; Z94.0 Kidney transplant status; Z79.82 Long term (current) use of aspirin; Z79.899 Other long term (current) drug therapy; Z86.73 Personal history of transient ischemic attack (TIA), and cerebral infarction without residual deficits; Z95.0 Presence of cardiac pacemaker
CPT/HCPCS: 71045; 80048; 80076; 82077; 84443; 85025; 93005; 99285

== ENCOUNTER 2024-04-30 07:47 | Inpatient (IN) | payer MEDICARE, OTHER, SELFPAY ==
[2024-04-30] VITALS (24 sets, daily range): BP systolic 110–217; BP diastolic 78–158; PULSE 67–130; RESP 14–33; TEMP 36.2–37.2; O2SAT 93–100; BMI 25.5; BMI 25.7
--- NOTE | 2024-04-30 08:07 | EKG12_ITS ---
Test Reason : SOB Blood Pressure : */* mmHG Vent. Rate : 116 BPM Atrial Rate : * BPM P-R Int : * ms QRS Dur : 78 ms QT Int : 360 ms P-R-T Axes : * 17 39 degrees QTcB Int : 500 ms Atrial fibrillation with Premature supraventricular complexes and with occasional Premature ventricular complexes Septal infarct (cited on or before 07-Apr-2024) Abnormal ECG Confirmed by MK BOLAND, PEARL ([id number]), development editor SALBADOR YEH ([id number]) on 05/03/2024 7:02:26 AM Referred By: TL/GC Confirmed By: PEARL TERRAZAS MD
--- NOTE | 2024-04-30 08:07 | RAD_ITS ---
PROCEDURE: CHEST 1 VIEW (PORTABLE) REASON FOR EXAM: Shortness of breath. TECHNIQUE: Frontal view of the chest. COMPARISON: Yesterday Comparison is made with prior study dated March 07, 2024. FINDINGS: A right-sided double-lumen catheter is seen with the tip in the right atrium. EKG electrodes are seen. Since prior study, there has been progressive consolidation in the right lower lobe. Stable atelectasis and/or infiltrate in the left lower lobe. Stable elevation of the right hemidiaphragm with blunting of the right costophrenic angle. Mild cardiomegaly. A left-sided dual-chamber pacemaker is seen. Calcified aortic arch. RAD/Chest 1 View (Portable) IMPRESSION: Progressive right lower lobe infiltrate or mass. Reading Location: [place] [id number]
--- NOTE | 2024-04-30 08:16 | EDS_ITS ---
HPI History of Present Illness Chief Complaint: Shortness of Breath Informant: patient and family (Son Eliu ) Limited: dementia Narrative Narrative: Patient is an 78-year-old female with history of end-stage renal disease on hemodialysis (Friday), atrial fibrillation status post Watchman procedure), valvular heart disease, sick sinus syndrome status post pacemaker (recently replaced a couple months ago) presenting for worsening shortness of breath. Patient's son is her medical power of patent attorney. Patient actually had gone on hospice at the beginning of this month but this was rescinded and patient was made DNR CC. Patient does not know the last time she had dialysis but was due to have dialysis today. She is presenting today with worsening shortness of breath. Patient states he started feeling sick last night. Also reports vomiting and diarrhea. Notes that she normally wears oxygen with dialysis but does not wear it normally. Is not clear if she had her morning medications.Patient was 85% on room air when EMS arrived. Is complain of feeling short of breath. Has chest pain but states it is over her pacemaker. [facility] Medical History History of ESBL E. coli infection End stage renal disease on dialysis Chronic kidney disease Anemia of chronic disease Dyspnea Congestive heart failure End-stage renal disease on hemodialysis Presence of Watchman left atrial appendage closure device Kidney transplant pain Skin cancer CVA (cerebral vascular accident) Hx of gastroesophageal reflux (GERD) GI bleed High cholesterol Vascular dementia Sick sinus syndrome Atrial fibrillation Dialysis patient Chronic renal failure Hypertension Home Medications ?Medication ?Instructions ?Recorded ?Last Taken ?Type aspirin 81 mg tablet,delayed 81 mg PO DAILY 02/08/23 1 04/10/22 History release (Adult Aspirin Regimen) carvedilol 25 mg tablet 25 mg PO Q12H HTN 02/08/23 1 04/13/23 History pantoprazole 40 mg tablet,delayed 40 mg PO Q12H 02/12/24 History release fluticasone propionate 50 2 spray intranasal DAILY PRN nasal 03/20/23 03/19/23 History mcg/actuation nasal congestion spray,suspension (Allergy Relief (fluticasone)) calcium 600 mg (as 1 tab PO DAILY 05/15/23 Unkn own History carbonate)-vitamin D3 10 mcg (400 unit) tablet (Calcium with Vitamin D) furosemide 40 mg tablet 40 mg PO BID 05/15/23 Unknow n History losartan 100 mg tablet 100 mg PO DAILY 05/15/23 History ondansetron HCl 4 mg tablet 4 mg PO Q8 PRN nausea and vomiting 01/22/24 Unknown History clonidine HCl 0.2 mg tablet 0.3 mg (1.5 x 0.2 mg) PO T ID #0 03/10/24 Unknown Rx tabs hydralazine 50 mg tablet 100 mg (2 x 50 mg) PO TID #0 tabs 03/10/24 Unknown Rx hydroxyzine pamoate 25 mg capsule 25 mg PO BID PRN anx iety #60 caps 03/27/24 Unknown Rx mirtazapine 7.5 mg tablet 7.5 mg PO QHS 04/07/24 Unkno wn History trazodone 50 mg tablet 50 mg PO QHS 04/07/24 Unknow n History Allergy/AdvReac Type Severity Reaction Status Date / Time caffeine Allergy Mild unknown Verified 04/30/24 07:52 [place] And Derivatives Allergy Mild unknown Verified 04/30/24 07:52 codeine Allergy Mild unknown Verified 04/30/24 07:52 desloratadine Allergy Mild unknown Verified 04/30/24 07:52 glutamine (From Airborne Allergy Mild unknown Verified 04/30/24 07:52 (ascorbate sodium)) herbal complex no.124 (From Allergy Mild unknown Verified 04/30/24 07:52 Airborne (ascorbate sodium)) hydrocodone Allergy Mild unknown Verified 04/30/24 07:52 hydromorphone Allergy Mild unknown Verified 04/30/24 07:52 lysine HCl (From Airborne Allergy Mild unknown Verified 04/30/24 07:52 (ascorbate sodium)) morphine Allergy Mild unknown Verified 04/30/24 07:52 moxifloxacin Allergy Mild unknown Verified 04/30/24 07:52 multivitamin with minerals Allergy Mild unknown Verified 04/30/24 07:52 (From Airborne (ascorbate sodium)) nabumetone Allergy Mild unknown Verified 04/30/24 07:52 oxycodone Allergy Mild unknown Verified 04/30/24 07:52 penicillin G Allergy Mild unknown Verified 04/30/24 07:52 Penicillins Allergy Mild hands blue Verified 04/30/24 07:52 propoxyphene (From Margesic Allergy Mild unknown Verified 04/30/24 07:52 (propoxyphene)) tramadol Allergy Mild unknown Verified 04/30/24 07:52 amiodarone Allergy Unknown unknown Verified 04/30/24 07:52 Opioids - Morphine Analogues Allergy Anaphylaxis Verified 04/30/24 07:52 Surgical History Renal transplant recipient History of hernia repair H/O: hysterectomy Hx of cholecystectomy History of permanent cardiac pacemaker placement Social History household members: none housing: house Smoking Status: Never smoker ROS ROS ED Review of Systems ROS Unobtainable: other Details: Dementia Respiratory/Chest Respiratory/Chest: Reports dyspnea Gastrointestinal Gastrointestinal: Reports diarrhea and vomiting EXAM Physical Exam Const Vital Signs: 04/30/24 07:48 04/30/24 07:51 04/30/24 07:51 Temperature 98.7 F 98.9 F Temperature Source Oral Oral Pulse Rate 130 H 106 H Respiratory Rate 26 H 28 H Respiratory Effort Short of Breath Respiratory Depth Shallow Respiratory Pattern Tachypnea Blood Pressure 217/158 H 217/158 H Blood Pressure Mean 177 177 Pulse Ox 97 98 Oxygen Delivery Method Non-Rebreather Non-Rebreather Non-Rebreather Oxygen Flow Rate (L/min) 10 10 10 04/30/24 08:05 Temperature Temperature Source Pulse Rate Respiratory Rate Respiratory Effort Respiratory Depth Respiratory Pattern Blood Pressure Blood Pressure Mean Pulse Ox 96 Oxygen Delivery Method Nasal Cannula Oxygen Flow Rate (L/min) 6 Positive unkempt Constitutional Narrative: Chronically ill-appearing General Appearance ED: unkempt HEENT Reports moist mucous membranes Eyes PERRL Neck Neck Narrative: Positive JVD Chest Wall Chest Narrative: Tunneled dialysis catheter present on the right anterior chest. Pacemaker present in the left anterior chest. No overlying redness from the pacemaker Resp Resp Narrative: Tachypneic, diminished breath sounds at the bases. Cardio Rate: tachycardic GI non-tender and non-distended Auscultation: normoactive bowel sounds Extremity normal to inspection General Extremety ED: Negative for tenderness Neuro Sensorium / Orientation: alert, oriented to person and confused Motor Exam: general weakness Psych Appearance: unkempt Mood & Affect: anxious Skin no wounds MDM MDM MDM Narrative Medical decision making narrative: Patient is evaluate for worsening shortness of breath. Upon arrival patient is tachypneic, tachycardic and hypertensive. Does not appear that she had her medications this morning. She says initially on nonrebreather. Patient states she wants everything done. I spoke to her son who states that she is DNR CC but he would like her evaluated and treated if possible. He does not want her to have chest compressions. Son states she is more of a DNR CCA but will discuss further once he arrives. Differential includes fluid overload, electrolyte abnormality, ACS, viral syndrome such as influenza, pneumonia, pneumothorax, pleural effusion and sepsis. Patient is weaned down to 6 L nasal cannula. ABG shows hypoxia but normal pH. Will place the patient on Airvo as I think a little bit of PEEP help with her work of breathing and high flow will be beneficial for her hypoxia. She is not wheezing so I do not think she requires a breathing treatment. Septic/respiratory workup pending at this time. Rhythm Strip Rhythm Strip: Sinus Tach Rate: 116 Ectopy: PVC(s) EKG Initial EKG: Attestation: I personally reviewed and interpreted this EKG as follows: Interpretation: Atrial Fibrillation Comments: Atrial fibrillation at a rate of 116 bpm PVCs present Normal axis Prolonged QTc at [address] segments Prior EKG tracings: available for review Prior: Changed (QTc prolonged compared to prior) Discharge Plan Triage Chief Complaint: Shortness of Breath ED Provider: Mago Pozo Dx/Rx/DC Orders Prescriptions: No Action losartan 100 mg tablet 100 mg PO DAILY furosemide 40 mg tablet 40 mg PO BID calcium carbonate-vitamin D3 [Calcium with Vitamin D] 600 mg-10 mcg (400 unit) tablet 1 tab PO DAILY ondansetron HCl 4 mg tablet 4 mg PO Q8 PRN (Reason: nausea and vomiting) carvedilol 25 mg tablet 25 mg PO Q12H aspirin [Adult Aspirin Regimen] 81 mg tablet,delayed release (DR/EC) 81 mg PO DAILY pantoprazole 40 mg tablet,delayed release (DR/EC) 40 mg PO Q12H fluticasone propionate [Allergy Relief (fluticasone)] 50 mcg/actuation spray,suspension 2 spray intranasal DAILY PRN (Reason: nasal congestion) Rx Instructions: administer into each nostril trazodone 50 mg tablet 50 mg PO QHS mirtazapine 7.5 mg tablet 7.5 mg PO QHS hydralazine 50 mg Tablet 100 mg PO TID Qty: 0 0RF clonidine HCl 0.2 mg Tablet 0.3 mg PO TID Qty: 0 0RF hydroxyzine pamoate 25 mg capsule 25 mg PO BID PRN (Reason: anxiety) Qty: 60 0RF Primary Care Provider: Bradley Hardin Referrals: Bradley Hardin MD [Primary Care Provider] - Print Language: Serbian
--- NOTE | 2024-04-30 08:16 | ED.VIS.DYS ---
HPI History of Present Illness Chief Complaint: Shortness of Breath Informant: patient and family (Son Eliu ) Limited: dementia Narrative Narrative: Patient is an 78-year-old female with history of end-stage renal disease on hemodialysis (Friday), atrial fibrillation status post Watchman procedure), valvular heart disease, sick sinus syndrome status post pacemaker (recently replaced a couple months ago) presenting for worsening shortness of breath. Patient's son is her medical power of real estate attorney. Patient actually had gone on hospice at the beginning of this month but this was rescinded and patient was made DNR CC. Patient does not know the last time she had dialysis but was due to have dialysis today. She is presenting today with worsening shortness of breath. Patient states he started feeling sick last night. Also reports vomiting and diarrhea. Notes that she normally wears oxygen with dialysis but does not wear it normally. Is not clear if she had her morning medications.Patient was 85% on room air when EMS arrived. Is complain of feeling short of breath. Has chest pain but states it is over her pacemaker. PFSH PFS Medical History History of ESBL E. coli infection End stage renal disease on dialysis Chronic kidney disease Anemia of chronic disease Dyspnea Congestive heart failure End-stage renal disease on hemodialysis Presence of Watchman left atrial appendage closure device Kidney transplant pain Skin cancer CVA (cerebral vascular accident) Hx of gastroesophageal reflux (GERD) GI bleed High cholesterol Vascular dementia Sick sinus syndrome Atrial fibrillation Dialysis patient Chronic renal failure Hypertension Home Medications ?Medication ?Instructions ?Recorded ?Last Taken ?Type carvedilol 25 mg tablet 25 mg PO Q12H HTN 02/08/23 02/12/24 History furosemide 40 mg tablet 40 mg PO BID 05/15/23 Unknown History losartan 100 mg tablet 100 mg PO DAILY 05/15/23 02/12/24 History ondansetron HCl 4 mg tablet 4 mg PO Q8 PRN nausea and vomiting 01/22/24 Unknown History clonidine HCl 0.2 mg tablet 0.3 mg (1.5 x 0.2 mg) PO TID #0 03/10/24 Unknown Rx tabs hydralazine 50 mg tablet 100 mg (2 x 50 mg) PO TID #0 tabs 03/10/24 Unknown Rx citalopram 20 mg tablet 20 mg PO DAILY 04/30/24 Unknown History haloperidol 1 mg tablet 1 mg PO Q4H PRN agitation 04/30/24 Unknown History lorazepam 0.5 mg tablet 0.25 mg PO Q2H PRN agitation 04/30/24 Unknown History olanzapine 2.5 mg tablet 2.5 mg PO BID PRN agitation 04/30/24 Unknown History sennosides 8.6 mg-docusate sodium 1 tab-cap PO BID PRN constipation 04/30/24 Unknown History 50 mg tablet (Senexon-S) Allergy/AdvReac Type Severity Reaction Status Date / Time caffeine Allergy Mild unknown Verified 04/30/24 07:52 [place] And Derivatives Allergy Mild unknown Verified 04/30/24 07:52 codeine Allergy Mild unknown Verified 04/30/24 07:52 desloratadine Allergy Mild unknown Verified 04/30/24 07:52 glutamine (From Airborne Allergy Mild unknown Verified 04/30/24 07:52 (ascorbate sodium)) herbal complex no.124 (From Allergy Mild unknown Verified 04/30/24 07:52 Airborne (ascorbate sodium)) hydrocodone Allergy Mild unknown Verified 04/30/24 07:52 hydromorphone Allergy Mild unknown Verified 04/30/24 07:52 lysine HCl (From Airborne Allergy Mild unknown Verified 04/30/24 07:52 (ascorbate sodium)) morphine Allergy Mild unknown Verified 04/30/24 07:52 moxifloxacin Allergy Mild unknown Verified 04/30/24 07:52 multivitamin with minerals Allergy Mild unknown Verified 04/30/24 07:52 (From Airborne (ascorbate sodium)) nabumetone Allergy Mild unknown Verified 04/30/24 07:52 oxycodone Allergy Mild unknown Verified 04/30/24 07:52 penicillin G Allergy Mild unknown Verified 04/30/24 07:52 Penicillins Allergy Mild hands blue Verified 04/30/24 07:52 propoxyphene (From Margesic Allergy Mild unknown Verified 04/30/24 07:52 (propoxyphene)) tramadol Allergy Mild unknown Verified 04/30/24 07:52 amiodarone Allergy Unknown unknown Verified 04/30/24 07:52 Opioids - Morphine Analogues Allergy Anaphylaxis Verified 04/30/24 07:52 Surgical History Renal transplant recipient History of hernia repair H/O: hysterectomy Hx of cholecystectomy History of permanent cardiac pacemaker placement Social History household members: none housing: house Smoking Status: Never smoker ROS ROS ED Review of Systems ROS Unobtainable: other Details: Dementia Respiratory/Chest Respiratory/Chest: Reports dyspnea Gastrointestinal Gastrointestinal: Reports diarrhea and vomiting EXAM Physical Exam Const Vital Signs: 04/30/24 07:48 04/30/24 07:51 04/30/24 07:51 Temperature 98.7 F 98.9 F Temperature Source Oral Oral Pulse Rate 130 H 106 H Respiratory Rate 26 H 28 H Respiratory Effort Short of Breath Respiratory Depth Shallow Respiratory Pattern Tachypnea Blood Pressure 217/158 H 217/158 H Blood Pressure Mean 177 177 Pulse Ox 97 98 Oxygen Delivery Method Non-Rebreather Non-Rebreather Non-Rebreather Oxygen Flow Rate (L/min) 10 10 10 Fraction of Inspired Oxygen (FIO2) 04/30/24 08:05 04/30/24 08:29 04/30/24 08:40 Temperature Temperature Source Pulse Rate 87 Respiratory Rate 33 H Respiratory Effort Respiratory Depth Respiratory Pattern Tachypnea Blood Pressure Blood Pressure Mean Pulse Ox 96 95 96 Oxygen Delivery Method Nasal Cannula Nasal Cannula Oxygen Flow Rate (L/min) 6 6 Fraction of Inspired Oxygen (FIO2) 50 04/30/24 08:51 04/30/24 09:00 04/30/24 10:00 Temperature 98.7 F 98.9 F 98.9 F Temperature Source Oral Oral Oral Pulse Rate 89 77 71 Respiratory Rate 18 18 18 Respiratory Effort Respiratory Depth Respiratory Pattern Blood Pressure 161/116 H 161/111 H 159/96 H Blood Pressure Mean 131 127 117 Pulse Ox 98 100 100 Oxygen Delivery Method Airvo Airvo Room Air Oxygen Flow Rate (L/min) Fraction of Inspired Oxygen (FIO2) Positive unkempt Constitutional Narrative: Chronically ill-appearing General Appearance ED: unkempt HEENT Reports moist mucous membranes Eyes PERRL Neck Neck Narrative: Positive JVD Chest Wall Chest Narrative: Tunneled dialysis catheter present on the right anterior chest. Pacemaker present in the left anterior chest. No overlying redness from the pacemaker Resp Resp Narrative: Tachypneic, diminished breath sounds at the bases. Cardio Rate: tachycardic GI non-tender and non-distended Auscultation: normoactive bowel sounds Extremity normal to inspection General Extremety ED: Negative for tenderness Neuro Sensorium / Orientation: alert, oriented to person and confused Motor Exam: general weakness Psych Appearance: unkempt Mood & Affect: anxious Skin no wounds MDM MDM MDM Narrative Medical decision making narrative: Patient is evaluate for worsening shortness of breath. Upon arrival patient is tachypneic, tachycardic and hypertensive. Does not appear that she had her medications this morning. She says initially on nonrebreather. Patient states she wants everything done. I spoke to her son who states that she is DNR CC but he would like her evaluated and treated if possible. He does not want her to have chest compressions. Son states she is more of a DNR CCA but will discuss further once he arrives. Differential includes fluid overload, electrolyte abnormality, ACS, viral syndrome such as influenza, pneumonia, pneumothorax, pleural effusion and sepsis. Patient is weaned down to 6 L nasal cannula. ABG shows hypoxia but normal pH. Will place the patient on Airvo as I think a little bit of PEEP help with her work of breathing and high flow will be beneficial for her hypoxia. She is not wheezing so I do not think she requires a breathing treatment. Septic/respiratory workup pending at this time. Patient is a mild leukocytosis of 11.9. Is hyponatremic with a sodium of 130. Potassium is normal at 4.5. Does have an elevated lactate of 2.7. On my interpretation patient has a large right-sided infiltrate. This is worse than her chest x-ray 3 weeks ago. Patient is started on azithromycin and Unasyn) to also cover for aspiration). Patient given a dose of IV labetalol in the emergency room with improvement of heart rate and blood pressure. Patient is not given IV fluids as she appears clinically fluid overloaded and has missed dialysis. She is actually hypertensive. Suspect her elevated lactate was from hypoxia and not tissue hypoperfusion from hypovolemia. I had a long conversation with the patient's son who is also her POA. I discussed CODE STATUS and goals of care. At this time we will admit the patient for further treat with IV antibiotics but patient will not be escalated to ICU level of care. Case discussed with hospitalist, Dr. Bates. Patient be kept on Airvo due to it helping significantly with her work of breathing. He will discuss further CODE STATUS with patient's son as well. While in the ER patient has multiple bowel movements. They are not frankly watery but she is having a large amount of bowel movement so stool studies were also sent. Lab Data Attestation: I reviewed the patient's lab results. Labs: Laboratory Results - last 24 hr 04/30/24 08:00 WBC 11.9 H RBC 3.69 L Hgb 12.0 Hct 35.8 L MCV 97.0 MCH 32.5 H MCHC 33.5 RDW Std Deviation 49.8 H RDW Coeff of Alexus 14.7 H Plt Count 308 MPV 11.1 Immature Gran % (Auto) 0.700 Neut % (Auto) 83.1 H Lymph % (Auto) 9.5 L [place] % (Auto) 3.8 Eos % (Auto) 2.3 Baso % (Auto) 0.6 Absolute Neuts (auto) 9.9 H Absolute Lymphs (auto) 1.13 Nucleated RBC % 0 Sodium 130 L Potassium 4.5 Chloride 94 L Carbon Dioxide 25.0 Anion Gap 11 BUN 34 H Creatinine 4.20 H Estim Creat Clear Calc 8.35 Est GFR (MDRD) Af Amer 13 L Est GFR (MDRD) Non-Af 11 L BUN/Creatinine Ratio 8.1 L Glucose 200 H Lactic Acid 2.7 H* Calcium 9.2 Total Bilirubin 0.90 Direct Bilirubin 0.32 H AST 19 ALT 15 Alkaline Phosphatase 112 Troponin I High Sens 22 Total Protein 7.6 Albumin 3.6 Globulin 4.0 ABG Data ABG results: ABG 04/30/24 08:21 Specimen Type ART Sample Site L Brach pH 7.42 Bicarbonate Actual 26.4 H Total CO2 28 Base Excess 2 O2 Saturation 95 O2 % 6.0 ABG pCO2 40.3 ABG pO2 73 L Pravin Test Positive O2 Delivery Device Cannula Vent Mode Not entered Radiography Chest X-Ray - ED: 1 View, Read by ED Physician, Read by Radiologist and Right Infiltrate Diagnostic Testing: Clinical Impression(s) from Imaging Studies Chest X-Ray 04/30/24 08:07 IMPRESSION: Progressive right lower lobe infiltrate or mass. Reading Location: [place] [id number] Rhythm Strip Rhythm Strip: Sinus Tach Rate: 116 Ectopy: PVC(s) EKG Initial EKG: Attestation: I personally reviewed and interpreted this EKG as follows: Interpretation: Atrial Fibrillation Comments: Atrial fibrillation at a rate of 116 bpm PVCs present Normal axis Prolonged QTc at [address] segments Prior EKG tracings: available for review Prior: Changed (QTc prolonged compared to prior) Management Discussion w/another healthcare provider: Hospitalist Critical Care Time Critical Care Time: Yes Critical care time (excluding procedures): 30-74 minutes (35) and Discussing w/Patient &/or Family/Cruise Agent Discharge Plan Dx/Rx/DC Orders Clinical Impression: Pneumonia, Diarrhea, Respiratory failure with hypoxia Disposition Disposition: Acute Care Hospital [facility] Discharge Date/Time: 04/30/24 11:52
[2024-04-30 08:26] LABS: Allen Test Positive; Base Excess 2 mmol/L (-2 to +2); Bicarbonate 26.4 mmol/L (22-26); Blood Gas Specimen Type ART; Mode Not entered; O2 Delivery Device Cannula; PO2 73 mmHG (75-100); SITE L Brach; SO2 95 % (95-99); Total Carbon Dioxide 28 mmol/L; pCO2 40.3 mmHg (35-45); pH 7.42 (7.35-7.45)
[2024-04-30 08:30] LABS: Absolute Lymphocyte Count 1.13 X10^3/uL (0.83-4.51); Absolute Neutrophil Count 9.9 X10^3/uL (2.0-7.7); Basophil# 0.07 X10^3/uL; Basophil% 0.6 % (0-1); Eosinophil# 0.27 X10^3/uL; Eosinophils% 2.3 % (0-5); Hematocrit 35.8 % (37-47); Lymphocyte # 1.13 X10^3/ul (0.83-4.51); Lymphocyte % 9.5 % (19-41); Mean Corp Hgb Conc 33.5 g/dL (32-36); Mean Corpuscular Hgb 32.5 pg (27.0-32.0); Mean Platelet Vol. 11.1 fl (6.2-12.0); Monocyte# 0.45 X10^3/uL; Monocyte% 3.8 % (0-10); NRBC Flagged by Analyzer 0 % (0-5); Neutrophil # 9.87 X10^3/uL (2.7-7.7); Neutrophil % 83.1 % (47-70); Platelet Count 308 K/mm3 (150-450); RBC Distribution Width CV 14.7 % (11.6-14.6); RBC Distribution Width SD 49.8 fl (35.1-43.9); Red Blood Count 3.69 M/mm3 (4.2-5.4); White Blood Count 11.9 K/mm3 (4.4-11.0)
[2024-04-30 08:45] LABS: AST(SGOT) 19 U/L (15-37); Alanine Aminotransfer ALT/SGPT 15 U/L (13-56); Albumin, Serum 3.6 g/dL (3.2-5.0); Alkaline Phosphatase 112 U/L (45-117); Anion Gap 11 (5-15); BUN 34 mg/dL (7-18); BUN/Creat Ratio 8.1 RATIO (10-20); Bilirubin, Direct 0.32 mg/dL (0.00-0.30); Calcium,Total 9.2 mg/dL (8.5-10.1); Chloride 94 mmol/L (98-107); EST Glomerular Filtration Rate 11 mL/min (>60); Est Glom Filt Rate - Afr Amer 13 mL/min (>60); Estimated Creatinine Clearance 8.35 ml/min; Glucose 200 mg/dL (74-106); Potassium 4.5 mmol/L (3.5-5.1); Protein, Total 7.6 g/dL (6.4-8.2); Sodium Level 130 mmol/L (136-145); Troponin-I HS 22 pg/mL (3.0-54.0)
[2024-04-30] MEDS: Metoclopramide 10 MG/2 ML Vial 2.5 MG IV (09:10)
[2024-04-30] MEDS: Ampicillin/Sulbactam 3 GM in 0.9% Normal Saline (100mL MB+) 100 ML IV (09:42)
[2024-04-30 09:55] LABS: Lactic Acid 2.7 mmol/L (0.4-1.9)
--- NOTE | 2024-04-30 10:10 | ED.RN ---
DR. TIJERINA AWARE. OF SEPSIS ALERT. STATES NO NEED FOR FLUID RESUSCITATION AT THIS TIME R/T PT. DIALYSIS
[2024-04-30] MEDS: Azithromycin 500 MG in 0.9% Normal Saline (250mL Bag) 250 ML 255 MG IV (10:30)
--- NOTE | 2024-04-30 11:00 | NURSING ---
MED SURG TERELETSLA RESP FAILURE, PNEUMONIA
[2024-04-30 13:09] LABS: Reflex Lactate? Y
[2024-04-30 14:13] LABS: Lactic Acid 0.9 mmol/L (0.4-1.9)
[2024-04-30] MEDS: Heparin 10,000 UNITS/10 ML Vial 2000 UNITS IV (14:44)
[2024-04-30] MEDS: PureFlow B 2K Dialysis Soln 1 BAG 6 BAG PF (14:45)
[2024-04-30] MEDS: 0.9% Normal Saline 1,000 ML IV.SOLN. 1000 ML OPERA.SITE (14:45)
--- NOTE | 2024-04-30 16:15 | PCM.HP.STD ---
HPI - General General Date of Admission: 04/30/24 Date of Service: 04/30/24 Chief Complaint: Shortness of breath HPI Narrative JOVANY HARRIS, is a 78 F who presents to the emergency room at [facility] with complaints of shortness of breath over the last 12 hours. When squad evaluated the patient at her home she was 85% on room air. Workup in the emergency room included a CBC which showed an elevated white blood cell count 11.9, patient's sodium was 130, creatinine was 4.2 and BUN was 34. Lactic acid was 2.7. Chest x-ray was obtained which showed a progressive right lower lobe infiltrate or masses compared with a prior study on March 07, 2024. Patient was placed on Airvo due to respiratory distress in the emergency room, the emergency room physician had a discussion with the patient's son who is her POA and he requested the patient to be comfort care but wanted her treated. Patient was admitted to PCU for right lower lobe pneumonia and respiratory failure, she will be seen by nephrology because she is a chronic dialysis patient. Patient was placed on IV antibiotics and will receive aerosol treatments. [facility] Medical History History of ESBL E. coli infection End stage renal disease on dialysis Chronic kidney disease Anemia of chronic disease Dyspnea Congestive heart failure End-stage renal disease on hemodialysis Presence of Watchman left atrial appendage closure device Kidney transplant pain Skin cancer CVA (cerebral vascular accident) Hx of gastroesophageal reflux (GERD) GI bleed High cholesterol Vascular dementia Sick sinus syndrome Atrial fibrillation Dialysis patient Chronic renal failure Hypertension Home Medications ?Medication ?Instructions ?Recorded ?Last Taken ?Type carvedilol 25 mg tablet 25 mg PO Q12H HTN 02/08/23 02/12/24 History furosemide 40 mg tablet 40 mg PO BID 05/15/23 Unknown History losartan 100 mg tablet 100 mg PO DAILY 05/15/23 02/12/24 History ondansetron HCl 4 mg tablet 4 mg PO Q8 PRN nausea and vomiting 01/22/24 Unknown History clonidine HCl 0.2 mg tablet 0.3 mg (1.5 x 0.2 mg) PO TID #0 03/10/24 Unknown Rx tabs hydralazine 50 mg tablet 100 mg (2 x 50 mg) PO TID #0 tabs 03/10/24 Unknown Rx citalopram 20 mg tablet 20 mg PO DAILY 04/30/24 Unknown History haloperidol 1 mg tablet 1 mg PO Q4H PRN agitation 04/30/24 Unknown History lorazepam 0.5 mg tablet 0.25 mg PO Q2H PRN agitation 04/30/24 Unknown History olanzapine 2.5 mg tablet 2.5 mg PO BID PRN agitation 04/30/24 Unknown History sennosides 8.6 mg-docusate sodium 1 tab-cap PO BID PRN constipation 04/30/24 Unknown History 50 mg tablet (Senexon-S) Allergy/AdvReac Type Severity Reaction Status Date / Time caffeine Allergy Mild unknown Verified 04/30/24 07:52 [place] [employer] Allergy Mild unknown Verified 04/30/24 07:52 codeine Allergy Mild unknown Verified 04/30/24 07:52 desloratadine Allergy Mild unknown Verified 04/30/24 07:52 glutamine (From Airborne Allergy Mild unknown Verified 04/30/24 07:52 (ascorbate sodium)) herbal complex no.124 (From Allergy Mild unknown Verified 04/30/24 07:52 Airborne (ascorbate sodium)) hydrocodone Allergy Mild unknown Verified 04/30/24 07:52 hydromorphone Allergy Mild unknown Verified 04/30/24 07:52 lysine HCl (From Airborne Allergy Mild unknown Verified 04/30/24 07:52 (ascorbate sodium)) morphine Allergy Mild unknown Verified 04/30/24 07:52 moxifloxacin Allergy Mild unknown Verified 04/30/24 07:52 multivitamin with minerals Allergy Mild unknown Verified 04/30/24 07:52 (From Airborne (ascorbate sodium)) nabumetone Allergy Mild unknown Verified 04/30/24 07:52 oxycodone Allergy Mild unknown Verified 04/30/24 07:52 penicillin G Allergy Mild unknown Verified 04/30/24 07:52 Penicillins Allergy Mild hands blue Verified 04/30/24 07:52 propoxyphene (From Margesic Allergy Mild unknown Verified 04/30/24 07:52 (propoxyphene)) tramadol Allergy Mild unknown Verified 04/30/24 07:52 amiodarone Allergy Unknown unknown Verified 04/30/24 07:52 Opioids - Morphine Analogues Allergy Anaphylaxis Verified 04/30/24 07:52 Surgical History Renal transplant recipient History of hernia repair H/O: hysterectomy Hx of cholecystectomy History of permanent cardiac pacemaker placement Social History household members: none housing: house Smoking Status: Never smoker ROS Review of Systems ROS Unobtainable: due to mental status Vital Signs Vital Signs Vital Signs: 04/30/24 07:48 04/30/24 07:51 04/30/24 07:51 Temperature 98.7 F 98.9 F Temperature Source Oral Oral Pulse Rate 130 H 106 H Respiratory Rate 26 H 28 H Respiratory Effort Short of Breath Respiratory Depth Shallow Respiratory Pattern Tachypnea Blood Pressure 217/158 H 217/158 H Blood Pressure Mean 177 177 Blood Pressure Source Blood Pressure Position Blood Pressure Location Pulse Ox 97 98 Oxygen Delivery Method Non-Rebreather Non-Rebreather Non-Rebreather Oxygen Flow Rate (L/min) 10 10 10 Fraction of Inspired Oxygen (FIO2) 04/30/24 08:05 04/30/24 08:29 04/30/24 08:40 Temperature Temperature Source Pulse Rate 87 Respiratory Rate 33 H Respiratory Effort Respiratory Depth Respiratory Pattern Tachypnea Blood Pressure Blood Pressure Mean Blood Pressure Source Blood Pressure Position Blood Pressure Location Pulse Ox 96 95 96 Oxygen Delivery Method Nasal Cannula Nasal Cannula Oxygen Flow Rate (L/min) 6 6 Fraction of Inspired Oxygen (FIO2) 50 04/30/24 08:51 04/30/24 09:00 04/30/24 10:00 Temperature 98.7 F 98.9 F 98.9 F Temperature Source Oral Oral Oral Pulse Rate 89 77 71 Respiratory Rate 18 18 18 Respiratory Effort Respiratory Depth Respiratory Pattern Blood Pressure 161/116 H 161/111 H 159/96 H Blood Pressure Mean 131 127 117 Blood Pressure Source Blood Pressure Position Blood Pressure Location Pulse Ox 98 100 100 Oxygen Delivery Method Airvo Airvo Room Air Oxygen Flow Rate (L/min) Fraction of Inspired Oxygen (FIO2) 04/30/24 10:53 04/30/24 11:00 04/30/24 11:00 Temperature 98.7 F Temperature Source Pulse Rate 75 85 Respiratory Rate 16 16 Respiratory Effort Respiratory Depth Respiratory Pattern Blood Pressure 181/98 H 170/102 H Blood Pressure Mean 125 124 Blood Pressure Source Blood Pressure Position Blood Pressure Location Pulse Ox 98 95 Oxygen Delivery Method Airvo Room Air Oxygen Flow Rate (L/min) 45 Fraction of Inspired Oxygen (FIO2) 04/30/24 11:01 04/30/24 11:02 04/30/24 12:09 Temperature 98.9 F 97.2 F L Temperature Source Oral Axillary Pulse Rate 79 68 80 Respiratory Rate 26 H 16 22 H Respiratory Effort Respiratory Depth Respiratory Pattern Blood Pressure 181/78 H 147/109 H Blood Pressure Mean 112 121 Blood Pressure Source Monitor Blood Pressure Position Sitting Blood Pressure Location Right Arm Pulse Ox 100 98 99 Oxygen Delivery Method Room Air Nasal Cannula Oxygen Flow Rate (L/min) 6 Fraction of Inspired Oxygen (FIO2) 45 04/30/24 12:34 04/30/24 12:34 04/30/24 13:30 Temperature 98 F 98.1 F 98 F Temperature Source Oral Oral Oral Pulse Rate 67 80 69 Respiratory Rate 18 14 16 Respiratory Effort Short of Breath Short of Breath Short of Breath Respiratory Depth Respiratory Pattern Blood Pressure 131/100 H 187/118 H 163/126 H Blood Pressure Mean 110 141 138 Blood Pressure Source Monitor Monitor Monitor Blood Pressure Position Semi-Fowlers Semi-Fowlers Semi-Fowlers Blood Pressure Location Right Arm Right Arm Right Arm Pulse Ox 100 100 Oxygen Delivery Method Nasal Cannula Nasal Cannula Nasal Cannula Oxygen Flow Rate (L/min) 6 2 4 Fraction of Inspired Oxygen (FIO2) 04/30/24 13:49 04/30/24 13:57 04/30/24 14:30 Temperature Temperature Source Pulse Rate 76 89 Respiratory Rate 16 14 Respiratory Effort Short of Breath Non-Labored Respiratory Depth Respiratory Pattern Blood Pressure 183/98 H 183/116 H Blood Pressure Mean 126 138 Blood Pressure Source Monitor Monitor Blood Pressure Position Semi-Fowlers Semi-Fowlers Blood Pressure Location Right Arm Right Arm Pulse Ox 99 100 Oxygen Delivery Method Nasal Cannula Nasal Cannula Nasal Cannula Oxygen Flow Rate (L/min) 6 4 4 Fraction of Inspired Oxygen (FIO2) 04/30/24 15:00 04/30/24 15:04 Temperature Temperature Source Pulse Rate 80 93 Respiratory Rate 14 16 Respiratory Effort Non-Labored Non-Labored Respiratory Depth Respiratory Pattern Blood Pressure 176/119 H 203/124 H Blood Pressure Mean 138 150 Blood Pressure Source Monitor Monitor Blood Pressure Position Semi-Fowlers Semi-Fowlers Blood Pressure Location Right Arm Right Arm Pulse Ox 100 100 Oxygen Delivery Method Nasal Cannula Nasal Cannula Oxygen Flow Rate (L/min) 4 2 Fraction of Inspired Oxygen (FIO2) Weight Weight: 55.5 kg Body Mass Index (BMI) 25.7 Physical Exam Const alert and no apparent distress Constitutional Narrative: Patient appears older than her stated age General Appearance: cooperative, well kempt and well developed Orientation / Consciousness: awake, oriented to person and oriented to place HEENT normocephalic, head/scalp atraumatic, hearing grossly normal bilaterally and moist oral mucous membranes Eyes PERRL, EOMs intact bilaterally and conjunctivae normal Neck supple, no JVD, thyroid normal and no carotid bruits General: trachea midline Resp normal respiratory effort Resp Narrative: Patient has use of accessory muscles and has visible retractions, breath sounds are diminished bilaterally Auscultation: Negative for rales, rhonchi or wheezes Cardio S1 normal heart sound, S2 normal heart sound, no murmurs, no rub and no gallops Cardio Narrative: Heart rate and rhythm is irregular GI normal to inspection, nondistended, normoactive bowel sounds, soft to palpation, non-tender and non-distended Extremity no clubbing, cyanosis or edema Skin no rashes or lesions noted General Skin Exam: no breakdown Neuro CN's II-XII intact bilaterally, moves all extremities, no focal motor deficits and no sensory deficits noted Sensorium / Orientation: awake, alert, oriented to person and oriented to place Speech: speech normal Psych affect normal Results Lab / Micro Data 04/30/24 08:00 04/30/24 08:00 Labs: Laboratory Results - last 24 hr 04/30/24 08:00: WBC 11.9 H, RBC 3.69 L, Hgb 12.0, Hct 35.8 L, MCV 97.0, MCH 32.5 H, MCHC 33.5, RDW Std Deviation 49.8 H, RDW Coeff of Alexus 14.7 H, Plt Count 308, MPV 11.1, Immature Gran % (Auto) 0.700, Neut % (Auto) 83.1 H, Lymph % (Auto) 9.5 L, [place] % (Auto) 3.8, Eos % (Auto) 2.3, Baso % (Auto) 0.6, Absolute Neuts (auto) 9.9 H, Absolute Lymphs (auto) 1.13, Nucleated RBC % 0, Sodium 130 L, Potassium 4.5, Chloride 94 L, Carbon Dioxide 25.0, Anion Gap 11, BUN 34 H, Creatinine 4.20 H, Estim Creat Clear Calc 8.35, Est GFR (MDRD) Af Amer 13 L, Est GFR (MDRD) Non-Af 11 L, BUN/Creatinine Ratio 8.1 L, Glucose 200 H, Lactic Acid 2.7 H*, Calcium 9.2, Total Bilirubin 0.90, Direct Bilirubin 0.32 H, AST 19, ALT 15, Alkaline Phosphatase 112, Troponin I High Sens 22, Total Protein 7.6, Albumin 3.6, Globulin 4.0 04/30/24 13:09: Lactic Acid 0.9 Micro: Microbiology 04/30/24 10:09 Stool Stool Lactoferrin - Final 04/30/24 10:09 Stool Enteric Bacteriology - Final 04/30/24 10:09 Stool Clostridioides difficile (PCR) - Final 04/30/24 08:57 Mucosa - Nose SARS-CoV-2, Influenza & RSV (PCR) - Final ABG Data ABG results: ABG 04/30/24 08:21 Specimen Type ART Sample Site L Brach pH 7.42 Bicarbonate Actual 26.4 H Total CO2 28 Base Excess 2 O2 Saturation 95 O2 % 6.0 ABG pCO2 40.3 ABG pO2 73 L Pravin Test Positive O2 Delivery Device Cannula Vent Mode Not entered Rhythm Strip Rhythm Strip: Sinus Tach Rate: 116 Ectopy: PVC(s) Imaging Radiology Impression Chest X-Ray 04/30/24 08:07 IMPRESSION: Progressive right lower lobe infiltrate or mass. Reading Location: [facility] Assessment & Plan Assessment/Plan (1) Pneumonia: PLAN: Plan 1. Right lower lobe pneumonia-patient will be admitted to PCU, patient was placed on IV Unasyn and azithromycin, she will receive aerosol treatments, urine for strep and Legionella was ordered #2 acute hypoxic respiratory failure-patient was currently on Airvo at the time of her transfer to PCU, pulse ox will be monitored, patient is a DNR CC arrest no intubation #3 chronic atrial fibrillation-patient is on rate control medication #4 end-stage renal disease requiring chronic dialysis-nephrology will see the patient, she will undergo dialysis today #5 dementia-complicates care, management, recovery, and prognosis Total clinical time spent by myself addressing patient's medical issues, reviewing all of her data, and collaborating with patient's care team: 75 minutes Charges/Coding Visit Charges Inpatient E&M: 93452 Init Hosp L3
[2024-04-30] MEDS: Carvedilol 25 MG Tablet PO (16:18)
[2024-04-30] MEDS: hydrALAZINE 50 MG Tablet 100 MG PO ×2 (16:18→21:13)
[2024-04-30] MEDS: cloNIDine HCl 0.1 MG Tablet 0.3 MG PO ×2 (16:18→21:12)
[2024-04-30] MEDS: Albuterol 2.5 MG/3 ML VIAL.NEB. INHALATION (19:19)
[2024-04-30] MEDS: Furosemide 40 MG Tablet PO (21:13)
[2024-04-30] MEDS: Heparin Injection (Vial) 5,000 UNIT/ML VIAL 5000 UNIT SC (21:13)
[2024-05-01] VITALS (15 sets, daily range): BP systolic 140–170; BP diastolic 78–117; PULSE 73–87; RESP 16–18; TEMP 35.8–37.2; O2SAT 92–100
--- NOTE | 2024-05-01 03:43 | NURSING ---
pt agitated, yelling out, causing RNs on the unit to shut other patient room doors'. pt refusing breathing tx and any po medication at this time. one time ativan order per dr d to reduce patients anxiety and agitation
[2024-05-01] MEDS: Albuterol 2.5 MG/3 ML VIAL.NEB. INHALATION ×3 (03:53→19:04)
[2024-05-01] MEDS: hydrALAZINE 50 MG Tablet 100 MG PO ×3 (04:42→21:00)
[2024-05-01] MEDS: cloNIDine HCl 0.1 MG Tablet 0.3 MG PO ×3 (04:42→21:00)
[2024-05-01 08:22] LABS: Absolute Lymphocyte Count 0.89 X10^3/uL (0.83-4.51); Absolute Neutrophil Count 3.7 X10^3/uL (2.0-7.7); Basophil# 0.03 X10^3/uL; Basophil% 0.6 % (0-1); Eosinophil# 0.07 X10^3/uL; Eosinophils% 1.4 % (0-5); Hematocrit 29.8 % (37-47); Hemoglobin 9.7 g/dL (12.0-15.0); Lymphocyte # 0.89 X10^3/ul (0.83-4.51); Lymphocyte % 17.5 % (19-41); Mean Corp Hgb Conc 32.6 g/dL (32-36); Mean Corpuscular Hgb 32.1 pg (27.0-32.0); Mean Corpuscular Volume 98.7 fL (81-99); Mean Platelet Vol. 10.6 fl (6.2-12.0); Monocyte# 0.44 X10^3/uL; Monocyte% 8.6 % (0-10); NRBC Flagged by Analyzer 0 % (0-5); Neutrophil # 3.65 X10^3/uL (2.7-7.7); Neutrophil % 71.5 % (47-70); Platelet Count 144 K/mm3 (150-450); RBC Distribution Width CV 14.7 % (11.6-14.6); RBC Distribution Width SD 51.4 fl (35.1-43.9); Red Blood Count 3.02 M/mm3 (4.2-5.4); White Blood Count 5.1 K/mm3 (4.4-11.0)
[2024-05-01] MEDS: Ampicillin/Sulbactam 3 GM in 0.9% Normal Saline (100mL MB+) 100 ML IV (08:29)
[2024-05-01] MEDS: 0.9% Saline Lock 10 ML Syringe IV (08:30)
[2024-05-01] MEDS: Carvedilol 25 MG Tablet PO ×2 (08:46→17:53)
--- NOTE | 2024-05-01 09:48 | CASEMGMT ---
Social Work SW called pt's son and ILAN Nowak to review discharge plan. Eliu states he would prefer pt to return to [facility] at discharge. Pt has been there just for 3 weeks. Pt's son explains pt was at [place] for three weeks, then his home briefly, and has been at [facility] for three weeks. He states pt wants to go home but this is no longer possible. SW offered support to son. SW explained as per physician pt will be here through the weekend. We will send updates to [facility] to see if pt can return, and CARLOS on Friday will follow up w/him. Son is open to SNF if it is needed, but would prefer pt just return to [facility]. SW called [facility], faxed updates. PT/OT are pending. CARLOS will follow up on Friday. AUTUMN Todd
[2024-05-01] MEDS: Azithromycin 500 MG in 0.9% Normal Saline (250mL Bag) 250 ML 255 MG IV (10:02)
[2024-05-01] MEDS: Heparin Injection (Vial) 5,000 UNIT/ML VIAL 5000 UNIT SC ×2 (10:04→21:01)
[2024-05-01] MEDS: Citalopram 20 MG Tablet PO (10:05)
[2024-05-01] MEDS: Furosemide 40 MG Tablet PO ×2 (10:05→21:00)
[2024-05-01] MEDS: Losartan Potassium 100 MG Tablet PO (10:06)
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
--- NOTE | 2024-05-01 11:11 | CT_ITS ---
PROCEDURE: CHEST WITHOUT CONTRAST REASON FOR EXAM: Pneumonia TECHNIQUE: Chest CT without contrast. COMPARISON: None. FINDINGS: Hardware: None. Prominent coronary artery calcifications. Multi chamber cardiomegaly. No pericardial effusion. Prominent atheromatous vascular calcifications primarily affecting the aortic arch. No aneurysmal disease of the aorta. Mildly prominent mediastinal lymphadenopathy is noted for example in the paratracheal space anteriorly. Diffuse mosaic attenuation of the lungs with moderate right small left pleural effusion and adjacent confluence bibasilar airspace consolidations. Correlate for multifocal infectious process. Upper Abdomen: Visualized portions of the upper abdominal viscera are unremarkable. Bones: Bone windows are unremarkable. CT/Chest without Contrast IMPRESSION: Bilateral pleural-parenchymal disease as described above including dense bibasi lar consolidations in mildly prominent mediastinal lymphadenopathy. Repeat imaging following treatment is recommended to ensure r esolution of imaging findings. One or more dose reduction techniques were used (e.g., Automated exposure contr ol, adjustment of the mA and/or kV according to patient size, use of iterative reconstruction technique). Reading Location: [facility]
--- NOTE | 2024-05-01 11:12 | PCM.PN.HOSP ---
Reason for Visit Reason for Visit: Diagnoses Pneumonia, unspecified organism (04/30/24) Subjective Subjective Patient was seen and examined today, she is alert and appears appropriate and carries on a conversation without difficulty. Patient's white blood cell count was normal today. Objective Data Objective Data Vital Signs: Vital Signs Temp Pulse Resp BP Pulse Ox O2 Del Method O2 Flow Rate 98.3 F 76 18 155/91 H 97 Room Air 2 05/01/24 08:42 05/01/24 08:42 05/01/24 10:00 05/01/24 08:42 05/01/24 09:27 05/01/24 10:00 05/01/24 09:27 FiO2 45 04/30/24 11:01 Oxygen Flow Rate (L/min) 2 Oxygen Delivery Method Room Air Weight: 55.5 kg Body Mass Index (BMI) 25.7 Intake & Output: Intake and Output for Last 24 Hours 04/29/24 04/30/24 05/01/24 23:59 23:59 23:59 Intake Total 467 / 707 240 / 240 Output Total 1750 / 1750 Balance -1283 / -1043 240 / 240 Lab / Micro Data 05/01/24 08:00 04/30/24 08:00 Labs: Laboratory Results - last 24 hr 04/30/24 13:09: Lactic Acid 0.9 05/01/24 05:15: WBC Cancelled, Corrected WBC Cancelled, RBC Cancelled, Hgb Cancelled, Hct Cancelled, MCV Cancelled, MCH Cancelled, MCHC Cancelled, RDW Std Deviation Cancelled, RDW Coeff of Alexus Cancelled, Plt Count Cancelled, MPV Cancelled, Immature Gran % (Auto) Cancelled, Neut % (Auto) Cancelled, Lymph % (Auto) Cancelled, [place] % (Auto) Cancelled, Eos % (Auto) Cancelled, Baso % (Auto) Cancelled, Absolute Neuts (auto) Cancelled, Absolute Lymphs (auto) Cancelled, Total Counted Cancelled, Neutrophils % (Manual) Cancelled, Band Neutrophils % Cancelled, Lymphocytes % (Manual) Cancelled, Monocytes % (Manual) Cancelled, Eosinophils % (Manual) Cancelled, Basophils % (Manual) Cancelled, Metamyelocytes % Cancelled, Myelocytes % Cancelled, Promyelocytes % Cancelled, Blast Cells % Cancelled, Plasma Cell % (Manual) Cancelled, Other Cells % Cancelled, Nucleated RBC % Cancelled, Nucleated RBCs/100 WBC Cancelled, Differential Comment Cancelled, Diff Path Review Cancelled, Hypersegmented Neuts Cancelled, Atypical Lymphocytes Cancelled, Reactive Lymphocytes Cancelled, Smudge Cells Cancelled, Toxic Granulation Cancelled, Toxic Vacuolation Cancelled, Dohle Bodies Cancelled, Maren Rods Cancelled, Platelet Estimate Cancelled, Plt Morphology Comment Cancelled, RBC Morphology Cancelled 05/01/24 05:15: RBC Morphology Cancelled, Polychromasia Cancelled, Hypochromasia Cancelled, Basophilic Stippling Cancelled, Anisocytosis Cancelled, Microcytosis Cancelled, Macrocytosis Cancelled, Spherocytes Cancelled, Sickle Cells Cancelled, Target Cells Cancelled, Tear Drop Cells Cancelled, Ovalocytes Cancelled, Stomatocytes Cancelled, [place] Bodies Cancelled, [place] Cells Cancelled, Bite Cells Cancelled, Crenated Cell Cancelled, Acanthocytes (Spur) Cancelled, Rouleaux Cancelled, Schistocytes Cancelled 05/01/24 08:00: WBC 5.1, RBC 3.02 L, Hgb 9.7 L, Hct 29.8 L, MCV 98.7, MCH 32.1 H, MCHC 32.6, RDW Std Deviation 51.4 H, RDW Coeff of Alexus 14.7 H, Plt Count 144 L, MPV 10.6, Immature Gran % (Auto) 0.400, Neut % (Auto) 71.5 H, Lymph % (Auto) 17.5 L, [place] % (Auto) 8.6, Eos % (Auto) 1.4, Baso % (Auto) 0.6, Absolute Neuts (auto) 3.7, Absolute Lymphs (auto) 0.89, Nucleated RBC % 0 Micro: Microbiology 04/30/24 10:09 Stool Stool Lactoferrin - Final 04/30/24 10:09 Stool Enteric Bacteriology - Final 04/30/24 10:09 Stool Clostridioides difficile (PCR) - Final 04/30/24 08:57 Mucosa - Nose SARS-CoV-2, Influenza & RSV (PCR) - Final Rhythm Strip Rhythm Strip: Sinus Tach Rate: 116 Ectopy: PVC(s) Physical Exam Narrative alert and no apparent distress Constitutional Narrative: Patient appears older than her stated age General Appearance: cooperative, well kempt and well developed Orientation / Consciousness: awake, oriented to person and oriented to place HEENT normocephalic, head/scalp atraumatic, hearing grossly normal bilaterally and moist oral mucous membranes Eyes PERRL, EOMs intact bilaterally and conjunctivae normal Neck supple, no JVD, thyroid normal and no carotid bruits General: trachea midline Resp normal respiratory effort Resp Narrative: Patient has use of accessory muscles and has visible retractions, breath sounds are diminished bilaterally Auscultation: Negative for rales, rhonchi or wheezes Cardio S1 normal heart sound, S2 normal heart sound, no murmurs, no rub and no gallops Cardio Narrative: Heart rate and rhythm is irregular GI normal to inspection, nondistended, normoactive bowel sounds, soft to palpation, non-tender and non-distended Extremity no clubbing, cyanosis or edema Skin no rashes or lesions noted General Skin Exam: no breakdown Neuro CN's II-XII intact bilaterally, moves all extremities, no focal motor deficits and no sensory deficits noted Sensorium / Orientation: awake, alert, oriented to person and oriented to place Speech: speech normal Psych affect normal Assessment & Plan Assessment/Plan (1) Respiratory failure with hypoxia: (2) Pneumonia: PLAN: Plan 1. Right lower lobe pneumonia-continue present antibiotic coverage, I have decided to get a noncontrasted chest CT to compare to her one that was done last month. #2 acute hypoxic respiratory failure-patient was currently on Airvo at the time of her transfer to PCU, pulse ox will be monitored, patient is a DNR CC arrest no intubation #3 chronic atrial fibrillation-patient is on rate control medication #4 end-stage renal disease requiring chronic dialysis-nephrology will see the patient, she will undergo dialysis per nephrology #5 dementia-complicates care, management, recovery, and prognosis Total clinical time spent by myself addressing patient's medical issues, reviewing all of her data, and collaborating with patient's care team: 35 minutes Charges/Coding Visit Charges Inpatient E&M: 17420 Subs Hosp L2
[2024-05-01] MEDS: Ondansetron 4 MG/2 ML Vial IV (11:36)
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
[2024-05-01] MEDS: amLODIPine 5 MG Tablet PO (18:44)
[2024-05-02] VITALS (8 sets, daily range): BP systolic 135–167; BP diastolic 70–93; PULSE 64–95; RESP 12–16; TEMP 35.9–37; O2SAT 92–96
[2024-05-02] MEDS: Albuterol 2.5 MG/3 ML VIAL.NEB. INHALATION ×2 (01:33→07:01)
[2024-05-02] MEDS: hydrALAZINE 50 MG Tablet 100 MG PO ×2 (05:30→13:32)
[2024-05-02] MEDS: cloNIDine HCl 0.1 MG Tablet 0.3 MG PO ×2 (05:30→13:32)
--- NOTE | 2024-05-02 08:18 | RAD_ITS ---
PROCEDURE: CHEST 1 VIEW (PORTABLE) REASON FOR EXAM: Cough TECHNIQUE: Single frontal image including the chest and abdomen. COMPARISON: Reviewed. FINDINGS: The cardiothymic contour is normal. Improved but persistent bibasilar airspace opacities Stable right-sided central venous catheter and left pacemaker. The bones are unremarkable. No pneumothorax. RAD/Chest 1 View (Portable) IMPRESSION: Improved but persistent bibasilar airspace opacities. Reading Location: [facility]
[2024-05-02] MEDS: Furosemide 40 MG Tablet PO (08:44)
[2024-05-02] MEDS: Carvedilol 25 MG Tablet PO (08:44)
[2024-05-02] MEDS: Citalopram 20 MG Tablet PO (08:44)
[2024-05-02] MEDS: Heparin Injection (Vial) 5,000 UNIT/ML VIAL 5000 UNIT SC (08:44)
[2024-05-02] MEDS: amLODIPine 5 MG Tablet PO (08:44)
[2024-05-02] MEDS: Losartan Potassium 100 MG Tablet PO (08:44)
[2024-05-02] MEDS: Ampicillin/Sulbactam 3 GM in 0.9% Normal Saline (100mL MB+) 100 ML IV (08:45)
[2024-05-02 09:06] LABS: Absolute Lymphocyte Count 0.66 X10^3/uL (0.83-4.51); Absolute Neutrophil Count 4.2 X10^3/uL (2.0-7.7); Basophil# 0.05 X10^3/uL; Basophil% 0.9 % (0-1); Eosinophils% 3.6 % (0-5); Hematocrit 29.3 % (37-47); Hemoglobin 9.6 g/dL (12.0-15.0); Lymphocyte # 0.66 X10^3/ul (0.83-4.51); Mean Corp Hgb Conc 32.8 g/dL (32-36); Mean Corpuscular Hgb 32.2 pg (27.0-32.0); Mean Corpuscular Volume 98.3 fL (81-99); Mean Platelet Vol. 10.9 fl (6.2-12.0); Monocyte# 0.39 X10^3/uL; Monocyte% 7.1 % (0-10); NRBC Flagged by Analyzer 0 % (0-5); Neutrophil # 4.19 X10^3/uL (2.7-7.7); Neutrophil % 75.9 % (47-70); Platelet Count 118 K/mm3 (150-450); RBC Distribution Width CV 14.6 % (11.6-14.6); RBC Distribution Width SD 51.3 fl (35.1-43.9); Red Blood Count 2.98 M/mm3 (4.2-5.4); White Blood Count 5.5 K/mm3 (4.4-11.0)
[2024-05-02] MEDS: Azithromycin 500 MG in 0.9% Normal Saline (250mL Bag) 250 ML 255 MG IV (09:57)
[2024-05-02] MEDS: Ondansetron 8 MG Tablet 4 MG PO (10:57)
[2024-05-02] MEDS: Acetaminophen 325 MG Tablet 650 MG PO (13:33)
--- NOTE | 2024-05-02 14:28 | DCINST_ITS ---
Discharge Instructions Diet Discharge Diet: No restrictions DC O2, CPAP, BIPAP needs Home O2 Discharge instructions: No Dressing / Incision Discharge Activity: Return to Normal Activity Weight Bearing Status: Full weight bearing Follow Up Care Test Results: Test results from this visit will be discussed in further detail at your follow- up appointment, if applicable. Discharge Plan Admission Admit Date/Time: 04/30/24 10:50 Primary Reason for Your Visit: Community-acquired pneumonia Attending Provider: Eliu Bates Primary Care Provider: Bradley Hardin Consulting Providers: Anatoliy Hammonds Discharge Orders/Prescriptions Prescriptions: New amlodipine 5 mg Tablet 5 mg PO DAILY Qty: 30 0RF cefdinir 300 mg capsule 300 mg PO QODAY Qty: 3 0RF Rx Instructions: Give after each dialysis x 3 doses starting on 05/03/2024 Continued losartan 100 mg tablet 100 mg PO DAILY furosemide 40 mg tablet 40 mg PO BID ondansetron HCl 4 mg tablet 4 mg PO Q8 PRN (Reason: nausea and vomiting) carvedilol 25 mg tablet 25 mg PO Q12H lorazepam 0.5 mg tablet 0.25 mg PO Q2H PRN (Reason: agitation) Patient Comments: [NO ORIGINAL SIG] citalopram 20 mg tablet 20 mg PO DAILY haloperidol 1 mg tablet 1 mg PO Q4H PRN (Reason: agitation) olanzapine 2.5 mg tablet 2.5 mg PO BID PRN (Reason: agitation) sennosides-docusate sodium [Senexon-S] 8.6-50 mg tablet 1 tab-cap PO BID PRN (Reason: constipation) hydralazine 50 mg Tablet 100 mg PO TID Qty: 0 0RF clonidine HCl 0.2 mg Tablet 0.3 mg PO TID Qty: 0 0RF Referrals / Follow Up: Bradley Hardin MD [Primary Care Provider] - See Referral Note (in 2 weeks) Disposition Disposition (needs filled in before D/C Order can be placed): Assisted Living
--- NOTE | 2024-05-02 14:46 | PCM.DC.SUM ---
Providers Date of Admission: 04/30/24 Date of Discharge: 05/02/24 Primary Care Physician: Dr. Bradley Hardin MD Consultations 04/30/24 12:00 Consult: Nephrology Routine Consulting Provider: Anatoliy Hammonds Reason for Consult: ESRD, today dialysis day EMERGENT Consult: No MD Notified: Yes Date Notified: 04/30/24 Time Notified: 12:39 Method of Notification: per dialysis nurse Reason For Visit: RIGHT LOBE PNEUMONIA, RESP FAILURE Diagnosis Discharge Diagnosis (1) Respiratory failure with hypoxia: Status: Acute Code(s): J96.91 - Respiratory failure, unspecified with hypoxia (2) Pneumonia: Status: Acute Code(s): J18.9 - Pneumonia, unspecified organism Plan 1. Right lower lobe pneumonia-continue present antibiotic coverage, I have decided to get a noncontrasted chest CT to compare to her one that was done last month. #2 acute hypoxic respiratory failure-patient was currently on Airvo at the time of her transfer to PCU, pulse ox will be monitored, patient is a DNR CC arrest no intubation #3 chronic atrial fibrillation-patient is on rate control medication #4 end-stage renal disease requiring chronic dialysis-nephrology will see the patient, she will undergo dialysis per nephrology #5 dementia-complicates care, management, recovery, and prognosis Total clinical time spent by myself addressing patient's medical issues, reviewing all of her data, and collaborating with patient's care team: 35 minutes Medications at Discharge Home Medications carvedilol 25 mg tablet 25 mg PO Q12H HTN 02/08/23 furosemide 40 mg tablet 40 mg PO BID 05/15/23 losartan 100 mg tablet 100 mg PO DAILY 05/15/23 ondansetron HCl 4 mg tablet 4 mg PO Q8 PRN nausea and vomiting 01/22/24 clonidine HCl 0.2 mg tablet 0.3 mg (1.5 x 0.2 mg) PO TID #0 tabs 03/10/24 hydralazine 50 mg tablet 100 mg (2 x 50 mg) PO TID #0 tabs 03/10/24 citalopram 20 mg tablet 20 mg PO DAILY 04/30/24 haloperidol 1 mg tablet 1 mg PO Q4H PRN agitation 04/30/24 lorazepam 0.5 mg tablet 0.25 mg PO Q2H PRN agitation 04/30/24 olanzapine 2.5 mg tablet 2.5 mg PO BID PRN agitation 04/30/24 sennosides 8.6 mg-docusate sodium 50 mg tablet (Senexon-S) 1 tab-cap PO BID PRN constipation 04/30/24 amlodipine 5 mg tablet 5 mg PO DAILY #30 tabs 05/02/24 cefdinir 300 mg capsule 300 mg PO QODAY #3 caps 05/02/24 Hospital Course Operations None Procedures None Summary of Care Provided Minutes Spent on Discharge: Hospital Course: This 78-year-old white female presented to the emergency room at [facility] with complaints of shortness of breath over the last 12 hours previously. Patient was evaluated by luciano at her assisted living facility, her pulse ox was 85% on room air. Workup in the emergency room included a CBC which showed an elevated white blood cell count 11.9, patient's BUN was 34, creatinine was 4.2, and lactic acid was 2.7. Chest x-ray obtained showed a right lower lobe infiltrate or masses compared with the prior study in February 2024. Patient was placed on Airvo due to respiratory distress in the emergency room, she was admitted to PCU for right lower lobe pneumonia and respiratory failure, placed on IV antibiotics and aerosol treatments, and seen by nephrology and underwent dialysis. Patient's respiratory status improved over the next 48 hours, and was eventually weaned off oxygen. On 05/02/2024, patient was seen and examined: On examination she appeared in good health and spirits, she does not appear to be in any distress. Vital signs as documented. Skin warm and dry and without overt rashes. Neck without JVD, thyroid appears normal, trachea is midline, neck is supple. Lungs clear, normal air movement was noted. Heart exam notable for irregular rhythm, normal sounds and absence of murmurs, rubs or gallops. Abdomen unremarkable and without evidence of organomegaly, masses, or abdominal aortic enlargement, bowel sounds are present in all 4 quadrants, no abdominal tenderness was noted. Extremities nonedematous, no cyanosis was noted, no clubbing was noted. Neuro: Cranial nerves II through XII are grossly intact, no focal motor deficits were noted, sensation to light touch and pinprick is intact, motor exam 5/5 throughout. Psych: Patient is alert and oriented x3, she does not appear anxious or depressed, she does not appear agitated. Patient was discharged back to her assisted living facility on 05/02/2024 in stable condition Weight / BMI Weight Weight: 55.5 kg Body Mass Index (BMI) 25.7 ABG / Lab / Microbiology Data 05/02/24 08:50 04/30/24 08:00 Laboratory: Laboratory Results - last 24 hr 05/02/24 08:50: WBC 5.5, RBC 2.98 L, Hgb 9.6 L, Hct 29.3 L, MCV 98.3, MCH 32.2 H, MCHC 32.8, RDW Std Deviation 51.3 H, RDW Coeff of Alexus 14.6, Plt Count 118 L, MPV 10.9, Immature Gran % (Auto) 0.500, Neut % (Auto) 75.9 H, Lymph % (Auto) 12.0 L, Moody % (Auto) 7.1, Eos % (Auto) 3.6, Baso % (Auto) 0.9, Absolute Neuts (auto) 4.2, Absolute Lymphs (auto) 0.66 L, Nucleated RBC % 0 Microbiology: Microbiology 04/30/24 09:00 Blood Culture (Wb) - Anticubital Right Blood Culture - Preliminary No growth in 48 hours. 04/30/24 08:29 Blood Culture (Wb) - Right Wrist Blood Culture - Preliminary No growth in 48 hours. 04/30/24 10:09 Stool Stool Lactoferrin - Final 04/30/24 10:09 Stool Enteric Bacteriology - Final 04/30/24 10:09 Stool Clostridioides difficile (PCR) - Final 04/30/24 08:57 Mucosa - Nose SARS-CoV-2, Influenza & RSV (PCR) - Final Radiography Diagnostic Testing: Radiology Impression Chest X-Ray 05/02/24 08:18 IMPRESSION: Improved but persistent bibasilar airspace opacities. Reading Location: [facility] Instructions Discharge Diet: No restrictions Weight Bearing Status: Full weight bearing DC O2, CPAP, BIPAP Needs PSN CPAP & BiPAP: BiPAP & CPAP Settings per PSN Mode AIRVO 04/30/24 11:01 Bipap Delivery Device Nasal Pillows 04/30/24 11:01 Fraction of Inspired Oxygen ( 45 04/30/24 11:01 FIO2) Total Flow Rate 40 04/30/24 11:01 Home O2 Discharge instructions: No Meaningful Use Info Meaningful Use Meaningful Use Diagnoses (Choose all that apply): None applicable Ischemic Stroke Statin Dosing Therapy Reference: STATIN DOSE THERAPY REFERENCE: * Patients > 75 years receive moderate or high dose statin therapy. * Patients 75 years or YOUNGER should receive HIGH intensity statin dose unless contraindicated. You will be required to document reason for non-treatment if statin daily dose does not meet guidelines. HIGH DOSE STATIN THERAPY DAILY Atorvastatin > than or = to 40 mg Rosuvastatin > than or = to 20 mg Amlodipine + Atorvastatin > than or = to 2.5/40 mg Ezetimibe + Simvastatin 10/80 mg Simvastatin 80mg Discharge Plan Admission Admit Date/Time: 04/30/24 10:50 Primary Reason for Your Visit: Community-acquired pneumonia Attending Provider: Eliu Bates Primary Care Provider: Bradley Hardin Consulting Providers: Anatoliy Hammonds Discharge Orders/Prescriptions Prescriptions: New amlodipine 5 mg Tablet 5 mg PO DAILY Qty: 30 0RF cefdinir 300 mg capsule 300 mg PO QODAY Qty: 3 0RF Rx Instructions: Give after each dialysis x 3 doses starting on 05/03/2024 Continued losartan 100 mg tablet 100 mg PO DAILY furosemide 40 mg tablet 40 mg PO BID ondansetron HCl 4 mg tablet 4 mg PO Q8 PRN (Reason: nausea and vomiting) carvedilol 25 mg tablet 25 mg PO Q12H lorazepam 0.5 mg tablet 0.25 mg PO Q2H PRN (Reason: agitation) Patient Comments: [NO ORIGINAL SIG] citalopram 20 mg tablet 20 mg PO DAILY haloperidol 1 mg tablet 1 mg PO Q4H PRN (Reason: agitation) olanzapine 2.5 mg tablet 2.5 mg PO BID PRN (Reason: agitation) sennosides-docusate sodium [Senexon-S] 8.6-50 mg tablet 1 tab-cap PO BID PRN (Reason: constipation) hydralazine 50 mg Tablet 100 mg PO TID Qty: 0 0RF clonidine HCl 0.2 mg Tablet 0.3 mg PO TID Qty: 0 0RF Referrals / Follow Up: Bradley Hardin MD [Primary Care Provider] - See Referral Note (in 2 weeks) Disposition Disposition (needs filled in before D/C Order can be placed): Assisted Living Charges/Coding Visit Charges Inpatient E&M: 31881 Disch Hosp >30min
[2024-05-02] MEDS: Cefdinir 300 MG Capsule PO (15:18)
== END 2024-05-02 16:14 | disposition home or self-care (01) | DRG 193 ==
LOC: ED 08:57 → PCU 11:05
PROVIDERS: Admitting Provider Internal Medicine; Emergency Provider Emergency Medicine; PCP Family Medicine; Visit Provider Internal Medicine
DX: J15.9 Unspecified bacterial pneumonia (principal); J96.01 Acute respiratory failure with hypoxia; N18.6 End stage renal disease; I13.2 Hypertensive heart and chronic kidney disease with heart failure and with stage 5 chronic kidney disease, or end stage renal disease; I48.20 Chronic atrial fibrillation, unspecified; Z94.0 Kidney transplant status; F03.90 Unspecified dementia, unspecified severity, without behavioral disturbance, psychotic disturbance, mood disturbance, and anxiety; Z99.2 Dependence on renal dialysis; I50.9 Heart failure, unspecified; E78.00 Pure hypercholesterolemia, unspecified; R19.7 Diarrhea, unspecified; Z66 Do not resuscitate; Z79.899 Other long term (current) drug therapy; Z86.73 Personal history of transient ischemic attack (TIA), and cerebral infarction without residual deficits; Z95.0 Presence of cardiac pacemaker
CPT/HCPCS: 36415; 36600; 71045; 71250; 80048; 80076; 82803; 83605; 83630; 84484; 85025; 87040; 87493; 87506; 87631; 90937; 93005; 94640; 94660; 97110; 97166; 97530; 97802; 99252; 99285; A4216; G0257; G0463; J0295; J2405

== ENCOUNTER 2024-08-13 23:27 | Emergency (ER) | payer MEDICARE, OTHER, SELFPAY ==
[2024-08-13 23:27] VITALS: BP 159/77; PULSE 84; RESP 18; TEMP 36.4; O2SAT 97; BMI 26.8
--- NOTE | 2024-08-14 00:06 | EX.ED.DYSGE1 ---
HPI History of Present Illness Chief Complaint: Fall Informant: patient and family Narrative Narrative: Patient is an 78-year-old female with past medical history of end-stage renal disease on dialysis. She also has a past history of coronary artery disease as well as atrial fibrillation requiring pacemaker placement. Patient is a DNR comfort care only. Family states that she stays at a alf. They report that the patient had a potential syncopal event. The patient states that she was standing and the next minute she was on the floor and does not remember falling. She denies any pain/injury. She states that she does not remember feeling chest pain or shortness of breath or palpitation. Family states that the alf called EMS secondary to the potential syncopal event and therefore she was brought in for evaluation. Patient and family state that she is at her baseline at this time in the ER [facility] Medical History Respiratory failure with hypoxia Pneumonia History of ESBL E. coli infection End stage renal disease on dialysis Chronic kidney disease Anemia of chronic disease Dyspnea Congestive heart failure End-stage renal disease on hemodialysis Presence of Watchman left atrial appendage closure device Kidney transplant pain Skin cancer CVA (cerebral vascular accident) Hx of gastroesophageal reflux (GERD) GI bleed High cholesterol Vascular dementia Sick sinus syndrome Atrial fibrillation Dialysis patient Chronic renal failure Hypertension Home Medications ?Medication ?Instructions ?Recorded ?Last Taken ?Type carvedilol 25 mg tablet 25 mg PO Q12H HTN 02/08/23 02/12/24 History furosemide 40 mg tablet 40 mg PO BID 05/15/23 Unknown History losartan 100 mg tablet 100 mg PO DAILY 05/15/23 02/12/24 History ondansetron HCl 4 mg tablet 4 mg PO Q8 PRN nausea and vomiting 01/22/24 Unknown History clonidine HCl 0.2 mg tablet 0.3 mg (1.5 x 0.2 mg) PO TID #0 03/10/24 Unknown Rx tabs hydralazine 50 mg tablet 100 mg (2 x 50 mg) PO TID #0 tabs 03/10/24 Unknown Rx citalopram 20 mg tablet 20 mg PO DAILY 04/30/24 Unknown History haloperidol 1 mg tablet 1 mg PO Q4H PRN agitation 04/30/24 Unknown History lorazepam 0.5 mg tablet 0.25 mg PO Q2H PRN agitation 04/30/24 Unknown History olanzapine 2.5 mg tablet 2.5 mg PO BID PRN agitation 04/30/24 Unknown History sennosides 8.6 mg-docusate sodium 1 tab-cap PO BID PRN constipation 04/30/24 Unknown History 50 mg tablet (Senexon-S) amlodipine 5 mg tablet 5 mg PO DAILY #30 tabs 05/02/24 Unknown Rx cefdinir 300 mg capsule 300 mg PO QODAY #3 caps 05/02/24 Unknown Rx Allergy/AdvReac Type Severity Reaction Status Date / Time caffeine Allergy Mild unknown Verified 08/13/24 23:28 [place] [employer] Allergy Mild unknown Verified 08/13/24 23:28 codeine Allergy Mild unknown Verified 08/13/24 23:28 desloratadine Allergy Mild unknown Verified 08/13/24 23:28 glutamine (From Airborne Allergy Mild unknown Verified 08/13/24 23:28 (ascorbate sodium)) herbal complex no.124 (From Allergy Mild unknown Verified 08/13/24 23:28 Airborne (ascorbate sodium)) hydrocodone Allergy Mild unknown Verified 08/13/24 23:28 hydromorphone Allergy Mild unknown Verified 08/13/24 23:28 lysine HCl (From Airborne Allergy Mild unknown Verified 08/13/24 23:28 (ascorbate sodium)) morphine Allergy Mild unknown Verified 08/13/24 23:28 moxifloxacin Allergy Mild unknown Verified 08/13/24 23:28 multivitamin with minerals Allergy Mild unknown Verified 08/13/24 23:28 (From Airborne (ascorbate sodium)) nabumetone Allergy Mild unknown Verified 08/13/24 23:28 oxycodone Allergy Mild unknown Verified 08/13/24 23:28 penicillin G Allergy Mild unknown Verified 08/13/24 23:28 Penicillins Allergy Mild hands blue Verified 08/13/24 23:28 propoxyphene (From [place] Allergy Mild unknown Verified 08/13/24 23:28 (propoxyphene)) tramadol Allergy Mild unknown Verified 08/13/24 23:28 amiodarone Allergy Unknown unknown Verified 08/13/24 23:28 Opioids - Morphine Analogues Allergy Anaphylaxis Verified 08/13/24 23:28 Surgical History Renal transplant recipient History of hernia repair H/O: hysterectomy Hx of cholecystectomy History of permanent cardiac pacemaker placement Social History household members: none housing: house Smoking Status: Never smoker ROS ROS ED Constitutional Constitutional ED: Denies chills or fever(s) Eyes Eyes: Denies change in vision ENT ENT ED: Denies sore throat Cardiovascular Cardiovascular: Reports other Details: Positive syncope ; Denies chest pain Respiratory/Chest Respiratory/Chest: Denies cough or dyspnea Gastrointestinal Gastrointestinal: Denies abdominal pain, diarrhea, nausea or vomiting Musculoskeletal Musculoskeletal: Denies back pain or neck pain Integumentary Denies Abrasions Neurologic Neurologic: Denies headache(s) Hematologic/Lymphatic Hematologic/Lymphatic: Denies easy bleeding or easy bruising EXAM Physical Exam Const Vital Signs: 08/13/24 23:27 08/14/24 00:14 08/14/24 00:16 Temperature 97.6 F L 97.8 F Temperature Source Oral Pulse Rate 84 87 Respiratory Rate 18 21 H Blood Pressure 159/77 H 167/81 H Blood Pressure Mean 104 109 Pulse Ox 97 97 Oxygen Delivery Method Room Air Positive well nourished and well developed General Appearance ED: well developed HEENT HEENT Narrative: Normocephalic atraumatic No signs of depressed or basilar skull fracture Eyes PERRL and EOMs intact bilaterally General Eye ED: Negative for scleral icterus Neck supple Neck Narrative: No bony deformity or step-off of the cervical spine no midline tenderness to palpation Chest Wall palpation of chest normal Resp normal respiratory effort and clear to auscultation bilaterally Resp Narrative: Breath sounds are diminished throughout but overall clear to auscultation without signs of respiratory distress Cardio regular rate and regular rhythm GI normal to inspection, nondistended, normoactive bowel sounds, non-tender, non-distended and no masses GI Narrative: No voluntary guarding or rigidity or pulsatile mass Auscultation: normoactive bowel sounds Palpation: soft Back/Spine Back/Spine Narrative: No bony deformity or step-off of the thoracic or lumbar spine no midline tenderness to palpation Extremity normal to inspection Extremity Narrative: Pelvis is stable there is no shortening or external rotation of either lower extremity Patient can move all extremities at baseline without pain No signs of long bone injury or joint effusion Neuro CN's II-XII intact bilaterally Neuro Narrative: Patient is at her baseline mental status per family without focal neurologic deficit Sensorium / Orientation: alert Psych mental status grossly normal Skin no rashes or lesions noted and no wounds MDM MDM MDM Narrative Medical decision making narrative: Patient arrived to the ER hypertensive but has a past medical history of this and at baseline mental status per family. The patient had a potential syncopal event at the alf. I discussed with family and patient that there is a broad differential for syncope and this could be related to a potential neurologic event and with the fall nerve assay she could have a spontaneous subarachnoid or subdural hemorrhage or a traumatic skull fracture. There is concern that after dialysis today there is too much fluid removed and she may be dehydrated requiring a small bolus of fluid or could have severe anemia or clinically significant electrolyte abnormality. Family states that the patient is at her baseline mental status and that they checked those values at dialysis and they were normal earlier today causing low concern that they are not drastically different at this time. We discussed that as the patient is a DNR comfort care only that even if head CT did show potential brain bleed she would not be a surgical candidate. Family states that if they were contacted prior to this event they would not have recommended patient be sent in for evaluation. They agree that as vitals are stable and there are no signs of trauma and she is at her baseline mental status especially with her DNR comfort care only status that there is no need for intervention at this time they can continue to watch her at the alf and therefore she will be discharged History & Record Review Discussion w/independent historian: EMS personnel, Patient and Family Discharge Plan Triage Chief Complaint: Fall ED Provider: Chalo Perez Dx/Rx/DC Orders Clinical Impression: Syncope, History of permanent cardiac pacemaker placement, End stage renal disease on dialysis, Hypertension Instructions: ED Fainting, Uncertain Cause Prescriptions: No Action losartan 100 mg tablet 100 mg PO DAILY furosemide 40 mg tablet 40 mg PO BID ondansetron HCl 4 mg tablet 4 mg PO Q8 PRN (Reason: nausea and vomiting) carvedilol 25 mg tablet 25 mg PO Q12H lorazepam 0.5 mg tablet 0.25 mg PO Q2H PRN (Reason: agitation) Patient Comments: [NO ORIGINAL SIG] citalopram 20 mg tablet 20 mg PO DAILY haloperidol 1 mg tablet 1 mg PO Q4H PRN (Reason: agitation) olanzapine 2.5 mg tablet 2.5 mg PO BID PRN (Reason: agitation) sennosides-docusate sodium [Senexon-S] 8.6-50 mg tablet 1 tab-cap PO BID PRN (Reason: constipation) amlodipine 5 mg Tablet 5 mg PO DAILY Qty: 30 0RF cefdinir 300 mg capsule 300 mg PO QODAY Qty: 3 0RF Rx Instructions: Give after each dialysis x 3 doses starting on 05/03/2024 hydralazine 50 mg Tablet 100 mg PO TID Qty: 0 0RF clonidine HCl 0.2 mg Tablet 0.3 mg PO TID Qty: 0 0RF Primary Care Provider: Jovon Emerson Referrals: Bradley Hardin MD [Non-Staff] - Activity Restrictions/Additional Instructions: Please continue all your home medications as directed by your doctor and return to the ER should you have any further concerns Print Language: Grenadian Disposition Disposition: Home, Self Care Discharge Date/Time: 08/14/24 00:23
[2024-08-14 00:16] VITALS: BP 167/81; PULSE 87; RESP 21; TEMP 36.6; O2SAT 97
== END 2024-08-14 00:23 | disposition home or self-care (01) ==
LOC: ED 08-14 00:20
PROVIDERS: Emergency Provider Emergency Medicine; Visit Provider Emergency Medicine
DX: R55 Syncope and collapse (principal); I13.2 Hypertensive heart and chronic kidney disease with heart failure and with stage 5 chronic kidney disease, or end stage renal disease; N18.6 End stage renal disease; I50.9 Heart failure, unspecified; I48.91 Unspecified atrial fibrillation; I25.10 Atherosclerotic heart disease of native coronary artery without angina pectoris; E78.00 Pure hypercholesterolemia, unspecified; Z99.2 Dependence on renal dialysis; Z79.899 Other long term (current) drug therapy; Z94.0 Kidney transplant status; Z86.73 Personal history of transient ischemic attack (TIA), and cerebral infarction without residual deficits; Z66 Do not resuscitate; Z95.0 Presence of cardiac pacemaker
CPT/HCPCS: 99284; A4216

== ENCOUNTER 2025-02-03 19:13 | Inpatient (IN) | payer MEDICARE, OTHER, SELFPAY ==
[2025-02-03] VITALS (8 sets, daily range): BP systolic 133–163; BP diastolic 67–91; PULSE 62–72; RESP 14–19; TEMP 36.8; O2SAT 95–100; BMI 22.6
[2025-02-03 20:13] LABS: Hematocrit 35.0 % (37-47); Hemoglobin 11.5 g/dL (12.0-15.0); Immature Granulocytes Count 0.040 X10^3/uL (0.0-0.0); Mean Corp Hgb Conc 32.9 g/dL (32-36); Mean Corpuscular Volume 91.6 fL (81-99); NRBC Flagged by Analyzer 0 % (0-5); POSITIVE COUNT YES; RBC Distribution Width CV 16.7 % (11.6-14.6); RBC Distribution Width SD 57.0 fl (35.1-43.9); Red Blood Count 3.82 M/mm3 (4.2-5.4); White Blood Count 6.1 K/mm3 (4.4-11.0)
[2025-02-03 20:26] LABS: Differential Indicated SCAN CRITERIA MET
[2025-02-03 20:29] LABS: Prothrombin Time (Protime)PT. 14.9 SECONDS (11.7-14.9)
[2025-02-03 20:46] LABS: Ammonia 15.4 umol/L (11-51)
[2025-02-03 20:51] LABS: AST(SGOT) 16 U/L (<=31); Alanine Aminotransfer ALT/SGPT < 5 U/L (<=34); Albumin, Serum 3.6 g/dL (3.4-4.8); Alkaline Phosphatase 87 U/L (35-104); Anion Gap 12 (5-15); BUN 20 mg/dL (4-19); BUN/Creat Ratio 5.2 RATIO (10-20); Calcium,Total 9.2 mg/dL (7.6-11.0); Carbon Dioxide 26.2 mmol/L (21.0-32.0); Chloride 97 mmol/L (98-108); Estimated Creatinine Clearance 8.47 ml/min (50-250); Globulin 2.5 g/dL (2.2-4.2); Glucose 104 mg/dL (70-99); Potassium 3.0 mmol/L (3.3-5.1)
--- NOTE | 2025-02-03 21:28 | EX.ED.DYSGE1 ---
HPI History of Present Illness Chief Complaint: Shortness of Breath Detail of Chief Complaint: Shortness of breath, bright red blood per rectum, decreased level of consci Informant: other (Geography Department Chair) Onset/Context/Timing Onset: Today (Noted bright red blood per rectum.) Context: Sudden Onset Quality: Bright red blood per rectum. There is no clots. Location: Rectum/GI Current Severity: Unable to determine Maximum Severity: Unable to determine Worsened by: Unknown Relieved by: Nothing Associated Symptoms Associated Symptoms: Edema, possible jaundice Narrative Narrative: Patient is an 79-year-old woman. She has a signed DNR Comfort Care arrest document with her. Spoke with machine setter sheet metal. She has no intubation pressors depending. Patient is not a good informant. She has history of vascular dementia. Her answers do not correspond with questions asked. The primary informant is the machine setter sheet metal. Geography Department Chair states she is with her 21/10. They did home dialysis for the first time today. She was brought in because of decreased level conscious with discoloration of her skin and bright red blood per rectum. She has not had GI bleed in the past. She has known hemorrhoids, however. Review of records indicates she has history of chronic diarrhea, valvular heart disease, pacemaker for sick sinus syndrome and atrial fibrillation. Geography Department Chair states she has no history of liver or gallbladder problems. There is a history of dilation of the bile duct. Prior similar symptoms: No Recent Illness/Hospitalization: No PFSH PFSH Medical History Respiratory failure with hypoxia Pneumonia History of ESBL E. coli infection End stage renal disease on dialysis Chronic kidney disease Anemia of chronic disease Dyspnea Congestive heart failure End-stage renal disease on hemodialysis Presence of Watchman left atrial appendage closure device Kidney transplant pain Skin cancer CVA (cerebral vascular accident) Hx of gastroesophageal reflux (GERD) GI bleed High cholesterol Vascular dementia Sick sinus syndrome Atrial fibrillation Dialysis patient Chronic renal failure Hypertension Home Medications ?Medication ?Instructions ?Recorded ?Last Taken ?Type carvedilol 25 mg tablet 25 mg PO Q12H HTN 02/08/23 02/12/24 History furosemide 40 mg tablet 40 mg PO BID 05/15/23 Unknown History losartan 100 mg tablet 50 mg PO BID 05/15/23 02/12/24 History ondansetron HCl 4 mg tablet 4 mg PO Q8 PRN nausea and vomiting 01/22/24 Unknown History citalopram 20 mg tablet 20 mg PO DAILY 04/30/24 Unknown History haloperidol 1 mg tablet 1 mg PO Q4H PRN agitation 04/30/24 Unknown History lorazepam 0.5 mg tablet 0.25 mg PO Q2H PRN agitation 04/30/24 Unknown History olanzapine 2.5 mg tablet 2.5 mg PO BID PRN agitation 04/30/24 Unknown History sennosides 8.6 mg-docusate sodium 1 tab-cap PO BID PRN constipation 04/30/24 Unknown History 50 mg tablet (Senexon-S) amlodipine 5 mg tablet 5 mg PO DAILY #30 tabs 05/02/24 Unknown Rx calcitriol 0.25 mcg capsule 0.25 mcg PO DAILY 02/03/25 Unknown History clonidine HCl 0.3 mg tablet 0.3 mg PO TID 02/03/25 Unknown History hydralazine 100 mg tablet 100 mg PO TID 02/03/25 Unknown History losartan 50 mg tablet 50 mg PO BID 02/03/25 Unknown History melatonin 10 mg capsule 10 mg PO QHS PRN sleep 02/03/25 Unknown History trazodone 50 mg tablet 50 mg PO QHS 02/03/25 Unknown History Allergy/AdvReac Type Severity Reaction Status Date / Time caffeine Allergy Mild unknown Verified 02/03/25 19:16 [place] And Derivatives Allergy Mild unknown Verified 02/03/25 19:16 codeine Allergy Mild unknown Verified 02/03/25 19:16 desloratadine Allergy Mild unknown Verified 02/03/25 19:16 glutamine (From Airborne Allergy Mild unknown Verified 02/03/25 19:16 (ascorbate sodium)) herbal complex no.124 (From Allergy Mild unknown Verified 02/03/25 19:16 Airborne (ascorbate sodium)) hydrocodone Allergy Mild unknown Verified 02/03/25 19:16 hydromorphone Allergy Mild unknown Verified 02/03/25 19:16 lysine HCl (From Airborne Allergy Mild unknown Verified 02/03/25 19:16 (ascorbate sodium)) morphine Allergy Mild unknown Verified 02/03/25 19:16 moxifloxacin Allergy Mild unknown Verified 02/03/25 19:16 multivitamin with minerals Allergy Mild unknown Verified 02/03/25 19:16 (From Airborne (ascorbate sodium)) nabumetone Allergy Mild unknown Verified 02/03/25 19:16 oxycodone Allergy Mild unknown Verified 02/03/25 19:16 penicillin G Allergy Mild unknown Verified 02/03/25 19:16 Penicillins Allergy Mild hands blue Verified 02/03/25 19:16 propoxyphene (From Margesic Allergy Mild unknown Verified 02/03/25 19:16 (propoxyphene)) tramadol Allergy Mild unknown Verified 02/03/25 19:16 amiodarone Allergy Unknown unknown Verified 02/03/25 19:16 Opioids - Morphine Analogues Allergy Anaphylaxis Verified 02/03/25 19:16 Surgical History Renal transplant recipient History of hernia repair H/O: hysterectomy Hx of cholecystectomy History of permanent cardiac pacemaker placement Social History household members: none housing: house Smoking Status: Never smoker ROS ROS ED Review of Systems ROS Unobtainable: due to mental status EXAM Physical Exam Const Vital Signs: 02/03/25 19:13 02/03/25 19:37 02/03/25 19:57 Temperature 98.3 F 98.3 F Temperature Source Oral Oral Pulse Rate 71 72 Respiratory Rate 18 19 H Respiratory Effort Normal Respiratory Pattern Tachypnea Blood Pressure 163/91 H 143/86 H Blood Pressure Mean 115 105 Pulse Ox 97 96 Oxygen Delivery Method Room Air Room Air Room Air 02/03/25 20:15 02/03/25 21:00 02/03/25 22:00 Temperature 98.3 F Temperature Source Oral Pulse Rate 62 69 68 Respiratory Rate 19 H 14 17 Respiratory Effort Respiratory Pattern Blood Pressure 139/86 H 158/73 H 133/67 H Blood Pressure Mean 103 101 89 Pulse Ox 100 95 97 Oxygen Delivery Method Room Air Room Air Room Air Positive well developed Constitutional Narrative: Patient's skin is discolored. She does have edema of her lower extremities. General Appearance ED: well developed and NAD; Negative for cyanotic or diaphoretic HEENT HEENT Narrative: Ears normal. Nares patent. Posterior pharynx is normal. Eyes PERRL and EOMs intact bilaterally General Eye ED: Yes scleral icterus Neck no lymphadenopathy, supple and no JVD Resp Resp Narrative: Shallow breaths. She has adventitial breath sounds noted bilaterally. Cardio regular rate; Negative for no murmurs Rhythm: abnormal rhythm irregularly irregular (Patient has a grade 2/6 systolic murmur that is heard throughout the precordium.) GI normal to inspection, nondistended, normoactive bowel sounds, non-tender, non-distended and no masses; Negative for hepatosplenomegaly GI Narrative: Patient has a cluster of hemorrhoids on rectal exam. There was gross blood noted. Anoscopy was performed. She has blood above the scope. There is no active bleeding or recent bleeding from her hemorrhoids. Back/Spine no CVA tenderness Extremity Negative for normal to inspection General Extremety ED: Yes edema; Negative for tenderness General Extremity: edema Neuro No oriented x3 Neuro Narrative: She moves all extremities. She follows simple commands. She attempts to answer questions. Skin No skin turgor normal General Skin Exam: jaundice; Negative for elasticity normal MDM MDM MDM Narrative Medical decision making narrative: Need to rule out metabolic versus infectious cause. Since she appears jaundiced will obtain liver enzymes. BMP to assess renal function, electrolytes anion gap. CBC to assess H&H and her conjunctive are just slightly pink. Also test white count differential. Because of concern for jaundice and altered mental status ammonia level was obtained. Since she has bright red blood from rectum she was typed and screened. Patient's prior history was reviewed and documented in the HPI narrative. History & Record Review Additional record(s) reviewed:: Prior inpatient record, Prior ED visit and Prior labs Lab Data Attestation: I reviewed the patient's lab results. Lab results narrative: White count is normal. There is a slight shift. H&H 11.5 and 35.0 with normal indices. Her hemoglobin is higher than prior which was obtained May 02, 2024. At that time was 9.6 at 29.3. Patient's competence that panel is remarkable for BUN of 20 and a creatinine of 3.74. Potassium is 3.0. Glucose is slight elevated at 104. Liver enzymes are normal. Since she is not able to give a clean-catch specimen will have nurse straight cath for UA. Urine macro is negative. Labs: Laboratory Results - last 24 hr 02/03/25 02/03/25 19:51 21:59 WBC 6.1 RBC 3.82 L Hgb 11.5 L Hct 35.0 L MCV 91.6 MCH 30.1 MCHC 32.9 RDW Std Deviation 57.0 H RDW Coeff of Alexus 16.7 H Plt Count 99 L MPV 9.8 Immature Gran % (Auto) 0.700 Neut % (Auto) 74.6 H Lymph % (Auto) 13.5 L [place] % (Auto) 7.8 Eos % (Auto) 2.6 Baso % (Auto) 0.8 Absolute Neuts (auto) 4.5 Absolute Lymphs (auto) 0.82 L Nucleated RBC % 0 Differential Comment SCANNED PT 14.9 INR 1.2 Sodium 135 Potassium 3.0 L Chloride 97 L Carbon Dioxide 26.2 Anion Gap 12 BUN 20 H Creatinine 3.74 H Estim Creat Clear Calc 8.47 L* Est GFR (MDRD) Non-Af 12 L BUN/Creatinine Ratio 5.2 L Glucose 104 H Lactic Acid 1.3 Calcium 9.2 Total Bilirubin 0.50 AST 16 ALT < 5 Alkaline Phosphatase 87 Ammonia 15.4 Total Protein 6.1 Albumin 3.6 Globulin 2.5 Albumin/Globulin Ratio 1.4 Urine Color Yellow Urine Clarity Clear Urine pH 6.5 Ur Specific [place] 1.005 Urine Protein 100 H Urine Glucose (UA) Normal Urine Ketones Negative Urine Occult Blood Negative Urine Nitrite Negative Urine Bilirubin 1 H Urine Urobilinogen Normal Ur Leukocyte Esterase Negative Urine RBC 0-5 SEEN Urine WBC 0-5 SEEN Ur Squamous Epith Cells 0-5 SEEN Urine Bacteria 0 SEEN Urine Mucus 0 SEEN Blood Type O POSITIVE Antibody Screen NEGATIVE EKG Initial EKG: Attestation: I personally reviewed and interpreted this EKG as follows: Interpretation: Atrial Fibrillation (Atrial fibrillation with rate of 73. There is either a variant or premature ventricular beat noted. Shah duration 88 ms. QT duration 394 ms. [place] is normal. There is low voltage. There is decreased anterior forces noted. There is also artifact.) Management Discussion w/another healthcare provider: Hospitalist (Hospitalist was paged. Will inform that patient is DNR Comfort Care arrest no intubation.) Treatment and Re-Evaluation :: Geography Department Chair was informed of results and that the hospitalist was paged, at [phone] Comments:: [place] lower GI bleed score is 7 points. Recommendation is consider discharge. Plan is for a repeat H&H. This was ordered by Dr. Santos. He will discuss findings with family member. Discharge Plan Dx/Rx/DC Orders Clinical Impression: Acute gastrointestinal bleeding, Atrial fibrillation, Anemia in chronic illness, Acute hypokalemia, Chronic kidney disease (CKD) stage G5/A1, glomerular filtration rate (GFR) less than or equal to 15 mL/min/1.73 square meter and albuminuria creatinine ratio less than 30 mg/g, DNR (do not resuscitate) discussion, DNR no code (do not resuscitate) Disposition Disposition: Acute Care [facility]
[2025-02-03 22:08] LABS: Mucous, Urine 0 SEEN /hpf (<or=2+)
[2025-02-03 22:30] LABS: Mean Platelet Vol. 9.8 fl (6.2-12.0); Platelet Count 99 K/mm3 (150-450)
[2025-02-03 22:31] LABS: Differential Comment SCANNED
[2025-02-03 22:35] LABS: Color, Urine Yellow (Yellow); Glucose, Dipstick Normal (Normal); Ketone-Dipstick Negative (Negative); Leukocyte Esterase-Dipstick Negative /ul (Negative); Nitrite-Dipstick Negative (Negative); Occult Blood-Urine Negative /ul (Negative); Protein-Dipstick 100 mg/dl (Negative); Specific Gravity, Urine 1.005 (1.002-1.030)
[2025-02-03 22:37] LABS: Urine Bilirubin Dipstick 1 mg/dL (Negative)
[2025-02-03 22:58] LABS: Red Blood Cells-Urine 0-5 SEEN /hpf (0-5); Squamous Epithelial Cells - UA 0-5 SEEN /hpf (5-10)
[2025-02-03 23:21] LABS: Hematocrit 31.7 % (37-47); Hemoglobin 10.5 g/dL (12.0-15.0); POSITIVE COUNT YES
[2025-02-04] VITALS (19 sets, daily range): BP systolic 135–180; BP diastolic 70–93; PULSE 61–88; RESP 14–20; TEMP 36.4–36.9; O2SAT 94–100; BMI 20.9; BMI 20.4
--- NOTE | 2025-02-04 00:38 | PCM.HP.STD ---
[facility] - General General Date of Admission: 02/04/25 HPI Narrative JOVANY HARRIS, is a 79 F who presents to the hospital with bright red blood per rectum. She has severe dementia and is unable to provide any history. History is provided by her [id number] who is at bedside. The patient has had dementia for several years and has also been on dialysis on that time. Over the last couple weeks to months they have had a significant decline in her mental status and her dementia, she has also been losing appetite and has had very poor p.o. intake over the last couple of weeks. She does have good days and bad days with periods of minimal lucidity. She is currently on home dialysis that the [id number] is receiving training for however today she had a bowel movement with bright red blood per rectum so she came to the emergency room. In the emergency room she was found to have a hemoglobin of 11.5, the [id number] states that this is after erythropoietin provided for during dialysis. Recheck of her hemoglobin in the emergency room was 10.5. No lightheadedness or dizziness. She did have LFTs drawn because of a concern for jaundice however bilirubin is normal. Her creatinine is 3.74 which is below her baseline. [facility] Medical History Respiratory failure with hypoxia Pneumonia History of ESBL E. coli infection End stage renal disease on dialysis Chronic kidney disease Anemia of chronic disease Dyspnea Congestive heart failure End-stage renal disease on hemodialysis Presence of Watchman left atrial appendage closure device Kidney transplant pain Skin cancer CVA (cerebral vascular accident) Hx of gastroesophageal reflux (GERD) GI bleed High cholesterol Vascular dementia Sick sinus syndrome Atrial fibrillation Dialysis patient Chronic renal failure Hypertension Home Medications ?Medication ?Instructions ?Recorded ?Last Taken ?Type carvedilol 25 mg tablet 25 mg PO Q12H HTN 02/08/23 02/12/24 History furosemide 40 mg tablet 40 mg PO BID 05/15/23 Unknown History losartan 100 mg tablet 50 mg PO BID 05/15/23 02/12/24 History ondansetron HCl 4 mg tablet 4 mg PO Q8 PRN nausea and vomiting 01/22/24 Unknown History citalopram 20 mg tablet 20 mg PO DAILY 04/30/24 Unknown History haloperidol 1 mg tablet 1 mg PO Q4H PRN agitation 04/30/24 Unknown History lorazepam 0.5 mg tablet 0.25 mg PO Q2H PRN agitation 04/30/24 Unknown History olanzapine 2.5 mg tablet 2.5 mg PO BID PRN agitation 04/30/24 Unknown History sennosides 8.6 mg-docusate sodium 1 tab-cap PO BID PRN constipation 04/30/24 Unknown History 50 mg tablet (Senexon-S) amlodipine 5 mg tablet 5 mg PO DAILY #30 tabs 05/02/24 Unknown Rx calcitriol 0.25 mcg capsule 0.25 mcg PO DAILY 02/03/25 Unknown History clonidine HCl 0.3 mg tablet 0.3 mg PO TID 02/03/25 Unknown History hydralazine 100 mg tablet 100 mg PO TID 02/03/25 Unknown History losartan 50 mg tablet 50 mg PO BID 02/03/25 Unknown History melatonin 10 mg capsule 10 mg PO QHS PRN sleep 02/03/25 Unknown History trazodone 50 mg tablet 50 mg PO QHS 02/03/25 Unknown History Allergy/AdvReac Type Severity Reaction Status Date / Time caffeine Allergy Mild unknown Verified 02/03/25 19:16 [place] And Derivatives Allergy Mild unknown Verified 02/03/25 19:16 codeine Allergy Mild unknown Verified 02/03/25 19:16 desloratadine Allergy Mild unknown Verified 02/03/25 19:16 glutamine (From Airborne Allergy Mild unknown Verified 02/03/25 19:16 (ascorbate sodium)) herbal complex no.124 (From Allergy Mild unknown Verified 02/03/25 19:16 Airborne (ascorbate sodium)) hydrocodone Allergy Mild unknown Verified 02/03/25 19:16 hydromorphone Allergy Mild unknown Verified 02/03/25 19:16 lysine HCl (From Airborne Allergy Mild unknown Verified 02/03/25 19:16 (ascorbate sodium)) morphine Allergy Mild unknown Verified 02/03/25 19:16 moxifloxacin Allergy Mild unknown Verified 02/03/25 19:16 multivitamin with minerals Allergy Mild unknown Verified 02/03/25 19:16 (From Airborne (ascorbate sodium)) nabumetone Allergy Mild unknown Verified 02/03/25 19:16 oxycodone Allergy Mild unknown Verified 02/03/25 19:16 penicillin G Allergy Mild unknown Verified 02/03/25 19:16 Penicillins Allergy Mild hands blue Verified 02/03/25 19:16 propoxyphene (From Margesic Allergy Mild unknown Verified 02/03/25 19:16 (propoxyphene)) tramadol Allergy Mild unknown Verified 02/03/25 19:16 amiodarone Allergy Unknown unknown Verified 02/03/25 19:16 Opioids - Morphine Analogues Allergy Anaphylaxis Verified 02/03/25 19:16 Family History (Updated 02/04/25 @ 01:[address] Eliezer Santos MD) Other Hypertension Surgical History Renal transplant recipient History of hernia repair H/O: hysterectomy Hx of cholecystectomy History of permanent cardiac pacemaker placement Social History household members: none housing: house Smoking Status: Never smoker ROS Review of Systems ROS Unobtainable: due to mental condition Vital Signs Vital Signs Vital Signs: 02/03/25 19:13 02/03/25 19:37 02/03/25 19:57 Temperature 98.3 F 98.3 F Temperature Source Oral Oral Pulse Rate 71 72 Respiratory Rate 18 19 H Respiratory Effort Normal Respiratory Pattern Tachypnea Blood Pressure 163/91 H 143/86 H Blood Pressure Mean 115 105 Pulse Ox 97 96 Oxygen Delivery Method Room Air Room Air Room Air 02/03/25 20:15 02/03/25 21:00 02/03/25 22:00 Temperature 98.3 F Temperature Source Oral Pulse Rate 62 69 68 Respiratory Rate 19 H 14 17 Respiratory Effort Respiratory Pattern Blood Pressure 139/86 H 158/73 H 133/67 H Blood Pressure Mean 103 101 89 Pulse Ox 100 95 97 Oxygen Delivery Method Room Air Room Air Room Air 02/03/25 23:00 02/03/25 23:04 02/04/25 00:00 Temperature 98.3 F Temperature Source Pulse Rate 70 70 61 Respiratory Rate 16 16 14 Respiratory Effort Respiratory Pattern Blood Pressure 160/74 H 160/74 H 164/78 H Blood Pressure Mean 102 102 106 Pulse Ox 98 98 Oxygen Delivery Method Room Air Weight Weight: 108 lb Body Mass Index (BMI) 22.6 Physical Exam Narrative General: Alert, Oriented x1-2, Cooperative, No apparent distress HEENT: Atraumatic, PERRLA, EOMI, Normocephalic Oral: Moist Mucosa Neck: Supple, No JVD Lungs: Diminished, Normal air movement, No rhonchi, No wheeze, No rales Cardiovascular: Regular rate, Regular Rhythm, Normal S1, Normal S2, NANDINI Abdomen: Soft, Non Tender, Non-Distended, No Hepato-splenomegaly Extremities: No edema, Capillary Refill Less than 3 Seconds Skin: No rashes, No breakdown Musculoskeletal: No Tenderness to Palpation of Joints or Extremities Neurological: No focal neurological deficits, moves all extremities Psych/Mental Status: Normal Affect, Appropriate Results Lab / Micro Data 02/03/25 23:11 02/03/25 19:51 Labs: Laboratory Results - last 24 hr 02/03/25 19:51: WBC 6.1, RBC 3.82 L, Hgb 11.5 L, Hct 35.0 L, MCV 91.6, MCH 30.1, MCHC 32.9, RDW Std Deviation 57.0 H, RDW Coeff of Alexus 16.7 H, Plt Count 99 L, MPV 9.8, Immature Gran % (Auto) 0.700, Neut % (Auto) 74.6 H, Lymph % (Auto) 13.5 L, [place] % (Auto) 7.8, Eos % (Auto) 2.6, Baso % (Auto) 0.8, Absolute Neuts (auto) 4.5, Absolute Lymphs (auto) 0.82 L, Nucleated RBC % 0, Differential Comment SCANNED, PT 14.9, INR 1.2, Sodium 135, Potassium 3.0 L, Chloride 97 L, Carbon Dioxide 26.2, Anion Gap 12, BUN 20 H, Creatinine 3.74 H, Estim Creat Clear Calc 8.47 L*, Est GFR (MDRD) Non-Af 12 L, BUN/Creatinine Ratio 5.2 L, Glucose 104 H, Lactic Acid 1.3, Calcium 9.2, Total Bilirubin 0.50, AST 16, ALT < 5, Alkaline Phosphatase 87, Ammonia 15.4, Total Protein 6.1, Albumin 3.6, Globulin 2.5, Albumin/Globulin Ratio 1.4, Blood Type O POSITIVE, Antibody Screen NEGATIVE 02/03/25 21:59: Urine Color Yellow, Urine Clarity Clear, Urine pH 6.5, Ur Specific [place] 1.005, Urine Protein 100 H, Urine Glucose (UA) Normal, Urine Ketones Negative, Urine Occult Blood Negative, Urine Nitrite Negative, Urine Bilirubin 1 H, Urine Urobilinogen Normal, Ur Leukocyte Esterase Negative, Urine RBC 0-5 SEEN, Urine WBC 0-5 SEEN, Ur Squamous Epith Cells 0-5 SEEN, Urine Bacteria 0 SEEN, Urine Mucus 0 SEEN 02/03/25 23:11: Hgb 10.5 L, Hct 31.7 L Assessment & Plan Assessment/Plan (1) Acute gastrointestinal bleeding: PLAN: Plan 1. Bright red blood per rectum ? Will monitor her hemoglobin however given her condition will not consult GI and will not proceed with any scope ? I had a a 30-minute discussion on advance care planning, during this time the patient said multiple times that she would like to go meet [place]. The [id number] confirms that the patient would not like to be in the state and therefore we talked about the differences between palliative care and hospice care as well as prognosis ? Will hold any blood thinning medications at this time continue with SCDs ? Will admit to provide dialysis as well as meet with hospice and to allow time for family to come together for decision, the healthcare POA as Eliu 2. End-stage renal disease/hyperkalemia ? Will consult nephrology in the meantime and proceed with dialysis pending outcome of hospice meeting 3. Essential HTN ? Blood pressures are stable ? Resume her home blood pressure medications ? Will monitor make adjustments as necessary 4. Dementia ? Appears to be declining fairly rapidly per family ? Resume her home medications DVT: SCDs Charges/Coding Multi Select Codes Visit Charges Visit Charges: 28311 Init Hosp L2 Hospitalists' Procedures Procedures: 58034 Advncd Care Plan 30 Min
[2025-02-04 06:51] LABS: Hematocrit 32.0 % (37-47); Hemoglobin 10.8 g/dL (12.0-15.0); Immature Granulocytes Count 0.040 X10^3/uL (0.0-0.0); Mean Corp Hgb Conc 33.8 g/dL (32-36); Mean Corpuscular Volume 89.6 fL (81-99); Mean Platelet Vol. 9.4 fl (6.2-12.0); NRBC Flagged by Analyzer 0 % (0-5); POSITIVE COUNT YES; Platelet Count 98 K/mm3 (150-450); RBC Distribution Width CV 16.7 % (11.6-14.6); RBC Distribution Width SD 55.1 fl (35.1-43.9); Red Blood Count 3.57 M/mm3 (4.2-5.4); White Blood Count 5.8 K/mm3 (4.4-11.0)
[2025-02-04 07:15] LABS: Anion Gap 12 (5-15); BUN 21 mg/dL (4-19); BUN/Creat Ratio 5.2 RATIO (10-20); Calcium,Total 8.6 mg/dL (7.6-11.0); Carbon Dioxide 23.9 mmol/L (21.0-32.0); Chloride 99 mmol/L (98-108); Estimated Creatinine Clearance 7.69 ml/min (50-250); Glucose 84 mg/dL (70-99); Potassium 2.9 mmol/L (3.3-5.1)
[2025-02-04] MEDS: Potassium Chloride 10mEq/100mL 10 MEQ/100 ML IV.SOLN. 100 MEQ IV BOLUS (09:02)
[2025-02-04] MEDS: 0.9% Normal Saline (250mL Bag) 250 ML 15 ML IV (09:02)
[2025-02-04] MEDS: 0.9% Saline Lock 10 ML Syringe IV ×4 (09:02→20:16)
[2025-02-04] MEDS: Ensure Plus High Protein 120 ML LIQUID PO (09:11)
--- NOTE | 2025-02-04 09:25 | CASEMGMT ---
Addendum entered by Lucie Lam 02/04/25 15:55: CARLOS followed up with [facility]. Consult has not been scheduled at this time. CARLOS remains available to follow. JOHN Haider Addendum entered by Lucie Lam 02/04/25 14:25: CARLOS received notice from [facility] that referral received and scheduling is reaching out to family. CARLOS remains available to follow. JOHN Haider Addendum entered by Lucie Lam 02/04/25 12:51: CARLOS spoke with Eliu who reports that Stanley is his father/pt spouse and . Eliu reports he has submitted paperwork indicating such three times. CARLOS printed a copy and also listed information and placed for medical records. CARLOS completed referral to [facility] via email. CARLOS remains available to follow. JOHN Haider Addendum entered by Lucie Lam 02/04/25 11:56: CARLOS reviewed HCPOA papers and primary POA is listed as Stanley, not Eliu. CARLOS called Eliu to update and left a voicemail. JOHN Haider Original Note: Social Work- CARLOS collaborated with hospitalist who reports that pt is hospice appropriate and a hospice consult was discussed in EDcalled pt son and HCPOA and left a non-descript voicemail requesting a call back at the earliest convenience. CARLOS met with pt son and DIL in room. Pt son and DIL report that they have noticed a significant decline in pt well-being over the prior two weeks, noting no interest in food or drink, increased dysphagia and pocketing, sleeping 20 hrs/day, and increased confusion. Pt DIL has been caregiver for 10 years and notes changes such as increased puffiness in arms without fluid retention and yellowing of eyes. Pt son reports that they put an addition on their home and has been 24/7 caregiver for pt. Pt has previously been on hospice before revoking. CARLOS updated hospitalist who will complete order. CARLOS to complete referral. JOHN Haider
--- NOTE | 2025-02-04 10:50 | PCM.HOSP.N ---
Hospitalist Note 79-year-old female with a history of end-stage renal disease on hemodialysis, hypertension, and dementia presented to [facility] ED 02/03/2025 with bright red blood per rectum. Patient has severe dementia and was unable to provide history so admitting physician discussed with [id number] at bedside. Has been on dialysis for several years and over the past couple weeks has had further decline in mental status with her dementia with poor appetite and poor p.o. intake. Has some good days and bad days however overall is drastically worsened. Patient admitted and family agreeable to hospice consult. Hospice consult placed, further dispo pending discussion. Nephrology consulted in the meantime for dialysis, pending further hospice discussions.
[2025-02-04] MEDS: Potassium Chloride Oral Soln 20 MEQ/15 ML UDC PO (11:37)
--- NOTE | 2025-02-04 12:37 | CHAPLAIN ---
Type of Pastoral Visit _x__ Initial Visit ___ Follow-up Visit ___ On-call Visit ___ General Patient Visit ___ Spiritual Assessment ___ Family Conference ___ Bereavement ___ Rapid Response ___ Code Blue ___ Other (describe below) Pastoral Care Referral From _x__ Patient ___ Family ___ Nurse ___ Physician ___ User Experience Team Lead ___ Video Tape Editor ___ Other (describe below) Sacrament/Intervention _x__ Active listening ___ Anointing ___ Yazidi ___ Bereavement ___ Communion ___ Crystal exploration ___ ___ Life review ___ Prayer ___ Reconciliation ___ Sacrament of Sick _x__ Supportive presence ___ Wedding ___ Other (describe below) Pastoral Comments patient was napping but awoke easily to her name; pt asks this account manager to 'sign me out of here'; pt is adamant that she has been in the hospital for five days and has been waiting ever since to be discharged home, but no one will listen or do it; pt says that she was in a rehab before coming to the hospital; pt denies needs for anything other than help opening her fruit cup and asking go out there and get a doctor who will release me; pt is offered presence and prayer but responds well thank you for coming, now ask that nurse to get the doctor;
[2025-02-04] MEDS: PureFlow B 3K Dialysis Soln 1 BAG 6 BAG PF (12:52)
[2025-02-04] MEDS: 0.9% Normal Saline 1,000 ML IV.SOLN. 1000 ML OPERA.SITE (12:52)
--- NOTE | 2025-02-04 14:55 | CASEMGMT ---
Met with patient to review CABRAL form. Pt has a history of dementia. There is no family at the bedside. Noted that the pt's POA is the son, Eliu. TC to Eliu. CABRAL form and its content were verbally explained and patient?s POA questions were answered to the best of my ability. Patient's POA voiced understanding and consented this RN CM to sign the CABRAL form. Provided a copy of signed CABRAL form in the pt's room and original placed in patient?s chart. Patient's POA had no further questions or concerns.
--- NOTE | 2025-02-04 15:15 | PCM.CONS.R ---
Assessment & Plan Assessment/Plan (1) ESRD (end stage renal disease): PLAN: on HD at home. HD today but likely hospice. HPI Consult Data Date of Consult: 02/04/25 HPI Narrative Reason for Consultation: ESRD HPI Narrative: JOVANY HARRIS, is a 79 F who presents To the hospital with bleeding per rectum. Nephrology on consultation in view of ESRD. ESRD was on in center dialysis, recently switched to home dialysis with family member [facility] Medical History Respiratory failure with hypoxia Pneumonia History of ESBL E. coli infection End stage renal disease on dialysis Chronic kidney disease Anemia of chronic disease Dyspnea Congestive heart failure End-stage renal disease on hemodialysis Presence of Watchman left atrial appendage closure device Kidney transplant pain Skin cancer CVA (cerebral vascular accident) Hx of gastroesophageal reflux (GERD) GI bleed High cholesterol Vascular dementia Sick sinus syndrome Atrial fibrillation Dialysis patient Chronic renal failure Hypertension Home Medications ?Medication ?Instructions ?Recorded ?Last Taken ?Type carvedilol 25 mg tablet 25 mg PO BID HTN 02/08/23 02/12/24 History furosemide 40 mg tablet 40 mg PO BID 05/15/23 Unknown History ondansetron HCl 4 mg tablet 4 mg PO Q8 PRN nausea and vomiting 01/22/24 Unknown History citalopram 20 mg tablet 20 mg PO DAILY 04/30/24 Unknown History haloperidol 1 mg tablet 1 mg PO Q4H PRN agitation 04/30/24 Unknown History lorazepam 0.5 mg tablet 0.25 mg PO Q2H PRN agitation 04/30/24 Unknown History olanzapine 2.5 mg tablet 2.5 mg PO BID PRN agitation 04/30/24 Unknown History sennosides 8.6 mg-docusate sodium 1 tab-cap PO BID PRN constipation 04/30/24 Unknown History 50 mg tablet (Senexon-S) calcitriol 0.25 mcg capsule 0.25 mcg PO DAILY 02/03/25 Unknown History clonidine HCl 0.3 mg tablet 0.3 mg PO TID 02/03/25 Unknown History hydralazine 100 mg tablet 100 mg PO TID 02/03/25 Unknown History losartan 50 mg tablet 50 mg PO BID 02/03/25 Unknown History melatonin 10 mg capsule 10 mg PO QHS PRN sleep 02/03/25 Unknown History trazodone 50 mg tablet 50 mg PO QHS 02/03/25 Unknown History amlodipine 5 mg tablet 5 mg PO BID 02/04/25 Unknown History Allergy/AdvReac Type Severity Reaction Status Date / Time caffeine Allergy Mild unknown Verified 02/03/25 19:16 Luce And Derivatives Allergy Mild unknown Verified 02/03/25 19:16 codeine Allergy Mild unknown Verified 02/03/25 19:16 desloratadine Allergy Mild unknown Verified 02/03/25 19:16 glutamine (From Airborne Allergy Mild unknown Verified 02/03/25 19:16 (ascorbate sodium)) herbal complex no.124 (From Allergy Mild unknown Verified 02/03/25 19:16 Airborne (ascorbate sodium)) hydrocodone Allergy Mild unknown Verified 02/03/25 19:16 hydromorphone Allergy Mild unknown Verified 02/03/25 19:16 lysine HCl (From Airborne Allergy Mild unknown Verified 02/03/25 19:16 (ascorbate sodium)) morphine Allergy Mild unknown Verified 02/03/25 19:16 moxifloxacin Allergy Mild unknown Verified 02/03/25 19:16 multivitamin with minerals Allergy Mild unknown Verified 02/03/25 19:16 (From Airborne (ascorbate sodium)) nabumetone Allergy Mild unknown Verified 02/03/25 19:16 oxycodone Allergy Mild unknown Verified 02/03/25 19:16 penicillin G Allergy Mild unknown Verified 02/03/25 19:16 Penicillins Allergy Mild hands blue Verified 02/03/25 19:16 propoxyphene (From Margesic Allergy Mild unknown Verified 02/03/25 19:16 (propoxyphene)) tramadol Allergy Mild unknown Verified 02/03/25 19:16 amiodarone Allergy Unknown unknown Verified 02/03/25 19:16 Opioids - Morphine Analogues Allergy Anaphylaxis Verified 02/03/25 19:16 Family History (Updated 02/04/25 @ 01:[address] Eliezer Santos MD) Other Hypertension Surgical History Renal transplant recipient History of hernia repair H/O: hysterectomy Hx of cholecystectomy History of permanent cardiac pacemaker placement Social History household members: none housing: house Smoking Status: Never smoker ROS ROS Narrative unable to obtain Physical Exam Narrative Alert awake oriented x 3 no obvious distress no pallor no icterus no JVD s1s2 no murmurs lungs clear abdomen soft no organomegaly Medical Records Data Medical Nutrition Assessment Dietitian: Malnutrition Criteria Met Start: 02/04/25 12:20 Freq: Status: Active Protocol: Document 02/04/25 12:20 SLA (Rec: 02/04/25 12:20 SLA [email or web address]) Nutrition Malnutrition Evidence of Yes Malnutrition Exists Malnutrition (severe Acute Illness/Injury ): Evidenced By Suboptimal Energy Intake (Severe),Weight Loss (Severe) Clinical Problem Acute Disease or Injury Related Malnutrition Etiology related to severe dementia and inadequate energy intake /no interest in eating Signs/Symptoms related to po intake meeting <75% of est nutritional needs and 3.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 Lab / Micro Data 02/04/25 06:31 02/04/25 06:31 Labs: Laboratory Results - last 24 hr 02/03/25 19:51: WBC 6.1, RBC 3.82 L, Hgb 11.5 L, Hct 35.0 L, MCV 91.6, MCH 30.1, MCHC 32.9, RDW Std Deviation 57.0 H, RDW Coeff of Alexus 16.7 H, Plt Count 99 L, MPV 9.8, Immature Gran % (Auto) 0.700, Neut % (Auto) 74.6 H, Lymph % (Auto) 13.5 L, [place] % (Auto) 7.8, Eos % (Auto) 2.6, Baso % (Auto) 0.8, Absolute Neuts (auto) 4.5, Absolute Lymphs (auto) 0.82 L, Nucleated RBC % 0, Differential Comment SCANNED, PT 14.9, INR 1.2, Sodium 135, Potassium 3.0 L, Chloride 97 L, Carbon Dioxide 26.2, Anion Gap 12, BUN 20 H, Creatinine 3.74 H, Estim Creat Clear Calc 8.47 L*, Est GFR (MDRD) Non-Af 12 L, BUN/Creatinine Ratio 5.2 L, Glucose 104 H, Lactic Acid 1.3, Calcium 9.2, Total Bilirubin 0.50, AST 16, ALT < 5, Alkaline Phosphatase 87, Ammonia 15.4, Total Protein 6.1, Albumin 3.6, Globulin 2.5, Albumin/Globulin Ratio 1.4, Blood Type O POSITIVE, Antibody Screen NEGATIVE 02/03/25 21:59: Urine Color Yellow, Urine Clarity Clear, Urine pH 6.5, Ur Specific Parsons 1.005, Urine Protein 100 H, Urine Glucose (UA) Normal, Urine Ketones Negative, Urine Occult Blood Negative, Urine Nitrite Negative, Urine Bilirubin 1 H, Urine Urobilinogen Normal, Ur Leukocyte Esterase Negative, Urine RBC 0-5 SEEN, Urine WBC 0-5 SEEN, Ur Squamous Epith Cells 0-5 SEEN, Urine Bacteria 0 SEEN, Urine Mucus 0 SEEN 02/03/25 23:11: Hgb 10.5 L, Hct 31.7 L 02/04/25 06:31: WBC 5.8, RBC 3.57 L, Hgb 10.8 L, Hct 32.0 L, MCV 89.6, MCH 30.3, MCHC 33.8, RDW Std Deviation 55.1 H, RDW Coeff of [place]ex[place] 16.7 H, Plt Count 98 L, MPV 9.4, Immature Gran % (Auto) 0.700, Neut % (Auto) 71.3 H, Lymph % (Auto) 15.2 L, [place] % (Auto) 8.3, Eos % (Auto) 3.5, Baso % (Auto) 1.0, Absolute Neuts (auto) 4.1, Absolute Lymphs (auto) 0.88, Nucleated RBC % 0, Sodium 135, Potassium 2.9 L, Chloride 99, Carbon Dioxide 23.9, Anion Gap 12, BUN 21 H, Creatinine 4.12 H, Estim Creat Clear Calc 7.69 L*, Est GFR (MDRD) Non-Af 10 L, BUN/Creatinine Ratio 5.2 L, Glucose 84, Calcium 8.6
[2025-02-04 16:16] LABS: Anion Gap 9 (5-15); BUN 13 mg/dL (4-19); BUN/Creat Ratio 5.4 RATIO (10-20); Calcium,Total 9.1 mg/dL (7.6-11.0); Carbon Dioxide 26.2 mmol/L (21.0-32.0); Chloride 101 mmol/L (98-108); Estimated Creatinine Clearance 13.66 ml/min (50-250); Glucose 111 mg/dL (70-99); Potassium 3.3 mmol/L (3.3-5.1)
[2025-02-05] VITALS (8 sets, daily range): BP systolic 148–163; BP diastolic 73–85; PULSE 68–78; RESP 16–18; TEMP 36.6–37.2; O2SAT 95–99
[2025-02-05 07:35] LABS: Anion Gap 9 (5-15); BUN 16 mg/dL (4-19); BUN/Creat Ratio 4.6 RATIO (10-20); Calcium,Total 8.8 mg/dL (7.6-11.0); Carbon Dioxide 24.4 mmol/L (21.0-32.0); Chloride 101 mmol/L (98-108); Estimated Creatinine Clearance 9.38 ml/min (50-250); Glucose 87 mg/dL (70-99); Potassium 3.4 mmol/L (3.3-5.1)
[2025-02-05] MEDS: Ensure Plus High Protein 120 ML LIQUID PO (08:58)
--- NOTE | 2025-02-05 09:39 | CASEMGMT ---
Social Work SW reached out to hospice, there is a meeting set up for today with the family at 1:30pm. SW notified charge lpn on MS3 and physician. AUTUMN Todd
--- NOTE | 2025-02-05 14:29 | PCM.PN.HOSP ---
Subjective Subjective Patient evaluated at bedside, reporting little bit of a headache but said she recently took medicine for it, denies any complaints with her breathing, did not endorse any other new or acute complaints to me Objective Data Objective Data Vital Signs: Vital Signs Temp Pulse Resp BP Pulse Ox O2 Del Method O2 Flow Rate 98.3 F 78 16 152/73 H 97 Nasal Cannula 1 02/05/25 06:57 02/05/25 06:59 02/05/25 06:57 02/05/25 06:57 02/05/25 06:57 02/05/25 08:27 02/05/25 08:27 Oxygen Flow Rate (L/min) 1 Oxygen Delivery Method Nasal Cannula Weight: 46 kg Body Mass Index (BMI) 20.4 Intake & Output: Intake and Output for Last 24 Hours 02/03/25 02/04/25 02/05/25 23:59 23:59 23:59 Intake Total 718.75 / 718.75 200 / 200 Output Total 1400 / 1400 Balance -681.25 / -681.25 200 / 200 Medical Nutrition Assessment Dietitian: Malnutrition Criteria Met Start: 02/04/25 12:20 Freq: Status: Active Protocol: Document 02/04/25 12:20 SLA (Rec: 02/04/25 12:20 SLA [email or web address]) Nutrition Malnutrition Evidence of Yes Malnutrition Exists Malnutrition (severe Acute Illness/Injury ): Evidenced By Suboptimal Energy Intake (Severe),Weight Loss (Severe) Clinical Problem Acute Disease or Injury Related Malnutrition Etiology related to severe dementia and inadequate energy intake /no interest in eating Signs/Symptoms related to po intake meeting <75% of est nutritional needs and 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 as Recommendations/ ordered Changes Pt may benefit from more aggressive nutrition support to help prevent further decline in pt nutritional status - if in accordance w/ pt/family wishes. Lab / Micro Data 02/04/25 06:31 02/05/25 06:20 Labs: Laboratory Results - last 24 hr 02/04/25 14:51: Sodium 136, Potassium 3.3, Chloride 101, Carbon Dioxide 26.2, Anion Gap 9, BUN 13, Creatinine 2.32 H, Estim Creat Clear Calc 13.66 L, Est GFR (MDRD) Non-Af 21 L, BUN/Creatinine Ratio 5.4 L, Glucose 111 H, Calcium 9.1 02/05/25 06:20: Sodium 135, Potassium 3.4, Chloride 101, Carbon Dioxide 24.4, Anion Gap 9, BUN 16, Creatinine 3.38 H, Estim Creat Clear Calc 9.38 L*, Est GFR (MDRD) Non-Af 13 L, BUN/Creatinine Ratio 4.6 L, Glucose 87, Calcium 8.8 Physical Exam Narrative General: Patient wakes up, pleasantly confused HEENT: Atraumatic Eyes: Spontaneous eye opening, hunched posture some poor eye contact Neck: Supple Respiratory: Fairly poor inspiration, no wheezes, no significant crackles Cardiovascular: Regular rate, systolic ejection murmur appreciated GI: Soft, nontender, nondistended Extremities: No significant pitting edema Musculoskeletal: Moving all extremities Neuro: No overt focal neurological deficits Skin: No rashes appreciated Psych: Overall cooperative Assessment & Plan Assessment/Plan (1) Dementia: PLAN: Plan # Dementia with declining functional status - Patient and family met with hospice today, plan is for home with hospice tomorrow - Supportive care #ESRD on HD - Patient had dialysis 02/04 with nephrology on consult, was having daily dialysis at home prior to that - Family met with hospice, plan is for home with hospice tomorrow # Blood in stool - Initially came to the ED due to altered mental status and some blood noted in stool that does have history of hemorrhoids - Hemoglobin is 11.5 which was higher than previous and recheck hemoglobin is 10.5 - The following day hemoglobin was stable at 10.8 - Today patient had apparently a small amount of bright red blood in stool reported by nurse, suspect this is hemorrhoids, patient is to go home with hospice tomorrow, will provide supportive care with plans for home with hospice tomorrow #Hypertension - She has been continued on her home medications #Depression/anxiety -Continue home medications #DVT ppx: RUBYs Cynthia Shah MD Time spent in the patient's overall evaluation,decision-making process, review of diagnostic data, adjustment of management, discussion with other providers, nursing nursing and ancillary staff involved in patient's care documentation, 36 Minutes Charges/Coding Visit Charges Inpatient E&M: 59245 Subs Hosp L2
[2025-02-05] MEDS: 0.9% Saline Lock 10 ML Syringe IV (15:09)
[2025-02-06 04:05] VITALS: BP 148/72; PULSE 68; RESP 16; TEMP 36.7; O2SAT 97
[2025-02-06 05:34] VITALS: BP 156/78; PULSE 73; RESP 14; TEMP 36.9; O2SAT 95
[2025-02-06 05:37] VITALS: PULSE 73
[2025-02-06 08:01] VITALS: BP 154/80; PULSE 89; RESP 16; TEMP 37.3; O2SAT 96
--- NOTE | 2025-02-06 09:35 | DCINST_ITS ---
Discharge Instructions
--- NOTE | 2025-02-06 09:35 | PCM.DC ---
Discharge Instructions DC O2, CPAP, BIPAP needs Home O2 Discharge instructions: Yes Type of respiratory needs?: Oxygen Oxygen frequency: Other Other oxygen liters per minute: 1 Other oxygen frequency: prn Follow Up Care Test Results: Test results from this visit will be discussed in further detail at your follow-up appointment, if applicable. Discharge Plan Admission Admit Date/Time: 02/04/25 15:07 Primary Reason for Your Visit: Blood in stool, altered mental status Attending Provider: Cynthia Shah Primary Care Provider: Jovon Emerson Consulting Providers: Eliezer Santos; Anatoliy Hammonds; Chi Heller; Rubi Kelly; Sweta Isabel; Seble Baker; Wen Becerril NP; Sofia Payne Instructions Patient Instructions: ED Fall Prevention Discharge Orders/Prescriptions Prescriptions: Continued furosemide 40 mg tablet 40 mg PO BID ondansetron HCl 4 mg tablet 4 mg PO Q8 PRN (Reason: nausea and vomiting) carvedilol 25 mg tablet 25 mg PO BID lorazepam 0.5 mg tablet 0.25 mg PO Q2H PRN (Reason: agitation) Patient Comments: [NO ORIGINAL SIG] citalopram 20 mg tablet 20 mg PO DAILY haloperidol 1 mg tablet 1 mg PO Q4H PRN (Reason: agitation) olanzapine 2.5 mg tablet 2.5 mg PO BID PRN (Reason: agitation) sennosides-docusate sodium [Senexon-S] 8.6-50 mg tablet 1 tab-cap PO BID PRN (Reason: constipation) losartan 50 mg tablet 50 mg PO BID trazodone 50 mg tablet 50 mg PO QHS clonidine HCl 0.3 mg tablet 0.3 mg PO TID hydralazine 100 mg tablet 100 mg PO TID calcitriol 0.25 mcg capsule 0.25 mcg PO DAILY melatonin 10 mg capsule 10 mg PO QHS PRN (Reason: sleep) amlodipine 5 mg Tablet 5 mg PO BID Referrals / Follow Up: Jovon Emerson DO [Primary Care Provider, Medical] Disposition Disposition (needs filled in before D/C Order can be placed): Hospice in Home
--- NOTE | 2025-02-06 09:37 | PCM.DC.SUM ---
Providers Date of Admission: 02/04/25 Date of Discharge: 02/06/25 Primary Care Physician: Dr. Jovon Emerson, DO Consultations 02/04/25 01:37 Consult: Nephrology Routine Consulting Provider: Anatoliy Hammonds Reason for Consult: Dialysis pending hospice eval EMERGENT Consult: No MD Notified: Yes Date Notified: 02/04/25 Time Notified: 08:38 Method of Notification: Answering Service 02/04/25 10:48 Consult: Hospice / Outpatient Palliative Care Routine Consulting Provider: [facility] Reason for Consult: dementia, ESRD on HD, suspect hospice appropriate EMERGENT Consult: No MD Notified: Yes Date Notified: 02/04/25 Time Notified: 10:48 Method of Notification: Answering Service Comments:: completed by SW. Reason For Visit: [facility] Diagnosis Discharge Diagnosis (1) Dementia: Status: Acute Code(s): F03.90 - Unspecified dementia, unspecified severity, without behavioral disturbance, psychotic disturbance, mood disturbance, and anxiety Plan # Dementia with declining functional status #ESRD on HD # Blood in stool likely hemorrhoids #Hypertension #Depression/anxiety Medications at Discharge Home Medications carvedilol 25 mg tablet 25 mg PO BID HTN 02/08/23 furosemide 40 mg tablet 40 mg PO BID 05/15/23 ondansetron HCl 4 mg tablet 4 mg PO Q8 PRN nausea and vomiting 01/22/24 citalopram 20 mg tablet 20 mg PO DAILY 04/30/24 haloperidol 1 mg tablet 1 mg PO Q4H PRN agitation 04/30/24 lorazepam 0.5 mg tablet 0.25 mg PO Q2H PRN agitation 04/30/24 olanzapine 2.5 mg tablet 2.5 mg PO BID PRN agitation 04/30/24 sennosides 8.6 mg-docusate sodium 50 mg tablet (Senexon-S) 1 tab-cap PO BID PRN constipation 04/30/24 calcitriol 0.25 mcg capsule 0.25 mcg PO DAILY 02/03/25 clonidine HCl 0.3 mg tablet 0.3 mg PO TID 02/03/25 hydralazine 100 mg tablet 100 mg PO TID 02/03/25 losartan 50 mg tablet 50 mg PO BID 02/03/25 melatonin 10 mg capsule 10 mg PO QHS PRN sleep 02/03/25 trazodone 50 mg tablet 50 mg PO QHS 02/03/25 amlodipine 5 mg tablet 5 mg PO BID 02/04/25 Hospital Course Summary of Care Provided Minutes Spent on Discharge: 20 Hospital Course: 79-year-old female with a history of end-stage renal disease on hemodialysis, hypertension, permanent pacemaker for sick sinus syndrome and dementia presented to [facility] ED 02/03/2025 with bright red blood per rectum. In the ED she was a very poor historian, measurement operator said they brought her in because of decreased level of consciousness and blood in her stool, does have known hemorrhoids. In the ED hemoglobin 11.5 which is higher than it was in May. Potassium noted to be 3 and UA not suggestive of UTI. Recheck of her hemoglobin was 10.5. Given this she was brought in with plans to monitor her hemoglobin as well as consider palliative or hospice consults given her dementia and multiple medical comorbidities. Nephrology consulted for dialysis while awaiting further family discussion. Patient's hemoglobin the morning after presentation was 10.8 up from 10.5 and no further bleeding was appreciated until the afternoon 02/05/2025 when patient had some bright red blood reported by the nurse in her stool but without large-volume or any hemodynamic changes, and ED note does report she has documented history of hemorrhoids. Patient's family met with hospice 02/05/2025 and plan was made for home with hospice, in order to get everything ready patient was kept overnight and discharged 02/06/2025 home with hospice. Physical Exam Narrative General: Alert HEENT: Atraumatic, normocephalic Eyes: extraocular movements grossly intact Neck: Supple Respiratory: normal respiratory effort Cardiovascular: no edema appreciated GI: nondistended Extremities: Moving all extremities Neuro: No overt focal neurological deficits Psych: Cooperative Medical Records Data Medical Nutrition Assessment Dietitian: Malnutrition Criteria Met Start: 02/04/25 12:20 Freq: Status: Active Protocol: Document 02/04/25 12:20 SLA (Rec: 02/04/25 12:20 SLA [email or web address]) Nutrition Malnutrition Evidence of Yes Malnutrition Exists Malnutrition (severe Acute Illness/Injury ): Evidenced By Suboptimal Energy Intake (Severe),Weight Loss (Severe) Clinical Problem Acute Disease or Injury Related Malnutrition Etiology related to severe dementia and inadequate energy intake /no interest in eating Signs/Symptoms related to po intake meeting <75% of est nutritional needs and 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 Weight / BMI Weight Weight: 46 kg Body Mass Index (BMI) 20.4 ABG / Lab / Microbiology Data 02/04/25 06:31 02/05/25 06:20 D/C Instructions DC O2, CPAP, BIPAP Needs Home O2 Discharge instructions: Yes Type of respiratory needs?: Oxygen Oxygen frequency: Other Other oxygen liters per minute: 1 Other oxygen frequency: prn DC home with Oxygen: Yes Home O2 MD Review: I have reviewed the oxygen testing, and the patient qualifies for home oxygen equipment and portability. The patient is mobile in the home and the community. Meaningful Use Info Meaningful Use Meaningful Use Diagnoses (Choose all that apply): None applicable Discharge Plan Admission Admit Date/Time: 02/04/25 15:07 Primary Reason for Your Visit: Blood in stool, altered mental status Attending Provider: Cynthia Shah Primary Care Provider: Jovon Emerson Consulting Providers: Eliezer Santos; Anatoliy Hammonds; Chi Heller; Rubi Kelly; Sweta Isabel; Seble Baker; Wen Becerril MACHINE SET UP OPERATOR; Sofia Payne Instructions Patient Instructions: ED Fall Prevention Discharge Orders/Prescriptions Prescriptions: Continued furosemide 40 mg tablet 40 mg PO BID ondansetron HCl 4 mg tablet 4 mg PO Q8 PRN (Reason: nausea and vomiting) carvedilol 25 mg tablet 25 mg PO BID lorazepam 0.5 mg tablet 0.25 mg PO Q2H PRN (Reason: agitation) Patient Comments: [NO ORIGINAL SIG] citalopram 20 mg tablet 20 mg PO DAILY haloperidol 1 mg tablet 1 mg PO Q4H PRN (Reason: agitation) olanzapine 2.5 mg tablet 2.5 mg PO BID PRN (Reason: agitation) sennosides-docusate sodium [Senexon-S] 8.6-50 mg tablet 1 tab-cap PO BID PRN (Reason: constipation) losartan 50 mg tablet 50 mg PO BID trazodone 50 mg tablet 50 mg PO QHS clonidine HCl 0.3 mg tablet 0.3 mg PO TID hydralazine 100 mg tablet 100 mg PO TID calcitriol 0.25 mcg capsule 0.25 mcg PO DAILY melatonin 10 mg capsule 10 mg PO QHS PRN (Reason: sleep) amlodipine 5 mg Tablet 5 mg PO BID Referrals / Follow Up: Jovon Emerson DO [Primary Care Provider, Medical] Disposition Disposition (needs filled in before D/C Order can be placed): Hospice in Home Charges/Coding Visit Charges Inpatient E&M: 04816 Disch Hosp
[2025-02-06 11:21] VITALS: BP 142/64; PULSE 76; RESP 16; TEMP 36.4; O2SAT 96
== END 2025-02-06 13:15 | disposition hospice, home (50) | DRG 291 ==
LOC: ED 23:56 → MS3 02-04 01:25
PROVIDERS: Admitting Provider Family Medicine; Emergency Provider Emergency Medicine; Visit Provider Internal Medicine
DX: I13.2 Hypertensive heart and chronic kidney disease with heart failure and with stage 5 chronic kidney disease, or end stage renal disease (principal); N18.6 End stage renal disease; K62.5 Hemorrhage of anus and rectum; Z66 Do not resuscitate; F03.C0 Unspecified dementia, severe, without behavioral disturbance, psychotic disturbance, mood disturbance, and anxiety; F32.A Depression, unspecified; I50.9 Heart failure, unspecified; I48.91 Unspecified atrial fibrillation; Z99.2 Dependence on renal dialysis; E78.00 Pure hypercholesterolemia, unspecified; E87.5 Hyperkalemia; F41.9 Anxiety disorder, unspecified; Z90.710 Acquired absence of both cervix and uterus; Z85.828 Personal history of other malignant neoplasm of skin; Z86.73 Personal history of transient ischemic attack (TIA), and cerebral infarction without residual deficits; Z79.899 Other long term (current) drug therapy; Z90.49 Acquired absence of other specified parts of digestive tract; Z95.0 Presence of cardiac pacemaker; Z94.89 Other transplanted organ and tissue status
CPT/HCPCS: 36415; 80048; 80053; 81001; 82140; 83605; 85014; 85018; 85025; 85610; 86850; 86900; 86901; 90937; 93005; 97802; 99285; P9612; A4216; G0257; J2405